=== PATIENT | male | born 1935 | race Caucasian/White ===

== ENCOUNTER 2016-12-24 12:03 | Inpatient (IN) | payer OTHER, MEDICARE ==
[~2016-12-24] VITALS: Ht 162.6 cm; Wt 75.8 kg
[~2016-12-24 12:03] MED LIST: ASPIRIN EC81 M1 PO; AUGMENTIN 500-1 EACH PO; BACTRIM DS TAB1 EACH PO; CARTIA XT120 M1 PO; COUMADIN2 M1 PO; COUMADIN3 M1 PO; COUMADIN5 M2 PO; DAILY MULTIPLE1 EACH PO; FINASTERIDE5 M1 PO; HALOPERIDOL0.5 M1 PO; ISOSORBIDE MONO60 M1 PO; LASIX40 M1 PO; LIPITOR80 M1 PO; LOPRESSOR100 M1 PO; MELATONIN3 M4 PO; METOPROLOL TART25 M1 PO; PRESERVISION A1 EACH PO; RISPERDAL0.25 M1 PO; RISPERDAL1 M1 PO; RISPERIDONE0.5 M1 PO; ROCALTROL0.25 MC1 PO; SENNA PLUS TAB1 EACH PO; SEROQUEL25 M1 PO; TRAZODONE HCL50 M1 PO; WARFARIN SODIUM3 M1 PO; ZOLOFT50 M1 PO
--- NOTE | 2016-12-24 12:17 | NUR ---
81 Y/O MALE BIBA FROM HOME FOR INCREASE AMS AND LETHARGY SINCE TODAY. PER ENS PT HAD A FAL 2 DAYS AGO AND IS ON ABT FOR UTI. PT ALSO HAS A HX OF DEMENTIA. PT ARRIVES AND IS A/O X1 TO SELF. PT HAS INDWELLING WALKER AND DENIES ANY COMPLAINTS AT PRESENT
--- NOTE | 2016-12-24 12:40 | NUR ---
PT EVALUATED BY BRIGITTE HERRING
--- NOTE | 2016-12-24 12:44 | ED GENERAL ADULT ---
History of Present Illness General Chief Complaint: Altered Mental Status Stated Complaint: BIBA AMS Source: patient, family, old records, EMS Exam Limitations: no limitations Vital Signs & Intake/Output Vital Signs & Intake/Output Vital Signs Date Time Temp Pulse Resp B/P Pulse O2 O2 Flow FiO2 Ox Delivery Rate 12/24 1654 96.7 90 18 149/76 98 Room Air 12/24 1348 98.0 124 22 120/71 96 Room Air 12/24 1222 99 Room Air 12/24 1219 96.9 94 18 135/72 99 Room Air Allergies Coded Allergies: ciprofloxacin (From CIPRO) (Mild, ITCHING 10/04/16) Triage Note: 81 Y/O MALE BIBA FROM HOME FOR INCREASE AMS AND LETHARGY SINCE TODAY. PER ENS PT HAD A FAL 2 DAYS AGO AND IS ON ABT FOR UTI. PT ALSO HAS A HX OF DEMENTIA. PT ARRIVES AND IS A/O X1 TO SELF. PT HAS INDWELLING WALKER AND DENIES ANY COMPLAINTS AT PRESENT Triage Nurses Notes Reviewed? yes Onset: Gradual Duration: week(s): (2) Timing: recent history Injury Environment: home Severity: moderate No Modifying Factors: none HPI: Patient is a 81-year-old male with history of dementia, chronically no failure presenting to the emergency department with chief complaint of malaise, feeling dehydrated, weakness Going on for the past one week. Per patient has had difficulty ambulating at home as well. There is a fall 3 days ago where patient was put into bed and fell off the bed. ON SURE OF HEAD injury. Unsure of LOC. Per they have visiting nursing, physical therapy to come to the house. Physical therapy came to us yesterday but one was unable to do any tasks as patient was extremely drowsy and lethargic. Patient is currently on Macrobid for urinary tract infection and has been on the Macrobid for the past 2 weeks. Is unsure about any fevers. Patient denying any pain at reports malaise. Denies abdominal pain. No diarrhea. No travel. No sick contacts. (NEVAEH BRIGGS,GLEN) Reconcile Medications Aspirin (Ecotrin*) 81 MG TABLET.DR 2 TAB PO DAILY HEART/BLOOD (Reported) Atorvastatin Calcium (Lipitor) 80 MG TABLET 1 TAB PO DAILY CHOLESTEROL ( Reported) Calcitriol (Rocaltrol) 0.25 MCG CAPSULE 1 CAP PO DAILY RENAL (Reported) Diltiazem HCl (Cartia Xt) 120 MG CAP.ER.24H 1 CAP PO DAILY HEART/BP (Reported ) Isosorbide Mononitrate (Isosorbide Mononitrate ER) 30 MG TAB.ER.24H 1 TAB PO DAILY HEART HEALTH (Reported) Multivitamin (Daily Multiple Vitamin) 1 EACH TABLET 1 TAB PO DAILY SUPPLEMENT (Reported) Nitrofurantoin Macrocrystal (Nitrofurantoin) 50 MG CAPSULE 1 CAP PO DAILY UTI (Reported) Polyethylene Glycol 3350 17 GRAM/DOSE POWDER 17 GM PO DAILY BOWEL REGIMEN ( Reported) Risperidone (Risperdal) 1 MG TABLET 1 TAB PO QPM AGITATION (Reported) Risperidone 0.5 MG TABLET 1 TAB PO QPM AGITATION (Reported) Sennosides/Docusate Sodium (Senna Plus Tablet) 1 EACH TABLET 2 TAB PO DAILY PRN CONSTIPATION Trazodone HCl 50 MG TABLET 1 TAB PO QPM SLEEP/AGITATION (Reported) Vit A/Vit C/Vit E/Zinc/Copper (Preservision Areds Tablet) 1 EACH TABLET 1 TAB PO BID SUPPLEMENT (Reported) Reason to Stop at ADM: NOT NEEDED Warfarin Sodium 3 MG TABLET 1 TAB PO AD BLOOD THINNER (Reported) Reason to Stop at ADM: PER DAILY INR Warfarin Sodium (Coumadin) 3 MG TABLET 1 TAB PO EOD BLD THINNER (Reported) (JONO WISE DO) Past History Travel History Traveled to [place] past 21 day No Medical History Any Pertinent Medical History? see below for history Neurological: dementia EENT: cataracts, macular degeneration, IN L EYE DETACHED RETINA Cardiovascular: AFIB, CAD, hypertension, hyperlipidemia, CARDIAC STENTS Respiratory: NONE Gastrointestinal: NONE Hepatic: NONE Renal: chronic kidney disease, PROSTATE PROBLEMS Musculoskeletal: disk herniation, osteoarthritis Psychiatric: NONE Endocrine: NONE Blood Disorders: NONE Cancer(s): prostate cancer POOL LIFEGUARD/Reproductive: NONE History of MRSA: No History of VRE: No History of CDIFF: No Surgical History Surgical History: non-contributory Psychosocial History Who do you live with Spouse What is your primary language Yi Tobacco Use: Quit >30 days ago ETOH Use: denies use Illicit Drug Use: denies illicit drug use Family History Hx Contributory? No (GLEN BANDA) Review of Systems Review of Systems Constitutional: Reports: malaise, weakness. Comments Review of systems: See HPI, All other systems negative. Constitutional, no chills fever or weight loss HEENT: No visual changes no sore throat no congestion Cardiovascular: No chest pain ,palpitation , orthopnea or ankle swelling Skin, no jaundice no rashes Respiratory: No dyspnea cough sputum or hemoptysis GI: No nausea no vomiting : No dysuria No hematuria Muscle skeletal: no back pain, no neck pain, Neurologic: No numbness Psych: No INCREASED stress anxiety or depression,. Heme/endocrine: No bruising no bleeding no polyuria or polydipsia Immunology: No splenectomy or history of AIDS (GLEN BANDA) Physical Exam Physical Exam General Appearance: no apparent distress, comfortable, lethargic, thin Comments: Well-developed well-nourished person in no acute distress HEENT: Pupils equally round and reactive to light and accommodation. Nose is atraumatic. Pharynx normal. No swelling or edema. Slightly dry oral mucosa. Neck: Supple, no lymphadenopathy Back: Nontender, no CVA tenderness. Cardiovascular: Regular rate and rhythms no murmurs rubs or gallops, normal JVP Respiratory: Chest nontender. No respiratory distress.breath sounds clear to auscultation bilaterally Abdomen: Soft, nontender nondistended, no appreciable organomegaly. Normal bowel sounds. No ascites, no rebound or guarding. : Concentrated yellow urine in the Walker catheter. Extremity: No edema, muscular strength is 3/5 in all extremities. Max assist of one to sit up in bed. Neuro: Alert oriented to self only. Cranial nerves II through XII grossly intact. Skin: No appreciable rash on exposed skin, skin is warm and dry. Psych: Mood and affect is normal, memory and judgment is normal. Core Measures ACS in differential dx? Yes CVA/TIA Diagnosis: No Severe Sepsis Present: No Septic Shock Present: No (GLEN BANDA) Progress Differential Diagnoses I considered the following diagnoses in my evaluation of the patient: Urinary tract infection, dehydration, electrolyte abnormality, intracranial hemorrhage, minor head injury, concussion, progression of dementia Plan of Care: Orders Procedure Date/time Status Heart Healthy Diet 12/25 B Active Heart Healthy Diet 12/24 D Complete Code Status 12/24 1802 Active Pathway - chart 12/24 162 Active House Staff 12/24 1626 Active Patient Data 12/24 1626 Active Code Status 12/24 1626 Complete Admit to inpatient 12/24 1621 Active Vital Signs 12/24 1621 Active Code Status 12/24 1621 Complete Patient Data 12/24 1528 Active BLOOD CULTURE 12/24 1316 Active Telemetry/[employer] Systems Engineer 12/24 1248 Active CULTURE,URINE 12/24 1248 Active URINALYSIS 12/24 1248 Complete TROPONIN LEVEL 12/24 1248 Complete PARTIAL THROMBOPLASTIN TIME 12/24 1248 Complete PROTHROMBIN TIME 12/24 1248 Complete LACTIC ACID 12/24 1248 Complete COMPREHENSIVE METABOLIC PANEL 12/24 1248 Complete CBC WITHOUT DIFFERENTIAL 12/24 1248 Complete EKG 12/24 1248 Active Intake & Output 12/24 1218 Active VTE Mechanical Prophylaxis 12/24 UNK Active PSYCHIATRIC CONSULT 12/24 UNK Active Current Medications Sig/Yanira Start time Last Medication Dose Stop Time Status Admin Atorvastatin Calcium 80 MG DAILY@1700 12/25 1700 AC (Lipitor) Aspirin Buffered 162 MG DAILY 12/25 1000 AC (Ecotrin) Calcitriol 0.25 MCG DAILY 12/25 1000 AC (Rocaltrol 0.25 Mcg Cap) Diltiazem HCl 120 MG DAILY 12/25 1000 AC (Cardizem CD) Isosorbide 30 MG DAILY 12/25 1000 AC Mononitrate (Imdur) Ceftazidime 1,000 MG Q24H 12/24 2200 AC (Fortaz) Heparin Sodium 5,000 UNIT Q8 12/24 2200 AC (Porcine) Risperidone 1 MG QPM 12/24 2200 AC (Risperidone) Risperidone 0.5 MG QPM 12/24 2200 AC (Risperidone) Trazodone HCl 50 MG QPM 12/24 2200 AC (Desyrel) Senna/Docusate Sodium 2 TAB DAILY PRN 12/24 1745 AC (Senokot S) Polyethylene Glycol 17 GM DAILY 12/24 1735 AC (Miralax) Acetaminophen 650 MG Q6P PRN 12/24 1630 AC (Tylenol) Ceftriaxone Sodium 1,000 MG ONCE ONE 12/24 1515 CAN (Rocephin) 12/24 1516 Laboratory Tests 12/24/16 1548: Lactic Acid Cancelled 12/24/16 1330: Anion Gap 11, Estimated GFR 8 L, BUN/Creatinine Ratio 8.4, Glucose 89, Lactic Acid 1.6, Calcium 10.4 H, Total Bilirubin 0.8, AST 18, ALT 32, Alkaline Phosphatase 101, Troponin I 0.02, Total Protein 6.3, Albumin 3.6, Globulin 2.7, Albumin/Globulin Ratio 1.3, PT 16.3 H, INR 1.56 H, APTT 32, CBC w Diff NO MAN DIFF REQ, RBC 4.14 L, MCV 89.8, MCH 30.0, RDW 14.9 H, MPV 7.7, Gran % 81.3 H, Lymphocytes % 9.8 L, Monocytes % 7.0, Eosinophils % 1.4, Basophils % 0.5, Absolute Granulocytes 6.1, Absolute Lymphocytes 0.7 L, Absolute Monocytes 0.5, Absolute Eosinophils 0.1, Absolute Basophils 0, PUBS MCHC 33.4 12/24/16 1307: Urinalysis LIGHT H, Urine Color YEL, Urine Clarity HAZY H, Urine pH 6.0, Ur Specific [place] >= 1.030, Urine Protein 100 H, Urine Ketones TRACE H, Urine Nitrite NEG, Urine Bilirubin NEG, Urine Urobilinogen 0.2, Ur Leukocyte Esterase LARGE H, Ur Microscopic SEDIMENT EXAMINED, Urine RBC 5-10 H, Urine WBC > 75 H , Ur Epithelial Cells RARE, Urine Crystals 1+ CA OX H, Urine Hemoglobin MOD H, Urine Glucose NEG Microbiology 12/24 1350 BLOOD: Blood Culture - RECD 12/24 1330 BLOOD: Blood Culture - RECD 12/24 1307 URINE ROUT: Urine Culture - RECD Diagnostic Imaging: Viewed by Me: CT Scan. Discussed w/RAD: CT Scan. Radiology Impression: PATIENT: TRINA VILLALOBOS PRESENT AGE: 81 PATIENT ACCOUNT NO: [id number] : 37 LOCATION: [facility] ORDERING PHYSICIAN: GLEN BRIGGS SERVICE DATE: 12/24/16-1256 EXAM TYPE: CAT - CT CERV SPINE WO IV CONTRAST; CT HEAD WO IV CONTRAST EXAMINATION: CT OF THE HEAD WITHOUT CONTRAST CT OF CERVICAL SPINE WITHOUT CONTRAST CLINICAL INFORMATION: Fall on Thursday. Question head strike. Rule out intracranial process. Poor historian. Evaluate for cervical spine fracture. COMPARISON: CT scan of the head and cervical spine dated 07/23/2016. CT scan of the head dated 07/14/2016. TECHNIQUE: Contiguous axial imaging was performed from the skull base to vertex without intravenous administration of contrast. Coronal reformations were obtained. Contiguous axial imaging was performed from the skull base to the thoracic inlet without intravenous administration of contrast. Sagittal and coronal reformations were obtained. DLP: 921.31 mGy-cm. FINDINGS: CT SCAN OF THE HEAD: There is no evidence of acute intracranial hemorrhage or territorial infarction. No abnormal mass-effect or midline shift is seen. Cornell to white matter differentiation is well preserved. No extra-axial fluid collections are identified. The ventricles and sulci are mildly enlarged, consistent with mild involutional changes, unchanged from prior studies. Diffuse periventricular deep white matter low-attenuation and low attenuation in the basal ganglia bilaterally is seen, also unchanged from prior exams, consistent with moderate ischemic small vessel disease. Calcification of the vertebral artery and the carotid siphons is seen. The patient is status post bilateral ocular lens extractions and replacements and right scleral banding. The osseous structures and soft tissues are normal. The mastoid air cells and visualized portions of the paranasal sinuses are well-aerated. CT SCAN OF THE CERVICAL SPINE: There is no evidence of acute fracture or dislocation. The craniocervical junction and atlantoaxial articulations are intact. Prevertebral soft tissues are normal in thickness. There is severe degenerative change at the atlantoaxial articulation with irregularity, erosion and sclerosis seen. There is also significant ligamentous calcification seen at the posterior aspect of the odontoid process. There is severe degenerative disc disease at C5-C6 with marked disc space narrowing, vertebral endplate sclerosis, spurring and cystic changes seen. Posterior disc osteophyte complex at this level causes mild spinal stenosis. There is mild degenerative disc disease seen at C3-C4, C4-C5, C6-C7, and C7-T1 with disc space narrowing and mild spurring seen. 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 There is advanced facet arthropathy seen in the right C4-C5 and C5-C6 facet joints and moderate facet arthropathy at the remaining right cervical facet joints. Mild facet arthropathy is seen throughout the mid and lower cervical spine on the left side. There is subcentimeter nodularity seen in the left lobe of the thyroid gland, unchanged, of doubtful clinical significance. IMPRESSION: 1. Unchanged appearance of the head with no acute intracranial pathology. 2. Findings consistent with ischemic small vessel disease. 3. Unchanged appearance of the cervical spine with no evidence of acute fracture or subluxation/dislocation. 4. Moderate to severe degenerative disc disease and facet arthropathy throughout the cervical spine as discussed above. 5. Advanced degenerative changes at the atlantoaxial articulation. CXR Impression: RESENT AGE: 81 PATIENT ACCOUNT NO: [id number] : 37 LOCATION: [facility] ORDERING PHYSICIAN: GLEN BRIGGS SERVICE DATE: 12/24/16 -7864 EXAM TYPE: RAD - XRY-PORTABLE CHEST XRAY EXAMINATION: XR PORTABLE CHEST CLINICAL INFORMATION: Acute mental status change. COMPARISON: Portable chest x- ray done 07/17/2016. TECHNIQUE: Portable AP semierect view of the chest was obtained. FINDINGS: The heart remains enlarged. The lungs are clear showing no evidence of acute pulmonary parenchymal or pleural disease. Interposition of an air-filled hepatic flexure of the colon beneath the right hemidiaphragm results in slight elevation of the diaphragm. The bony thorax is intact. IMPRESSION: Heart enlarged. No acute disease. DICTATED BY: RADHA LARIOS MD DATE/TIME DICTATED:12/24/161411 GENERAL ACCOUNTING CLERK:DEWAYNE DATE/TIME TRANSCRIBED:1411 CONFIDENTIAL, DO NOT COPY WITHOUT APPROPRIATE AUTHORIZATION. < Electronically signed in Other Vendor System> SIGNED BY: RADHA LARIOS MD 12/24/161417 Initial ED EKG: AFIB Prior EKG: unchanged Comments: On arrival patient is alert to self, reports intermittent confusion and delusions. She was also reporting increased weakness as he's had extremely hard time ambulating throughout the house safely with his walker. She reports there is a few episodes where he was felt. Patient is Max assist to sit up in bed, unable to even transfer him to vaginal bed when felt more help. We will assess CBC, CMP, urinalysis. Patient currently on Macrobid for UTI. Recent urine culture shows that its resistant to Macrobid. Family hours informed of all lab results and imaging study results. Patient does have acute on chronic renal failure. Elevated BUN suggesting dehydration. Urine shows UTI. Patient given Fortaz as he recently had Pseudomonas growing in his urine culture. Patient will be admit for IV antibiotics for UTI, altered mental status and multifactorial gait disorder. Patient will likely need rehabilitation as he is weaker compared to baseline. Patient receiving IV fluids for dehydration. does not feel safe with patient home as he almost fell several times. He was requiring more help over the past week than baseline. (GLEN BANDA) Departure Departure Time of Disposition: 1517 Disposition: STILL A PATIENT Condition: Stable Clinical Impression Primary Impression: Urinary tract infection Qualifiers: Urinary tract infection type: site unspecified Hematuria presence: without hematuria Qualified Code: N39.0 - Urinary tract infection, site not specified Secondary Impressions: Altered mental status Qualifiers: Altered mental status type: unspecified Qualified Code: R41.82 - Altered mental status, unspecified Multifactorial gait disorder Referrals: FABIÁN CASTRO,DANIELA Peacock (PCP/Family) Departure Forms: Customer Survey General Discharge Information Admission Note Spoke With: BRENDEN COLLINS MD Documentation of Exam: Documentation of any treatments & extenuating circumstances including Concerns Regarding Discharge (functional status, medication knowledge or non-compliance, living conditions, etc.) that warrant an admission rather than observation: Patient requiring IV antibiotics for urinary tract infection, urology consultation, repeat BUN and creatinine, discharge at this time would be medically harmful. Patient will also need physical therapy consultation, may need to SANKET psych consultation as well. (GLEN BANDA) PA/SUPERVISOR OF GUIDANCE AND TESTING Co-Sign Statement Statement: ED Attending supervision documentation- [X] I saw and evaluated the patient. I have also reviewed all the pertinent lab results and diagnostic results. I agree with the findings and the plan of care as documented in the PA's/SUPERVISOR OF GUIDANCE AND TESTING's documentation. [] I have reviewed the ED Record and agree with the PA's/SUPERVISOR OF GUIDANCE AND TESTING's documentation. [] Additions or exceptions (if any) to the PAs/SUPERVISOR OF GUIDANCE AND TESTING's note and plan are summarized below: [] (JONO WISE DO) Procedures Additional Procedures Additional Procedures: SWALLOW EVAL Progress: Patient able to sit clear thin liquids without choking or coughing. Patient was then given a cup of water to drink without difficulties, no coughing or choking. (GLEN BANDA) Critical Care Note Critical Care Note Critical Care Time: 30-74 min (GLEN BANDA)
--- NOTE | 2016-12-24 12:59 | NUR ---
PT LEFT FOR CAT SCAN
--- NOTE | 2016-12-24 13:10 | NUR ---
URINE SENT AND PT LEFT FOR CAT SCAN
[2016-12-24 13:52] LABS: ABSOLUTE BASOPHIL COUNT 0 /CUMM (0.0-0.2); ABSOLUTE EOSINOPHIL COUNT 0.1 /CUMM (0.0-0.7); ABSOLUTE GRANULOCYTE CT 6.1 /CUMM (1.4-6.5); ABSOLUTE LYMPH COUNT 0.7 /CUMM (1.2-3.4); ABSOLUTE MONOCYTE COUNT 0.5 /CUMM (0.10-0.60); BASOPHIL % 0.5 % (0.0-2.0); EOSINOPHIL % 1.4 % (0-5); GRANULOCYTE % 81.3 % (42.2-75.2); HEMATOCRIT 37.2 % (42-52); MEAN CORPUSCULAR HGB CONC 33.4 G/DL (33.0-37.0); MEAN CORPUSCULAR VOLUME 89.8 FL (80.0-94.0); MEAN PLATELET VOLUME 7.7 FL (7.4-10.4); PLATELET COUNT 189 /CUMM (130-400); RBC DISTRIBUTION WIDTH 14.9 % (11.5-14.5); RED BLOOD CELL CT 4.14 /CUMM (4.70-6.10); WHITE BLOOD CELL COUNT 7.5 /CUMM (4.8-10.8)
--- NOTE | 2016-12-24 13:55 | CT SCAN REPORT ---
EXAMINATION: CT OF THE HEAD WITHOUT CONTRAST CT OF CERVICAL SPINE WITHOUT CONTRAST CLINICAL INFORMATION: Fall on Thursday. Question head strike. Rule out intracranial process. Poor historian. Evaluate for cervical spine fracture. COMPARISON: CT scan of the head and cervical spine dated 07/23/2016. CT scan of the head dated 07/14/2016. TECHNIQUE: Contiguous axial imaging was performed from the skull base to vertex without intravenous administration of contrast. Coronal reformations were obtained. Contiguous axial imaging was performed from the skull base to the thoracic inlet without intravenous administration of contrast. Sagittal and coronal reformations were obtained. DLP: 921.31 mGy-cm. FINDINGS: CT SCAN OF THE HEAD: There is no evidence of acute intracranial hemorrhage or territorial infarction. No abnormal mass-effect or midline shift is seen. Cornell to white matter differentiation is well preserved. No extra-axial fluid collections are identified. The ventricles and sulci are mildly enlarged, consistent with mild involutional changes, unchanged from prior studies. Diffuse periventricular deep white matter low-attenuation and low attenuation in the basal ganglia bilaterally is seen, also unchanged from prior exams, consistent with moderate ischemic small vessel disease. Calcification of the vertebral artery and the carotid siphons is seen. The patient is status post bilateral ocular lens extractions and replacements and right scleral banding. The osseous structures and soft tissues are normal. The mastoid air cells and visualized portions of the paranasal sinuses are well-aerated. CT SCAN OF THE CERVICAL SPINE: There is no evidence of acute fracture or dislocation. The craniocervical junction and atlantoaxial articulations are intact. Prevertebral soft tissues are normal in thickness. There is severe degenerative change at the atlantoaxial articulation with irregularity, erosion and sclerosis seen. There is also significant ligamentous calcification seen at the posterior aspect of the odontoid process. There is severe degenerative disc disease at C5-C6 with marked disc space narrowing, vertebral endplate sclerosis, spurring and cystic changes seen. Posterior disc osteophyte complex at this level causes mild spinal stenosis. There is mild degenerative disc disease seen at C3-C4, C4-C5, C6-C7, and C7-T1 with disc space narrowing and mild spurring seen. 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 There is advanced facet arthropathy seen in the right C4-C5 and C5-C6 facet joints and moderate facet arthropathy at the remaining right cervical facet joints. Mild facet arthropathy is seen throughout the mid and lower cervical spine on the left side. There is subcentimeter nodularity seen in the left lobe of the thyroid gland, unchanged, of doubtful clinical significance. IMPRESSION: 1. Unchanged appearance of the head with no acute intracranial pathology. 2. Findings consistent with ischemic small vessel disease. 3. Unchanged appearance of the cervical spine with no evidence of acute fracture or subluxation/dislocation. 4. Moderate to severe degenerative disc disease and facet arthropathy throughout the cervical spine as discussed above. 5. Advanced degenerative changes at the atlantoaxial articulation.
[2016-12-24] MEDS ORDERED: ISOSORBIDE MONO30 M1 PO (14:06)
[2016-12-24] MEDS ORDERED: POLYETHYLENE G255 GM PO (14:06)
[2016-12-24] MEDS ORDERED: NITROFURANTOIN50 M1 PO (14:06)
[2016-12-24 14:09] LABS: PT 16.3 SEC (9.4-12.5); PTT 32 SEC (25-37)
--- NOTE | 2016-12-24 14:13 | NUR ---
CRITICAL TEST RESULTS [id number] TRINA VILLALOBOS 81 M TESTS AND RESULTS: CRENOA 6.7 Results received and read back by: RAMÍREZ RILEY Results received date and time: 12/24/16 1413 The following provider was notified of the results, and read the results back: BRIGITTE HERRING Notified date and time: 12/24/16 at 1413
--- NOTE | 2016-12-24 14:18 | RADIOLOGY REPORT ---
EXAMINATION: XR PORTABLE CHEST CLINICAL INFORMATION: Acute mental status change. COMPARISON: Portable chest x-ray done 07/17/2016. TECHNIQUE: Portable AP semierect view of the chest was obtained. FINDINGS: The heart remains enlarged. The lungs are clear showing no evidence of acute pulmonary parenchymal or pleural disease. Interposition of an air-filled hepatic flexure of the colon beneath the right hemidiaphragm results in slight elevation of the diaphragm. The bony thorax is intact. IMPRESSION: Heart enlarged. No acute disease.
--- NOTE | 2016-12-24 14:20 | RADIOLOGY REPORT ---
EXAMINATION: XR KNEE, LEFT CLINICAL INFORMATION: Pain after fall COMPARISON: None. TECHNIQUE: 4 views of the left knee. FINDINGS: Femoral and tibial arthroplasty components are present in the medial compartment. Articular alignment is anatomic. No acute fracture is seen. There is mild osteophytosis of the lateral and patellofemoral compartments. No significant effusion. Extensive vascular calcification is noted. IMPRESSION: No acute findings.
--- NOTE | 2016-12-24 14:49 | NUR ---
PA AT BEDSIDE TO DISCUSS POC
--- NOTE | 2016-12-24 15:25 | NUR ---
PT COMPLETED IV NS AND IV FORTAZ INFUSING
--- NOTE | 2016-12-24 15:45 | NUR ---
PT COMPLETED FORTAZ AND IV NS INFUSING ORDERED
--- NOTE | 2016-12-24 16:00 | NUR ---
PATIENT GIVEN FOOD TRAY HE STATES HE DOES NOT WANT TO EAT RIGHT NOW
--- NOTE | 2016-12-24 16:00 | NUR ---
PT NOTED SLEEPING SOUNDLY WITH NO COMPLAINTS REFUSING TO EAT AT PRESENT WILL RE EVAL AGAIN
--- NOTE | 2016-12-24 16:57 | History & Physical ---
TIAN WESTBROOK 12/24/16 6506: General Information and HPI MD Statement: I have seen and personally examined TRINA KELLY and documented this H&P. The patient is a 81 year old M who presented with a patient stated chief complaint of AMS. Source of Information: family, old records Exam Limitations: unable to give history, not alert/orientated, dementia History of Present Illness: Mr Kelly is a 81 yr old man who was known to be in his usual state of health until 4 days ago. He has a history of Dementia, Afib(on coumadin), Prostate ca, CKD stage 3, macular degeneration. He was brought to the ED w/ a chief concern of altered mental status x 3-4 days. As per the pts , who spoke to Dr. Beverly, Mr Kelly fell from his bed 2 days ago, without any injuries. He was confused at that time. Was reported to be drowsy and lethargic x 2 days, w/ decreased po intake. Has an indwelling polanco for flacid bladder(&prostate pathology), which was placed by Dr. Mansfield after a cystoscopy was performed 2 wks ago. No report of fever, or chills, no back pain, pedal edema. No chest pain, palpitations. Limited ROS history. Allergies/Medications Allergies: Coded Allergies: ciprofloxacin (From CIPRO) (Mild, ITCHING 10/04/16) Home Med list Aspirin (Ecotrin*) 81 MG TABLET.DR 2 TAB PO DAILY HEART/BLOOD (Reported) Atorvastatin Calcium (Lipitor) 80 MG TABLET 1 TAB PO DAILY CHOLESTEROL ( Reported) Calcitriol (Rocaltrol) 0.25 MCG CAPSULE 1 CAP PO DAILY RENAL (Reported) Diltiazem HCl (Cartia Xt) 120 MG CAP.ER.24H 1 CAP PO DAILY HEART/BP (Reported ) Isosorbide Mononitrate (Isosorbide Mononitrate ER) 30 MG TAB.ER.24H 1 TAB PO DAILY HEART HEALTH (Reported) Multivitamin (Daily Multiple Vitamin) 1 EACH TABLET 1 TAB PO DAILY SUPPLEMENT (Reported) Nitrofurantoin Macrocrystal (Nitrofurantoin) 50 MG CAPSULE 1 CAP PO DAILY UTI (Reported) Polyethylene Glycol 3350 17 GRAM/DOSE POWDER 17 GM PO DAILY BOWEL REGIMEN ( Reported) Risperidone (Risperdal) 1 MG TABLET 1 TAB PO QPM AGITATION (Reported) Risperidone 0.5 MG TABLET 1 TAB PO QPM AGITATION (Reported) Sennosides/Docusate Sodium (Senna Plus Tablet) 1 EACH TABLET 2 TAB PO DAILY PRN CONSTIPATION Trazodone HCl 50 MG TABLET 1 TAB PO QPM SLEEP/AGITATION (Reported) Vit A/Vit C/Vit E/Zinc/Copper (Preservision Areds Tablet) 1 EACH TABLET 1 TAB PO BID SUPPLEMENT (Reported) Reason to Stop at ADM: NOT NEEDED Warfarin Sodium 3 MG TABLET 1 TAB PO AD BLOOD THINNER (Reported) Reason to Stop at ADM: PER DAILY INR Warfarin Sodium (Coumadin) 3 MG TABLET 1 TAB PO EOD BLD THINNER (Reported) Compliance With Home Meds: GOOD Past History Travel History Traveled to [place] past 21 day No Medical History Neurological: dementia EENT: cataracts, macular degeneration, IN L EYE DETACHED RETINA Cardiovascular: AFIB, CAD, hypertension, hyperlipidemia, CARDIAC STENTS Respiratory: NONE Gastrointestinal: NONE Hepatic: NONE Renal: chronic kidney disease, PROSTATE PROBLEMS Musculoskeletal: disk herniation, osteoarthritis Psychiatric: NONE Endocrine: NONE Blood Disorders: NONE Cancer(s): prostate cancer CLARIFIER/Reproductive: NONE History of MRSA: No History of VRE: No History of CDIFF: No Surgical History Surgical History: non-contributory Past Family/Social History Family History Relations & Conditions if any Relation not specified for: *No pertinent family history Psychosocial History ETOH Use: denies use Illicit Drug Use: denies illicit drug use Review of Systems Review of Systems Constitutional: Reports: see HPI. Cardiovascular: Denies: chest pain, peripheral edema. Respiratory: Denies: cough, short of breath. GI: Denies: diarrhea, melena, vomiting. Skin: Denies: change in skin color. Exam & Diagnostic Data Last 24 Hrs of Vital Signs/I&O Vital Signs Date Time Temp Pulse Resp B/P Pulse O2 O2 Flow FiO2 Ox Delivery Rate 12/24 2045 98.3 108 18 168/98 96 Room Air 12/24 2000 97.0 114 20 167/86 98 Room Air 12/24 1654 96.7 90 18 149/76 98 Room Air 12/24 1348 98.0 124 22 120/71 96 Room Air 12/24 1222 99 Room Air 12/24 1219 96.9 94 18 135/72 99 Room Air Intake & Output 12/24 1600 12/24 0800 12/24 0000 Intake Total Output Total 60 Balance -60 Output, Urine 60 Patient 164 lb Weight Physical Exam General Appearance No Acute Distress, AAOx0 Skin No Breakdown HEENT Atraumatic, PERRLA, dry mucus membranes Neck No JVD, No thryomegaly, +2 Carotid Pulse wo Bruit Lymphatic Cervical nl Cardiovascular Normal S1, Normal S2, irregular Lungs Normal Air Movement Abdomen Normal Bowel Sounds, Soft, No Tenderness, polanco catheter in place. Neurological limited examination Extremities No Cyanosis, No Edema Assessment/Plan Assessment: He is an older man w/ a history of dementia, UTI w/ indwelling polanco catheter is being evaluated for altered mental status likely from UTI. At the time of admission, although the pt was comfortable, he was still altered w/ dry mucous membranes. Vitals indicated- T 98, HR 94, RR 18, BP 135/72, 99 RA. UA revealed ULE+, pyuria, w/ positive nitrites s/o UTI or colonization. No leucocytosis ( WBC 7.5 ), Hb 12.4, platelets 189, Normal potassium-4.2, Na 142, Bicarbonate 24, BUN 56, Sr. Cr 6.7 ( baseline 6.0), INR 1.56. Radiological findings- x ray knee revealed no fractures, CT head did not show any acute abnormalities. EKG revealed Afib HR 109. Last echo 07/07/16- LVEF 60-65%. Admission diagnosis: 1. UTI 2. Worsening dementia Below is the problem list and plan: 1. AMS- likely due to UTI w/ abnormal UA. Follow up Urine culture. Pt has been started on Ceftazidime, which is to be continued at this time. Last knowledge of sensities of microbes-pseudomonas, providentia in urine culture warrants some abx coverage at this time. UTI until proven otherwise. May have to continue to abx based upon the UC results. Can switch to PO abx, if needed. Consult ID for advice, if abx could be discontinued. Polanco catheter to be changed in the hospital. 2. Dementia- likely contributing to AMS. Avoid delirium triggers. Avoid opiates. Reorientation. Continue respirodone. Consider zyprexa if needed. Rozeram at bedtime. sitter if needed. Check TSh, free T4, vitamin B12, and RPR. 3. Afibn- continue home medications. INR is subtherapeutic, consider dosing higher dose in the am. 4. BRITTANY on CKD stage4- likely from dehydration or infection. Fluids at this time. Sr. Cr 6.7. Nephrology for advice. 4. DVT prophylaxis- coumadin. As Ranked By This Provider Problem List: 1. Altered mental status Qualifiers Altered mental status type: unspecified Qualified Code: R41.82 - Altered mental status, unspecified 2. UTI (urinary tract infection) Qualifiers Urinary tract infection type: site unspecified Hematuria presence: without hematuria Qualified Code: N39.0 - Urinary tract infection, site not specified 3. Polanco catheter problem Core Measures/Miscellaneous Acute Coronary Syndrome ACS Diagnosis: No Cerebrovascular Accident CVA/TIA Diagnosis: No Congestive Heart Failure CHF Diagnosis: No Venous Thromboembolism VTE Risk Factors: Acute medical illness, Age > 40 VTE Prophylaxis Ordered Inpt: Pharm- Warfarin No Mech VTE prophylaxis d/t: No contraindications No VTE Pharm Prophylaxis d/t: No contraindications VTE Diagnosis: No VTE Type: NONE VTE Confirmed by (Test): NONE Severe Sepsis Severe Sepsis Present: No Septic Shock Septic Shock Present: No Miscellaneous Documentation Attending Case Discussed With: BRENDEN COLLINS MD Primary Care Physician: DANIELA LOCKWOOD MD Patient sees these Specialists dr. albertina chowdhury Level of Patient Care: General Medicine JOAN BEVERLY 12/24/16 1740: General Information and HPI MD Statement: I have seen and personally examined TRINA KELLY and documented this H&P. The patient is a 81 year old M who presented with a patient stated chief complaint of []. Resident Review Statement Resident Statement: examined this patient, discussed with internet security specialist, agreed with internet security specialist Other Findings: Patient is a 81-year-old male with past medical history significant for a Shelton dementia, CKD probably between stage III and 4, retinal attachment, macular degeneration, atrial fibrillation on Cardizem and Coumadin, hypertension , hyperlipidemia, CAD status post stents, history of prostate cancer, urinary retention on indwelling Polanco's catheter and recent UTI on nitrofurantoin time he came to the emergency room with chief complaint of worsening dementia, altered mental status, drowsiness and fatigue with poor appetite for last 3-4 days. Patient was very confused and reluctant to answer most of her questions and history is taken from his on phone. According to her patient was not eating and drinking enough lately and becoming more and more lethargic. Since discharge patient was seen by Dr. Tucker and his PCP. Dr. Chowdhury saw patient almost 1/2 weeks ago and had cystoscopy done where he was found to have cystitis and was advised to start on nitrofurantoin for total of 4 weeks. Patient fell 2 days ago which was on liquids for from bed without any evidence of loss of consciousness or bleed. She denied that patient had any fever, chills, cough, palpitations, chest pain, any abdominal pain, nausea, vomiting or diarrhea. He has underlying chronic constipation. Vital signs on admission were temperature 96.9, pulse 94, respiratory rate 18, blood pressure 135/72 mmHg he saturating 99% on room air Labs on admission were to proceed count 7.5, hemoglobin 12.4, hematocrit 37.2, platelet count 189, sodium 142, potassium 4.2, P UN 56 and creatinine 6.7, calcium 10.4 and negative troponins, normal liver enzymes, urine analysis showed large leukocyte esterase, WBC count more than 75 Chest x-ray negative for any acute pathology, had CT, x-ray knee and cervical spine CT were also negative for any acute pathology EKG showed atrial fibrillation with no acute ST-T wave changes Physical examination Drowsy in not oriented to time and place Neck supple Head atraumatic Chest clear to auscultate Heart tachycardia, irregularly irregular heart rate Abdomen soft, nontender, Foleys in place with clear looking urine Lower extremity mild to moderate bilateral edema Assessment and plan 81-year-old gentleman with multiple comorbidities and chronic kidney disease apparently refusing dialysis in the past and not well up as outpatient with nephrology services came with worsening dementia, lethargy and drowsiness and found to have increased creatinine to 6.7 most likely due to uremia. We will admit patient to general medical floor and will take care for the following problems Problem 1 elevated creatinine most likely leading to altered mental status/ worsening dementia, recent history of UTI was on nitrofurantoin . -Vital signs every shift -Avoid delirium triggers and adequate bowel regimen -Nephrology consultation -IV hydration with a 5 normal saline at rate 150 mils per hour -We'll encourage oral intake -Currently patient is calm but in case of agitation we will order sitter for monitoring -Keep his oxygen saturation more than 90% -We'll continue his home medications -Blood and urine cultures were sent -Urology consultation in a.m. -Urine culture from December 03 grew Pseudomonas and Providentia sensitive to Ceftazedem, we will start him on Ceftin as for now and will request ID consultation in a.m. Problem #2 history of atrial fibrillation and warfarin was recently stopped because of elevated INR but currently his INR is subtherapeutic but as he is increased fall risk we will not dose his Coumadin today and will request cardiology evaluation in a.m. for restarting Coumadin but feel restart his aspirin. Subcutaneous heparin for DVT prophylaxis Problem #3 altered mental status with underlying dementia could be due to uremia versus UTI -Continue his home medications -aVoid delirium triggers\ -Psychiatry evaluation in a.m. Heart healthy diet patient is DNI DNR BRENDEN COLLINS MD 12/24/16 9993: Attending MD Review Statement Attending Statement Attending MD Statement: examined this patient, discuss w/resident/PA/SALES RECRUITER, agreed w/resident/PA/SALES RECRUITER, reviewed EMR data (avail), reviewed images, amended to note Attending Assessment/Plan: The patient is a 81 yo male with h/o dementia, chronic renal failure (CKD 3), atrial fibrillation (Coumadin recently stopped by PCP), and neurogenic bladder ( has chronic polanco catheter) who presented on the day of admission in the [facility] with noted change in mental status. He had a mechanical fall from bed 2 days prior with no obvious injury/head trauma. Was noted to be drowsy and with diminished po intake as per . He had undergone a cystoscopy 2 weeks prior ( Dr. Chowdhury) and had an abnormal urine. He had been started on Macrodantin therapy. Subsequent culture grew Pseudomonas & Providencia. He had no fever/ chills, abdominal pain, or nausea. Had been on Resperidone/Trazodone and it is unclear if these had been stopped. He has been swallowing without difficulty, not eating much last 2 days. Physical Exam: VS: T 96.9, P 94, R 18, BP 135/72, PO 99% HEENT: eyes- PERRLA, EOMI phuc- dry mucosa Neck: no JVD, no bruits or adenopathy Chest: clear with mild diminished breath sounds Cor: sl irreg (afib on EKG), nl rate, nl S1, S2 w/o murm Abd: BS+, soft, NT, Polanco in place Ext: no sig edema Neuro: alert, some minimal verbal responses, non-focal neuro exam (GARG, sensory intact) Labs/Tests: as above Impression/Plan: #Altered Mental Status- in patient with baseline dementia and acute changes x 2 days. This is similar to his prior admission presentation. May be multifactorial - ? progression of dementia, s/p trauma/fall (neg T head/X-rays), recent cystoscopy (?anesthesia), or possible infection (?UTI). Not clear if his psych meds had been stopped. May also be related to azotemia/uremia. Plan: Admit to medial floor. Follow mental status- may need sitter if considered fall risk. Will treat for possible UTI at present (pending Urology/ID input) As has h/o prolonged delirium will obtain psych consult in morning. #Bacteruria- patient growing Pseudomonas/Providencia. May represent colonization. Plan: Empiric Ceftaz tonight. ID evaluation in morning to determine if true UTI. #Atrial Fibrillation- HR in normal range. Concern regarding Coumadin and fall risk in this patient. Plan: Continue Metoprolol and hold Coumadin. Cardiology consult Dr. Shaikh regarding anticoagulation. #S/P Fall- CT/radiographs negative for significant injury. The patient fell out of bed. Appears relaxed at present. Plan: Nursing assessment regarding need for sitter vs bed alarm. #BRITTANY/CKD 3- patient presents with BUN/Cr increase from 50/6.2 on 11/10/16 to 56/ 6.7 today. Most likely partially due to some volume depletion with diminished po intake. The patient has previously declined [facility] ([facility] Plan: Gentle IV hydration. Follow lytes/BUN/Cr closely. Nephrology follow-up (no dialysis) #Urinary Retention- chronic indwelling polanco. Plan: Urology consult- Dr. Chowdhury. Change Polanco as per Urology recommendation. DNR/DNI per .
--- NOTE | 2016-12-24 17:10 | NUR ---
PT CONTINUES TO REST AND HOUSE STAFF EVALUATED
--- NOTE | 2016-12-24 17:46 | Admission Certification ---
Admission Certification Certification Statement - As attending physician, I certify that at the time of - admission, based on clinical presentation, severity of - symptoms, need for further diagnostic testing and - therapeutic interventions, and risk of adverse outcomes - without in-hospital treatment, in my clinical assessment, - this patient requires an acute hospital stay for a minimum - of two nights or longer. I have also considered psychsocial - factors such as support system, advanced age, financial - issues, cognitive issues, and failed out-patient treatments, - past re-admission history, safety of patient, and lack of - compliance as applicable. Specific rationale supporting this admission is: The patient presents after mechanical fall and altered mental status, BRITTANY/CKD with worsening renal failure and lethargy. Needs admission for IV hydration/ fluids, close monitoring of renal function, I/O's. Also with possible UTI with pseudomonas/providencia- needs IV antibiotics (Ceftaz). Urology, cardiology, and psych evaluations. Will hold coumadin as patient is high fall risk (was held by PCP prior to admission).
--- NOTE | 2016-12-24 18:04 | NUR ---
NS DISCONTINUED AND IV D5 NS INFUSING AND PT STILL INSISTING ON NOT EAING AND VERY AGITATED THAT WE ATTEMPTED TO ENCOURAGE HIM TO EAT AND WILL LIKE TO BE LEFT ALONE
--- NOTE | 2016-12-24 18:31 | Cons- Urology ---
General Information and HPI Consulting Request Date of Consult: 12/24/16 Requested By: BRENDEN COLLINS MD Reason for Consult: URINARY RETENTION. Source of Information: patient, old records Exam Limitations: dementia, poor historian History of Present Illness: 81 YEAR OLD WITH DEMENTIA THAT HAS BEEN PROGRESSIVELY WORSENING OVER PAST SEVERAL MONTHS. PT APPARENTLY WORSENING MENTAL STATUS AND PRESENTED TO ED. CURRENTLY PT COMFORTABLE AND COOPERATIVE, AWARE HE HAS CATHETER THAT IS NOT UNCOMFORTABLE FOR PT. Allergies/Medications Allergies: Coded Allergies: ciprofloxacin (From CIPRO) (Mild, ITCHING 10/04/16) Home Med List: Aspirin (Ecotrin*) 81 MG TABLET.DR 2 TAB PO DAILY HEART/BLOOD (Reported) Atorvastatin Calcium (Lipitor) 80 MG TABLET 1 TAB PO DAILY CHOLESTEROL ( Reported) Calcitriol (Rocaltrol) 0.25 MCG CAPSULE 1 CAP PO DAILY RENAL (Reported) Diltiazem HCl (Cartia Xt) 120 MG CAP.ER.24H 1 CAP PO DAILY HEART/BP (Reported ) Isosorbide Mononitrate (Isosorbide Mononitrate ER) 30 MG TAB.ER.24H 1 TAB PO DAILY HEART HEALTH (Reported) Multivitamin (Daily Multiple Vitamin) 1 EACH TABLET 1 TAB PO DAILY SUPPLEMENT (Reported) Nitrofurantoin Macrocrystal (Nitrofurantoin) 50 MG CAPSULE 1 CAP PO DAILY UTI (Reported) Polyethylene Glycol 3350 17 GRAM/DOSE POWDER 17 GM PO DAILY BOWEL REGIMEN ( Reported) Risperidone (Risperdal) 1 MG TABLET 1 TAB PO QPM AGITATION (Reported) Risperidone 0.5 MG TABLET 1 TAB PO QPM AGITATION (Reported) Sennosides/Docusate Sodium (Senna Plus Tablet) 1 EACH TABLET 2 TAB PO DAILY PRN CONSTIPATION Trazodone HCl 50 MG TABLET 1 TAB PO QPM SLEEP/AGITATION (Reported) Vit A/Vit C/Vit E/Zinc/Copper (Preservision Areds Tablet) 1 EACH TABLET 1 TAB PO BID SUPPLEMENT (Reported) Reason to Stop at ADM: NOT NEEDED Warfarin Sodium 3 MG TABLET 1 TAB PO AD BLOOD THINNER (Reported) Reason to Stop at ADM: PER DAILY INR Warfarin Sodium (Coumadin) 3 MG TABLET 1 TAB PO EOD BLD THINNER (Reported) Current Medications: Current Medications Sig/Yanira Start time Last Medication Dose Route Stop Time Status Admin Acetaminophen 650 MG Q6P PRN 12/24 1630 AC PO Aspirin Buffered 162 MG DAILY 12/25 1000 UNVr PO Atorvastatin Calcium 80 MG DAILY 12/25 1000 UNVr PO Calcitriol 0.25 MCG DAILY 12/25 1000 UNVr PO Ceftazidime 0 .STK-MED ONE 12/25 1524 DC .ROUTE Ceftazidime 1,000 MG Q12 12/24 2200 UNVr IV Ceftazidime 1,000 MG ONCE ONE 12/24 1530 DC 12/24 IV 12/24 1531 1528 Ceftriaxone Sodium 1,000 MG ONCE ONE 12/24 1515 CAN IV 12/24 1516 Dextrose/Sodium 1,000 ML Q6H 12/24 1745 UNVr 12/24 Chloride IV 1807 Diltiazem HCl 120 MG DAILY 12/25 1000 AC PO Heparin Sodium 5,000 UNIT Q8 12/24 2200 AC (Porcine) SC Hydromorphone HCl 1 MG Q6P PRN 12/24 1630 DC IV Isosorbide 30 MG DAILY 12/25 1000 AC Mononitrate PO Oxycodone HCl 10 MG Q6P PRN 12/24 1630 DC PO Polyethylene Glycol 17 GM DAILY 12/24 1735 AC PO Risperidone 1 MG QPM 12/24 2200 AC PO Risperidone 0.5 MG QPM 12/24 2200 AC PO Senna/Docusate Sodium 2 TAB DAILY PRN 12/24 1745 AC PO Sodium Chloride 1,000 ML ONCE ONE 12/24 1415 AC 12/24 IV 12/24 205 1416 Trazodone HCl 50 MG QPM 12/24 2200 AC PO Past History Medical History Neurological: dementia EENT: cataracts, macular degeneration, IN L EYE DETACHED RETINA Cardiovascular: AFIB, CAD, hypertension, hyperlipidemia, CARDIAC STENTS Respiratory: NONE Gastrointestinal: NONE Hepatic: NONE Renal: chronic kidney disease, PROSTATE PROBLEMS Musculoskeletal: disk herniation, osteoarthritis Psychiatric: NONE Endocrine: NONE Blood Disorders: NONE Cancer(s): prostate cancer QUALITY REVIEW TRAINER/Reproductive: NONE Surgical History Pertinent Surgical History: non-contributory Psychosocial History ETOH Use: denies use Illicit Drug Use: denies illicit drug use Employment History Retired? yes Review of Systems Review of Systems Constitutional: Reports: weakness. Denies: no symptoms. EENTM: Denies: no symptoms. Cardiovascular: Denies: no symptoms. Respiratory: Denies: no symptoms. GI: Denies: no symptoms. Genitourinary: Reports: see HPI. Musculoskeletal: Reports: muscle stiffness. Skin: Denies: no symptoms. Exam & Diagnostic Data Vital Signs and I&O Vital Signs Date Time Temp Pulse Resp B/P Pulse O2 O2 Flow FiO2 Ox Delivery Rate 12/24 1654 96.7 90 18 149/76 98 Room Air 12/24 1348 98.0 124 22 120/71 96 Room Air 12/24 1222 99 Room Air 12/24 1219 96.9 94 18 135/72 99 Room Air Intake & Output 12/24 1600 12/24 0812/24 0000 12/23 1600 12/23 0812/23 0000 Intake Total Output Total 60 Balance -60 Output, Urine 60 Patient 164 lb Weight Physical Exam General Appearance: well developed/nourished, no apparent distress Head: atraumatic Eyes: Bilateral: normal appearance. Respiratory: normal breath sounds Cardiovascular: regular rate/rhythm Gastrointestinal: normal bowel sounds, soft Rectal: VERY LARGE PROSTATE Back: no vertebral tenderness Extremities: normal inspection Reproductive: Normal male genitalia Last 24 Hours of Labs: Laboratory Tests 12/24 12/24 1548 1330 Chemistry Sodium (137 - 145 mmol/L) 142 Potassium (3.5 - 5.1 mmol/L) 4.2 Chloride (98 - 107 mmol/L) 106 Carbon Dioxide (22 - 30 mmol/L) 24 Anion Gap (5 - 16) 11 BUN (9 - 20 mg/dL) 56 H Creatinine (0.7 - 1.2 mg/dL) 6.7 *H Estimated GFR (>60 ml/min) 8 L BUN/Creatinine Ratio (7 - 25 %) 8.4 Glucose (65 - 99 mg/dL) 89 Lactic Acid (0.7 - 2.1 mmol/L) Cancelled 1.6 Calcium (8.4 - 10.2 mg/dL) 10.4 H Total Bilirubin (0.2 - 1.3 mg/dL) 0.8 AST (17 - 59 U/L) 18 ALT (21 - 72 U/L) 32 Alkaline Phosphatase (< 127 U/L) 101 Troponin I (<0.11 ng/ml) 0.02 Total Protein (6.3 - 8.2 g/dL) 6.3 Albumin (3.5 - 5.0 g/dL) 3.6 Globulin (1.9 - 4.2 gm/dL) 2.7 Albumin/Globulin Ratio (1.1 - 2.2 %) 1.3 Coagulation PT (9.4 - 12.5 SEC) 16.3 H INR (0.90 - 1.17) 1.56 H APTT (25 - 37 SEC) 32 Hematology CBC w Diff NO MAN DIFF REQ WBC (4.8 - 10.8 /CUMM) 7.5 RBC (4.70 - 6.10 /CUMM) 4.14 L Hgb (14.0 - 18.0 G/DL) 12.4 L Hct (42 - 52 %) 37.2 L MCV (80.0 - 94.0 FL) 89.8 MCH (27.0 - 31.0 PG) 30.0 RDW (11.5 - 14.5 %) 14.9 H Plt Count (130 - 400 /CUMM) 189 MPV (7.4 - 10.4 FL) 7.7 Gran % (42.2 - 75.2 %) 81.3 H Lymphocytes % (20.5 - 51.1 %) 9.8 L Monocytes % (1.7 - 9.3 %) 7.0 Eosinophils % (0 - 5 %) 1.4 Basophils % (0.0 - 2.0 %) 0.5 Absolute Granulocytes (1.4 - 6.5 /CUMM) 6.1 Absolute Lymphocytes (1.2 - 3.4 /CUMM) 0.7 L Absolute Monocytes (0.10 - 0.60 /CUMM) 0.5 Absolute Eosinophils (0.0 - 0.7 /CUMM) 0.1 Absolute Basophils (0.0 - 0.2 /CUMM) 0 PUBS MCHC (33.0 - 37.0 G/DL) 33.4 12/24 1307 Urines Urinalysis LIGHT H Urine Color (YEL,AMB,STR) YEL Urine Clarity (CLEAR) HAZY H Urine pH (5.0 - 8.0) 6.0 Ur Specific [place] (1.001 - 1.035) >= 1.030 Urine Protein (NEG,<30 MG/DL) 100 H Urine Ketones (NEG) TRACE H Urine Nitrite (NEG) NEG Urine Bilirubin (NEG) NEG Urine Urobilinogen (0.1 - 1.0 EU/dl) 0.2 Ur Leukocyte Esterase (NEG) LARGE H Ur Microscopic SEDIMENT EXAMINED Urine RBC (0 - 5 /HPF) 5-10 H Urine WBC (0 - 2 /HPF) > 75 H Ur Epithelial Cells (NONE,FEW) RARE Urine Crystals 1+ CA OX H Urine Hemoglobin (NEG) MOD H Urine Glucose (N MG/DL) NEG Assessment/Plan Assessment/Plan 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 PT WITH RETENTION DESPITE WIDE-OPEN TURP. DUE FOR CHANGE OF WALKER IN 2 WEEKS. U/O CLEAR YELLOW AND ADEQUATE CURRENTLY. Copies To: MERLENE CASTRO,ROHIT Consult Acknowledgment - Thank you for your consult request. Attending MD Review Statement Attending Statement Attending MD Statement: examined this patient Attending Assessment/Plan: PT WITH URINARY RETENTION DESPITE OPEN PROSTATE DUE TO NEUROGENIC FLACCID BLADDER. WALKER CHANGED 2 WEEKS AGO. PRESENTS WITH ALTERED MS-HOWEVER, APPEARS TO BE BASELINE FOR ME. PT WITHOUT COMPLAINT. WOULD RECOMMEND RENAL US THIS VISIT, AND CHANGE WALKER THIS VISIT.
--- NOTE | 2016-12-24 18:34 | NUR ---
BED ASSIGNMENT 215-02
--- NOTE | 2016-12-24 18:42 | NUR ---
MD BLUNT REPLACED PT'S WALKER AND NOTED STILL DRAINING
--- NOTE | 2016-12-24 19:18 | NUR ---
PT LEFT AND BACK FROM [facility]
--- NOTE | 2016-12-24 19:46 | NUR ---
CALLED AND SPOKE TO NURSE AND SHE IS IN THE MIDDLE OF GETTING REPORT AND WILL CALL ME BACK
--- NOTE | 2016-12-24 20:06 | NUR ---
NURSE ALINE CALLED AND REPORT GIVEN AND TRANSPORT CALLED TOO
[2016-12-24 20:46] VITALS: BP 168/98
--- NOTE | 2016-12-24 21:00 | NUR ---
PT ELEVATED B/P AND H/R. CONFUSED, ORIENTED TO SELF ONLY. WALKER REPLACED IN ED, HEMATURIA, FLUSHED. WILL CONTINUE TO MONITOR THIS SHIFT
--- NOTE | 2016-12-24 22:00 | ULTRASOUND REPORT ---
EXAMINATION: US RETROPERITONEAL COMPLETE (RENAL) CLINICAL INFORMATION: Urinary retention secondary to prostatic enlargement.. COMPARISON: Ultrasound 09/16/2016. TECHNIQUE: Real-time imaging of the kidneys and bladder. FINDINGS: RIGHT KIDNEY: 7.1 x 3.8 x 3.9 cm (SAG x AP x TRV). The kidney is small and atrophic, with thinned renal cortices. There is no hydronephrosis. There is a 1.0 x 0.8 x 0.8 cm renal cyst. No echogenic calculi are demonstrated. LEFT KIDNEY: 8.0 x 4.7 x 3.7 cm (SAG x AP x TRV). The kidney is small and atrophic with thinned renal cortices. There are no echogenic calculi or focal parenchymal lesions. There is no hydronephrosis. BLADDER: The bladder is empty (Castillo catheter in place). The ureteral jets were not demonstrated on either side. IMPRESSION: 1. Both kidneys are relatively atrophic, consistent with chronic medical renal disease. 2. There is no hydronephrosis and there are no echogenic renal calculi. 3. A Castillo catheter is in position in the bladder, which is completely decompressed.
--- NOTE | 2016-12-24 22:30 | NUR ---
PT ACCEPTED PO MEDICATION WITH SIPS OF H2O. FEW MINUTES LATER, HANDED ME TWO OF THE THREE PILLS. UNABLE TO IDENTIFY AT THAT POINT. THEN ACCUSED HIS OF "LYING ALOT" CONCERNIG HIS MEDICATIONS. NOTIFIED .
[2016-12-25 00:34] VITALS: BP 140/82
--- NOTE | 2016-12-25 00:50 | NUR ---
PT ATTEMPTED TO GET OOB x 2. DID NOT KNOW WHERE HE WAS, ASKING FOR HIS . PT AGITATED AND BEING AGGRESSIVE. THEN CALMED DOWN. NOTIFIED AND SITTER ORDERED.
--- NOTE | 2016-12-25 03:46 | NUR ---
PT HAS BEEN SLEEPING SINCE SITTER ORDERED, HAVE NOT PLACED IN BILATERAL SOFT WRIST RESTRAINTS OF NOW.
--- NOTE | 2016-12-25 06:00 | PN- Housestaff ---
TIAN WESTBROOK 12/25/16 0600: Subjective Follow-up For: 1. altered mental status Subjective: The patient was comfortable this morning. Alert, but not oriented to time place or person. Vitals were stable overnight. Sitter in place for delirium more night. Review of Systems Constitutional: Reports: see HPI. Objective Last 24 Hrs of Vital Signs/I&O Vital Signs Date Time Temp Pulse Resp B/P Pulse O2 O2 Flow FiO2 Ox Delivery Rate 12/25 0034 98.1 110 20 140/82 93 12/24 2046 98.3 108 18 168/98 96 Room Air 12/24 2001 97.0 114 20 167/86 98 Room Air 12/24 1654 96.7 90 18 149/76 98 Room Air 12/24 1348 98.0 124 22 120/71 96 Room Air 12/24 1222 99 Room Air 12/24 1219 96.9 94 18 135/72 99 Room Air Intake & Output 12/25 0800 12/25 0000 12/24 1600 Intake Total Output Total 100 60 Balance -100 -60 Output, Urine 100 60 Patient 167 lb 164 lb Weight Physical Exam General Appearance: No Acute Distress Other Physical Findings: General Exam: AAOx0, No acute distress, Skin: No rashes, no breakdown HEENT: PERRLA, EOMI Neck: Supple, No JVD No cervical lymphadenopathy CVS: Reg Rate, Normal S1,S2, No MGR Resp: Normal air entry, no ronchi/rales Abdomen: Soft, No tenderness, Normal Bowel Sounds, folic catheter in place, no hematuria. Neuro: Normal Speech, Strength 5/5 b/l x 4 extremities, Sensation intact, CN III -XII NL, Reflexes 2+ Extremities: No cyanosis, pedal edema Current Medications: Current Medications Sig/Yanira Start time Last Medication Dose Route Stop Time Status Admin Acetaminophen 650 MG Q6P PRN 12/24 1630 AC PO Amlodipine Besylate 5 MG ONCE ONE 12/24 2315 CAN PO 12/24 2316 Aspirin Buffered 162 MG DAILY 12/25 1000 AC PO Atorvastatin Calcium 80 MG DAILY@1700 12/25 1700 AC PO Calcitriol 0.25 MCG DAILY 12/25 1000 AC PO Ceftazidime 0 .STK-MED ONE 12/25 1524 DC .ROUTE Ceftazidime 1,000 MG Q24H 12/24 2200 AC 12/24 IV 2138 Ceftazidime 1,000 MG ONCE ONE 12/24 1530 DC 12/24 IV 12/24 1531 1528 Ceftriaxone Sodium 1,000 MG ONCE ONE 12/24 1515 CAN IV 12/24 1516 Dextrose/Sodium 1,000 ML Q6H 12/24 1745 AC 12/25 Chloride IV 0259 Diltiazem HCl 120 MG DAILY 12/25 1000 AC PO Heparin Sodium 5,000 UNIT Q8 12/24 2200 AC 12/25 (Porcine) SC 0536 Hydromorphone HCl 1 MG Q6P PRN 12/24 1630 DC IV Isosorbide 30 MG DAILY 12/25 1000 AC Mononitrate PO Oxycodone HCl 10 MG Q6P PRN 12/24 1630 DC PO Polyethylene Glycol 17 GM DAILY 12/24 1735 AC PO Risperidone 1 MG QPM 12/24 2200 AC 12/24 PO 2139 Risperidone 0.5 MG QPM 12/24 2200 AC 12/24 PO 2139 Senna/Docusate Sodium 2 TAB DAILY PRN 12/24 1745 AC PO Sodium Chloride 1,000 ML ONCE ONE 12/24 1415 DC 12/24 IV 12/24 2053 1416 Trazodone HCl 50 MG QPM 12/24 220 AC 12/24 PO 2139 Last 24 Hrs of Lab/Sammy Results Last 24 Hrs of Labs/Mics: Laboratory Tests 12/24/16 2323: Lactic Acid Cancelled 12/24/16 1548: Lactic Acid Cancelled 12/24/16 1330: Anion Gap 11, Estimated GFR 8 L, BUN/Creatinine Ratio 8.4, Glucose 89, Lactic Acid 1.6, Calcium 10.4 H, Total Bilirubin 0.8, AST 18, ALT 32, Alkaline Phosphatase 101, Troponin I 0.02, Total Protein 6.3, Albumin 3.6, Globulin 2.7, Albumin/Globulin Ratio 1.3, PT 16.3 H, INR 1.56 H, APTT 32, CBC w Diff NO MAN DIFF REQ, RBC 4.14 L, MCV 89.8, MCH 30.0, RDW 14.9 H, MPV 7.7, Gran % 81.3 H, Lymphocytes % 9.8 L, Monocytes % 7.0, Eosinophils % 1.4, Basophils % 0.5, Absolute Granulocytes 6.1, Absolute Lymphocytes 0.7 L, Absolute Monocytes 0.5, Absolute Eosinophils 0.1, Absolute Basophils 0, PUBS MCHC 33.4 12/24/16 1307: Urinalysis LIGHT H, Urine Color YEL, Urine Clarity HAZY H, Urine pH 6.0, Ur Specific [place] >= 1.030, Urine Protein 100 H, Urine Ketones TRACE H, Urine Nitrite NEG, Urine Bilirubin NEG, Urine Urobilinogen 0.2, Ur Leukocyte Esterase LARGE H, Ur Microscopic SEDIMENT EXAMINED, Urine RBC 5-10 H, Urine WBC > 75 H , Ur Epithelial Cells RARE, Urine Crystals 1+ CA OX H, Urine Hemoglobin MOD H, Urine Glucose NEG Microbiology 12/24 1350 BLOOD: Blood Culture - RECD 12/24 1330 BLOOD: Blood Culture - RECD 12/24 1307 URINE ROUT: Urine Culture - RECD Assessment/Plan Assessment: He is an older man w/ a history of dementia, UTI w/ indwelling polanco catheter is being evaluated for altered mental status likely from UTI. At the time of admission, although the pt was comfortable, he was still altered w/ dry mucous membranes. Vitals indicated- T 98, HR 94, RR 18, BP 135/72, 99 RA. UA revealed ULE+, pyuria, w/ positive nitrites s/o UTI or colonization. No leucocytosis ( WBC 7.5 ), Hb 12.4, platelets 189, Normal potassium-4.2, Na 142, Bicarbonate 24, BUN 56, Sr. Cr 6.7 ( baseline 6.0), INR 1.56. Radiological findings- x ray knee revealed no fractures, CT head did not show any acute abnormalities. EKG revealed Afib HR 109. Last echo 07/07/16- LVEF 60-65%. Admission diagnosis: 1. UTI 2. Worsening dementia Below is the problem list and plan: 1. AMS- likely due to ? UTI w/ abnormal UA. Urinalysis revealed growth of gram -negative rods. Patient was started on Ceptaz again, with prior knowledge of microbiological growth of Pseudomonas and probably dementia. At this time, discontinue antibiotics. Wilfredo Astudillo MD advising. Currently on Polanco catheter, could be changed to a suprapubic catheter or straight cath protocol if needed. Defer the decision to urologist at this time. No leukocytosis. 2. Dementia- likely contributing to AMS. Avoid delirium triggers. Avoid opiates. Reorientation. Continue respirodone. Consider zyprexa if needed. Rozeram at bedtime. sitter if needed. Reversible dementia workup to be done. 3. Afibn- continue home medications, except anticoagulation. #4 acute on chronic CK D-patient has a history of CK D; serum creatinine 6.7--> 6.2. Continue D5 normal saline at 100. Dr. Cleveland advising. Reevaluate in the a.m. As per Dr. Arron Cleveland, the patient could not be a good dialysis candidate at this time. 4. DVT prophylaxis-heparin subcutaneous Problem List: 1. Altered mental status 2. UTI (urinary tract infection) Pain Ratin Pain Location: None Pain Goal: Pain 4 or less Pain Plan: Tylenol when necessary Tomorrow's Labs & Rationales: BEP-to monitor first serum creatinine. DVT/Prophylaxis: pharmacological Consulting Request: Consulting Specialty: Urology CHADWICK SILVESTRE MD 12/25/16 1549: Attending MD Review Statement Attending Statement Attending MD Statement: examined this patient, discuss w/resident/PA/CHARTER COORDINATOR, agreed w/resident/PA/CHARTER COORDINATOR, reviewed EMR data (avail) Attending Assessment/Plan: Likely progressively worsening dementia, no indication of infection or UTI at this time. Will follow urology, ID, nephrology, and psychiatry recommendations. Pending further evaluation may be discharged tomorrow or Thursday.
--- NOTE | 2016-12-25 06:47 | NUR ---
PT BILATERAL SOFT WRIST RESTRAINTS ARE STILL IN PLACE. POSITIVE PULSES, SITTER AT THE BEDSIDE.
[2016-12-25 07:55] VITALS: BP 144/84
[2016-12-25 09:07] LABS: PT 17.6 SEC (9.4-12.5)
[2016-12-25 09:27] LABS: ABSOLUTE BASOPHIL COUNT 0 /CUMM (0.0-0.2); ABSOLUTE LYMPH COUNT 0.7 /CUMM (1.2-3.4); ABSOLUTE MONOCYTE COUNT 0.5 /CUMM (0.10-0.60); RBC DISTRIBUTION WIDTH 14.3 % (11.5-14.5)
[2016-12-25 09:32] LABS: ABSOLUTE EOSINOPHIL COUNT 0.2 /CUMM (0.0-0.7); BASOPHIL % 0.7 % (0.0-2.0); MEAN CORPUSCULAR HGB 29.8 PG (27.0-31.0); MEAN CORPUSCULAR HGB CONC 33.6 G/DL (33.0-37.0); MEAN CORPUSCULAR VOLUME 88.8 FL (80.0-94.0); MEAN PLATELET VOLUME 7.8 FL (7.4-10.4); PLATELET COUNT 161 /CUMM (130-400); RED BLOOD CELL CT 3.55 /CUMM (4.70-6.10); WHITE BLOOD CELL COUNT 5.4 /CUMM (4.8-10.8)
[2016-12-25 09:35] LABS: HEMATOCRIT 31.5 % (42-52)
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
--- NOTE | 2016-12-25 12:00 | PN- Urology ---
Surgical Brief Attending Note Brief Attending Note: No change in MS. VSS afeb. U/o adequate: creatinine improving with hydration. PATIENT: TRINA VILLALOBOS PRESENT AGE: 81 PATIENT ACCOUNT NO: [id number] : 37 LOCATION: 2NB ORDERING PHYSICIAN: TIAN WESTBROOK MD SERVICE DATE: 12/24/16- EXAM TYPE: US - US-RENAL/KIDNEY EXAMINATION: US RETROPERITONEAL COMPLETE (RENAL) CLINICAL INFORMATION: Urinary retention secondary to prostatic enlargement.. COMPARISON: Ultrasound 09/16/2016. TECHNIQUE: Real-time imaging of the kidneys and bladder. FINDINGS: RIGHT KIDNEY: 7.1 x 3.8 x 3.9 cm (SAG x AP x TRV). The kidney is small and atrophic, with thinned renal cortices. There is no hydronephrosis. There is a 1.0 x 0.8 x 0.8 cm renal cyst. No echogenic calculi are demonstrated. LEFT KIDNEY: 8.0 x 4.7 x 3.7 cm (SAG x AP x TRV). The kidney is small and atrophic with thinned renal cortices. There are no echogenic calculi or focal parenchymal lesions. There is no hydronephrosis. BLADDER: The bladder is empty (Castillo catheter in place). The ureteral jets were not demonstrated on either side. IMPRESSION: 1. Both kidneys are relatively atrophic, consistent with chronic medical renal disease. 2. There is no hydronephrosis and there are no echogenic renal calculi. 3. A Castillo catheter is in position in the bladder, which is completely decompressed. Continue current medical plan.
--- NOTE | 2016-12-25 12:57 | Cons- Cardiology ---
General Information and HPI Consulting Request Date of Consult: 12/25/16 Requested By: EDGARDO SILVESTRE MD Reason for Consult: Atrial fibrillation; mental status changes Source of Information: old records Exam Limitations: confusion History of Present Illness: The patient is a 81-year-old male who is well-known to me. He has a history of prior dementia, worsening, atrial fibrillation on anticoagulant therapy, prostate cancer and stage III chronic renal insufficiency. The patient was admitted to the hospital via the emergency room with altered mental status over the last 3-4 days. I was asked see the patient with for assistance with management of his underlying cardiac issues. The patient is awake but confused. He offers no significant history. Allergies/Medications Allergies: Coded Allergies: ciprofloxacin (From CIPRO) (Mild, ITCHING 10/04/16) Home Med List: Aspirin (Ecotrin*) 81 MG TABLET.DR 2 TAB PO DAILY HEART/BLOOD (Reported) Atorvastatin Calcium (Lipitor) 80 MG TABLET 1 TAB PO DAILY CHOLESTEROL ( Reported) Calcitriol (Rocaltrol) 0.25 MCG CAPSULE 1 CAP PO DAILY RENAL (Reported) Diltiazem HCl (Cartia Xt) 120 MG CAP.ER.24H 1 CAP PO DAILY HEART/BP (Reported ) Isosorbide Mononitrate (Isosorbide Mononitrate ER) 30 MG TAB.ER.24H 1 TAB PO DAILY HEART HEALTH (Reported) Multivitamin (Daily Multiple Vitamin) 1 EACH TABLET 1 TAB PO DAILY SUPPLEMENT (Reported) Nitrofurantoin Macrocrystal (Nitrofurantoin) 50 MG CAPSULE 1 CAP PO DAILY UTI (Reported) Polyethylene Glycol 3350 17 GRAM/DOSE POWDER 17 GM PO DAILY BOWEL REGIMEN ( Reported) Risperidone (Risperdal) 1 MG TABLET 1 TAB PO QPM AGITATION (Reported) Risperidone 0.5 MG TABLET 1 TAB PO QPM AGITATION (Reported) Sennosides/Docusate Sodium (Senna Plus Tablet) 1 EACH TABLET 2 TAB PO DAILY PRN CONSTIPATION Trazodone HCl 50 MG TABLET 1 TAB PO QPM SLEEP/AGITATION (Reported) Vit A/Vit C/Vit E/Zinc/Copper (Preservision Areds Tablet) 1 EACH TABLET 1 TAB PO BID SUPPLEMENT (Reported) Reason to Stop at ADM: NOT NEEDED Warfarin Sodium 3 MG TABLET 1 TAB PO AD BLOOD THINNER (Reported) Reason to Stop at ADM: PER DAILY INR Warfarin Sodium (Coumadin) 3 MG TABLET 1 TAB PO EOD BLD THINNER (Reported) Current Medications: Current Medications Sig/Yanira Start time Last Medication Dose Route Stop Time Status Admin Acetaminophen 650 MG Q6P PRN 12/24 1630 AC PO Amlodipine Besylate 5 MG ONCE ONE 12/24 2315 CAN PO 12/24 2316 Aspirin Buffered 162 MG DAILY 12/25 1000 AC 12/25 PO 1009 Atorvastatin Calcium 80 MG DAILY@1700 12/25 1700 AC PO Calcitriol 0.25 MCG DAILY 12/25 1000 AC 12/25 PO 1009 Ceftazidime 0 .STK-MED ONE 12/25 1524 DC .ROUTE Ceftazidime 1,000 MG Q24H 12/24 2200 AC 12/24 IV 2138 Ceftazidime 1,000 MG ONCE ONE 12/24 1530 DC 12/24 IV 12/24 1531 1528 Ceftriaxone Sodium 1,000 MG ONCE ONE 12/24 1515 CAN IV 12/24 1516 Dextrose/Sodium 1,000 ML Q6H 12/24 1745 AC 12/25 Chloride IV 1009 Diltiazem HCl 120 MG DAILY 12/25 1000 AC 12/25 PO 1009 Heparin Sodium 5,000 UNIT Q8 12/24 2200 AC 12/25 (Porcine) SC 0536 Hydromorphone HCl 1 MG Q6P PRN 12/24 1630 DC IV Isosorbide 30 MG DAILY 12/25 1000 AC 12/25 Mononitrate PO 1009 Oxycodone HCl 10 MG Q6P PRN 12/24 1630 DC PO Polyethylene Glycol 17 GM DAILY 12/24 1735 AC 12/25 PO 1009 Risperidone 1 MG QPM 12/24 2200 AC 12/24 PO 2139 Risperidone 0.5 MG QPM 12/24 2200 AC 12/24 PO 2139 Senna/Docusate Sodium 2 TAB DAILY PRN 12/24 1745 AC PO Sodium Chloride 1,000 ML ONCE ONE 12/24 1415 DC 12/24 IV 12/24 205 1416 Trazodone HCl 50 MG QPM 12/24 2200 AC 12/24 PO 2139 Past History Travel History Traveled to [place] past 21 day No Medical History Neurological: dementia EENT: cataracts, macular degeneration, IN L EYE DETACHED RETINA Cardiovascular: AFIB, CAD, hypertension, hyperlipidemia, CARDIAC STENTS Respiratory: NONE Gastrointestinal: NONE Hepatic: NONE Renal: chronic kidney disease, PROSTATE PROBLEMS Musculoskeletal: disk herniation, osteoarthritis Psychiatric: NONE Endocrine: NONE Blood Disorders: NONE 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 Surgical History Surgical History: non-contributory Family History Relations & Conditions If Any: Relation not specified for: *No pertinent family history Psychosocial History Smoking Status: Unknown If Ever Smoked ETOH Use: denies use Illicit Drug Use: denies illicit drug use Exam & Diagnostic Data Vital Signs and I&O Vital Signs Date Time Temp Pulse Resp B/P Pulse O2 O2 Flow FiO2 Ox Delivery Rate 12/25 1009 144/84 12/25 0755 97.5 68 20 144/84 98 Room Air 12/25 0034 98.1 110 20 140/82 93 12/24 2046 98.3 108 18 168/98 96 Room Air 12/24 2001 97.0 114 20 167/86 98 Room Air 12/24 1654 96.7 90 18 149/76 98 Room Air 12/24 1348 98.0 124 22 120/71 96 Room Air Intake & Output 12/25 1600 12/25 0800 12/25 0000 12/24 1600 12/24 0800 12/24 0000 Intake Total 1320 Output Total 475 100 60 Balance 845 -100 -60 Intake, IV 1200 Intake, Oral 120 Output, Urine 475 100 60 Patient 167 lb 164 lb Weight Physical Exam: General Appearance No Acute Distress, AAOx0 Skin No Breakdown HEENT Atraumatic, PERRLA, dry mucus membranes Neck No JVD, No thryomegaly, +2 Carotid Pulse wo Bruit Lymphatic Cervical nl Cardiovascular irregular S1, S2; 1 to 2/6 systolic murmur left sternal border Lungs Normal Air Movement Abdomen Normal Bowel Sounds, Soft, No Tenderness, polanco catheter in place. Neurological limited examination Extremities No Cyanosis, No Edema Labs/Sammy Results: Laboratory Tests 12/25 12/24 12/24 0730 2323 1548 Chemistry Sodium (137 - 145 mmol/L) 143 Potassium (3.5 - 5.1 mmol/L) 3.5 Chloride (98 - 107 mmol/L) 114 H Carbon Dioxide (22 - 30 mmol/L) 22 Anion Gap (5 - 16) 7 BUN (9 - 20 mg/dL) 48 H Creatinine (0.7 - 1.2 mg/dL) 6.0 *H Estimated GFR (>60 ml/min) 9 L BUN/Creatinine Ratio (7 - 25 %) 8.0 Lactic Acid Cancelled Cancelled Vitamin B12 (239 - 931 pg/mL) 919 TSH (0.270 - 4.200 uIU/mL) 1.580 Free T4 (0.78 - 2.44 ng/dL) 1.33 Coagulation PT (9.4 - 12.5 SEC) 17.6 H INR (0.90 - 1.17) 1.68 H Hematology CBC w Diff NO MAN DIFF REQ WBC (4.8 - 10.8 /CUMM) 5.4 RBC (4.70 - 6.10 /CUMM) 3.55 L Hgb (14.0 - 18.0 G/DL) 10.6 L Hct (42 - 52 %) 31.5 L MCV (80.0 - 94.0 FL) 88.8 MCH (27.0 - 31.0 PG) 29.8 RDW (11.5 - 14.5 %) 14.3 Plt Count (130 - 400 /CUMM) 161 MPV (7.4 - 10.4 FL) 7.8 Gran % (42.2 - 75.2 %) 75.0 Lymphocytes % (20.5 - 51.1 %) 12.9 L Monocytes % (1.7 - 9.3 %) 8.4 Eosinophils % (0 - 5 %) 3.0 Basophils % (0.0 - 2.0 %) 0.7 Absolute Granulocytes (1.4 - 6.5 /CUMM) 4.0 Absolute Lymphocytes (1.2 - 3.4 /CUMM) 0.7 L Absolute Monocytes (0.10 - 0.60 /CUMM) 0.5 Absolute Eosinophils (0.0 - 0.7 /CUMM) 0.2 Absolute Basophils (0.0 - 0.2 /CUMM) 0 PUBS MCHC (33.0 - 37.0 G/DL) 33.6 12/24 12/24 1330 1307 Chemistry Sodium (137 - 145 mmol/L) 142 Potassium (3.5 - 5.1 mmol/L) 4.2 Chloride (98 - 107 mmol/L) 106 Carbon Dioxide (22 - 30 mmol/L) 24 Anion Gap (5 - 16) 11 BUN (9 - 20 mg/dL) 56 H Creatinine (0.7 - 1.2 mg/dL) 6.7 *H Estimated GFR (>60 ml/min) 8 L BUN/Creatinine Ratio (7 - 25 %) 8.4 Glucose (65 - 99 mg/dL) 89 Lactic Acid (0.7 - 2.1 mmol/L) 1.6 Calcium (8.4 - 10.2 mg/dL) 10.4 H Total Bilirubin (0.2 - 1.3 mg/dL) 0.8 AST (17 - 59 U/L) 18 ALT (21 - 72 U/L) 32 Alkaline Phosphatase (< 127 U/L) 101 Troponin I (<0.11 ng/ml) 0.02 Total Protein (6.3 - 8.2 g/dL) 6.3 Albumin (3.5 - 5.0 g/dL) 3.6 Globulin (1.9 - 4.2 gm/dL) 2.7 Albumin/Globulin Ratio (1.1 - 2.2 %) 1.3 Coagulation PT (9.4 - 12.5 SEC) 16.3 H INR (0.90 - 1.17) 1.56 H APTT (25 - 37 SEC) 32 Hematology CBC w Diff NO MAN DIFF REQ WBC (4.8 - 10.8 /CUMM) 7.5 RBC (4.70 - 6.10 /CUMM) 4.14 L Hgb (14.0 - 18.0 G/DL) 12.4 L Hct (42 - 52 %) 37.2 L MCV (80.0 - 94.0 FL) 89.8 MCH (27.0 - 31.0 PG) 30.0 RDW (11.5 - 14.5 %) 14.9 H Plt Count (130 - 400 /CUMM) 189 MPV (7.4 - 10.4 FL) 7.7 Gran % (42.2 - 75.2 %) 81.3 H Lymphocytes % (20.5 - 51.1 %) 9.8 L Monocytes % (1.7 - 9.3 %) 7.0 Eosinophils % (0 - 5 %) 1.4 Basophils % (0.0 - 2.0 %) 0.5 Absolute Granulocytes (1.4 - 6.5 /CUMM) 6.1 Absolute Lymphocytes (1.2 - 3.4 /CUMM) 0.7 L Absolute Monocytes (0.10 - 0.60 /CUMM) 0.5 Absolute Eosinophils (0.0 - 0.7 /CUMM) 0.1 Absolute Basophils (0.0 - 0.2 /CUMM) 0 PUBS MCHC (33.0 - 37.0 G/DL) 33.4 Urines Urinalysis LIGHT H Urine Color (YEL,AMB,STR) YEL Urine Clarity (CLEAR) HAZY H Urine pH (5.0 - 8.0) 6.0 Ur Specific [place] (1.001 - 1.035) >= 1.030 Urine Protein (NEG,<30 MG/DL) 100 H Urine Ketones (NEG) TRACE H Urine Nitrite (NEG) NEG Urine Bilirubin (NEG) NEG Urine Urobilinogen (0.1 - 1.0 EU/dl) 0.2 Ur Leukocyte Esterase (NEG) LARGE H Ur Microscopic SEDIMENT EXAMINED Urine RBC (0 - 5 /HPF) 5-10 H Urine WBC (0 - 2 /HPF) > 75 H Ur Epithelial Cells (NONE,FEW) RARE Urine Crystals 1+ CA OX H Urine Hemoglobin (NEG) MOD H Urine Glucose (N MG/DL) NEG Diagnostic Data CXR Results FINDINGS: The heart remains enlarged. The lungs are clear showing no evidence of acute pulmonary parenchymal or pleural disease. Interposition of an air-filled hepatic flexure of the colon beneath the right hemidiaphragm results in slight elevation of the diaphragm. The bony thorax is intact. IMPRESSION: Heart enlarged. No acute disease. Other Results Head CT: IMPRESSION: 1. Unchanged appearance of the head with no acute intracranial pathology. 2. Findings consistent with ischemic small vessel disease. 3. Unchanged appearance of the cervical spine with no evidence of acute fracture or subluxation/dislocation. 4. Moderate to severe degenerative disc disease and facet arthropathy throughout the cervical spine as discussed above. 5. Advanced degenerative changes at the atlantoaxial articulation. Assessment/Plan Assessment/Plan assessment: 1. Atrial fibrillation-chronic 2. Status post fall 3. Mental status changes 4. Chronic renal insufficiency 5. History of prostate cancer 6. Aggressive dementia Recommendations: -For now I would continue current medications pending further discussion about the risk / benefit of intermediate card tender anticoagulation. -It is well documented that falls, in excess of 200 per year, would be necessary to outweigh the benefit of AC in AF patients. -Further discussions about the patient's penitentiary prognosis from a dementia standpoint might alter this decision Consult Acknowledgment - Thank you for your consult request.
--- NOTE | 2016-12-25 14:20 | Cons- Infect Disease ---
General Information and HPI Consulting Request Date of Consult: 12/25/16 Requested By: EDGARDO SILVESTRE MD Reason for Consult: Positive urine culture Source of Information: patient, old records Exam Limitations: dementia History of Present Illness: This is a 81-year-old man with dementia, atrial fibrillation, maintained on Coumadin, prostate cancer, status post TURP nearly 20 years prior to admission, last hospitalized 5 months prior to admission with worsening dementia, found at that time to have urinary retention and discharged with a Castillo catheter, with several voiding trials since then which have failed, seen in the emergency room 6 weeks prior to admission with weakness, at which time a Castillo was reinserted and he was treated with Bactrim for 1 week, with the urine culture positive for Providencia and Morganella and with a repeat urine culture sent 3 weeks prior to admission positive for Pseudomonas and Providencia, apparently status post recent cystoscopy and treatment with Nitrofurantoin, admitted on December 24 after he was brought to the emergency room 2 days after a fall with decreased appetite, increased lethargy and worsening mental status for 3-4 days. On admission he was afebrile. Laboratory data revealed a white blood cell count of 7.5, BUN/creatinine 56 and 6.7, calcium 10.4, normal liver enzymes, INR 1.56. Urinalysis 5-10 RBC/greater than 75 WBCs. Chest x-ray was negative. Renal ultrasound was negative for hydronephrosis. CT of the head and cervical spine were negative for any acute process. X-ray of the left knee was negative. He was begun on Ceftazidime. He was evaluated by Urology with replacement of his Castillo catheter. He has remained afebrile overnight. Presently he is unable to provide any history secondary to his underlying dementia but he denies any discomfort. Allergies/Medications Allergies: Coded Allergies: ciprofloxacin (From CIPRO) (Mild, ITCHING 10/04/16) Home Med List: Aspirin (Ecotrin*) 81 MG TABLET.DR 2 TAB PO DAILY HEART/BLOOD (Reported) Atorvastatin Calcium (Lipitor) 80 MG TABLET 1 TAB PO DAILY CHOLESTEROL ( Reported) Calcitriol (Rocaltrol) 0.25 MCG CAPSULE 1 CAP PO DAILY RENAL (Reported) Diltiazem HCl (Cartia Xt) 120 MG CAP.ER.24H 1 CAP PO DAILY HEART/BP (Reported ) Isosorbide Mononitrate (Isosorbide Mononitrate ER) 30 MG TAB.ER.24H 1 TAB PO DAILY HEART HEALTH (Reported) Multivitamin (Daily Multiple Vitamin) 1 EACH TABLET 1 TAB PO DAILY SUPPLEMENT (Reported) Nitrofurantoin Macrocrystal (Nitrofurantoin) 50 MG CAPSULE 1 CAP PO DAILY UTI (Reported) Polyethylene Glycol 3350 17 GRAM/DOSE POWDER 17 GM PO DAILY BOWEL REGIMEN ( Reported) Risperidone (Risperdal) 1 MG TABLET 1 TAB PO QPM AGITATION (Reported) Risperidone 0.5 MG TABLET 1 TAB PO QPM AGITATION (Reported) Sennosides/Docusate Sodium (Senna Plus Tablet) 1 EACH TABLET 2 TAB PO DAILY PRN CONSTIPATION Trazodone HCl 50 MG TABLET 1 TAB PO QPM SLEEP/AGITATION (Reported) Vit A/Vit C/Vit E/Zinc/Copper (Preservision Areds Tablet) 1 EACH TABLET 1 TAB PO BID SUPPLEMENT (Reported) Reason to Stop at ADM: NOT NEEDED Warfarin Sodium 3 MG TABLET 1 TAB PO AD BLOOD THINNER (Reported) Reason to Stop at ADM: PER DAILY INR Warfarin Sodium (Coumadin) 3 MG TABLET 1 TAB PO EOD BLD THINNER (Reported) Past History Travel History Traveled to [place] past 21 day No Medical History Neurological: dementia EENT: cataracts, macular degeneration, IN L EYE DETACHED RETINA Cardiovascular: AFIB, CAD (status post stents), hypertension, hyperlipidemia, CARDIAC STENTS Respiratory: NONE Gastrointestinal: NONE Hepatic: NONE Renal: chronic kidney disease, PROSTATE PROBLEMS Musculoskeletal: disk herniation, osteoarthritis Psychiatric: NONE Endocrine: NONE Blood Disorders: NONE Cancer(s): prostate cancer 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 History of MRSA: No History of VRE: No History of CDIFF: No Isolation History: Standard Surgical History Surgical History: appendectomy, laminectomy (hemilaminectomy L4-L5), prostatectomy (1997) Family History Relations & Conditions If Any: Relation not specified for: *No pertinent family history Psychosocial History Smoking Status: Unknown If Ever Smoked ETOH Use: denies use Illicit Drug Use: denies illicit drug use Review of Systems Comments Unobtainable Exam & Diagnostic Data Last 24 Hrs of Vital Signs/I&O Vital Signs Date Time Temp Pulse Resp B/P Pulse O2 O2 Flow FiO2 Ox Delivery Rate 12/25 1009 144/84 12/25 0755 97.5 68 20 144/84 98 Room Air 12/25 0034 98.1 110 20 140/82 93 12/24 2046 98.3 108 18 168/98 96 Room Air 12/24 2000 97.0 114 20 167/86 98 Room Air 12/24 1654 96.7 90 18 149/76 98 Room Air Intake & Output 12/25 1600 12/25 0800 12/25 0000 Intake Total 1320 Output Total 601 475 100 Balance -601 845 -100 Intake, IV 1200 Intake, Oral 120 Output, Stool 1 Output, Urine 600 475 100 Patient 167 lb Weight Physical Exam Other Physical Findings: He is awake and alert, disoriented to place and time, but in no acute distress. He is afebrile. Skin reveals no rash. HEENT exam is negative. Neck is supple with no adenopathy. Lungs are clear. Heart regular rhythm with no murmur. Abdomen is soft, nontender with positive bowel sounds. Back no CVA tenderness. Extremities no cyanosis, clubbing or edema. Neuro is without focality. Castillo catheter is in place, with clear urine. Last 24 Hours of Lab Results: Laboratory Tests 12/25 12/24 12/24 0730 2323 1548 Chemistry Sodium (137 - 145 mmol/L) 143 Potassium (3.5 - 5.1 mmol/L) 3.5 Chloride (98 - 107 mmol/L) 114 H Carbon Dioxide (22 - 30 mmol/L) 22 Anion Gap (5 - 16) 7 BUN (9 - 20 mg/dL) 48 H Creatinine (0.7 - 1.2 mg/dL) 6.0 *H Estimated GFR (>60 ml/min) 9 L BUN/Creatinine Ratio (7 - 25 %) 8.0 Lactic Acid Cancelled Cancelled Vitamin B12 (239 - 931 pg/mL) 919 TSH (0.270 - 4.200 uIU/mL) 1.580 Free T4 (0.78 - 2.44 ng/dL) 1.33 Coagulation PT (9.4 - 12.5 SEC) 17.6 H INR (0.90 - 1.17) 1.68 H Hematology CBC w Diff NO MAN DIFF REQ WBC (4.8 - 10.8 /CUMM) 5.4 RBC (4.70 - 6.10 /CUMM) 3.55 L Hgb (14.0 - 18.0 G/DL) 10.6 L Hct (42 - 52 %) 31.5 L MCV (80.0 - 94.0 FL) 88.8 MCH (27.0 - 31.0 PG) 29.8 RDW (11.5 - 14.5 %) 14.3 Plt Count (130 - 400 /CUMM) 161 MPV (7.4 - 10.4 FL) 7.8 Gran % (42.2 - 75.2 %) 75.0 Lymphocytes % (20.5 - 51.1 %) 12.9 L Monocytes % (1.7 - 9.3 %) 8.4 Eosinophils % (0 - 5 %) 3.0 Basophils % (0.0 - 2.0 %) 0.7 Absolute Granulocytes (1.4 - 6.5 /CUMM) 4.0 Absolute Lymphocytes (1.2 - 3.4 /CUMM) 0.7 L Absolute Monocytes (0.10 - 0.60 /CUMM) 0.5 Absolute Eosinophils (0.0 - 0.7 /CUMM) 0.2 Absolute Basophils (0.0 - 0.2 /CUMM) 0 PUBS MCHC (33.0 - 37.0 G/DL) 33.6 Last 24 Hours of Sammy Results: Blood cultures 2 December 24 negative Urine culture December 24 greater than 100,000 colonies of gram-negative rods Diagnostic Data Recent Imaging Findings: Chest x-ray negative. Renal ultrasound negative for hydronephrosis. CT of the head and cervical spine negative for any acute process. X-ray of the left knee negative. Assessment/Plan Assessment/Plan Impression: This is a 81-year-old man with dementia, prostate cancer status post TURP nearly 20 years prior to admission, and atrial fibrillation, maintained on Coumadin, found to have urinary retention on his last hospitalization 5 months prior to admission, discharged with a Castillo catheter, with several failed voiding trials since then, and with replacement of the Castillo catheter 6 weeks prior to admission, at which time he was treated for a gram-negative urinary tract infection, apparently status post recent cystoscopy and treatment with Nitrofurantoin, admitted on December 24 with decreased appetite, increased lethargy and worsening of his mental status over several days, found to be afebrile with a normal white blood cell count but with the urine culture again growing gram-negative rods. The significance of this culture is unclear as it likely represent colonization secondary to his chronic Castillo catheter. Though it is difficult to elicit urinary tract symptoms in this demented patient, given the absence of fever or leukocytosis do not feel that this culture should be treated as repeat courses of antibiotics will only lead to the emergence of more resistant organisms, making it more difficult to treat him when he does has a clearly symptomatic infection. The etiology of his worsening mental status and lethargy is unclear and may be multifactorial, including dehydration and possibly medications (for example to Nitrofurantoin). Suggestion: 1. Further management of his Castillo catheter, with consideration of other options, including straight catheterization or a suprapubic cystostomy if he is felt to require a long-term catheter, per Urology 2. Discontinue Ceftazidime and follow off antibiotics Consult Acknowledgment - Thank you for your consult request.
[2016-12-25 16:20] VITALS: BP 150/80
--- NOTE | 2016-12-25 16:33 | Cons- Nephrology ---
General Information and HPI Consulting Request Date of Consult: 12/25/16 Requested By: EDGARDO SILVESTRE MD Reason for Consult: Renal failure History of Present Illness: 81-year-old man with a history of hypertension, chronic kidney disease stage V with a recent baseline creatinine of about 5 mg% and a history of acute kidney injury with creatinines as high as 9, at least in part due to obstructive disease. He has a chronic Castillo catheter in place. He now comes in with altered mental status superimposed on a background of significant dementia. His been no fever or other localizing symptoms. His Castillo catheter has been changed. Imaging studies show small atrophic kidneys without hydronephrosis. Serum creatinine on admission noted to be 6.7 and is now down to 6.0 Castillo drainage and with initiation of IV fluid therapy. The patient's CODE STATUS is DNR/DNI. Past medical history as noted below Medications and allergies as noted below Family history, social history: As noted below Review of systems: As noted Allergies/Medications Allergies: Coded Allergies: ciprofloxacin (From CIPRO) (Mild, ITCHING 10/04/16) Home Med List: Aspirin (Ecotrin*) 81 MG TABLET.DR 2 TAB PO DAILY HEART/BLOOD (Reported) Atorvastatin Calcium (Lipitor) 80 MG TABLET 1 TAB PO DAILY CHOLESTEROL ( Reported) Calcitriol (Rocaltrol) 0.25 MCG CAPSULE 1 CAP PO DAILY RENAL (Reported) Diltiazem HCl (Cartia Xt) 120 MG CAP.ER.24H 1 CAP PO DAILY HEART/BP (Reported ) Isosorbide Mononitrate (Isosorbide Mononitrate ER) 30 MG TAB.ER.24H 1 TAB PO DAILY HEART HEALTH (Reported) Multivitamin (Daily Multiple Vitamin) 1 EACH TABLET 1 TAB PO DAILY SUPPLEMENT (Reported) Nitrofurantoin Macrocrystal (Nitrofurantoin) 50 MG CAPSULE 1 CAP PO DAILY UTI (Reported) Polyethylene Glycol 3350 17 GRAM/DOSE POWDER 17 GM PO DAILY BOWEL REGIMEN ( Reported) Risperidone (Risperdal) 1 MG TABLET 1 TAB PO QPM AGITATION (Reported) Risperidone 0.5 MG TABLET 1 TAB PO QPM AGITATION (Reported) Sennosides/Docusate Sodium (Senna Plus Tablet) 1 EACH TABLET 2 TAB PO DAILY PRN CONSTIPATION Trazodone HCl 50 MG TABLET 1 TAB PO QPM SLEEP/AGITATION (Reported) Vit A/Vit C/Vit E/Zinc/Copper (Preservision Areds Tablet) 1 EACH TABLET 1 TAB PO BID SUPPLEMENT (Reported) Reason to Stop at ADM: NOT NEEDED Warfarin Sodium 3 MG TABLET 1 TAB PO AD BLOOD THINNER (Reported) Reason to Stop at ADM: PER DAILY INR Warfarin Sodium (Coumadin) 3 MG TABLET 1 TAB PO EOD BLD THINNER (Reported) Review of Systems Review of Systems: Review of Systems Constitutional: Reports: see HPI. Cardiovascular: Denies: chest pain, peripheral edema. Respiratory: Denies: cough, short of breath. GI: Denies: diarrhea, melena, vomiting. Skin: Denies: change in skin color. 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 Surgical History Surgical History: appendectomy, laminectomy (hemilaminectomy L4-L5), prostatectomy (1997) Family History Relations & Conditions If Any: Relation not specified for: *No pertinent family history Psychosocial History Smoking Status: Unknown If Ever Smoked ETOH Use: denies use Illicit Drug Use: denies illicit drug use Exam & Diagnostic Data Vital Signs and I&O Vital Signs Date Time Temp Pulse Resp B/P Pulse O2 O2 Flow FiO2 Ox Delivery Rate 12/25 1620 97.7 98 20 150/80 98 12/25 1009 144/84 12/25 0755 97.5 68 20 144/84 98 Room Air 12/25 0034 98.1 110 20 140/82 93 12/24 2046 98.3 108 18 168/98 96 Room Air 12/24 2001 97.0 114 20 167/86 98 Room Air 12/24 1654 96.7 90 18 149/76 98 Room Air Intake & Output 12/25 1600 12/25 0400 12/24 1600 12/24 0400 12/23 1600 12/23 0400 Intake Total 2700 Output Total 1076 100 60 Balance 1624 -100 -60 Intake, IV 2100 Intake, Oral 600 Output, Stool 1 Output, Urine 1075 100 60 Patient 167 lb 164 lb Weight Physical Exam: General: Well-developed elderly white male in NAD Skin: No rash or jaundice, skin turgor poor HEENT: Conjunctivae pink, sclerae anicteric, mucous membranes moist Neck: Without masses or thyromegaly, no supraclavicular or cervical adenopathy Chest: Clear to P&A Heart: Irregular rhythm without S3 or rub Abdomen: Soft and nontender without palpable masses or organomegaly Extremities: Without cyanosis or edema Neuro: Patient is confused but not agitated at this time, no focal findings, no asterixis or myoclonus Results Pertinent Lab Results: Laboratory Tests 12/25 12/24 12/24 0730 2323 1548 Chemistry Sodium (137 - 145 mmol/L) 143 Potassium (3.5 - 5.1 mmol/L) 3.5 Chloride (98 - 107 mmol/L) 114 H Carbon Dioxide (22 - 30 mmol/L) 22 Anion Gap (5 - 16) 7 BUN (9 - 20 mg/dL) 48 H Creatinine (0.7 - 1.2 mg/dL) 6.0 *H Estimated GFR (>60 ml/min) 9 L BUN/Creatinine Ratio (7 - 25 %) 8.0 Lactic Acid Cancelled Cancelled Vitamin B12 (239 - 931 pg/mL) 919 TSH (0.270 - 4.200 uIU/mL) 1.580 Free T4 (0.78 - 2.44 ng/dL) 1.33 Coagulation PT (9.4 - 12.5 SEC) 17.6 H INR (0.90 - 1.17) 1.68 H Hematology CBC w Diff NO MAN DIFF REQ WBC (4.8 - 10.8 /CUMM) 5.4 RBC (4.70 - 6.10 /CUMM) 3.55 L Hgb (14.0 - 18.0 G/DL) 10.6 L Hct (42 - 52 %) 31.5 L MCV (80.0 - 94.0 FL) 88.8 MCH (27.0 - 31.0 PG) 29.8 RDW (11.5 - 14.5 %) 14.3 Plt Count (130 - 400 /CUMM) 161 MPV (7.4 - 10.4 FL) 7.8 Gran % (42.2 - 75.2 %) 75.0 Lymphocytes % (20.5 - 51.1 %) 12.9 L Monocytes % (1.7 - 9.3 %) 8.4 Eosinophils % (0 - 5 %) 3.0 Basophils % (0.0 - 2.0 %) 0.7 Absolute Granulocytes (1.4 - 6.5 /CUMM) 4.0 Absolute Lymphocytes (1.2 - 3.4 /CUMM) 0.7 L Absolute Monocytes (0.10 - 0.60 /CUMM) 0.5 Absolute Eosinophils (0.0 - 0.7 /CUMM) 0.2 Absolute Basophils (0.0 - 0.2 /CUMM) 0 PUBS MCHC (33.0 - 37.0 G/DL) 33.6 12/24 12/24 1330 1307 Chemistry Sodium (137 - 145 mmol/L) 142 Potassium (3.5 - 5.1 mmol/L) 4.2 Chloride (98 - 107 mmol/L) 106 Carbon Dioxide (22 - 30 mmol/L) 24 Anion Gap (5 - 16) 11 BUN (9 - 20 mg/dL) 56 H Creatinine (0.7 - 1.2 mg/dL) 6.7 *H Estimated GFR (>60 ml/min) 8 L BUN/Creatinine Ratio (7 - 25 %) 8.4 Glucose (65 - 99 mg/dL) 89 Lactic Acid (0.7 - 2.1 mmol/L) 1.6 Calcium (8.4 - 10.2 mg/dL) 10.4 H Total Bilirubin (0.2 - 1.3 mg/dL) 0.8 AST (17 - 59 U/L) 18 ALT (21 - 72 U/L) 32 Alkaline Phosphatase (< 127 U/L) 101 Troponin I (<0.11 ng/ml) 0.02 Total Protein (6.3 - 8.2 g/dL) 6.3 Albumin (3.5 - 5.0 g/dL) 3.6 Globulin (1.9 - 4.2 gm/dL) 2.7 Albumin/Globulin Ratio (1.1 - 2.2 %) 1.3 Coagulation PT (9.4 - 12.5 SEC) 16.3 H INR (0.90 - 1.17) 1.56 H APTT (25 - 37 SEC) 32 Hematology CBC w Diff NO MAN DIFF REQ WBC (4.8 - 10.8 /CUMM) 7.5 RBC (4.70 - 6.10 /CUMM) 4.14 L Hgb (14.0 - 18.0 G/DL) 12.4 L Hct (42 - 52 %) 37.2 L MCV (80.0 - 94.0 FL) 89.8 MCH (27.0 - 31.0 PG) 30.0 RDW (11.5 - 14.5 %) 14.9 H Plt Count (130 - 400 /CUMM) 189 MPV (7.4 - 10.4 FL) 7.7 Gran % (42.2 - 75.2 %) 81.3 H Lymphocytes % (20.5 - 51.1 %) 9.8 L Monocytes % (1.7 - 9.3 %) 7.0 Eosinophils % (0 - 5 %) 1.4 Basophils % (0.0 - 2.0 %) 0.5 Absolute Granulocytes (1.4 - 6.5 /CUMM) 6.1 Absolute Lymphocytes (1.2 - 3.4 /CUMM) 0.7 L Absolute Monocytes (0.10 - 0.60 /CUMM) 0.5 Absolute Eosinophils (0.0 - 0.7 /CUMM) 0.1 Absolute Basophils (0.0 - 0.2 /CUMM) 0 PUBS MCHC (33.0 - 37.0 G/DL) 33.4 Urines Urinalysis LIGHT H Urine Color (YEL,AMB,STR) YEL Urine Clarity (CLEAR) HAZY H Urine pH (5.0 - 8.0) 6.0 Ur Specific [place] (1.001 - 1.035) >= 1.030 Urine Protein (NEG,<30 MG/DL) 100 H Urine Ketones (NEG) TRACE H Urine Nitrite (NEG) NEG Urine Bilirubin (NEG) NEG Urine Urobilinogen (0.1 - 1.0 EU/dl) 0.2 Ur Leukocyte Esterase (NEG) LARGE H Ur Microscopic SEDIMENT EXAMINED Urine RBC (0 - 5 /HPF) 5-10 H Urine WBC (0 - 2 /HPF) > 75 H Ur Epithelial Cells (NONE,FEW) RARE Urine Crystals 1+ CA OX H Urine Hemoglobin (NEG) MOD H Urine Glucose (N MG/DL) NEG Assessment/Plan Assessment/Recommendations Assessment: 81-year-old man with chronic kidney disease stage V in setting of multiple comorbidities including significant dementia, now comes in with altered mental status which I suspect is on the basis of a combination of volume depletion, uremia and possibly infection (UTI). Given his comorbidities I do not believe that dialysis support is a consideration. Rehydration, looking for and treating any infection, and general conservative interventions are the appropriate measures. Recommendations: 1. Agree with gentle hydration with isotonic fluids 2. Monitor chemistries, intake and output 3. Evaluation and management of infection (if found) per ID Thank you. Will follow up.
[2016-12-26 00:26] VITALS: BP 130/80
--- NOTE | 2016-12-26 00:43 | NUR ---
PT OFF FLOOR TO CAT SCAN
--- NOTE | 2016-12-26 00:55 | NUR ---
INFORMED MD OF HR 124
[2016-12-26 07:17] VITALS: BP 118/62
--- NOTE | 2016-12-26 07:31 | PN- Housestaff ---
TIAN WESTBROOK 12/26/16 0731: Subjective Follow-up For: 1. altered mental status Subjective: Pt was comfortable, alert but not oriented to time,place or person. Remained afebrile overnight. When the pt was admitted, it was informed that the pt was not receiving coumadin as he had repeated falls, as recommeded by his PCP. Discussed with his PCP, who informed me that he held the coumadin for a few days, as he had supratherapeutic INR, and not for that particular reason. Review of Systems Constitutional: Reports: see HPI. Objective Last 24 Hrs of Vital Signs/I&O Vital Signs Date Time Temp Pulse Resp B/P Pulse O2 O2 Flow FiO2 Ox Delivery Rate 12/26 0717 97.6 80 18 118/62 99 Room Air 12/26 0026 98.4 124 20 130/80 98 Room Air 12/25 1620 97.7 98 20 150/80 98 12/25 1009 144/84 12/25 0755 97.5 68 20 144/84 98 Room Air Intake & Output 12/26 0800 12/26 0000 12/25 1600 Intake Total 692 068 1316 Output Total 600 450 601 Balance 200 0 779 Intake, IV 800 300 900 Intake, Oral 150 480 Output, Stool 1 Output, Urine 600 450 600 Physical Exam General Appearance: No Acute Distress Other Physical Findings: General Exam: AAOx0, No acute distress, Skin: No rashes, no breakdown HEENT: PERRLA, EOMI Neck: Supple, No JVD No cervical lymphadenopathy CVS: Reg Rate, Normal S1,S2, No MGR Resp: Normal air entry, no ronchi/rales Abdomen: Soft, No tenderness, Normal Bowel Sounds Neuro: Normal Speech, Strength 5/5 b/l x 4 extremities, Sensation intact, CN III -XII NL, Reflexes 2+ Extremities: No cyanosis, No pedal edema Current Medications: Current Medications Sig/Yanira Start time Last Medication Dose Route Stop Time Status Admin Acetaminophen 650 MG Q6P PRN 12/24 1630 AC PO Aspirin Buffered 162 MG DAILY 12/25 1000 AC 12/25 PO 1009 Atorvastatin Calcium 80 MG DAILY@1700 12/25 1700 AC 12/25 PO 1724 Calcitriol 0.25 MCG DAILY 12/25 1000 AC 12/25 PO 1009 Ceftazidime 0 .STK-MED ONE 12/25 1524 DC .ROUTE Ceftazidime 1,000 MG Q24H 12/24 2200 DC 12/24 IV 2138 Dextrose/Sodium 1,000 ML Q6H 12/24 1745 AC 12/26 Chloride IV 0529 Diltiazem HCl 120 MG DAILY 12/25 1000 AC 12/25 PO 1009 Heparin Sodium 5,000 UNIT Q8 12/24 2200 AC 12/26 (Porcine) SC 0533 Isosorbide 30 MG DAILY 12/25 1000 AC 12/25 Mononitrate PO 1009 Polyethylene Glycol 17 GM DAILY 12/24 1735 AC 12/25 PO 1009 Risperidone 1 MG QPM 12/24 2200 AC 12/24 PO 213 Risperidone 0.5 MG QPM 12/24 2200 AC 12/24 PO 213 Senna/Docusate Sodium 2 TAB DAILY PRN 12/24 1745 AC PO Trazodone HCl 50 MG QPM 12/24 2200 AC 12/24 PO 2138 Assessment/Plan Assessment: He is an older man w/ a history of dementia, UTI w/ indwelling polanco catheter is being evaluated for altered mental status likely from UTI. Admission diagnosis: 1. UTI 2. Worsening dementia Below is the problem list and plan: 1. Abnormal UA and UC: Urinalysis revealed growth of gram-negative rods and gram-positive cocci. Patient was initially started on Ceptaz again, with prior knowledge of microbiological growth of Pseudomonas and probably dementia. No antibiotics are warranted at this time. Wilfredo Astudillo MD advising. Currently on Polanco catheter, could be changed to a suprapubic catheter or straight cath protocol if needed. Defer the decision to urologist at this time. No leukocytosis. 2. Dementia- likely contributing to AMS. Avoid delirium triggers. Avoid opiates. Reorientation. Continue respirodone. Consider zyprexa if needed. Rozeram at bedtime. sitter if needed. Reversible dementia workup-TSH, free T4, vitamin D 12 within normal limits. 3. Afibn- continue home medications, except anticoagulation for risk of falls. Since, the pt was not being treated for Afib, INR was not checked this am. To check INR in the pm, and dose coumadin to keep the INR between 2-3. No bridging is required. #4 acute on chronic CKD-patient has a history of CKD; serum creatinine 6.7--> 6.2---> 5.6. Sodium was slightly elevated to 147. Change fluids to D5 water at [address] Cleveland advising. As per Dr. Arron Cleveland, the patient could not be a good dialysis candidate at this time. 4. DVT prophylaxis-heparin subcutaneous. Problem List: 1. Atrial fibrillation 2. Altered mental status 3. UTI (urinary tract infection) Pain Ratin Pain Location: None Pain Goal: Pain 4 or less Pain Plan: Tylenol when necessary Tomorrow's Labs & Rationales: Basic electrolyte panel-to monitor serum creatinine 5.6 Consulting Request: Consulting Specialty: Urology EDGARDO SILVESTRE MD 12/26/16 2379: Attending MD Review Statement Attending Statement Attending MD Statement: examined this patient, discuss w/resident/PA/ROOM CLEANER, agreed w/resident/PA/ROOM CLEANER, reviewed EMR data (avail) Attending Assessment/Plan: 81M PMH dementia, paroxysmal atrial fibrillation on Coumadin, BPH s/p TURP with neurogenic bladder and chronic indwelling Polanco catheter, CKD stage 3 admitted for agitation and worsening mental status. Recent cystoscopy 2 weeks ago with cultures growing Providencia and Pseudomonas. Patient has been afebrile here but agitated and not able to provide an adequate history. Urine culture during this admission growing toure-sensitive E.coli and gram positive cocci. Initially with acute on chronic kidney injury and azotemia, but improved after IV fluids. Plan - Continue on general medicine - Will not treat UTI per ID, will follow up cultures - Follow urology and nephrology recommendations - Follow psychiatry recommendations - Continue current management - Will require outpatient placement - DVT PPx
--- NOTE | 2016-12-26 08:53 | Patient Discharge Instructions ---
Discharge Instructions General Discharge Information You were seen/treated for: Altered mental status, multifactorial Advanced dementia with behavioral issues S/P mechanical fall BRITTANY on CKD stage V BPH/urinary retention with chronic indwelling polanco A.fib on coumadin HLD Special Instructions: Please follow up with a primary doctor after discharge within 1-2 weeks Please follow up with Dr. Chowdhury for chronic indwelling polanco Please follow up with Dr. Shaikh for a.fib management. Please dont dose coumadin on 12/31, and 01/01. Please check INR and dose accordigly on 01/02. Diet Continue normal diet: Yes Recommended Diet: Heart Healthy, Regular Activity Full Activity/No Limits: Yes Activity Self Limited: No Other activity limits: Avoid fall risk Additional ACTIVITY Info: Increase activity as tolerated Acute Coronary Syndrome Inclusion Criteria At DC or during hospital stay patient has or had the following: ACS DIAGNOSIS No Discharge Core Measures Meds if any: Prescribed or Continued at Discharge Meds if any: NOT Prescribed or Continued at Discharge Congestive Heart Failure Inclusion Criteria At DC or during hospital stay patient has or had the following: CHF DIAGNOSIS No Discharge Core Measures Meds if any: Prescribed or Continued at Discharge Meds if any: NOT Prescribed or Continued at Discharge Cerebrovascular accident Inclusion Criteria At DC or during hospital stay patient has or had the following: CVA/TIA Diagnosis No Discharge Core Measures Meds if any: Prescribed or Continued at Discharge Meds if any: NOT Prescribed or Continued at Discharge Venous thromboembolism Inclusion Criteria VTE Diagnosis No VTE Type NONE VTE Confirmed by (Test) NONE Discharge Core Measures - Per Current guidelines, there needs to be overlap - treatment for the first 5 days of Warfarin therapy. - If discharged on Warfarin prior to 5 days of - overlap therapy, the patient will need to be - assessed for post discharge needs including - *Post discharge parental anticoagulation - *Warfarin and/or parental anticoagulation education - *Follow up date to check INR post discharge At least 5 days overlap therapy as Inpatient No Meds if any: Prescribed or Continued at Discharge Note: Overlap Therapy is Warfarin and Anticoagulant Meds if any: NOT Prescribed or Continued at Discharge
--- NOTE | 2016-12-26 08:57 | Discharge Summary ---
See Addendum Visit Information Visit Dates Admission Date: 12/24/16 Discharge Date: 12/30/16 Hospital Course Course Attending Physician: EDGARDO SILVESTRE MD Primary Care Physician: FABIÁN CASTRO,DANIELA Peacock Consulting Request: 1 Consulting Specialty: Urology Consulting Physician: Dr. Chowdhury Reason for Consult: Chronic indwelling polanco Consulting Request: 2 Consulting Specialty: Infectious Disease Consulting Physician: Dr. Astudillo Reason for Consult: Evaluation for UTI with chronic indwelling polanco Consulting Request: 3 Consulting Specialty: Cardiology Consulting Physician: Dr. Dowell Reason for Consult: Atrial fibrillation with question of anticoagulation Consulting Request: 4 Consulting Specialty: Nephrology Consulting Physician: Dr. Cleveland Reason for Consult: Chronic kidney disease Consulting Request: 5 Consulting Specialty: Psychiatry Consulting Physician: Ghulam Salazar APRN Reason for Consult: Evaluation of acute delirium/worsening dementia Hospital Course: 81 yo male with pmh of dementia, a.fib (coumadin recently stopped by PCP), HTN, HLD, CAD s/p stent, CKD stage V, prostate cancer s/p TURP (20YA), BPH/neurogenic bladder with indwelling polanco presented from home due to altered mental status for 3-4 days. He was admitted to [facility] about 5 months ago () due to worsening dementia with urinary retention, and he was discharged with chronic polanco placement. His polanco catheter was recently changed with cystoscopy by Dr. Chowdhury 2 weeks ago. He was found to have cystitis and was advised to start on nitrofurantoin for total of 4 weeks. According to his , he fell from his bed 2 days ago without any injuries. He was more drowsy and lethargic than baseline with decreased oral intake. She denied that patient had any fever, chills, cough, palpitations, chest pain, any abdominal pain, nausea, vomiting or diarrhea. He has underlying chronic constipation. Subsequent urine culture prior to admission was positive for Pseudomonas and Providencia. VS: T 96.9, P 94, R 18, BP 135/72, PO 99% HEENT: eyes- PERRLA, EOMI, phuc- dry mucosa Neck: no JVD, no bruits or adenopathy Chest: clear with mild diminished breath sounds Cor: irreg (afib on EKG), nl rate, nl S1, S2 w/o murmurs Abd: BS+, soft, NT, Polanco in place Ext: no sig edema Neuro: alert, some minimal verbal responses, non-focal neuro exam (GARG, sensory intact) Lab: WBC 7.5, BUN/creatinine 56/6.7, calcium 10.4, normal liver enzymes, INR 1.56. Urinalysis 5-10 RBC, WBC > 75, large leukocyte esterase Imaging: Chest x-ray was unremarkable. Renal ultrasound was negative for hydronephrosis. CT of the head / cervical spine showed no acute fracture or intracranial pathology, consistent with ischemic small vessel disease. X-ray of the left knee was negative for fractures. 1. Altered Mental Status: multifactorial etiologies were considered as progression of dementia vs. dehydration vs. possible UTI with chronic indwelling polanco vs. medication-induced. Infectious disease consult was obtained regarding bacteriuria with positive cultures. He was empirically treated with IV ceftazidime, but it was recommended to monitor without antibiotics given the absence of fever or leukocytosis. Psychiatry consult was obtained regarding worsening dementia with behavioral issures. Patient was given po trazodone 25mg at bedtime for insomnia and daily for anxeity/agitation. He continued risperidone 1.5mg at bed time. Delirium triggers were avoided such as contipation, insomnia or anticholinergic medications. He was monitored for fall risk and agitation, and patient became less agitated after changing polanco catheter. 2. Atrial Fibrillation: Heart rate was in normal range with cardizem. Regarding Coumadin and fall risk, cardiology consult was obtained. It was recommended to continue anticoagulation with coumadin. in this patient. Coumadin 5mg was initiated on 12/27 and INR was 1.83 on 12/29. Please continue coumadin according to INR (goal 2-3) and follow up a network strategist. 3. S/P mechanical fall: Most recent echo 07/15 showed normal EF 60-65% with RVSP [address]/radiographs were negative for significant injury. Patient needs precaution for fall risk. 4. BRITTANY on CKD V: Most likely due to some volume depletion with diminished po intake. The patient has previously declined dialysis. Nephrology consult was obtained recommending IV fluid and encouragement with po fluid. Cr was improved from 6.7 to 5.2. 5. BPH/Urinary Retention: Patient was seen by Dr. Chowdhury. His polanco was changed in this admission. Please continue follow up with Dr. Morin for management of chronic Polanco placement. 6. HLD: We continued lipitor 80mg daily. Diet: Regular diet DVT ppx: PO coumadin Code: DNR/DNI. Allergies: Coded Allergies: ciprofloxacin (From CIPRO) (Mild, ITCHING 10/04/16) Significant Procedures: Polanco change by Dr. Chowdhury Disposition Summary Disposition Principal Diagnosis: Altered mental status, multifactorial Advanced dementia with behavioral issues S/P mechanical fall BRITTANY on CKD stage V BPH/urinary retention with chronic indwelling polanco Additional Diagnosis: A.fib on coumadin HLD Discharge Disposition: SNF Discharge Instructions General Discharge Information Code Status: Do Not Resucitate/Intubat Patient's Diet: Heart healthy diet Patient's Activity: Increase as tolerated Patient has high risk of fall Follow-Up Instructions/Appts: Please follow up with a primary doctor after discharge within 1-2 weeks Please follow up with Dr. Chowdhury for chronic indwelling polanco Please follow up with Dr. Dowell for a.fib management Medications at Discharge Discharge Medications: Stop taking the following medications: Warfarin Sodium (Coumadin) 3 MG TABLET ORAL Every other day Nitrofurantoin Macrocrystal (Nitrofurantoin) 50 MG CAPSULE ORAL DAILY Qty = 30 Continue taking these medications: Diltiazem HCl (Cartia Xt) 120 MG CAP.ER.24H 1 Capsule ORAL DAILY Comments: Last Taken: 07/31/16 Time: 1040am Atorvastatin Calcium (Lipitor) 80 MG TABLET 1 Tablet ORAL DAILY Comments: Last Taken: 07/31/16 Time: 1040am Calcitriol (Rocaltrol) 0.25 MCG CAPSULE 1 Capsule ORAL DAILY Comments: Last Taken: 07/31/16 Time: 1040am Warfarin Sodium (Warfarin Sodium) 3 MG TABLET 1 Tablet ORAL As Directed Vit A/Vit C/Vit E/Zinc/Copper (Preservision Areds Tablet) 1 EACH TABLET 1 Tablet ORAL TWICE DAILY Instructions: Reason to Stop at ADM: NOT NEEDED Comments: Not Given in Hospital Multivitamin (Daily Multiple Vitamin) 1 EACH TABLET 1 Tablet ORAL DAILY Comments: Last Taken: 07/31/16 Time: 1040am Aspirin (Ecotrin*) 81 MG TABLET. 2 Tablet ORAL DAILY Comments: Last Taken: 07/31/16 Time: 1040am Sennosides/Docusate Sodium (Senna Plus Tablet) 1 EACH TABLET 2 Tablet ORAL DAILY as needed for CONSTIPATION Days = 30 Trazodone HCl (Trazodone HCl) 50 MG TABLET 1 Tablet ORAL Every night Risperidone (Risperdal) 1 MG TABLET 1 Tablet ORAL Every night Risperidone (Risperidone) 0.5 MG TABLET 1 Tablet ORAL Every night Isosorbide Mononitrate (Isosorbide Mononitrate ER) 30 MG TAB.ER.24H 1 Tablet ORAL DAILY Qty = 30 Polyethylene Glycol 3350 (Polyethylene Glycol 3350) 17 GRAM/DOSE POWDER 17 Gram ORAL DAILY Qty = 255 Start taking the following new medications: Acetaminophen (Tylenol) 325 MG TABLET 650 Milligram ORAL EVERY SIX HOURS NEEDED as needed for PAIN SCALE 1-3 ( MILD) Days = 14 No Refills Copies To: FABIÁN CASTRO,DANIELA Peacock; Nisreen DOWELL MD; ROHIT CHOWDHURY MD
--- NOTE | 2016-12-26 12:47 | PN- Infect Dx ---
Subjective Subjective: Afebrile without complaints Objective Last 24 Hrs of Vital Signs/I&O Vital Signs Date Time Temp Pulse Resp B/P Pulse O2 O2 Flow FiO2 Ox Delivery Rate 12/26 0825 80 118/62 12/26 0717 97.6 80 18 118/62 99 Room Air 12/26 0026 98.4 124 20 130/80 98 Room Air 12/25 1620 97.7 98 20 150/80 98 Intake & Output 12/26 1600 12/26 0800 12/26 0000 Intake Total 800 450 Output Total 600 450 Balance 200 0 Intake, IV 800 300 Intake, Oral 150 Number 1 Bowel Movements Output, Urine 600 450 Physical Exam Other Physical Findings: He is awake and alert, though remains confused, in no acute distress Lungs are clear Back no CVA tenderness Castillo catheter remains in place Results Last 24 Hours of Lab Results: Laboratory Tests 12/26 0740 Chemistry Sodium (137 - 145 mmol/L) 147 H Potassium (3.5 - 5.1 mmol/L) 3.5 Chloride (98 - 107 mmol/L) 117 H Carbon Dioxide (22 - 30 mmol/L) 22 Anion Gap (5 - 16) 7 BUN (9 - 20 mg/dL) 42 H Creatinine (0.7 - 1.2 mg/dL) 5.6 *H Estimated GFR (>60 ml/min) 10 L BUN/Creatinine Ratio (7 - 25 %) 7.5 Last 24 Hours of Sammy Results: Blood cultures December 24 negative Urine culture December 24 greater than 100,000 colonies of Escherichia coli sensitive to all antibiotics tested and gram-positive cocci Assessment/Plan Impression: Stable off antibiotics with temperatures and white blood cell count remaining normal. The positive urine culture likely reflects colonization from the Castillo catheter and should not require treatment. If he is not felt to be a candidate for a repeat TURP and urinary retention persists then alternatives to a Castillo catheter, such as straight catheterization or a suprapubic cystostomy, would be preferable and, as discussed, should be pursued. Suggestion: 1. Urology follow-up regarding TURP versus straight catheterization versus suprapubic cystostomy 2. Continue to follow off antibiotics
--- NOTE | 2016-12-26 16:00 | NUR ---
LATE ENTRY: PT NOTED TO GET MORE AGITATED. ATTEMPTING TO HIT AUTOPSY PATHOLOGIST AT BEDSIDE. PT REDIRECTED AND REOIRENTED WITH LITTLE EFFECT. PT ATTMEPTING TO GET OOB. UNSAFE BEHAVIOR NOTED. DR. WESTBROOK CONTACTED. PER MD, TO MEDICATE PT WITH HS RISPERIDONE DOSE. MED ADMINISTERED WITH + EFFECT OF YET. SAFETY MAINTAINED. WILL CONT TO MONITOR.
--- NOTE | 2016-12-26 16:20 | PN- Nephrology ---
Assessment/Plan Assessment: 1. CKD stage V of multifactorial etiologies including hypertension and obstructive disease 2. BRITTANY improved with hydration but now with mild hypernatremia 3. Altered mental status - apparently improved - superimposed on chronic dementia 4. Multiple comorbidities as noted Suggestion: 1. Agree with change IV to D5W 2. Encourage po fluids Thank you. Will see again as needed. Subjective Subjective: Patient is awake and answers simple questions appropriately. He denies any pain or shortness of breath. Renal function is improving toward his baseline levels although serum sodium has risen to 147. Objective Vital Signs and I&Os Vital Signs Date Time Temp Pulse Resp B/P Pulse O2 O2 Flow FiO2 Ox Delivery Rate 12/26 1525 Room Air 12/26 0825 80 118/62 12/26 0717 97.6 80 18 118/62 99 Room Air 12/26 0026 98.4 124 20 130/80 98 Room Air 12/25 1620 97.7 98 20 150/80 98 Intake & Output 12/26 1600 12/26 0400 12/25 1600 12/25 0400 12/24 1600 12/24 0400 Intake Total 199 218 5883 Output Total 6247 384 7402 100 60 Balance -350 0 1624 -100 -60 Intake, IV 704 726 0768 Intake, Oral 150 600 Number 1 Bowel Movements Output, Stool 1 Output, Urine 3149 078 1318 100 60 Patient 167 lb 167 lb 164 lb Weight Physical Exam: General: Well-developed elderly white male in NAD Skin: No rash or jaundice, skin turgor poor HEENT: Conjunctivae pink, sclerae anicteric, mucous membranes moist Neck: Without masses or thyromegaly, no supraclavicular or cervical adenopathy Chest: Clear to P&A Heart: Irregular rhythm without S3 or rub Abdomen: Soft and nontender without palpable masses or organomegaly Extremities: Without cyanosis or edema Neuro: Answers questions appropriately, no focal findings, no asterixis or myoclonus Current Medications: Current Medications Sig/Yanira Start time Last Medication Dose Route Stop Time Status Admin Acetaminophen 650 MG Q6P PRN 12/24 1630 AC PO Aspirin Buffered 162 MG DAILY 12/25 1000 AC 12/26 PO 0825 Atorvastatin Calcium 80 MG DAILY@1700 12/25 1700 AC 12/25 PO 1724 Calcitriol 0.25 MCG DAILY 12/25 1000 AC 12/26 PO 0824 Dextrose/Sodium 1,000 ML Q6H 12/24 1745 DC 12/26 Chloride IV 0529 Dextrose/Water 1,000 ML Q13H 12/26 0930 AC 12/26 IV 12/27 1128 0942 Diltiazem HCl 120 MG DAILY 12/25 1000 AC 12/26 PO 0825 Heparin Sodium 5,000 UNIT Q8 12/24 2200 AC 12/26 (Porcine) SC 1409 Isosorbide 30 MG DAILY 12/25 1000 AC 12/26 Mononitrate PO 0825 Patient Medication 1 ED ONE ONE 12/26 1345 DC 12/26 Teaching ED 12/26 1346 1410 Polyethylene Glycol 17 GM DAILY 12/24 1735 AC 12/26 PO 0826 Risperidone 1 MG QPM 12/24 2200 AC 12/26 PO 1605 Risperidone 0.5 MG QPM 12/24 2200 AC 12/26 PO 1605 Senna/Docusate Sodium 2 TAB DAILY PRN 12/24 1745 AC PO Trazodone HCl 50 MG QPM 12/24 2200 AC 12/24 PO 2139 Results Pertinent Lab Results: Laboratory Tests 12/26 12/26 12/25 1530 0740 0730 Chemistry Sodium (137 - 145 mmol/L) 147 H 143 Potassium (3.5 - 5.1 mmol/L) 3.5 3.5 Chloride (98 - 107 mmol/L) 117 H 114 H Carbon Dioxide (22 - 30 mmol/L) 22 22 Anion Gap (5 - 16) 7 7 BUN (9 - 20 mg/dL) 42 H 48 H Creatinine (0.7 - 1.2 mg/dL) 5.6 *H 6.0 *H Estimated GFR (>60 ml/min) 10 L 9 L BUN/Creatinine Ratio (7 - 25 %) 7.5 8.0 Vitamin B12 (239 - 931 pg/mL) 919 TSH (0.270 - 4.200 uIU/mL) 1.580 Free T4 (0.78 - 2.44 ng/dL) 1.33 Coagulation PT (9.4 - 12.5 SEC) Pending 17.6 H INR (0.90 - 1.17) Pending 1.68 H Hematology CBC w Diff NO MAN DIFF REQ WBC (4.8 - 10.8 /CUMM) 5.4 RBC (4.70 - 6.10 /CUMM) 3.55 L Hgb (14.0 - 18.0 G/DL) 10.6 L Hct (42 - 52 %) 31.5 L MCV (80.0 - 94.0 FL) 88.8 MCH (27.0 - 31.0 PG) 29.8 RDW (11.5 - 14.5 %) 14.3 Plt Count (130 - 400 /CUMM) 161 MPV (7.4 - 10.4 FL) 7.8 Gran % (42.2 - 75.2 %) 75.0 Lymphocytes % (20.5 - 51.1 %) 12.9 L Monocytes % (1.7 - 9.3 %) 8.4 Eosinophils % (0 - 5 %) 3.0 Basophils % (0.0 - 2.0 %) 0.7 Absolute Granulocytes (1.4 - 6.5 /CUMM) 4.0 Absolute Lymphocytes (1.2 - 3.4 /CUMM) 0.7 L Absolute Monocytes (0.10 - 0.60 /CUMM) 0.5 Absolute Eosinophils (0.0 - 0.7 /CUMM) 0.2 Absolute Basophils (0.0 - 0.2 /CUMM) 0 PUBS MCHC (33.0 - 37.0 G/DL) 33.6 12/24 12/24 12/24 2323 1548 1330 Chemistry Sodium (137 - 145 mmol/L) 142 Potassium (3.5 - 5.1 mmol/L) 4.2 Chloride (98 - 107 mmol/L) 106 Carbon Dioxide (22 - 30 mmol/L) 24 Anion Gap (5 - 16) 11 BUN (9 - 20 mg/dL) 56 H Creatinine (0.7 - 1.2 mg/dL) 6.7 *H Estimated GFR (>60 ml/min) 8 L BUN/Creatinine Ratio (7 - 25 %) 8.4 Glucose (65 - 99 mg/dL) 89 Lactic Acid (0.7 - 2.1 mmol/L) Cancelled Cancelled 1.6 Calcium (8.4 - 10.2 mg/dL) 10.4 H Total Bilirubin (0.2 - 1.3 mg/dL) 0.8 AST (17 - 59 U/L) 18 ALT (21 - 72 U/L) 32 Alkaline Phosphatase (< 127 U/L) 101 Troponin I (<0.11 ng/ml) 0.02 Total Protein (6.3 - 8.2 g/dL) 6.3 Albumin (3.5 - 5.0 g/dL) 3.6 Globulin (1.9 - 4.2 gm/dL) 2.7 Albumin/Globulin Ratio (1.1 - 2.2 %) 1.3 Coagulation PT (9.4 - 12.5 SEC) 16.3 H INR (0.90 - 1.17) 1.56 H APTT (25 - 37 SEC) 32 Hematology CBC w Diff NO MAN DIFF REQ WBC (4.8 - 10.8 /CUMM) 7.5 RBC (4.70 - 6.10 /CUMM) 4.14 L Hgb (14.0 - 18.0 G/DL) 12.4 L Hct (42 - 52 %) 37.2 L MCV (80.0 - 94.0 FL) 89.8 MCH (27.0 - 31.0 PG) 30.0 RDW (11.5 - 14.5 %) 14.9 H Plt Count (130 - 400 /CUMM) 189 MPV (7.4 - 10.4 FL) 7.7 Gran % (42.2 - 75.2 %) 81.3 H Lymphocytes % (20.5 - 51.1 %) 9.8 L Monocytes % (1.7 - 9.3 %) 7.0 Eosinophils % (0 - 5 %) 1.4 Basophils % (0.0 - 2.0 %) 0.5 Absolute Granulocytes (1.4 - 6.5 /CUMM) 6.1 Absolute Lymphocytes (1.2 - 3.4 /CUMM) 0.7 L Absolute Monocytes (0.10 - 0.60 /CUMM) 0.5 Absolute Eosinophils (0.0 - 0.7 /CUMM) 0.1 Absolute Basophils (0.0 - 0.2 /CUMM) 0 PUBS MCHC (33.0 - 37.0 G/DL) 33.4 12/24 1307 Urines Urinalysis LIGHT H Urine Color (YEL,AMB,STR) YEL Urine Clarity (CLEAR) HAZY H Urine pH (5.0 - 8.0) 6.0 Ur Specific [place] (1.001 - 1.035) >= 1.030 Urine Protein (NEG,<30 MG/DL) 100 H Urine Ketones (NEG) TRACE H Urine Nitrite (NEG) NEG Urine Bilirubin (NEG) NEG Urine Urobilinogen (0.1 - 1.0 EU/dl) 0.2 Ur Leukocyte Esterase (NEG) LARGE H Ur Microscopic SEDIMENT EXAMINED Urine RBC (0 - 5 /HPF) 5-10 H Urine WBC (0 - 2 /HPF) > 75 H Ur Epithelial Cells (NONE,FEW) RARE Urine Crystals 1+ CA OX H Urine Hemoglobin (NEG) MOD H Urine Glucose (N MG/DL) NEG
[2016-12-26 16:38] VITALS: BP 152/101
[2016-12-26 17:19] LABS: PT 20.4 SEC (9.4-12.5)
[2016-12-26 17:30] VITALS: BP 150/80
--- NOTE | 2016-12-26 20:02 | PN- Cardiology ---
Subjective Subjective: No major clinical change. No new cardiac issues. Objective Vital Signs and I&Os Vital Signs Date Time Temp Pulse Resp B/P Pulse O2 O2 Flow FiO2 Ox Delivery Rate 12/26 1730 68 150/80 12/26 1638 99.1 114 20 152/101 97 Room Air 12/26 1525 Room Air 12/26 0825 80 118/62 12/26 0717 97.6 80 18 118/62 99 Room Air 12/26 0026 98.4 124 20 130/80 98 Room Air Intake & Output 12/26 1600 12/26 0800 12/26 0000 12/25 1600 12/25 0800 12/25 0000 Intake Total 1000 294 744 9085 1320 Output Total 550 600 450 601 475 100 Balance 450 200 0 779 845 -100 Intake, IV 600 800 630 204 3559 Intake, Oral 400 150 480 120 Number 2 Bowel Movements Output, Stool 1 Output, Urine 550 600 450 600 475 100 Patient 167 lb 167 lb Weight Physical Exam: General Appearance No Acute Distress, AAOx0 Skin No Breakdown HEENT Atraumatic, PERRLA, dry mucus membranes Neck No JVD, No thryomegaly, +2 Carotid Pulse wo Bruit Lymphatic Cervical nl Cardiovascular irregular S1, S2; 1 to 2/6 systolic murmur left sternal border Lungs Normal Air Movement Abdomen Normal Bowel Sounds, Soft, No Tenderness, polanco catheter in place. Neurological limited examination Extremities No Cyanosis, No Edema Current Medications: Current Medications Sig/Yanira Start time Last Medication Dose Route Stop Time Status Admin Acetaminophen 650 MG Q6P PRN 12/24 1630 AC PO Aspirin Buffered 162 MG DAILY 12/25 1000 AC 12/26 PO 0825 Atorvastatin Calcium 80 MG DAILY@1700 12/25 1700 AC 12/26 PO 1709 Calcitriol 0.25 MCG DAILY 12/25 1000 AC 12/26 PO 0824 Ceftriaxone Sodium 1,000 MG DAILY@1800 12/26 1800 CAN IV Dextrose/Sodium 1,000 ML Q6H 12/24 1745 DC 12/26 Chloride IV 0529 Dextrose/Water 1,000 ML Q13H 12/26 0930 AC 12/26 IV 12/27 1128 0942 Diltiazem HCl 120 MG DAILY 12/25 1000 AC 12/26 PO 0825 Heparin Sodium 5,000 UNIT Q8 12/24 2200 AC 12/26 (Porcine) SC 1409 Isosorbide 30 MG DAILY 12/25 1000 AC 12/26 Mononitrate PO 0825 Patient Medication 1 ED ONE ONE 12/26 1345 DC 12/26 Teaching ED 12/26 1346 1410 Polyethylene Glycol 17 GM DAILY 12/24 1735 AC 12/26 PO 0826 Risperidone 1 MG QPM 12/24 2200 AC 12/26 PO 1605 Risperidone 0.5 MG QPM 12/24 2200 AC 12/26 PO 1605 Senna/Docusate Sodium 2 TAB DAILY PRN 12/24 1745 AC PO Trazodone HCl 50 MG QPM 12/24 220 AC 12/24 PO 2139 Warfarin Sodium 5 MG ONCE ONE 12/26 1999 DC PO 12/26 2000 Results Last 48 Hrs of Labs/Mics: Laboratory Tests 12/26/16 1530: PT 20.4 H, INR 1.96 H 12/26/16 0740: Anion Gap 7, Estimated GFR 10 L, BUN/Creatinine Ratio 7.5 12/25/16 0730: Anion Gap 7, Estimated GFR 9 L, BUN/Creatinine Ratio 8.0, Vitamin B12 919, TSH 1.580, Free T4 1.33, PT 17.6 H, INR 1.68 H, CBC w Diff NO MAN DIFF REQ, RBC 3.55 L, MCV 88.8, MCH 29.8, RDW 14.3, MPV 7.8, Gran % 75.0, Lymphocytes % 12.9 L, Monocytes % 8.4, Eosinophils % 3.0, Basophils % 0.7, Absolute Granulocytes 4.0, Absolute Lymphocytes 0.7 L, Absolute Monocytes 0.5, Absolute Eosinophils 0.2, Absolute Basophils 0, PUBS MCHC 33.6 12/24/16 2323: Lactic Acid Cancelled Assessment/Plan Assessment/Plan Assessment: 1. Atrial fibrillation-chronic 2. Status post fall 3. Mental status changes 4. Chronic renal insufficiency 5. History of prostate cancer 6. Aggressive dementia Recommendations: -For now I would continue current medications pending further discussion about the risk / benefit of long term care administrator anticoagulation. -It is well documented that falls, in excess of 200 per year, would be necessary to outweigh the benefit of AC in AF patients. -Further discussions about the patient's usp prognosis from a dementia standpoint might alter this decision Continue telemetry? No
[2016-12-26 23:20] VITALS: BP 152/93
[2016-12-27 07:49] VITALS: BP 148/86
[2016-12-27 08:22] LABS: PT 18.6 SEC (9.4-12.5)
--- NOTE | 2016-12-27 08:42 | PN- Housestaff ---
DAIANA CASTRO,RAGHAVENDRA 12/27/16 0841: Subjective Follow-up For: Altered mental status Urinary tract infection Subjective: Patient seen and examined. He is seen lying upright in bed resting comfortably. He appears to be in no acute distress. When asked if he has any pain or complaints he seems confused at the question but ultimately shakes his head indicating no. He is not answering questions at this time but is participating in examination. Review of systems is unobtainable. No overnight events reported. Review of Systems Constitutional: Reports: see HPI. Objective Last 24 Hrs of Vital Signs/I&O Vital Signs Date Time Temp Pulse Resp B/P Pulse O2 O2 Flow FiO2 Ox Delivery Rate 12/27 0757 88 148/82 12/27 0749 98.4 88 18 148/86 98 Room Air 12/26 2320 98.9 105 18 152/93 94 Room Air 12/26 1730 68 150/80 12/26 1638 99.1 114 20 152/101 97 Room Air 12/26 1525 Room Air Intake & Output 12/27 1600 12/27 0800 12/27 0000 Intake Total 465 Output Total 400 350 Balance -400 115 Intake, IV 225 Intake, Oral 240 Output, Urine 400 350 Physical Exam General Appearance: Alert, No Acute Distress Other Physical Findings: General -well-developed, elderly male appearing mildly confused, but in no acute distress HEENT - NCAT, PERRL, EOMI, anicteric sclera Cardio - S1, S2 w/o murmurs/gallops/rubs Resp - CTA bilaterally w/o wheezing/rhochi/crackles GI - soft, nontender, nondistended, bowel sounds present -Castillo catheter in place Neuro - Awake and alert, CN II - XII grossly intact Extremities - no edema, pulses intact Current Medications: Current Medications Sig/Yanira Start time Last Medication Dose Route Stop Time Status Admin Acetaminophen 650 MG Q6P PRN 12/24 1630 AC PO Aspirin Buffered 162 MG DAILY 12/25 1000 AC 12/27 PO 0757 Atorvastatin Calcium 80 MG DAILY@1700 12/25 1700 AC 12/26 PO 1709 Calcitriol 0.25 MCG DAILY 12/25 1000 AC 12/27 PO 0757 Ceftriaxone Sodium 1,000 MG DAILY@1800 12/26 1800 CAN IV Dextrose/Water 1,000 ML Q13H 12/27 1145 AC 12/27 IV 1144 Dextrose/Water 1,000 ML Q13H 12/26 0930 DC 12/26 IV 12/27 1128 2150 Diltiazem HCl 120 MG DAILY 12/25 1000 AC 12/27 PO 0757 Heparin Sodium 5,000 UNIT Q8 12/24 2200 AC 12/27 (Porcine) SC 0552 Isosorbide 30 MG DAILY 12/25 1000 AC 12/27 Mononitrate PO 0757 Patient Medication 1 ED ONE ONE 12/26 1345 DC 12/26 Teaching ED 12/26 1346 1410 Polyethylene Glycol 17 GM DAILY 12/24 1735 AC 12/26 PO 0826 Potassium Chloride 40 MEQ Q1 12/27 1300 AC PO 12/27 1401 Risperidone 1 MG QPM 12/24 2200 AC 12/26 PO 1605 Risperidone 0.5 MG QPM 12/24 2200 AC 12/26 PO 1605 Senna/Docusate Sodium 2 TAB DAILY PRN 12/24 1745 AC PO Trazodone HCl 50 MG QPM 12/24 2200 AC 12/26 PO 2149 Warfarin Sodium 5 MG COUMADIN 1700 ONE 12/27 1700 DC PO 12/27 1701 Warfarin Sodium 6 MG COUMADIN 1700 ONE 12/27 1700 AC PO 12/27 1701 Warfarin Sodium 5 MG ONCE ONE 12/26 1999 DC 12/26 PO 12/26 Last 24 Hrs of Lab/Sammy Results Last 24 Hrs of Labs/Mics: Laboratory Tests 12/27/16 0621: Anion Gap 9, Estimated GFR 10 L, BUN/Creatinine Ratio 6.5 L, PT 18.6 H, INR 1.78 H 12/26/16 1530: PT 20.4 H, INR 1.96 H Assessment/Plan Assessment: Patient continues to remain confused today and is continued on D5W for fluid hydration and elevated serum sodium. Castillo catheter continued. Patient safety monitor continued. Patient is followed off antibiotics. INR was subtherapeutic today for which 6 mg of Coumadin was given. Serum creatinine improved today, intravenous fluids are continued as above. Problem list: -Altered mental status -Possible urinary tract infection, off antibiotics -History of atrial fibrillation, on Coumadin -Acute kidney injury on chronic kidney disease Plan: -Continue patient safety monitor, monitor for worsening mental status -Coumadin 6 mg given, follow-up INR tomorrow and dose accordingly -Continue Castillo catheter -Monitor for fever and leukocytosis -Follow off antibiotics -Continue D5 water Problem List: 1. UTI (urinary tract infection) 2. Altered mental status Pain Ratin Pain Location: None Pain Goal: Remain pain free Pain Plan: As noted in plan Tomorrow's Labs & Rationales: Complete blood count Basic metabolic panel Consulting Request: Consulting Specialty: Nephrology Consulting Physician: Dr. Cleveland Reason for Consult: Chronic kidney disease THALIA CASTRO,[facility] 12/27/16 1254: Attending MD Review Statement Attending Statement Attending MD Statement: examined this patient, discuss w/resident/PA/HOT DIE PICKER, agreed w/resident/PA/HOT DIE PICKER, reviewed EMR data (avail), discussed with nursing, reviewed images Attending Assessment/Plan: 81-year-old elderly male with past medical history significant for dementia, paroxysmal A. fib on Coumadin, BPH status post TURP with neurogenic bladder and chronic indwelling Castillo's catheter, stage III CK D is being admitted on the floor for progression of his dementia. Patient was seen and examined on the bedside and since he is a risk to fall, one -to-one sitter as there setting by close to him. Currently no active issues, his BRITTANY is gradually improving. ID does not recommend any treatment for his UTI given he is asymptomatic though he is growing Escherichia coli and GPC in the urine. Patient is currently waiting for long-term facility placement. We will continue to monitor and continue the rest of his home medications for now. Please dose and 6 mg of Coumadin tonight as he still subtherapeutic.
[2016-12-27 15:52] VITALS: BP 138/72
[2016-12-27 23:40] VITALS: BP 149/85
[2016-12-28 08:00] VITALS: BP 118/72
--- NOTE | 2016-12-28 08:09 | PN- Housestaff ---
TIAN WESTBROOK 12/28/16 0809: Subjective Follow-up For: 1. altered mental status Subjective: The patient was stable overnight. He was afebrile. Blood pressure was stable overnight. Still has monitor tech. Slept well overnight. Reported to have not been delirious or agitated overnight. Review of Systems Constitutional: Reports: see HPI. Objective Last 24 Hrs of Vital Signs/I&O Vital Signs Date Time Temp Pulse Resp B/P Pulse O2 O2 Flow FiO2 Ox Delivery Rate 12/27 2340 98.6 96 18 149/85 92 Room Air 12/27 1552 97.7 100 20 138/72 96 Intake & Output 12/28 1600 12/28 0800 12/28 0000 Intake Total 840 465 Output Total 800 1000 Balance 40 -535 Intake, IV 600 225 Intake, Oral 240 240 Output, Urine 800 1000 Physical Exam General Appearance: No Acute Distress Other Physical Findings: General Exam: AAOx0, No acute distress, Skin: No rashes, no breakdown HEENT: PERRLA, EOMI Neck: Supple, No JVD No cervical lymphadenopathy CVS: Reg Rate, Normal S1,S2, No MGR Resp: Normal air entry, no ronchi/rales Abdomen: Soft, No tenderness, Normal Bowel Sounds, Polanco catheter-in place Neuro: Normal Speech, Strength 5/5 b/l x 4 extremities, Sensation intact, CN III -XII NL, Reflexes 2+ Extremities: No cyanosis, no pedal edema, Current Medications: Current Medications Sig/Yanira Start time Last Medication Dose Route Stop Time Status Admin Acetaminophen 650 MG Q6P PRN 12/24 1630 AC PO Aspirin Buffered 162 MG DAILY 12/25 1000 AC 12/27 PO 0757 Atorvastatin Calcium 80 MG DAILY@1700 12/25 1700 AC 12/27 PO 1558 Calcitriol 0.25 MCG DAILY 12/25 1000 AC 12/27 PO 0757 Dextrose/Water 1,000 ML Q13H 12/27 1145 AC 12/28 IV 0015 Dextrose/Water 1,000 ML Q13H 12/26 0930 DC 12/26 IV 12/27 1128 2150 Diltiazem HCl 120 MG DAILY 12/25 1000 AC 12/27 PO 0757 Heparin Sodium 5,000 UNIT Q8 12/24 2200 AC 12/28 (Porcine) SC 0519 Isosorbide 30 MG DAILY 12/25 1000 AC 12/27 Mononitrate PO 0757 Polyethylene Glycol 17 GM DAILY 12/24 1735 AC 12/26 PO 0826 Potassium Chloride 40 MEQ Q1 12/27 1300 DC 12/27 PO 12/27 1401 1600 Risperidone 1 MG QPM 12/24 2200 AC 12/27 PO 1912 Risperidone 0.5 MG QPM 12/24 2200 AC 12/27 PO 1912 Senna/Docusate Sodium 2 TAB DAILY PRN 12/24 1745 AC PO Trazodone HCl 50 MG QPM 12/24 2200 AC 12/27 PO 2143 Warfarin Sodium 5 MG COUMADIN 1700 ONE 12/27 1700 DC PO 12/27 1701 Warfarin Sodium 6 MG COUMADIN 1700 ONE 12/27 1700 DC 12/27 PO 12/27 1701 1754 Assessment/Plan Assessment: He is an older man w/ a history of dementia, UTI w/ indwelling polanco catheter is being evaluated for altered mental status likely from UTI. Admission diagnosis: 1. UTI 2. Worsening dementia Below is the problem list and plan: 1. Abnormal UA and UC: Abnormal urinalysis and growth of Escherichia coli. Currently being watched off antibiotics. Currently on Polanco catheter, could be changed to a suprapubic catheter or straight cath protocol if needed. Defer the decision to urologist at this time. No leukocytosis. 2. Dementia- likely contributing to AMS. Avoid delirium triggers. Avoid opiates. Reorientation. Continue respirodone. Consider zyprexa if needed. Rozeram at bedtime. sitter if needed. 3. Afibn- patient has been started on warfarin. INR 1.40-subtherapeutic. Has been dosed 5 mg. Plan to recheck INR in the a.m. #4 acute on chronic CKD-patient has a history of CKD; at the time of admission, the patient had elevated serum creatinine. Currently on D5 water, as the patient was found to be mildly hyponatremic. Continue D5 water, as last sodium was 139. Serum creatinine improving to 5.3 4. DVT prophylaxis-Coumadin. Problem List: 1. Atrial fibrillation 2. Altered mental status Pain Ratin Pain Location: none Pain Goal: Pain 4 or less Pain Plan: Tylenol when necessary Tomorrow's Labs & Rationales: Basic electrolyte panel-to monitor for serum creatinine. Consulting Request: Consulting Specialty: Nephrology Consulting Physician: Dr. Cleveland Reason for Consult: Chronic kidney disease THALIA CASTRO,[facility] 12/28/16 1213: Attending MD Review Statement Attending Statement Attending MD Statement: examined this patient, discuss w/resident/PA/AIRPLANE DISPATCHER, agreed w/resident/PA/AIRPLANE DISPATCHER, reviewed EMR data (avail), discussed with nursing, reviewed images Attending Assessment/Plan: 81-year-old elderly M with past medical history significant for dementia, paroxysmal A. fib on Coumadin, BPH status post TURP with neurogenic bladder and chronic indwelling Polanco's catheter, stage III CKD is being admitted on the floor for progression of his dementia. Patient was seen and examined on the bedside and since he is a risk to fall, one -to-one sitter as there sitting close to him. Currently no active issues, his BRITTANY is gradually improving. ID does not recommend any treatment for his UTI given he is asymptomatic though he is growing Escherichia coli and GPC in the urine. Patient is currently waiting for long-term facility placement. We will continue to monitor and continue the rest of his home medications for now. Please dose and 7.5 Mg of Coumadin tonight as he still subtherapeutic.
[2016-12-28 08:56] LABS: ABSOLUTE BASOPHIL COUNT 0 /CUMM (0.0-0.2); ABSOLUTE EOSINOPHIL COUNT 0.2 /CUMM (0.0-0.7); ABSOLUTE GRANULOCYTE CT 4.4 /CUMM (1.4-6.5); ABSOLUTE MONOCYTE COUNT 0.6 /CUMM (0.10-0.60); BASOPHIL % 0.6 % (0.0-2.0); EOSINOPHIL % 3.3 % (0-5); GRANULOCYTE % 70.9 % (42.2-75.2); HEMATOCRIT 33.5 % (42-52); MEAN CORPUSCULAR HGB CONC 33.6 G/DL (33.0-37.0); MEAN CORPUSCULAR VOLUME 89.1 FL (80.0-94.0); MEAN PLATELET VOLUME 7.1 FL (7.4-10.4); PLATELET COUNT 168 /CUMM (130-400); RBC DISTRIBUTION WIDTH 14.9 % (11.5-14.5); RED BLOOD CELL CT 3.76 /CUMM (4.70-6.10); WHITE BLOOD CELL COUNT 6.2 /CUMM (4.8-10.8)
[2016-12-28 09:01] LABS: PT 14.7 SEC (9.4-12.5)
[2016-12-28 16:00] VITALS: BP 138/69
[2016-12-28 23:35] VITALS: BP 141/74
--- NOTE | 2016-12-29 04:55 | NUR ---
PT BECAME EXTREMLY AGITATED AND PULLED HIS WALKER OUT. PT TRING TO GET OUT OF BED. TRYING TO HIT AND PUNCH STAFF. # [phone] NOTIFIED. VEST RESTREAINT ORDERED. NEW WALKER ORDER IN PLACE.
--- NOTE | 2016-12-29 05:35 | NUR ---
NEW WALKER WAS PLACED. PT APPEARS MORE RELAX. RESTRAINTS D/C'D
--- NOTE | 2016-12-29 07:23 | PN- Housestaff ---
TIAN WESTBROOK 12/29/16 0722: Subjective Follow-up For: 1. AMS Subjective: Mr Kelly was comfortable this am. No complaints. He was requiring a 1:1 home economist, and also required restraints. Vitals were stable overngiht. BP was stable. Review of Systems Constitutional: Reports: see HPI. Objective Last 24 Hrs of Vital Signs/I&O Vital Signs Date Time Temp Pulse Resp B/P Pulse O2 O2 Flow FiO2 Ox Delivery Rate 12/28 2335 97.7 84 18 141/74 92 Room Air 12/28 1600 98.0 88 20 138/69 97 12/28 1054 103 118/72 12/28 0800 98.2 103 18 118/72 97 Room Air Intake & Output 12/29 0800 12/29 0000 12/28 1600 Intake Total 720 540 300 Output Total 800 450 975 Balance -80 90 -675 Intake, IV 600 300 Intake, Oral 120 240 300 Number 1 Bowel Movements Output, Urine 800 450 975 Physical Exam General Appearance: No Acute Distress Other Physical Findings: General Exam: AAOx0, No acute distress, Skin: No rashes, no breakdown HEENT: PERRLA, EOMI Neck: Supple, No JVD No cervical lymphadenopathy CVS: Reg Rate, Normal S1,S2, No MGR Resp: Normal air entry, no ronchi/rales Abdomen: Soft, No tenderness, Normal Bowel Sounds, Polanco catheter-in place Neuro: Normal Speech, Strength 5/5 b/l x 4 extremities, Sensation intact, CN III -XII NL, Reflexes 2+ Extremities: No cyanosis, no pedal edema, Current Medications: Current Medications Sig/Yanira Start time Last Medication Dose Route Stop Time Status Admin Acetaminophen 650 MG .STK-MED ONE 12/28 1731 DC PO 12/28 1732 Acetaminophen 650 MG Q6P PRN 12/24 1630 AC 12/28 PO 1737 Aspirin Buffered 162 MG DAILY 12/25 1000 AC 12/28 PO 1055 Atorvastatin Calcium 80 MG DAILY@1700 12/25 1700 AC 12/28 PO 1736 Calcitriol 0.25 MCG DAILY 12/25 1000 AC 12/28 PO 1055 Dextrose/Water 1,000 ML Q13H 12/27 1145 AC 12/29 IV 0220 Diltiazem HCl 120 MG DAILY 12/25 1000 AC 12/28 PO 1055 Heparin Sodium 5,000 UNIT Q8 12/24 220 AC 12/28 (Porcine) SC 2110 Isosorbide 30 MG DAILY 12/25 1000 AC 12/28 Mononitrate PO 1054 Olanzapine 5 MG ONCE ONE 12/29 0515 DC IM 12/29 0516 Polyethylene Glycol 17 GM DAILY 12/24 1735 AC 12/28 PO 1053 Risperidone 1 MG QPM 12/24 2200 AC 12/28 PO 1735 Risperidone 0.5 MG QPM 12/24 2200 AC 12/28 PO 2111 Senna/Docusate Sodium 2 TAB DAILY PRN 12/24 1745 AC PO Trazodone HCl 50 MG QPM 12/24 2200 AC 12/28 PO 2111 Warfarin Sodium 5 MG ONCE ONE 12/28 1700 DC PO 12/28 1701 Warfarin Sodium 7.5 MG ONCE ONE 12/28 1700 DC 12/28 PO 12/28 1701 1736 Last 24 Hrs of Lab/Sammy Results Last 24 Hrs of Labs/Mics: Laboratory Tests 12/28/16 0840: Anion Gap 8, Estimated GFR 11 L, BUN/Creatinine Ratio 6.4 L, PT 14.7 H, INR 1.40 H, CBC w Diff NO MAN DIFF REQ, RBC 3.76 L, MCV 89.1, MCH 30.0, RDW 14.9 H, MPV 7.1 L, Gran % 70.9, Lymphocytes % 16.2 L, Monocytes % 9.0, Eosinophils % 3.3, Basophils % 0.6, Absolute Granulocytes 4.4, Absolute Lymphocytes 1.0 L, Absolute Monocytes 0.6, Absolute Eosinophils 0.2, Absolute Basophils 0, PUBS MCHC 33.6 Assessment/Plan Assessment: He is an older man w/ a history of dementia, UTI w/ indwelling polanco catheter is being evaluated for altered mental status likely from UTI. Admission diagnosis: 1. UTI 2. Worsening dementia Below is the problem list and plan: 1. Abnormal UA and UC: Abnormal urinalysis and growth of Escherichia coli. Currently being watched off antibiotics. Currently on Polanco catheter, could be changed to a suprapubic catheter or straight cath protocol if needed. Changed last night, as it was blocked. Defer the decision to urologist at this time. No leukocytosis. 2. Dementia- likely contributing to AMS. Avoid delirium triggers. Avoid opiates. Reorientation. Continue respirodone. Rozeram at bedtime. sitter if needed. Consider zyprexa, if needed. 3. Afibn- patient has been started on warfarin. INR 1.80- dosed 5 mg of warfarin. Plan to recheck INR in the a.m. #4 acute on chronic CKD-patient has a history of CKD; at the time of admission, the patient had elevated serum creatinine. D5W has been changed to D5 1/2NS. Check BEP in the am. 4. DVT prophylaxis-Coumadin. Problem List: 1. Multifactorial gait disorder 2. Atrial fibrillation 3. Altered mental status 4. UTI (urinary tract infection) 5. Polanco catheter problem Pain Ratin Pain Location: none unable to assess Pain Goal: Pain 4 or less Pain Plan: tylenol prn Tomorrow's Labs & Rationales: bep- monitor sr electrolytes Consulting Request: Consulting Specialty: Nephrology Consulting Physician: Dr. Cleveland Reason for Consult: Chronic kidney disease [facility] 12/29/16 1711: Attending MD Review Statement Attending Statement Attending MD Statement: examined this patient, discuss w/resident/PA/CROZE MACHINE OPERATOR, agreed w/resident/PA/CROZE MACHINE OPERATOR, reviewed EMR data (avail)
[2016-12-29 08:50] VITALS: BP 150/84
[2016-12-29 09:02] LABS: PT 19.1 SEC (9.4-12.5)
--- NOTE | 2016-12-29 12:30 | NUR ---
NURSING NOTE: PATIENT BECAME AGITATED, TRYING TO GET OUT OF BED STATING "I NEED TO GO OUT AND BUY HOTDOGS. GET ME OUT OF HERE." THE PATIENT WAS RE-ORIENTED TO PLACE. THIS NURSE ASKED THE PATIENT IF HE WAS IN ABNY PAIN. HE STATED "NO IM NOT IN PAIN, BUT YOU ARE A PAIN. I DONT UNDERSTAND WHY YOU WONT LET ME LEAVE." PATIENT THEN DECIDED HE WANTED TO USE THE BEDSIDE COMMODE. THEN HE WAS PLACED IN A RECLINER CHAIR. AT THIS TIME, HE IS PRESENTLY IN THE RECLINER AND SEEMS MUCH MORE COMFORTABLE. PATIENT SAFETY MONITOR STILL IN PLACE. WILL CONTINUE TO MONITOR.
[2016-12-29] MEDS ORDERED: TYLENOL325 M1 PO (16:13)
[2016-12-30 00:22] VITALS: BP 150/80
--- NOTE | 2016-12-30 05:55 | PN- Housestaff ---
TIAN WESTBROOK 12/30/16 0553: Subjective Follow-up For: 1. altered mental status Subjective: Pt was comfortable. No complaints. Slept well last night. Vitals were stable overnight. Polanco catheter was renewed. Remained afebrile overnight. Review of Systems Constitutional: Reports: see HPI. Objective Last 24 Hrs of Vital Signs/I&O Vital Signs Date Time Temp Pulse Resp B/P Pulse O2 O2 Flow FiO2 Ox Delivery Rate 12/30 0022 97.8 76 18 150/80 98 Room Air 12/29 1127 Room Air 12/29 0850 96.4 94 18 150/84 98 Intake & Output 12/30 0800 12/30 0000 12/29 1600 Intake Total 1125 Output Total 400 600 600 Balance -400 -600 525 Intake, IV 225 Intake, Oral 900 Output, Urine 400 600 600 Physical Exam General Appearance: No Acute Distress Other Physical Findings: General Exam: AAOx0, No acute distress, Skin: No rashes, no breakdown HEENT: PERRLA, EOMI Neck: Supple, No JVD No cervical lymphadenopathy CVS: Reg Rate, Normal S1,S2, No MGR Resp: Normal air entry, no ronchi/rales Abdomen: Soft, No tenderness, Normal Bowel Sounds, Polanco catheter-in place Neuro: Normal Speech, Strength 5/5 b/l x 4 extremities, Sensation intact, CN III -XII NL, Reflexes 2+ Extremities: No cyanosis, no pedal edema, Current Medications: Current Medications Sig/Yanira Start time Last Medication Dose Route Stop Time Status Admin Acetaminophen 650 MG Q6P PRN 12/24 1630 AC 12/28 PO 1737 Aspirin Buffered 162 MG DAILY 12/25 1000 AC 12/29 PO 0923 Atorvastatin Calcium 80 MG DAILY@1700 12/25 1700 AC 12/29 PO 1635 Calcitriol 0.25 MCG DAILY 12/25 1000 AC 12/29 PO 0923 Dextrose/Sodium 1,000 ML Q20H 12/29 1645 AC 12/29 Chloride IV 1849 Dextrose/Water 1,000 ML Q13H 12/27 1145 DC 12/29 IV 0220 Diltiazem HCl 120 MG DAILY 12/25 1000 AC 12/29 PO 0924 Heparin Sodium 5,000 UNIT Q8 12/24 2200 AC 12/30 (Porcine) SC 0518 Isosorbide 30 MG DAILY 12/25 1000 AC 12/29 Mononitrate PO 0924 Patient Medication 1 ED .STK-MED ONE 12/29 1357 TX Teaching ED 12/29 1358 Polyethylene Glycol 17 GM DAILY 12/24 1735 AC 12/29 PO 0923 Risperidone 1 MG QPM 12/24 2200 AC 12/29 PO 2033 Risperidone 0.5 MG QPM 12/24 2200 AC 12/29 PO 2033 Senna/Docusate Sodium 2 TAB DAILY PRN 12/24 1745 AC PO Trazodone HCl 50 MG QPM 12/24 220 AC 12/28 PO 211 Warfarin Sodium 5 MG COUMADIN 1700 ONE 12/29 1700 DC 12/29 PO 12/29 1701 1635 Last 24 Hrs of Lab/Sammy Results Last 24 Hrs of Labs/Mics: Laboratory Tests 12/29/16 0730: Anion Gap 7, Estimated GFR 11 L, BUN/Creatinine Ratio 6.5 L, PT 19.1 H, INR 1.83 H Assessment/Plan Assessment: He is an older man w/ a history of dementia, UTI w/ indwelling polanco catheter is being evaluated for altered mental status likely from UTI. Admission diagnosis: 1. UTI 2. Worsening dementia Below is the problem list and plan: 1. Abnormal UA and UC: Abnormal urinalysis and growth of Escherichia coli. Currently being watched off antibiotics. Need re-assess the need for suprapubic catheter by the urologist. No leukocytosis. 2. Dementia- likely contributing to AMS. Avoid delirium triggers. Avoid opiates. Reorientation. Continue respirodone. Rozeram at bedtime. sitter if needed. Consider zyprexa, if needed. 3. Afibn- patient has been started on warfarin. INR 2.78- dosed 2 mg of warfarin. Plan to recheck INR in the a.m. #4 acute on chronic CKD-patient has a history of CKD; at the time of admission, the patient had elevated serum creatinine. D5W has been changed to D5 1/2NS. Check BEP in the am. 4. DVT prophylaxis-Coumadin. Problem List: 1. Atrial fibrillation 2. Altered mental status 3. UTI (urinary tract infection) Pain Ratin Pain Location: none- unable to assess Pain Goal: Pain 4 or less Pain Plan: tylenol prn Tomorrow's Labs & Rationales: cbc Consulting Request: Consulting Specialty: Psychiatry Consulting Physician: Ghulam Salazar APRN Reason for Consult: Evaluation of acute delirium/worsening dementia EDGARDO SILVESTRE MD 12/30/16 1122: Attending MD Review Statement Attending Statement Attending MD Statement: examined this patient, discuss w/resident/PA/SKIDWAY MAN, agreed w/resident/PA/SKIDWAY MAN, reviewed EMR data (avail) Attending Assessment/Plan: 81M PMH dementia, paroxysmal atrial fibrillation on Coumadin, BPH s/p TURP with neurogenic bladder and chronic indwelling Polanco catheter, CKD stage 3 admitted for agitation and worsening mental status. Recent cystoscopy 2 weeks ago with cultures growing Providencia and Pseudomonas. Patient has been afebrile here but agitated and not able to provide an adequate history. Urine culture during this admission growing toure-sensitive E.coli and gram positive cocci. Initially with acute on chronic kidney injury and azotemia, but improved after IV fluids. Improved overnight, not agitated, did not require restraints. Calm and cooperative today. Plan - Stable for discharge to [facility] - Will not treat UTI per ID, will follow up cultures - Follow urology and nephrology recommendations - Follow psychiatry recommendations - Continue current management - DVT PPx
[2016-12-30 07:50] VITALS: BP 150/80
[2016-12-30 09:00] LABS: PT 28.9 SEC (9.4-12.5)
--- NOTE | 2016-12-30 09:57 | NUR ---
PHYSICAL THERAPY: RECEIVED PT. SITTING IN BEDSIDE CHAIR W/SITTER IN ROOM. ASKED PT. HOW HE WAS DOING TODAY AND SAID "OKAY". ASKED PT. IF HE WOULD LIKE TO DO SOME THEREX IN CHAIR. PT. REFUSED. ASKED PT. IF HE WOULD LIKE TO GO FOR A WALK AND HE SAID "NO, IM TOO TIRED RIGHT NOW". INSISTED PT. PARTICIPATE, BUT REFUSED DUE TO FATIGUE. WILL FOLLOW UP NEEDED.
[2016-12-30 15:47] VITALS: BP 122/72
[2016-12-30 22:33] VITALS: BP 110/70
--- NOTE | 2016-12-31 05:51 | PN- Housestaff ---
NEMOSukhwinderIWONA FletcherTANNERAURELIO 12/31/16 0550: Subjective Follow-up For: - altered mental status Subjective: Mr. Kelly was comfortable this morning. He was sleeping when I walked into his room this morning. Stated that he did not have any complaints. As per the nurse, he slept well last night with no complaints. Vitals remain stable. Review of Systems Constitutional: Reports: see HPI. Objective Last 24 Hrs of Vital Signs/I&O Vital Signs Date Time Temp Pulse Resp B/P Pulse O2 O2 Flow FiO2 Ox Delivery Rate 12/30 2233 97.9 99 20 110/70 98 Room Air 12/30 1547 97.6 83 20 122/72 99 12/30 1109 Room Air 12/30 1004 107 150/80 12/30 0750 97.6 107 20 150/80 97 Room Air Intake & Output 12/31 0800 12/31 0000 12/30 1600 Intake Total 510 450 Output Total 200 420 Balance 310 30 Intake, IV 150 Intake, Oral 360 450 Number 1 Bowel Movements Output, Urine 200 420 Physical Exam General Appearance: No Acute Distress Other Physical Findings: General Exam: AAOx0, No acute distress, Skin: No rashes, no breakdown HEENT: PERRLA, EOMI Neck: Supple, No JVD No cervical lymphadenopathy CVS: Reg Rate, Normal S1,S2, No MGR Resp: Normal air entry, no ronchi/rales Abdomen: Soft, No tenderness, Normal Bowel Sounds, polanoc catheter in place Neuro: Normal Speech, Strength 5/5 b/l x 4 extremities, Sensation intact, CN III -XII NL, Reflexes 2+ Extremities: No cyanosis, pedal edema Current Medications: Current Medications Sig/Yanira Start time Last Medication Dose Route Stop Time Status Admin Acetaminophen 650 MG .STK-MED ONE 12/30 1825 DC PO 12/30 1826 Acetaminophen 650 MG Q6P PRN 12/24 1630 AC 12/30 PO 1828 Aspirin Buffered 162 MG DAILY 12/25 1000 AC 12/30 PO 1004 Atorvastatin Calcium 80 MG DAILY@1700 12/25 1700 AC 12/30 PO 1745 Calcitriol 0.25 MCG DAILY 12/25 1000 AC 12/30 PO 1004 Dextrose/Sodium 1,000 ML Q20H 12/30 0845 AC 12/31 Chloride IV 0529 Dextrose/Sodium 1,000 ML Q20H 12/29 1645 DC 12/29 Chloride IV 1849 Diltiazem HCl 120 MG DAILY 12/25 1000 AC 12/30 PO 1004 Heparin Sodium 5,000 UNIT Q8 12/24 2200 AC 12/31 (Porcine) SC 0528 Isosorbide 30 MG DAILY 12/25 1000 AC 12/30 Mononitrate PO 1004 Polyethylene Glycol 17 GM DAILY 12/24 1735 AC 12/30 PO 1005 Risperidone 1 MG QPM 12/24 2200 AC 12/30 PO 2107 Risperidone 0.5 MG QPM 12/24 2200 AC 12/30 PO 2107 Senna/Docusate Sodium 2 TAB DAILY PRN 12/24 1745 AC PO Trazodone HCl 50 MG QPM 12/24 2200 AC 12/30 PO 210 Warfarin Sodium 2 MG COUMADIN 1700 ONE 12/30 1700 DC 12/30 PO 12/30 1701 1745 Last 24 Hrs of Lab/Sammy Results Last 24 Hrs of Labs/Mics: Laboratory Tests 12/30/16 0622: Anion Gap 10, Estimated GFR 11 L, BUN/Creatinine Ratio 6.6 L, PT 28.9 H, INR 2.78 H Assessment/Plan Assessment: He is an older man w/ a history of dementia, UTI w/ indwelling polanco catheter is being evaluated for altered mental status likely from UTI. Admission diagnosis: 2. Worsening dementia Below is the problem list and plan: 1. Abnormal UA and UC: Abnormal urinalysis and growth of Escherichia coli. Currently being watched off antibiotics. Currently has Polanco catheter. To be discharged w/ a polanco catheter. Dr Mansfield to evaluate him in the next few weeks for a need for suprapubic catheter or TURP. 2. Dementia- likely contributing to AMS. Avoid delirium triggers. Avoid opiates. Reorientation. Continue respirodone. Rozeram at bedtime. sitter if needed. Consider zyprexa, if needed. 3. Afibn- patient has been started on warfarin. INR 3.57-no warfarin to be dosed today. No warfarin on 12/31/2016, 01/01/2017-recheck warfarin on 2016, and dose Coumadin accordingly. #4 acute on chronic CKD-patient has a history of CKD. Currently on fluids. Discontinue fluids at the time of discharge. Continue to monitor kidney functions closely. Currently not a dialysis candidate, as the patient has dementia. 4. DVT prophylaxis-Coumadin. Problem List: 1. Atrial fibrillation 2. Altered mental status 3. Polanco catheter problem Pain Ratin Pain Location: None Pain Goal: Pain 4 or less Pain Plan: Tylenol when necessary Tomorrow's Labs & Rationales: No labs necessary. The patient to be discharged this p.m. DVT/Prophylaxis: pharmacological Consulting Request: Consulting Specialty: Psychiatry Consulting Physician: Ghulam Salazar APRN Reason for Consult: Evaluation of acute delirium/worsening dementia Discharge Plan Discharge Disposition: STR/NH Stable for Discharge? Yes Anticipated Discharge (Day): today If Discharged Today/In 24 Hrs: enter antc discharge ord, W-10/discharge paper done, DC summary done, CMR done EDGARDO SILVESTRE MD 12/31/16 1201: Attending MD Review Statement Attending Statement Attending MD Statement: examined this patient, discuss w/resident/PA/PROCUREMENT MANAGER, agreed w/resident/PA/PROCUREMENT MANAGER, reviewed EMR data (avail) Attending Assessment/Plan: 81M PMH dementia, paroxysmal atrial fibrillation on Coumadin, BPH s/p TURP with neurogenic bladder and chronic indwelling Polanco catheter, CKD stage 3 admitted for agitation and worsening mental status. Recent cystoscopy 2 weeks ago with cultures growing Providencia and Pseudomonas. Patient has been afebrile here but agitated and not able to provide an adequate history. Urine culture during this admission growing toure-sensitive E.coli and gram positive cocci. Initially with acute on chronic kidney injury and azotemia, but improved after IV fluids. Improved overnight, not agitated, did not require restraints. Calm and cooperative today. Plan - Stable for discharge to [facility] - Will not treat UTI per ID, will follow up cultures - Follow urology and nephrology recommendations - Follow psychiatry recommendations - Continue current management - DVT PPx
[2016-12-31 08:38] VITALS: BP 116/70
--- NOTE | 2016-12-31 10:02 | NUR ---
PHYSICAL THERAPY: RECEIVED PT SLEEPING IN BED. SITTER REPORTS PT. HAS RECENTLY BEEN AGITATED. WOKE PT. UP. ASKED PT. IF HE WANTED TO PARTICIPATE IN THERAPY. PT SAYS "NO WHO THE HELL CARES". MENTIONED TO PT THAT A WALK NOW WOULD BE BETTER THAN LATER BECAUSE YESTERDAY PT GOT AGITITATED THAT PT WORKED W/ HIM WHILE HIS WAS HERE IN PM. PT THEN REPEATEDLY SAYS "NO". FOLLOW UP NEEDED.
[2016-12-31 13:05] VITALS: BP 118/72
== END 2016-12-31 13:55 | DRG 699 ==
LOC: ENRESERVTM → ENRESERVDT → ERH 12:03 → ERHI 16:21 → ENPENDDIS 16:21 → 2NB 16:21 → ERHI 20:32 → 2NB 20:32
PROVIDERS: Internal Medicine; Internal Medicine Endocrinology, Diabetes & Metabolism; Internal Medicine Interventional Cardiology; Physician Assistant; ADMIT Internal Medicine
DX: T83.511A Infection and inflammatory reaction due to indwelling urethral catheter, initial encounter (principal); N17.9 Acute kidney failure, unspecified; F03.91 Unspecified dementia, unspecified severity, with behavioral disturbance; I48.2 Chronic atrial fibrillation; N18.5 Chronic kidney disease, stage 5; I13.11 Hypertensive heart and chronic kidney disease without heart failure, with stage 5 chronic kidney disease, or end stage renal disease; N31.9 Neuromuscular dysfunction of bladder, unspecified; N39.0 Urinary tract infection, site not specified; B96.20 Unspecified Escherichia coli [E. coli] as the cause of diseases classified elsewhere; Z79.01 Long term (current) use of anticoagulants; H35.30 Unspecified macular degeneration; I25.10 Atherosclerotic heart disease of native coronary artery without angina pectoris; R33.9 Retention of urine, unspecified; Z85.46 Personal history of malignant neoplasm of prostate
CPT/HCPCS: 2NBSP; 36415; 73562-LT; 76775; 81001; 82436; 87040; 87086; 93005; 93010; 96361; 96374; 97116-GO; 97162-GP; 97530-GO; 99232; J0696; J0713; J1644; J3490; J7042; J7060

== ENCOUNTER 2017-01-03 10:52 | Emergency (ER) | payer OTHER, MEDICARE ==
[~2017-01-03 10:52] MED LIST changes: +ISOSORBIDE MONO30 M1 PO; +NITROFURANTOIN50 M1 PO; +POLYETHYLENE G255 GM PO; +TYLENOL325 M1 PO
--- NOTE | 2017-01-03 11:13 | ED CARDIAC/CP/PALPITATIONS ---
History of Present Illness General Chief Complaint: Chest Pain Stated Complaint: BIBA FOR CP Source: patient Exam Limitations: poor historian Vital Signs & Intake/Output Vital Signs & Intake/Output Vital Signs Date Time Temp Pulse Resp B/P Pulse O2 O2 Flow FiO2 Ox Delivery Rate 01/03 1614 97.3 85 16 125/72 98 Room Air 01/03 1324 105 18 138/85 98 Room Air 01/03 1135 97 Room Air Room Air 01/03 1104 96.1 84 18 127/80 98 Room Air Allergies Coded Allergies: ciprofloxacin (From CIPRO) (Mild, ITCHING 10/04/16) Reconcile Medications Acetaminophen (Tylenol) 325 MG TABLET 650 MG PO Q6P PRN PAIN SCALE 1-3 (MILD) Aspirin (Ecotrin*) 81 MG TABLET.DR 2 TAB PO DAILY HEART/BLOOD (Reported) Atorvastatin Calcium (Lipitor) 80 MG TABLET 1 TAB PO DAILY CHOLESTEROL ( Reported) Calcitriol (Rocaltrol) 0.25 MCG CAPSULE 1 CAP PO DAILY RENAL (Reported) Diltiazem HCl (Cartia Xt) 120 MG CAP.ER.24H 1 CAP PO DAILY HEART/BP (Reported ) Isosorbide Mononitrate (Isosorbide Mononitrate ER) 30 MG TAB.ER.24H 1 TAB PO DAILY HEART HEALTH (Reported) Multivitamin (Daily Multiple Vitamin) 1 EACH TABLET 1 TAB PO DAILY SUPPLEMENT (Reported) Polyethylene Glycol 3350 17 GRAM/DOSE POWDER 17 GM PO DAILY BOWEL REGIMEN ( Reported) Risperidone (Risperdal) 1 MG TABLET 1 TAB PO QPM AGITATION (Reported) Risperidone 0.5 MG TABLET 1 TAB PO QPM AGITATION (Reported) Sennosides/Docusate Sodium (Senna Plus Tablet) 1 EACH TABLET 2 TAB PO DAILY PRN CONSTIPATION Trazodone HCl 50 MG TABLET 1 TAB PO QPM SLEEP/AGITATION (Reported) Vit A/Vit C/Vit E/Zinc/Copper (Preservision Areds Tablet) 1 EACH TABLET 1 TAB PO BID SUPPLEMENT (Reported) Reason to Stop at ADM: NOT NEEDED Warfarin Sodium 3 MG TABLET 1 TAB PO AD BLOOD THINNER (Reported) Triage Note: BIBA FROM [facility] WITH C/O CHEST PAIN WHILE AT PHYSICAL THERAPY, MED WITH SL NITRO X 1, WITH EXCELLENT EFFECT, PT IS AWAKE, ALERT, DENIES CHEST PAIN OR SOB UPON ARRIVAL. GIGI SULLIVAN AT BEDSDIDE FOR EKG UPON ARRIVAL. Triage Nurses Notes Reviewed? yes Onset: Abrupt Duration: hour(s):, constant, continues in ED Timing: recent history Quality/Severity: moderate, severe Location: central Activities at Onset: none HPI: 81-year-old male comes into emergency room for further evaluation of chest pain that was going on during physical therapy this morning. Patient complained of 8 out of 10 severe chest pain during his physical therapy session. The pain has since resolved. Denies any vomiting sweating or shortness of breath. Patient is a very poor historian but is alert and oriented 3. (RONNY TREVINO) Past History Travel History Traveled to [place] past 21 day No Medical History Any Pertinent Medical History? 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 No (RONNY TREVINO) Review of Systems Review of Systems Constitutional: Reports: no symptoms. EENTM: Reports: no symptoms. Respiratory: Reports: no symptoms. Cardiovascular: Reports: see HPI. GI: Reports: no symptoms. Genitourinary: Reports: no symptoms. Musculoskeletal: Reports: no symptoms. Skin: Reports: no symptoms. Neurological/Psychological: Reports: no symptoms. Hematologic/Endocrine: Reports: no symptoms. Immunologic/Allergic: Reports: no symptoms. All Other Systems: Reviewed and Negative (RONNY TREVINO) Physical Exam Physical Exam General Appearance: well developed/nourished, alert, awake Head: atraumatic, normal appearance Eyes: Bilateral: normal appearance, EOMI. Ears, Nose, Throat: normal pharynx, normal ENT inspection, hearing grossly normal Neck: normal inspection, full range of motion Respiratory: normal breath sounds, no respiratory distress Cardiovascular: irregularly irregular Gastrointestinal: soft Back: normal inspection Extremities: normal inspection, normal range of motion Neurologic/Psych: awake, alert, oriented x 3, normal gait Skin: intact, normal color Core Measures ACS in differential dx? No Severe Sepsis Present: No Septic Shock Present: No (WILLIAN BRIGGS,RONNY) Progress Differential Diagnosis: AMI, aortic dissection, atrial fibrillation, cholecystitis, CHF/pulm edema, costochondritis, hypovolemia, musculoskeletal pain, myocarditis, pancreatitis, pericarditis, pneumonia, pneumothorax, pulmonary embolism, PUD/GERD, PVCs/PACs, rib fracture, sepsis, unstable angina, V-fib/V-Tach, WPW syndrome Plan of Care: Orders Procedure Date/time Status Heart Healthy Diet 01/03 D Active TROPONIN LEVEL 01/03 1530 Complete EKG 01/03 1530 Active Telemetry/It Service Continuity Supervisor 01/03 1112 Active TROPONIN LEVEL 01/03 1100 Complete COMPREHENSIVE METABOLIC PANEL 01/03 1100 Complete CBC WITHOUT DIFFERENTIAL 01/03 1100 Complete EKG 01/03 1054 Active Laboratory Tests 01/03/17 1515: Troponin I 0.02 01/03/17 1130: Anion Gap 11, Estimated GFR 10 L, BUN/Creatinine Ratio 7.5, Glucose 99, Calcium 10.0, Total Bilirubin 0.6, AST 28, ALT 43, Alkaline Phosphatase 96, Troponin I 0.02, Total Protein 6.1 L, Albumin 3.3 L, Globulin 2.8, Albumin/Globulin Ratio 1.2, CBC w Diff NO MAN DIFF REQ, RBC 3.67 L, MCV 89.3, MCH 29.6, RDW 15.4 H, MPV 7.9, Gran % 80.7 H, Lymphocytes % 9.2 L, Monocytes % 8.9, Eosinophils % 0.6, Basophils % 0.6, Absolute Granulocytes 7.2 H, Absolute Lymphocytes 0.8 L, Absolute Monocytes 0.8 H, Absolute Eosinophils 0.1, Absolute Basophils 0.1, PUBS MCHC 33.1 Diagnostic Imaging: Viewed by Me: Radiology Read. Discussed w/RAD: Radiology Read. Radiology Impression: SERVICE DATE: 01/03/17-1111 EXAM TYPE: RAD - XRY- PORTABLE CHEST XRAY EXAMINATION: XR PORTABLE CHEST CLINICAL INFORMATION: 81-year -old man with chest pain. COMPARISON: 12/24/2016 chest radiograph TECHNIQUE: Portable AP view of the chest was obtained. FINDINGS: The lungs are well relatively well expanded, without evidence of focal airspace consolidation or overt pulmonary edema. Moderate cardiomegaly is approximately stable. There are no pleural effusions. IMPRESSION: No radiographic evidence of an acute cardiopulmonary process. DICTATED BY: YEISON LAMAR MD DATE/TIME DICTATED:01/03/171137 EMERGENCY WORKER:DEWAYNE DATE/TIME TRANSCRIBED:01/03/171137 Initial ED EKG: rate (106), AFIB Repeat EKG: unchanged (RONNY TREVINO) Departure Departure Disposition: HOME OR SELF CARE Condition: Stable Clinical Impression Primary Impression: Chest pain Referrals: FABIÁN CASTRO,DANIELA Peacock (PCP/Family) Departure Forms: Customer Survey General Discharge Information Comments 01/03/2017 5:12:34 PM Patient has been chest pain-free here in the emergency room the entire time. 2 normal troponins. 2 unchanged EKGs. Spoke with Dr. Woodard from cardiology. He agrees with plan of care. Case discussed with Dr. carpenter and she agrees a plan of care. Castillo catheter is draining with no problem. Nontoxic appearing upon discharge. Patient is coming from retirement and can be further observed there. Patient will be brought back if any recurrent chest pain. (RONNY TREVINO) PA/DAIRY FROZEN MANAGER Co-Sign Statement Statement: ED Attending supervision documentation- [X] I saw and evaluated the patient. I have also reviewed all the pertinent lab results and diagnostic results. I agree with the findings and the plan of care as documented in the PA's/DAIRY FROZEN MANAGER's documentation. [X] I have reviewed the ED Record and agree with the PA's/DAIRY FROZEN MANAGER's documentation. [] Additions or exceptions (if any) to the PAs/DAIRY FROZEN MANAGER's note and plan are summarized below: [] (LORETTA CASTRO,SHNANAN) Critical Care Note Critical Care Note Critical Care Time: non-applicable (RONNY TREVINO)
--- NOTE | 2017-01-03 11:42 | RADIOLOGY REPORT ---
EXAMINATION: XR PORTABLE CHEST CLINICAL INFORMATION: 81-year-old man with chest pain. COMPARISON: 12/24/2016 chest radiograph TECHNIQUE: Portable AP view of the chest was obtained. FINDINGS: The lungs are well relatively well expanded, without evidence of focal airspace consolidation or overt pulmonary edema. Moderate cardiomegaly is approximately stable. There are no pleural effusions. IMPRESSION: No radiographic evidence of an acute cardiopulmonary process.
[2017-01-03 12:11] LABS: ABSOLUTE BASOPHIL COUNT 0.1 /CUMM (0.0-0.2); ABSOLUTE EOSINOPHIL COUNT 0.1 /CUMM (0.0-0.7); ABSOLUTE GRANULOCYTE CT 7.2 /CUMM (1.4-6.5); ABSOLUTE LYMPH COUNT 0.8 /CUMM (1.2-3.4); ABSOLUTE MONOCYTE COUNT 0.8 /CUMM (0.10-0.60); BASOPHIL % 0.6 % (0.0-2.0); EOSINOPHIL % 0.6 % (0-5); GRANULOCYTE % 80.7 % (42.2-75.2); HEMATOCRIT 32.8 % (42-52); MEAN CORPUSCULAR HGB 29.6 PG (27.0-31.0); MEAN CORPUSCULAR HGB CONC 33.1 G/DL (33.0-37.0); MEAN CORPUSCULAR VOLUME 89.3 FL (80.0-94.0); MEAN PLATELET VOLUME 7.9 FL (7.4-10.4); PLATELET COUNT 208 /CUMM (130-400); RBC DISTRIBUTION WIDTH 15.4 % (11.5-14.5); RED BLOOD CELL CT 3.67 /CUMM (4.70-6.10); WHITE BLOOD CELL COUNT 8.9 /CUMM (4.8-10.8)
[2017-01-03 17:35] VITALS: BP 128/71
== END 2017-01-03 17:37 ==
LOC: ERH 10:52
PROVIDERS: Physician Assistant Medical
DX: R07.9 Chest pain, unspecified (principal)
CPT/HCPCS: 93005; 93010

== ENCOUNTER 2017-06-01 18:11 | Inpatient (IN) | payer OTHER, MEDICARE ==
[~2017-06-01] VITALS: Ht 165.1 cm; Wt 74.4 kg
--- NOTE | 2017-06-01 18:20 | NUR ---
PT TO ED WITH . PT'S BROUGHT PT TO PCP FOR EVAL OF CONFUSION, AGIGITATION. PT WAS FOUND TO HAVE A UTI. RX WAS CALLED INTO [facility], PT'S STATES IT WAS NOT AVAILABLE AND THEY HAD TO ORDER IT, AND STATES IT WAS TOO EXPENSIVE. PT HAS INDWELLING WALKER X 1 YEAR. STATES WHEN THE WALKER COMES OUT PT CANNOT VOID. PT SEE'S DR BLUNT. STATES PT HAS BEEN WEAK AND MORE CONFUSED AND WAS ADVISED TO COME TO ED IF THAT HAPPENS.
--- NOTE | 2017-06-01 18:37 | NUR ---
BRIGITTE HERRING IN WITH PATIENT
--- NOTE | 2017-06-01 18:46 | ED GENERAL ADULT ---
History of Present Illness General Chief Complaint: General Adult Stated Complaint: HAS UTI PER DID NOT PLY BANDER MED TOO EXPENSIVE Source: patient, family, old records Exam Limitations: patient's age, dementia Vital Signs & Intake/Output Vital Signs & Intake/Output Vital Signs Date Time Temp Pulse Resp B/P B/P Pulse O2 O2 Flow FiO2 Mean Ox Delivery Rate 06/02 0018 97.2 108 20 120/76 98 Room Air 06/01 2201 97.1 121 16 128/71 06/01 2140 97.1 121 16 128/71 97 Room Air 06/01 1939 Room Air 06/01 1930 97.4 133 22 124/66 06/01 1925 97.4 133 22 124/66 Room Air 06/01 1820 98.0 140 20 135/95 96 Room Air ED Intake and Output 06/02 0000 06/01 1200 Intake Total 400 Output Total Balance 400 Intake, Blood 350 Product Intake, IV 50 Patient 164 lb Weight Weight Estimated Measurement Method Allergies Coded Allergies: ciprofloxacin (From CIPRO) (Mild, ITCHING 10/04/16) Triage Note: PT TO ED WITH . PT'S BROUGHT PT TO PCP FOR EVAL OF CONFUSION, AGIGITATION. PT WAS FOUND TO HAVE A UTI. RX WAS CALLED INTO [facility], PT'S STATES IT WAS NOT AVAILABLE AND THEY HAD TO ORDER IT, AND STATES IT WAS TOO EXPENSIVE. PT HAS INDWELLING WALKER X 1 YEAR. STATES WHEN THE WALKER COMES OUT PT CANNOT VOID. PT SEE'S DR CHOWDHURY. STATES PT HAS BEEN WEAK AND MORE CONFUSED AND WAS ADVISED TO COME TO ED IF THAT HAPPENS. Triage Nurses Notes Reviewed? yes Onset: Gradual Duration: worse persistent since (3 WEEKS) Timing: recent history Injury Environment: home Severity: moderate Modifying Factors: Worsens With: other (NIGHT TIME). HPI: Patient is a 81-year-old male with history of dementia, hypertension, elevated cholesterol, macular degeneration, atrial fibrillation, CAD, urinary retention and BPH presenting to the emergency department with family members with chief complaint of increasing altered mental status for the past 3 weeks. Family reports that he has history of UTIs and usually gets more confused during today' s episodes. Denies any fevers at home. Family members brought this patient to the primary care physician earlier today when they did a urinalysis and is positive for a UTI. They also bhumika blood questioning the answers YET. They called in a prescription for antibiotics but when the patient went to go fill the prescription at the pharmacy is too expensive. Symptoms seemed to worsen the patient's family members brought him into the emergency department for evaluation. No nausea or vomiting at home. Family does report increased agitation at nighttime for the past 3 weeks. Also reports visual and auditory hallucinations. This has been going on for "a while". Corporate Director decided to try and change medications at nighttime but they have not changed any medications yet. Patient denying any pain. Family members report that the urine looks clear. Patient has had a Walker for about a year now and Dr. Chowdhury takes care of IT. Family denies any recent falls. No head trauma. (NEVAEH BRIGGS,LGEN) Reconcile Medications Aspirin (Ecotrin*) 81 MG TABLET.DR 2 TAB PO DAILY HEART/BLOOD (Reported) Atorvastatin Calcium (Lipitor) 80 MG TABLET 1 TAB PO DAILY CHOLESTEROL ( Reported) Calcitriol (Rocaltrol) 0.25 MCG CAPSULE 1 CAP PO DAILY RENAL (Reported) Diltiazem HCl (Diltiazem 24HR ER) 180 MG CAP.ER.24H 1 CAP PO DAILY HEART/BP ( Reported) Isosorbide Mononitrate (Isosorbide Mononitrate ER) 30 MG TAB.ER.24H 1 TAB PO DAILY HEART HEALTH (Reported) Mirtazapine 15 MG TABLET 1 TAB PO QPM PRN SLEEP (Reported) Multivitamin (Daily Multiple Vitamin) 1 EACH TABLET 1 TAB PO DAILY SUPPLEMENT (Reported) Polyethylene Glycol 3350 17 GRAM POWD.PACK 1 PAC PO PRN CONSTIPATION ( Reported) Risperidone (Risperdal) 0.25 MG TABLET 1 TAB PO PRN AGITATION (Reported) Trazodone HCl 50 MG TABLET 1 TAB PO QPM SLEEP (Reported) Vit C/E/Zn/Coppr/Lutein/Zeaxan (Preservision Areds 2 Softgel) 250-200-40 CAPSULE 1 TAB PO BID SUPPLEMENT (Reported) Warfarin Sodium (Coumadin) 5 MG TABLET 1 TAB PO AD BLOOD THINNER (Reported) Warfarin Sodium (Coumadin) 2.5 MG TABLET 1 TAB PO AD BLOOD THINNER (Reported) (LORETTA CASTRO,SHANNAN) Past History Travel History Traveled to [place] past 21 day No Medical History Any Pertinent Medical History? see below for history Neurological: dementia EENT: cataracts, macular degeneration, IN L EYE DETACHED RETINA Cardiovascular: AFIB, CAD (status post stents), hypertension, hyperlipidemia, CARDIAC STENTS Respiratory: NONE Gastrointestinal: NONE Hepatic: NONE Renal: chronic kidney disease, PROSTATE PROBLEMS UTI'S Musculoskeletal: disk herniation, osteoarthritis Psychiatric: NONE Endocrine: NONE Blood Disorders: NONE Cancer(s): prostate cancer SLATE CUTTER/Reproductive: NONE History of MRSA: No History of VRE: No History of CDIFF: No Surgical History Surgical History: appendectomy, laminectomy (hemilaminectomy L4-L5), prostatectomy (1997) Psychosocial History Who do you live with Spouse What is your primary language Icelandic Tobacco Use: Quit >30 days ago ETOH Use: denies use Illicit Drug Use: denies illicit drug use Family History Family History, If Any: Relation not specified for: *No pertinent family history Hx Contributory? No (GLEN BANDA) Review of Systems Review of Systems Constitutional: Reports: no symptoms. Comments Review of systems: See HPI, All other systems negative. Constitutional, no chills fever or weight loss HEENT: No visual changes no sore throat no congestion Cardiovascular: No chest pain ,palpitation , orthopnea or ankle swelling Skin, no jaundice no rashes Respiratory: No dyspnea cough sputum or hemoptysis GI: No nausea no vomiting : No dysuria No hematuria Muscle skeletal: no back pain, no neck pain, Neurologic: Positive increased confusion Psych: agitation at nighttime Heme/endocrine: No bruising no bleeding no polyuria or polydipsia Immunology: No splenectomy or history of AIDS (GLEN BANDA) Physical Exam Physical Exam General Appearance: well developed/nourished, no apparent distress, alert, awake , comfortable Comments: Well-developed well-nourished person in no acute distress HEENT: extraocular motion intact, no nystagmus. Pupils equally round and reactive to light and accommodation. Nose is atraumatic. External auditory canal and Tympanic membranes clear. Pharynx normal. No swelling or edema. very dry oral mucosa Neck: Supple, no lymphadenopathy, normal range of motion without pain or tenderness Back: Nontender, no CVA tenderness. Cardiovascular: IREGULAR rate and rhythms, able to appreciate slight systolic murmur, normal JVP Respiratory: Chest nontender. No respiratory distress.breath sounds diminished to auscultation bilaterally Abdomen: Soft, nontender nondistended, no appreciable organomegaly. Normal bowel sounds. No ascites , NO rebound or guarding. RECTAL: NON-TENDER, GUIAC NEGATIVE, BROWN STOOL Extremity: No edema, no calf tenderness to palpation, normal and equal pulses. Muscular strength is 5 out of 5 in upper and lower extremities bilaterally. Locum Tenens strength is equal and symmetric bilaterally. Neuro: Alert oriented to person, confused about time and situation, motor sensory normal, cranial nerves II through XII grossly intact. Skin: No appreciable rash on exposed skin, skin is warm and dry. Psych: Calm, cooperative, forgetful Core Measures ACS in differential dx? Yes CVA/TIA Diagnosis: No Severe Sepsis Present: No Septic Shock Present: No (NEVAEH BRIGGS,GLEN) Progress Differential Diagnoses I considered the following diagnoses in my evaluation of the patient: Acute delirium secondary to infectious process, UTI, pneumonia, electrolyte abnormality, rapid atrial fibrillation, sepsis, progression of dementia Plan of Care: Orders Procedure Date/time Status Heart Healthy Diet 06/02 B Active Patient Data 06/01 2321 Active Code Status 06/01 2306 Active ED Holding Orders 06/01 230 Active Admit to inpatient 06/01 2300 Active Vital Signs 06/01 2300 Active TROPONIN LEVEL 06/01 2241 Active EKG 06/01 2241 Active BLOOD CULTURE 06/01 2234 Active Intake & Output 06/01 2110 Active Add-on Test (ER Only) 06/01 2011 Active TOTAL IRON BINDING CAPACITY 06/01 192 Complete FERRITIN 06/01 192 Complete SERUM IRON 06/01 192 Complete Telemetry/Fisher Pot 06/01 184 Active BLOOD CULTURE 06/01 1846 Active TROPONIN LEVEL 06/01 1846 Complete PROTHROMBIN TIME 06/01 1846 Complete COMPREHENSIVE METABOLIC PANEL 06/01 1846 Complete CBC WITHOUT DIFFERENTIAL 06/01 184 Complete EKG 06/01 1836 Active CULTURE,URINE 06/01 1834 Active URINALYSIS 06/01 1834 Complete Current Medications Sig/Yanira Start time Last Medication Dose Stop Time Status Admin Risperidone 0.25 MG ONCE ONE 06/02 45 UNVr (Risperidone) 06/02 0046 Trazodone HCl 50 MG ONCE ONE 06/02 0045 UNVr (Desyrel) 06/02 0046 Sodium Chloride 1,000 ML ONCE ONE 06/010 AC 06/01 (Normal Saline 0.9%) 06/029 1930 Laboratory Tests 06/02/17 0042: Troponin I Pending 06/01/172109: Urine Color YEL, Urine Clarity CLEAR, Urine pH >= 9.0 H, Ur Specific [place] 1.010, Urine Protein 100 H, Urine Ketones NEG, Urine Nitrite NEG, Urine Bilirubin NEG, Urine Urobilinogen 0.2, Ur Leukocyte Esterase MOD H, Ur Microscopic SEDIMENT EXAMINED, Urine RBC 5-10 H, Urine WBC 1-3 H, Ur Epithelial Cells RARE, Urine Crystals 1+ TRIP PHOS H, Urine Bacteria PACKD H, Urine Hemoglobin SMALL H, Urine Glucose NEG 06/01/172004: PT 24.9 H, INR 2.39 H 06/01/171919: Anion Gap 12, Estimated GFR 7 L, BUN/Creatinine Ratio 8.3, Glucose 88, Calcium 8.6, Iron 31 L, TIBC 263, Ferritin 95.5, Total Bilirubin 0.3, AST 21, ALT 31, Alkaline Phosphatase 70, Troponin I 0.04, Total Protein 5.7 L, Albumin 3.6, Globulin 2.1, Albumin/Globulin Ratio 1.7, CBC w Diff NO MAN DIFF REQ, RBC 2.92 L, MCV 91.1, MCH 30.3, RDW 15.3 H, MPV 8.6, Gran % 70.0, Lymphocytes % 15.7 L, Monocytes % 11.7 H, Eosinophils % 2.1, Basophils % 0.5, Absolute Granulocytes 4.0, Absolute Lymphocytes 0.9 L, Absolute Monocytes 0.7 H, Absolute Eosinophils 0.1, Absolute Basophils 0, PUBS MCHC 33.3 Microbiology 06/01 2239 BLOOD: Blood Culture - RECD 06/01 2234 BLOOD: Blood Culture - CAN Cancelled: DUP.ORDER SEE [id number] 06/01 2110 URINE ROUT: Urine Culture - RECD 06/01 1910 BLOOD: Blood Culture - RECD Patient is resting comfortably at this time, heart rate seems to be calming down after second dose of IV Cardizem 10 mg. Heart rate on the monitor at this time is between 95 beats and 105 bpm. Patient resting comfortably. We will repeat an EKG at this time as well as repeat troponin this patient is complaining about shortness of breath. Patient and family member informed of all other lab work results including chronic renal failure that has been worsening, urinary tract infection and rapid A. fib. From previous cultures that shows that ceftazIDIME has been susceptible to the different types of bacteria that have been grown out. Due to renal failure recommended doses 500 mg IV every 24. Blood cultures obtained. Patient will be admitted to telemetry for rapid A. fib, UTI and acute on chronic renal failure. (NEVAEH BRIGGS,GLEN) Diagnostic Imaging: Viewed by Me: Radiology Read. Discussed w/RAD: Radiology Read. Radiology Impression: PATIENT: TRINA VILLALOBOS PRESENT AGE: 81 PATIENT ACCOUNT NO: [id number] : 37 LOCATION: [facility] ORDERING PHYSICIAN: GLEN BRIGGS SERVICE DATE: 06/01/17 EXAM TYPE: RAD - XRY-PORTABLE CHEST XRAY EXAMINATION: XR PORTABLE CHEST CLINICAL INFORMATION: Cardiomegaly COMPARISON: Chest 01/03/2017. TECHNIQUE: Portable chest 01/03/2017 view of the chest was obtained. FINDINGS: There is cardiomegaly with mild prominence of pulmonary vascularity but no rachel congestion. The lungs are in moderate inspiration with patchy density seen in the left lung base retrocardiac area. Rest of lungs are clear and expanded. No gross bony abnormality seen. IMPRESSION: Cardiomegaly without congestion. Left lung base retrocardiac area is not clearly visualized. Cannot exclude underlying abnormality. Consider lateral view patient is symptomatic. DICTATED BY: XAVIRE CHAVES MD DATE/TIME DICTATED:02/13 EM PHYSICIAN:DEWAYNE DATE/TIME TRANSCRIBED:06/01/171904 CONFIDENTIAL, DO NOT COPY WITHOUT APPROPRIATE AUTHORIZATION. Initial ED EKG: RAPID AFIB (GLEN BANDA) Departure Departure Time of Disposition: 2232 Disposition: STILL A PATIENT Condition: Stable Clinical Impression Primary Impression: Rapid atrial fibrillation Secondary Impressions: Acute on chronic renal failure Qualifiers: Acute renal failure type: unspecified Chronic kidney disease stage: unspecified stage Qualified Codes: N17.9 - Acute kidney failure, unspecified; N18.9 - Chronic kidney disease, unspecified Anemia Qualifiers: Anemia type: unspecified type Qualified Code: D64.9 - Anemia, unspecified UTI (urinary tract infection) Qualifiers: Urinary tract infection type: site unspecified Hematuria presence: with hematuria Qualified Codes: N39.0 - Urinary tract infection, site not specified; R31.9 - Hematuria, unspecified Referrals: FABIÁN CASTRO,DANIELA Peacock (PCP/Family) Departure Forms: Customer Survey General Discharge Information Admission Note Documentation of Exam: Documentation of any treatments & extenuating circumstances including Concerns Regarding Discharge (functional status, medication knowledge or non-compliance, living conditions, etc.) that warrant an admission rather than observation: 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 fib, IV Cardizem for rate control, IV antibiotics for urinary tract infection, cardiology consultation. Discharge at this time and medically harmful. (GLEN BANDA) Departure Time of Disposition: 2299 Admission Note Spoke With: RONALD CASTRO,TEAGAN PA/MANAGER DIABETES Co-Sign Statement Statement: ED Attending supervision documentation- [X] I saw and evaluated the patient. I have also reviewed all the pertinent lab results and diagnostic results. I agree with the findings and the plan of care as documented in the PA's/MANAGER DIABETES's documentation. [X] I have reviewed the ED Record and agree with the PA's/MANAGER DIABETES's documentation. [] Additions or exceptions (if any) to the PAs/MANAGER DIABETES's note and plan are summarized below: [] (LORETTA CASTRO,SHANNAN) Critical Care Note Critical Care Note Critical Care Time: 30-74 min (GLEN BANDA)
--- NOTE | 2017-06-01 18:51 | NUR ---
XRAY IN ROOM WITH PATIENT
--- NOTE | 2017-06-01 19:11 | RADIOLOGY REPORT ---
EXAMINATION: XR PORTABLE CHEST CLINICAL INFORMATION: Cardiomegaly COMPARISON: Chest 01/03/2017. TECHNIQUE: Portable chest 01/03/2017 view of the chest was obtained. FINDINGS: There is cardiomegaly with mild prominence of pulmonary vascularity but no rachel congestion. The lungs are in moderate inspiration with patchy density seen in the left lung base retrocardiac area. Rest of lungs are clear and expanded. No gross bony abnormality seen. IMPRESSION: Cardiomegaly without congestion. Left lung base retrocardiac area is not clearly visualized. Cannot exclude underlying abnormality. Consider lateral view patient is symptomatic.
[2017-06-01 19:40] LABS: ABSOLUTE BASOPHIL COUNT 0 /CUMM (0.0-0.2); ABSOLUTE EOSINOPHIL COUNT 0.1 /CUMM (0.0-0.7); ABSOLUTE LYMPH COUNT 0.9 /CUMM (1.2-3.4); ABSOLUTE MONOCYTE COUNT 0.7 /CUMM (0.10-0.60); BASOPHIL % 0.5 % (0.0-2.0); EOSINOPHIL % 2.1 % (0-5); HEMATOCRIT 26.6 % (42-52); MEAN CORPUSCULAR HGB 30.3 PG (27.0-31.0); MEAN CORPUSCULAR HGB CONC 33.3 G/DL (33.0-37.0); MEAN CORPUSCULAR VOLUME 91.1 FL (80.0-94.0); MEAN PLATELET VOLUME 8.6 FL (7.4-10.4); PLATELET COUNT 216 /CUMM (130-400); RBC DISTRIBUTION WIDTH 15.3 % (11.5-14.5); RED BLOOD CELL CT 2.92 /CUMM (4.70-6.10); WHITE BLOOD CELL COUNT 5.7 /CUMM (4.8-10.8)
[2017-06-01 20:22] LABS: PT 24.9 SEC (9.4-12.5)
[2017-06-01] MEDS ORDERED: RISPERDAL0.25 M1 PO (21:11)
[2017-06-01] MEDS ORDERED: PRESERVISION A1 EAC1 PO (21:11)
[2017-06-01] MEDS ORDERED: COUMADIN5 M2 PO (21:12)
[2017-06-01] MEDS ORDERED: POLYETHYLENE GL17 GM PO (21:13)
[2017-06-01] MEDS ORDERED: COUMADIN2.5 M1 PO (21:13)
[2017-06-01] MEDS ORDERED: MIRTAZAPINE15 M2 PO (21:14)
[2017-06-01] MEDS ORDERED: DILTIAZEM 24HR180 MG PO (21:15)
--- NOTE | 2017-06-01 21:30 | NUR ---
URINE SAMPLE WALKED TO LAB BY THIS RN D/T TUBE SYSTEM BEING DOWN
--- NOTE | 2017-06-01 21:39 | NUR ---
CRITICAL TEST RESULTS [id number] TRINA VILLALOBOS 81 M TESTS AND RESULTS: CREATININE 7.7 Results received and read back by: KISHORE RAMON Results received date and time: 06/01/172138 The following provider was notified of the results, and read the results back: BRIGITTE NEWELL Notified date and time: 06/01/17 at 7
--- NOTE | 2017-06-01 21:46 | NUR ---
PT CLEARED FOR D/C. GIVEN INSTRUCTION FOR MEDICATION AND FOLLOW-UP WITH PRIMARY. AMBULATORY TO EXIT IN NAD
--- NOTE | 2017-06-01 22:12 | NUR ---
PT C/O SOB. O2 SAT 97% ON RA. PT ON 1L VIA NC FOR COMFORT PER BRIGITTE HERRING
--- NOTE | 2017-06-01 22:44 | NUR ---
NS CHANGE TO OPEN PER BRIGITTE HERRING. PT TO RECEIVE 2ND UNIT
--- NOTE | 2017-06-02 | NUR ---
PT BED ASSIGNMENT 189-1
--- NOTE | 2017-06-02 00:50 | NUR ---
RESTLESS ON STRETCHER. ARGUING W/STAFF, STTES HE HAS TO HAVE BM BUT REFUSING BEDPAN.
--- NOTE | 2017-06-02 01:17 | NUR ---
REPORT CALLED TO RN
--- NOTE | 2017-06-02 01:26 | History & Physical ---
ELISE MEDEIROS MD 06/02/17 0125: General Information and HPI MD Statement: I have seen and personally examined TRINA VILLALOBOS and documented this H&P. The patient is a 81 year old M who presented with a patient stated chief complaint of rapid atrial fibrillation. Source of Information: family, old records Exam Limitations: unable to give history History of Present Illness: 81-year-old male with history of HTN, HLD, Afib, CAD, BPH w indwelling polanco, dementia, and CKD brought in by family for increasing confusion for the past 3 weeks. History of worsening confusion with UTIs per family. Denies any fevers, chills, nausea and vomiting. Family does report increased agitation at nighttime for the past 3 weeks with visual and auditory hallucinations. Family denies any falls or trauma. Patient has no complaints but appears to have mildly increased work of breather. Patient presents to the ED with rapid atrial fibrillation, a urinalysis with signs of infection, acute on chronic renal failure, wheezing and requiring supplemental oxygen. Allergies/Medications Allergies: Coded Allergies: ciprofloxacin (From CIPRO) (Mild, ITCHING 10/04/16) Home Med list Aspirin (Ecotrin*) 81 MG TABLET.DR 1 TAB PO BID HEART HEALTH (Reported) Atorvastatin Calcium (Lipitor) 80 MG TABLET 1 TAB PO DAILY CHOLESTEROL ( Reported) Calcitriol (Rocaltrol) 0.25 MCG CAPSULE 1 CAP PO DAILY RENAL (Reported) Diltiazem HCl (Diltiazem 24HR ER) 180 MG CAP.ER.24H 1 CAP PO DAILY HEART/BP ( Reported) Isosorbide Mononitrate (Isosorbide Mononitrate ER) 30 MG TAB.ER.24H 1 TAB PO DAILY HEART HEALTH (Reported) Mirtazapine 15 MG TABLET 1 TAB PO QPM PRN SLEEP (Reported) Multivitamin (Daily Multiple Vitamin) 1 EACH TABLET 1 TAB PO DAILY SUPPLEMENT (Reported) Polyethylene Glycol 3350 17 GRAM POWD.PACK 1 PAC PO PRN CONSTIPATION ( Reported) Risperidone (Risperdal) 0.25 MG TABLET 1 TAB PO PRN AGITATION (Reported) Trazodone HCl 50 MG TABLET 1 TAB PO QPM SLEEP (Reported) Vit C/E/Zn/Coppr/Lutein/Zeaxan (Preservision Areds 2 Softgel) 250-200-40 CAPSULE 1 TAB PO BID SUPPLEMENT (Reported) Warfarin Sodium (Coumadin) 5 MG TABLET 1 TAB PO AD BLOOD THINNER (Reported) Warfarin Sodium (Coumadin) 2.5 MG TABLET 1 TAB PO AD BLOOD THINNER (Reported) Compliance With Home Meds: UNKNOWN Past History Travel History Traveled to [place] past 21 day No Medical History Neurological: dementia EENT: cataracts, macular degeneration, IN L EYE DETACHED RETINA Cardiovascular: AFIB, CAD (status post stents), hypertension, hyperlipidemia, CARDIAC STENTS Respiratory: NONE Gastrointestinal: NONE Hepatic: NONE Renal: chronic kidney disease, PROSTATE PROBLEMS UTI'S Musculoskeletal: disk herniation, osteoarthritis Psychiatric: NONE Endocrine: NONE Blood Disorders: NONE Cancer(s): prostate cancer RESIDENCE LIFE COORDINATOR/Reproductive: NONE History of MRSA: No History of VRE: No History of CDIFF: No Surgical History Surgical History: appendectomy, laminectomy (hemilaminectomy L4-L5), prostatectomy (1997) Past Family/Social History Family History Relations & Conditions if any Relation not specified for: *No pertinent family history Psychosocial History ETOH Use: denies use Illicit Drug Use: denies illicit drug use Review of Systems Review of Systems Constitutional: Reports: no symptoms. Comments unable to obtain a reliable ROS from patient, history mostly from family report Exam & Diagnostic Data Last 24 Hrs of Vital Signs/I&O Vital Signs Date Time Temp Pulse Resp B/P B/P Pulse O2 O2 Flow FiO2 Mean Ox Delivery Rate 06/02 0147 97.9 115 20 150/86 90 Room Air 06/02 0018 97.2 108 20 120/76 98 Room Air 06/01 2201 97.1 121 16 128/71 07/03 2140 97.1 121 16 128/71 97 Room Air 06/01 1939 Room Air 06/01 1930 97.4 133 22 124/66 07/03 1925 97.4 133 22 124/66 Room Air 06/01 1820 98.0 140 20 135/95 96 Room Air Intake & Output 06/02 0800 /04 0000 06/01 1600 Intake Total 400 Output Total Balance 400 Intake, Blood 350 Product Intake, IV 50 Patient 164 lb Weight Weight Estimated Measurement Method Physical Exam General Appearance Alert, No Acute Distress Skin No Rashes, No Breakdown Skin Temp/Moisture Exam: Warm/Dry Sepsis Skin Exam (color): Normal for Ethnicity HEENT Atraumatic, PERRLA, EOMI, Mucous Membr. moist/pink Neck Supple, +2 Carotid Pulse wo Bruit Cardiovascular irregular rhythm Lungs diffuse wheezing Abdomen Normal Bowel Sounds, Soft, No Tenderness, No Masses Neurological Strength at 5/5 X4 Ext, Normal Tone Extremities +1 edema b/l LE Last 24 Hrs of Labs/Sammy: Laboratory Tests 06/02/17 0042: Troponin I 0.05 06/01/172109: Urine Color YEL, Urine Clarity CLEAR, Urine pH >= 9.0 H, Ur Specific [place] 1.010, Urine Protein 100 H, Urine Ketones NEG, Urine Nitrite NEG, Urine Bilirubin NEG, Urine Urobilinogen 0.2, Ur Leukocyte Esterase MOD H, Ur Microscopic SEDIMENT EXAMINED, Urine RBC 5-10 H, Urine WBC 1-3 H, Ur Epithelial Cells RARE, Urine Crystals 1+ TRIP PHOS H, Urine Bacteria PACKD H, Urine Hemoglobin SMALL H, Urine Glucose NEG 06/01/172004: PT 24.9 H, INR 2.39 H 06/01/171919: Anion Gap 12, Estimated GFR 7 L, BUN/Creatinine Ratio 8.3, Glucose 88, Calcium 8.6, Iron 31 L, TIBC 263, Ferritin 95.5, Total Bilirubin 0.3, AST 21, ALT 31, Alkaline Phosphatase 70, Troponin I 0.04, Total Protein 5.7 L, Albumin 3.6, Globulin 2.1, Albumin/Globulin Ratio 1.7, CBC w Diff NO MAN DIFF REQ, RBC 2.92 L, MCV 91.1, MCH 30.3, RDW 15.3 H, MPV 8.6, Gran % 70.0, Lymphocytes % 15.7 L, Monocytes % 11.7 H, Eosinophils % 2.1, Basophils % 0.5, Absolute Granulocytes 4.0, Absolute Lymphocytes 0.9 L, Absolute Monocytes 0.7 H, Absolute Eosinophils 0.1, Absolute Basophils 0, PUBS MCHC 33.3 Microbiology 06/01 2239 BLOOD: Blood Culture - RECD 06/01 2234 BLOOD: Blood Culture - CAN Cancelled: DUP.ORDER SEE [id number] 06/01 2110 URINE ROUT: Urine Culture - RECD 06/01 1910 BLOOD: Blood Culture - RECD Diagnostic Data EKG Results atrial fibrillation CXR Results left lung base not visualized, consider lateral cardiomegaly Assessment/Plan Assessment: 81-year-old male with history of HTN, HLD, Afib, CAD, BPH w indwelling polanco, dementia and CKD is brought in by family for increasing agitation x 3 weeks. On arrival in the ED, patient has rapid atrial fibrillation, a urinalysis with signs of infection, acute on chronic renal failure, mildly increased work of breathing with diffuse wheezing requiring supplemental oxygen. 1. Altered mental status: likely multifactorial progressive dementia, dehydration and UTI with chronic Polanco. NS @ 75cc/hr Ceftazidime for UTI Remeron, risperidone and trazodone. 2. Urinary tract infection: urinalysis moderate leukocyte esterase, packed bacteria chronic indwelling polanco catheter Start ceftazidine Follow up urine cultures and sensitivity and narrow coverage as indicated 3. Acute on chronic renal failure: Creatinine currently 7.7, last admission was ~5.5 Consult nephrology in the morning Follow up on basic electrolyte panel Nephro has consulted in past and patient was given IVF hydration and not dialyzed. NS @ 75cc/hr Continue Calcitriol 0.25mcg PO QD 3. Atrial fibrillation with rapid ventricular response Continue cardizem for rate control Daily dose warfarin and INR checks 4. CAD: continue home medications ASA Lipitor 80mg PO QD Imdur 30mg PO QD Cardiology consult 5. Hypoxia: pulse ox 88% on room air, patient reports being former smoker, diffuse wheeze Titrate supplemental oxygen via nasal cannula to spo2 >94% May repeat lateral CXR to visualize left lower lobe TRC eval Heart healthy diet DVT ppx-on warfarin DNR/DNI As Ranked By This Provider Problem List: 1. Chronic atrial fibrillation 2. CKD (chronic kidney disease) 3. Urinary retention due to benign prostatic hyperplasia 4. UTI (urinary tract infection) Qualifiers Urinary tract infection type: site unspecified Hematuria presence: with hematuria Qualified Codes: N39.0 - Urinary tract infection, site not specified; R31.9 - Hematuria, unspecified 5. Altered mental status 6. Rapid atrial fibrillation Core Measures/Miscellaneous Acute Coronary Syndrome ACS Diagnosis: No Cerebrovascular Accident CVA/TIA Diagnosis: No Congestive Heart Failure CHF Diagnosis: No VTE (View Protocol) VTE Risk Factors: Acute medical illness, Age > 40 [facility] prophylaxis d/t: No contraindications No VTE Pharm Prophylaxis d/t: No contraindications VTE Diagnosis: No VTE Type: NONE VTE Confirmed by (Test): NONE Comment: on warfarin Sepsis (View Protocol) Severe Sepsis Present: No Septic Shock Septic Shock Present: No Miscellaneous Documentation Attending Case Discussed With: TEAGAN CARDENAS MD Primary Care Physician: FABIÁN CASTRO,DANIELA Peacock Patient sees these Specialists cardiology, nephrology, urology, psychiatry Level of Patient Care: Telemetry Consults Needed: 1 Consulting Specialty: Cardiology Consults Needed: 2 Consulting Specialty: Nephrology JOAN BEVERLY 06/02/17 0226: Resident Review Statement Resident Statement: examined this patient, discussed with video editing intern, agreed with video editing intern Other Findings: Patient is 81-year-old male with past medical history significant for dementia, atrial fibrillation on Coumadin, hypertension, hyperlipidemia, CAD status post stent placement, as they age 7 chronic kidney disease, prostate cancer status post TURP, chronic indwelling Polanco's catheter came with chief complaint of worsening dementia, altered mental status and history of recurrent UTI with symptoms of current UTI. Patient was very confused and not able to give proper history. Most of the history was from old records. I tried to call but always not received we will try to contact in a.m. Patient denied any chest pain, palpitations, headache, dizziness, cough, any urinary or bowel complaints. On arrival to ER patient was found to be in rapid A. fib with heart rate in 140s and was given 2 pushes of 10 mg of IV Cardizem with heart rate came down to 108. Patient remained asymptomatic. On admission vital signs were temperature 98.0, pulse 140, respiratory rate 20, blood pressure 155/95 he was saturating 96% on room air. Labs were significant for WBC count 5.7, hemoglobin 8.8, hematocrit 26.6, platelet count 216, INR 2.39, sodium 143, potassium 4.8, creatinine 7.7, urine showed moderate leukocyte Estrace, WBC 123 with packed bacteria Chest x-ray showed no pulmonary edema EKG atrial fibrillation with no acute ST-T wave changes Clinical examination Alert but not oriented to time person and place Head atraumatic Neck supple Chest my mild wheezing throughout [place] Heart S1 and S2 normal, irregularly irregular heart rate with no added sounds Abdomen soft with normal bowel sounds Extremities showed trace edema. Assessment and plan 81-year-old male with history of significant dementia, atrial fibrillation, hypertension, dyslipidemia, CAD, stage V chronic kidney disease with indwelling Polanco's catheter came with worsening dementia, acute change in MENTAL status and found to have elevated that maintain from baseline and UTI. Also on admission had rapid A. fib. We will admit patient on telemetry floor and will take care for the following problems Problem #1 altered mental status which is multifactorial in etiology could be progression of dementia versus dehydration versus UTI with chronic indwelling Polanco's catheter. Gentle IV hydration Problem #2 UTI with acute on chronic kidney injury We will start patient on Cefaz as as previously he was sensitive to. Is allergic to ciprofloxacin. Urine culture were sent and we will narrow down antibiotics accordingly. We will request nephrology evaluation in a.m. Repeat basic electrolyte panel daily Continue Polanco's dedication Detailed discussion was done in the past and patient was seen by nephrology and with decision was made due to his advancing age most likely he won't benefit from dialysis and should be washed carefully with IV hydration and treatment of his urinary tract infection but we've will request a reevaluation by nephrology Problem #3 history of hypertension and paroxysmal atrial fibrillation We will continue his home medications including warfarin and Cardizem Heart healthy diet Patient is DNI DNR from previous records but we will confirm CODE STATUS in a.m. Pharmacological DVT prophylaxis with warfarin TEAGAN CARDENAS MD 06/02/17 1335: Attending MD Review Statement Attending Statement Attending MD Statement: examined this patient, discuss w/resident/PA/BODY BUILDER, agreed w/resident/PA/BODY BUILDER, discussed with family, reviewed EMR data (avail), discussed with nursing, reviewed images, amended to note Attending Assessment/Plan: The patient is a 81-year-old male with history of hypertension, atrial fibrillation, COPD, and chronic kidney disease who was brought to the hospital by his family for increasing confusion over the past 3 weeks. He has a history of being confused with urinary tract infections in the past. The patient was noted to be in rapid atrial fibrillation on presentation. The ventricular rate was brought under control on diltiazem. He was noted on urinalysis to have evidence of urinary tract infection. He has had no chest pain. No palpitations. No syncope. No orthopnea. No lightheadedness or dizziness. Ventricular rate normal on diltiazem. Review of systems: No fever. No chills. No rash. No tremor. All other systems were reviewed, and were noted to be negative. Family history was reviewed with the patient and their no known factors continuing to the current presentation. Vital Signs Date Time Temp Pulse Resp B/P B/P Pulse O2 O2 Flow FiO2 Mean Ox Delivery Rate 06/02 1600 97 Nasal 2.0L Cannula 06/02 1510 98.1 104 28 118/74 97 Nasal 2.0L Cannula 06/02 1446 Nasal 2.0L Cannula 06/02 0903 134 140/90 06/02 0800 96 Nasal 2.0L Cannula 06/02 0651 97.5 134 36 160/100 92 Nasal 2.0L Cannula 06/02 0147 97.9 115 20 150/86 90 Room Air 06/02 0018 97.2 108 20 120/76 98 Room Air 06/01 2201 97.1 121 16 128/71 06/01 2140 97.1 121 16 128/71 97 Room Air Physical examination: Gen: The patient is in no acute distress HEENT: Normal nose, ears, and oropharynx. Pupils equal bilaterally. Conjunctiva normal. Neck: Supple with no JVD, no masses, and no thyromegaly Lungs: Scattered wheezes with normal respiratory effort Heart: Irregularly irregular, S1, S2, 2/6 systolic murmur. No peripheral edema, 2+ pulses in the lower extremities bilaterally Abdomen: Soft, nontender, no masses. No hepatomegaly. No splenomegaly Extremities: No clubbing or cyanosis. Normal muscle strength in the upper and lower extremities Skin: Normal skin turgor with no skin ulcers or lesions noted. Neuro: Cranial nerves intact. Sensation intact Psych: Alert and oriented 3 with appropriate affect Laboratory Tests 06/02 06/02 0645 0042 Chemistry Sodium (137 - 145 mmol/L) 145 Potassium (3.5 - 5.1 mmol/L) 4.9 Chloride (98 - 107 mmol/L) 113 H Carbon Dioxide (22 - 30 mmol/L) 19 L Anion Gap (5 - 16) 14 BUN (9 - 20 mg/dL) 57 H Creatinine (0.7 - 1.2 mg/dL) 7.3 *H Estimated GFR (>60 ml/min) 7 L BUN/Creatinine Ratio (7 - 25 %) 7.8 Troponin I (<0.11 ng/ml) 0.05 Coagulation PT (9.4 - 12.5 SEC) 23.2 H INR (0.90 - 1.17) 2.23 H Hematology CBC w Diff NO MAN DIFF REQ WBC (4.8 - 10.8 /CUMM) 6.4 RBC (4.70 - 6.10 /CUMM) 2.95 L Hgb (14.0 - 18.0 G/DL) 8.9 L Hct (42 - 52 %) 27.5 L MCV (80.0 - 94.0 FL) 93.1 MCH (27.0 - 31.0 PG) 30.1 RDW (11.5 - 14.5 %) 15.4 H Plt Count (130 - 400 /CUMM) 173 MPV (7.4 - 10.4 FL) 8.2 Gran % (42.2 - 75.2 %) 71.1 Lymphocytes % (20.5 - 51.1 %) 18.1 L Monocytes % (1.7 - 9.3 %) 9.0 Eosinophils % (0 - 5 %) 1.2 Basophils % (0.0 - 2.0 %) 0.6 Absolute Granulocytes (1.4 - 6.5 /CUMM) 4.5 Absolute Lymphocytes (1.2 - 3.4 /CUMM) 1.2 Absolute Monocytes (0.10 - 0.60 /CUMM) 0.6 Absolute Eosinophils (0.0 - 0.7 /CUMM) 0.1 Absolute Basophils (0.0 - 0.2 /CUMM) 0 PUBS MCHC (33.0 - 37.0 G/DL) 32.3 L 06/01 Coagulation PT (9.4 - 12.5 SEC) 24.9 H INR (0.90 - 1.17) 2.39 H Urines Urine Color (YEL,AMB,STR) YEL Urine Clarity (CLEAR) CLEAR Urine pH (5.0 - 8.0) >= 9.0 H Ur Specific [place] (1.001 - 1.035) 1.010 Urine Protein (NEG,<30 MG/DL) 100 H Urine Ketones (NEG) NEG Urine Nitrite (NEG) NEG Urine Bilirubin (NEG) NEG Urine Urobilinogen (0.1 - 1.0 EU/dl) 0.2 Ur Leukocyte Esterase (NEG) MOD H Ur Microscopic SEDIMENT EXAMINED Urine RBC (0 - 5 /HPF) 5-10 H Urine WBC (0 - 2 /HPF) 1-3 H Ur Epithelial Cells (NONE,FEW) RARE Urine Crystals 1+ TRIP PHOS H Urine Bacteria (NEG/NONE) PACKD H Urine Hemoglobin (NEG) SMALL H Urine Glucose (N MG/DL) NEG 06/01 1920 Chemistry Sodium (137 - 145 mmol/L) 143 Potassium (3.5 - 5.1 mmol/L) 4.8 Chloride (98 - 107 mmol/L) 109 H Carbon Dioxide (22 - 30 mmol/L) 22 Anion Gap (5 - 16) 12 BUN (9 - 20 mg/dL) 64 H Creatinine (0.7 - 1.2 mg/dL) 7.7 *H Estimated GFR (>60 ml/min) 7 L BUN/Creatinine Ratio (7 - 25 %) 8.3 Glucose (65 - 99 mg/dL) 88 Calcium (8.4 - 10.2 mg/dL) 8.6 Iron (49 - 181 ug/dL) 31 L TIBC (261 - 462 ug/dL) 263 Ferritin (17.9 - 464 ng/mL) 95.5 Total Bilirubin (0.2 - 1.3 mg/dL) 0.3 AST (17 - 59 U/L) 21 ALT (21 - 72 U/L) 31 Alkaline Phosphatase (< 127 U/L) 70 Troponin I (<0.11 ng/ml) 0.04 Total Protein (6.3 - 8.2 g/dL) 5.7 L Albumin (3.5 - 5.0 g/dL) 3.6 Globulin (1.9 - 4.2 gm/dL) 2.1 Albumin/Globulin Ratio (1.1 - 2.2 %) 1.7 Hematology CBC w Diff NO MAN DIFF REQ WBC (4.8 - 10.8 /CUMM) 5.7 RBC (4.70 - 6.10 /CUMM) 2.92 L Hgb (14.0 - 18.0 G/DL) 8.8 L Hct (42 - 52 %) 26.6 L MCV (80.0 - 94.0 FL) 91.1 MCH (27.0 - 31.0 PG) 30.3 RDW (11.5 - 14.5 %) 15.3 H Plt Count (130 - 400 /CUMM) 216 MPV (7.4 - 10.4 FL) 8.6 Gran % (42.2 - 75.2 %) 70.0 Lymphocytes % (20.5 - 51.1 %) 15.7 L Monocytes % (1.7 - 9.3 %) 11.7 H Eosinophils % (0 - 5 %) 2.1 Basophils % (0.0 - 2.0 %) 0.5 Absolute Granulocytes (1.4 - 6.5 /CUMM) 4.0 Absolute Lymphocytes (1.2 - 3.4 /CUMM) 0.9 L Absolute Monocytes (0.10 - 0.60 /CUMM) 0.7 H Absolute Eosinophils (0.0 - 0.7 /CUMM) 0.1 Absolute Basophils (0.0 - 0.2 /CUMM) 0 PUBS MCHC (33.0 - 37.0 G/DL) 33.3 EKG tracing is independently reviewed, and reveals atrial fibrillation with response of 100, nonspecific ST-T abnormality Assessment: 1. Atrial fibrillation, with rapid ventricular rate on presentation, now under control on oral diltiazem 2. Anticoagulated on warfarin 3. Acute on chronic renal failure Plan: * Antibiotic therapy for urinary tract infection * Nephrology consult. Follow-up nephrology recommendations for acute on chronic renal failure * Continue normal saline * Dose warfarin as needed for INR 2-3 * Continue by mouth diltiazem for rate control * Continue other cardiac medications
[2017-06-02 01:47] VITALS: BP 150/86
[2017-06-02 06:51] VITALS: BP 160/100
[2017-06-02 08:04] LABS: PT 23.2 SEC (9.4-12.5)
[2017-06-02 08:14] LABS: ABSOLUTE BASOPHIL COUNT 0 /CUMM (0.0-0.2); ABSOLUTE EOSINOPHIL COUNT 0.1 /CUMM (0.0-0.7); ABSOLUTE GRANULOCYTE CT 4.5 /CUMM (1.4-6.5); ABSOLUTE LYMPH COUNT 1.2 /CUMM (1.2-3.4); ABSOLUTE MONOCYTE COUNT 0.6 /CUMM (0.10-0.60); BASOPHIL % 0.6 % (0.0-2.0); EOSINOPHIL % 1.2 % (0-5); GRANULOCYTE % 71.1 % (42.2-75.2); HEMATOCRIT 27.5 % (42-52); MEAN CORPUSCULAR HGB 30.1 PG (27.0-31.0); MEAN CORPUSCULAR HGB CONC 32.3 G/DL (33.0-37.0); MEAN CORPUSCULAR VOLUME 93.1 FL (80.0-94.0); MEAN PLATELET VOLUME 8.2 FL (7.4-10.4); PLATELET COUNT 173 /CUMM (130-400); RBC DISTRIBUTION WIDTH 15.4 % (11.5-14.5); RED BLOOD CELL CT 2.95 /CUMM (4.70-6.10); WHITE BLOOD CELL COUNT 6.4 /CUMM (4.8-10.8)
--- NOTE | 2017-06-02 08:27 | PN- Housestaff ---
Subjective Follow-up For: ams chronic afib chronic kidney disease bph Complaints: no complaints Tele-Events Since Last Visit: Overnight, patient was in afib 98-138. At 0545, rates were at 150-160's. At 0600 he ripped off his tele monitoring. At the time of record, he was afib at 112. Subjective: Patient has been combative overnight, alert but confused. He stated that he needed to have a bowel movement but refused the bedpan. Review of Systems Constitutional: Reports: no symptoms. Cardiovascular: Denies: chest pain, edema. Respiratory: Reports: no symptoms. Gastrointestinal: Reports: no symptoms. Comments: UNABLE TO OBTAIN A RELIABLE HISTORY FOR ALL QUESTIONS- PATIENT REFUSES TO ANSWER Objective Last 24 Hrs of Vital Signs/I&O Vital Signs Date Time Temp Pulse Resp B/P B/P Pulse O2 O2 Flow FiO2 Mean Ox Delivery Rate 06/02 0651 97.5 134 36 160/100 92 Nasal 2.0L Cannula 06/02 0147 97.9 115 20 150/86 90 Room Air 06/02 0018 97.2 108 20 120/76 98 Room Air 06/01 2201 97.1 121 16 128/71 07/03 2140 97.1 121 16 128/71 97 Room Air 07 1939 Room Air 07/ 1930 97.4 133 22 124/66 07/03 1925 97.4 133 22 124/66 Room Air / 1820 98.0 140 20 135/95 96 Room Air Intake & Output 06/02 1600 07/04 0800 07/04 0000 Intake Total 400 Output Total 300 Balance -300 400 Intake, Blood 350 Product Intake, IV 50 Output, Urine 300 Patient 164 lb Weight Weight Estimated Measurement Method Physical Exam General Appearance: Alert, Mild Distress Skin: No Rashes, No Breakdown, No Significant Lesion Skin Temp/Moisture Exam: Warm/Dry Sepsis Skin Exam (color): Normal for Ethnicity HEENT: Atraumatic, PERRLA, EOMI, Mucous Membr. moist/pink Neck: No JVD Cardiovascular: Normal S1, Normal S2, No Murmurs, Gallops, Rubs Lungs: WHEEZES THROUGHOUT Abdomen: Normal Bowel Sounds, Soft, No Tenderness, No Hepatospenomegaly, No Masses Neurological: Normal Tone, Sensation Intact Extremities: No Clubbing, No Cyanosis, Normal Pulses Vascular: Normal Pulses Sepsis Peripheral Pulse Location: Radial Sepsis Peripheral Pulse Exam: Normal Current Medications: Current Medications Sig/Yanira Start time Last Medication Dose Route Stop Time Status Admin Acetaminophen 650 MG Q6P PRN 06/02 0200 AC PO Acetaminophen 1,000 MG Q6P PRN 06/02 0200 AC IV Aspirin Buffered 162 MG DAILY 06/02 1000 AC PO Atorvastatin Calcium 80 MG 1700 06/02 1700 AC PO Calcitriol 0.25 MCG DAILY 06/02 1000 AC PO Ceftazidime 500 MG Q24H 06/02 0800 AC IV Ceftazidime 0 .STK-MED ONE 06/01 2320 DC .ROUTE Ceftazidime 500 MG ONCE ONE 06/01 2245 DC 06/01 IV 06/01 2246 2330 Diltiazem HCl 180 MG DAILY 06/02 1000 AC PO Diltiazem HCl 0 .STK-MED ONE 06/01 2222 DC .ROUTE Diltiazem HCl 10 MG ONCE ONE 06/01 2200 DC 06/01 IV 06/01 2201 2201 Diltiazem HCl 0 .STK-MED ONE 06/01 1936 DC .ROUTE Diltiazem HCl 10 MG ONCE ONE 06/01 1930 DC 06/01 IV 06/01 1931 1930 Isosorbide 30 MG DAILY 06/02 1000 AC Mononitrate PO Mirtazapine 15 MG QPM PRN 06/02 0215 AC PO Multivitamins 1 TAB DAILY 06/02 1000 AC Therapeutic PO Polyethylene Glycol 17 GM DAILY PRN 06/02 0215 AC PO Risperidone 0.25 MG 2200 PRN 06/02 0215 AC PO Risperidone 0.25 MG ONCE ONE 06/02 0045 DC 06/02 PO 06/02 0046 0115 Sodium Chloride 1,000 ML Q13H 06/02 0230 AC 06/02 IV 0659 Sodium Chloride 1,000 ML ONCE ONE 06/01 1930 DC 06/01 IV 06/02 0209 1930 Trazodone HCl 50 MG QPM 06/02 2200 AC PO Trazodone HCl 0 .STK-MED ONE 06/02 0053 DC PO Trazodone HCl 50 MG ONCE ONE 06/02 0045 DC 06/02 PO 06/02 0046 0048 Last 24 Hrs of Lab/Sammy Results Last 24 Hrs of Labs/Mics: Laboratory Tests 06/02/17 0645: Anion Gap 14, Estimated GFR Pending, BUN/Creatinine Ratio 7.8, PT 23.2 H, INR 2.23 H, CBC w Diff NO MAN DIFF REQ, RBC 2.95 L, MCV 93.1, MCH 30.1, RDW 15.4 H, MPV 8.2, Gran % 71.1, Lymphocytes % 18.1 L, Monocytes % 9.0, Eosinophils % 1.2, Basophils % 0.6, Absolute Granulocytes 4.5, Absolute Lymphocytes 1.2, Absolute Monocytes 0.6, Absolute Eosinophils 0.1, Absolute Basophils 0, PUBS MCHC 32.3 L 06/02/17 0042: Troponin I 0.05 06/01/172109: Urine Color YEL, Urine Clarity CLEAR, Urine pH >= 9.0 H, Ur Specific [place] 1.010, Urine Protein 100 H, Urine Ketones NEG, Urine Nitrite NEG, Urine Bilirubin NEG, Urine Urobilinogen 0.2, Ur Leukocyte Esterase MOD H, Ur Microscopic SEDIMENT EXAMINED, Urine RBC 5-10 H, Urine WBC 1-3 H, Ur Epithelial Cells RARE, Urine Crystals 1+ TRIP PHOS H, Urine Bacteria PACKD H, Urine Hemoglobin SMALL H, Urine Glucose NEG 06/01/172004: PT 24.9 H, INR 2.39 H 06/01/17 1920: Anion Gap 12, Estimated GFR 7 L, BUN/Creatinine Ratio 8.3, Glucose 88, Calcium 8.6, Iron 31 L, TIBC 263, Ferritin 95.5, Total Bilirubin 0.3, AST 21, ALT 31, Alkaline Phosphatase 70, Troponin I 0.04, Total Protein 5.7 L, Albumin 3.6, Globulin 2.1, Albumin/Globulin Ratio 1.7, CBC w Diff NO MAN DIFF REQ, RBC 2.92 L, MCV 91.1, MCH 30.3, RDW 15.3 H, MPV 8.6, Gran % 70.0, Lymphocytes % 15.7 L, Monocytes % 11.7 H, Eosinophils % 2.1, Basophils % 0.5, Absolute Granulocytes 4.0, Absolute Lymphocytes 0.9 L, Absolute Monocytes 0.7 H, Absolute Eosinophils 0.1, Absolute Basophils 0, PUBS MCHC 33.3 Microbiology 06/01 2239 BLOOD: Blood Culture - RECD 06/01 2234 BLOOD: Blood Culture - CAN Cancelled: DUP.ORDER SEE [id number] 06/01 2110 URINE ROUT: Urine Culture - RECD 06/01 1910 BLOOD: Blood Culture - RECD Orders EKG Findings: EKG atrial fibrillation with no acute ST-T wave changes Radiology Findings: cxr Cardiomegaly without congestion. Left lung base retrocardiac area is not clearly visualized. Cannot exclude underlying abnormality. Consider lateral view patient is symptomatic. Lines/Diet/Fluids Fluids/Infusions: NORMAL SALINE AT 75CC/HR Catheters/Tubes: polanco Polanco Still Needed? Yes (CATH APPEARS NEW PER NURSE) Restraints: 4-point Assessment/Plan Assessment: Assessment: 81-year-old male with history of HTN, HLD, Afib, CAD, BPH w indwelling polanco, dementia and CKD is brought in by family for increasing agitation x 3 weeks. On arrival in the ED, patient has rapid atrial fibrillation, was dehydrated, a urinalysis with signs of infection, acute on chronic renal failure Cr. to 7, mildly increased work of breathing with diffuse wheezing requiring supplemental oxygen. Plan: 1. Altered mental status: UTI VS. DEMENTIA VS. DEHYDRATION NS @ 75cc/hr Ceftazidime for UTI: PREVIOUSLY PSEUDOMONAS UTI HOME MEDS Remeron, risperidone and trazodone. 2. Urinary tract infection: urinalysis moderate leukocyte esterase, packed bacteria chronic indwelling polanco catheter- PER NURSE CATHETER APPEARS NEW SO SHE DID NOT CHANGE IT Start ceftazidine Follow up urine cultures and sensitivity and narrow coverage as indicated 3. Acute on chronic renal failure: Creatinine currently 7.3, WAS 7.7, last admission was ~5.5 CONSULT NEPHROLOGY PUT IN- FOLLOW RECOMMENDATIONS Follow up on basic electrolyte panel Nephro has consulted in past and patient was given IVF hydration and not dialyzed. NS @ 75cc/hr Continue Calcitriol 0.25mcg PO QD REPEAT BEP TO FOLLOW BUN CR 3. Atrial fibrillation with rapid ventricular response Continue cardizem for rate control Daily dose warfarin and INR checks 2.23 LAST 4. CAD: continue home medications ASA Lipitor 80mg PO QD Imdur 30mg PO QD Cardiology consult 5. Hypoxia: pulse ox 88% on room air, patient reports being former smoker, diffuse wheeze Titrate supplemental oxygen via nasal cannula to spo2 >94% May repeat lateral CXR to visualize left lower lobe TRC eval 6. DVT PROPHYLAXIS ON WARFARIN FOR AFIB 7. CODE STATUS DNR DNI Problem List: 1. UTI (urinary tract infection) 2. Acute urinary retention 3. Altered mental status 4. Rapid atrial fibrillation 5. CKD (chronic kidney disease) 6. Urinary retention due to benign prostatic hyperplasia Pain Ratin Pain Location: NA Pain Goal: Remain pain free Pain Plan: NA Tomorrow's Labs & Rationales: BEP TO FOLLOW BUN CR, FOLLOW UCX DVT/Prophylaxis: pharmacological Consulting Request: Consulting Specialty: Nephrology
--- NOTE | 2017-06-02 12:17 | Cons- Nephrology ---
General Information and HPI Consulting Request Date of Consult: 06/02/17 Requested By: TEAGAN CARDENAS MD Reason for Consult: CKD Source of Information: patient, family, old records Exam Limitations: dementia History of Present Illness: 81 yr old WM w severe dementia, HTN, A fib & CKD in setting of obstructive uropathy & recurrent UTIs requiring indwelling Castillo admit w A fib complicated by RVR & presumed lower UTI. Known stage 5 CKD w baseline Cr hi 5s found increase 7.7 on admit. No gross uremic sx per --> eats w/o vomiting. No documented hypotension. No NSAID, ACEI, ARB, IV contrast. No SOB. No fever or rigors. Begun on IV antibiotics & fluids w nonoliguria & Cr fall 7.3 toady. Previously seen by Dr. Cleveland & deemed not a candidate for renal replacement therapy due to advanced dementia & other comorbidities. Allergies/Medications Allergies: Coded Allergies: ciprofloxacin (From CIPRO) (Mild, ITCHING 10/04/16) Home Med List: Aspirin (Ecotrin*) 81 MG TABLET.DR 1 TAB PO BID HEART HEALTH (Reported) Atorvastatin Calcium (Lipitor) 80 MG TABLET 1 TAB PO DAILY CHOLESTEROL ( Reported) Calcitriol (Rocaltrol) 0.25 MCG CAPSULE 1 CAP PO DAILY RENAL (Reported) Diltiazem HCl (Diltiazem 24HR ER) 180 MG CAP.ER.24H 1 CAP PO DAILY HEART/BP ( Reported) Isosorbide Mononitrate (Isosorbide Mononitrate ER) 30 MG TAB.ER.24H 1 TAB PO DAILY HEART HEALTH (Reported) Mirtazapine 15 MG TABLET 1 TAB PO QPM PRN SLEEP (Reported) Multivitamin (Daily Multiple Vitamin) 1 EACH TABLET 1 TAB PO DAILY SUPPLEMENT (Reported) Polyethylene Glycol 3350 17 GRAM POWD.PACK 1 PAC PO PRN CONSTIPATION ( Reported) Risperidone (Risperdal) 0.25 MG TABLET 1 TAB PO PRN AGITATION (Reported) Trazodone HCl 50 MG TABLET 1 TAB PO QPM SLEEP (Reported) Vit C/E/Zn/Coppr/Lutein/Zeaxan (Preservision Areds 2 Softgel) 250-200-40 CAPSULE 1 TAB PO BID SUPPLEMENT (Reported) Warfarin Sodium (Coumadin) 5 MG TABLET 1 TAB PO AD BLOOD THINNER (Reported) Warfarin Sodium (Coumadin) 2.5 MG TABLET 1 TAB PO AD BLOOD THINNER (Reported) Review of Systems Review of Systems Constitutional: Denies: no symptoms. EENTM: Denies: no symptoms. Cardiovascular: Denies: no symptoms. Respiratory: Denies: no symptoms. GI: Denies: no symptoms. Genitourinary: Reports: see HPI. Musculoskeletal: Denies: no symptoms. Skin: Denies: no symptoms. Neurological/Psychological: Reports: other (increasing confusion per ). Hematologic/Endocrine: Reports: no symptoms. Immunologic/Allergic: Reports: no symptoms. 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 Home Smoking Status: Former Smoker ETOH Use: denies use Illicit Drug Use: denies illicit drug use Exam & Diagnostic Data Vital Signs and I&O Vital Signs Date Time Temp Pulse Resp B/P B/P Pulse O2 O2 Flow FiO2 Mean Ox Delivery Rate 06/02 0903 134 140/90 06/02 0651 97.5 134 36 160/100 92 Nasal 2.0L Cannula 06/02 0147 97.9 115 20 150/86 90 Room Air 06/02 0018 97.2 108 20 120/76 98 Room Air 06/01 2201 97.1 121 16 128/71 06/01 2140 97.1 121 16 128/71 97 Room Air 06/01 1939 Room Air 06/01 1930 97.4 133 22 124/66 / 1925 97.4 133 22 124/66 Room Air 06/01 1820 98.0 140 20 135/95 96 Room Air Intake & Output 06/02 1600 06/02 0400 06/01 1600 06/01 0400 05/31 1600 07/02 0400 Intake Total 600 400 Output Total 300 Balance 600 100 Intake, Blood 350 Product Intake, IV 600 50 Output, Urine 300 Patient 164 lb Weight Weight Estimated Measurement Method Physical Exam General Appearance: well developed/nourished, no apparent distress Head: atraumatic, normal appearance Eyes: Bilateral: normal appearance. 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 Left lung base retrocardiac area is not clearly visualized. Cannot exclude underlying abnormality. Consider lateral view patient is symptomatic. Assessment/Plan Assessment/Recommendations Assessment: 1. CKD: stage 5, ESRD, due to HTN & recurrent obstruction w UTIs. May have superimposed prerenal component due to A fib w RVR & has had some improvement w IV volume trial expansion. No dialysis imperative & not a candidate should indication arise in face of severe & advanacing dementia Recommendations: 1. Maintenace IV fluids 2. Rate control 3. Consider hospice/palliative care
[2017-06-02 15:10] VITALS: BP 118/74
--- NOTE | 2017-06-02 16:22 | Cons- Psychiatry ---
Psychiatric Consult Date of Consult: 06/02/17 Reason for Consult: increased agitation History of Present Illness: Patient with history of atrial fibrillation, chronic renal failure recurrent UTI's (has indwelling catheter for obstructive uropathy), hypertension , and dementia was brought into the E.D. from home by his due to recent increase in confusion and agitation; he was found to have a UTI and rapid atrial fibrillation and was admitted to [address] [place] [address] overnight 06/01-06/02/2017. I spoke directly with Dr. Patton who is caring for the patient today. He has continued to be agitated and required partial (2-point soft) restraints for safety. Dr. Pattno is looking for help in selecting and titrating medication to most safely manage and contain agitation and reduce confusion while acute medical problems are addressed. Upon my check of the electronic medical record, there is no history of patient having had any previous contact with/treatment by our department. Allergies: Coded Allergies: ciprofloxacin (From CIPRO) (Mild, ITCHING 10/04/16) Current Medications: (see medical chart) Past History Past Medical History Neurological: dementia EENT: cataracts, macular degeneration, IN L EYE DETACHED RETINA Cardiovascular: AFIB, CAD (status post stents), hypertension, hyperlipidemia, CARDIAC STENTS Respiratory: NONE Gastrointestinal: NONE Hepatic: NONE Renal: chronic kidney disease, PROSTATE PROBLEMS UTI'S Musculoskeletal: disk herniation, osteoarthritis Psychiatric: NONE, no known psych history but has experienced episodic confusion and is said to have advanced dementia Endocrine: NONE Blood Disorders: NONE Cancer(s): prostate cancer 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 Past Surgical History Surgical History: appendectomy, laminectomy (hemilaminectomy L4-L5), prostatectomy (1997) Psychosocial History Strengths/Capabilities: unable to assess adequately at this time Physical Limitations (Interventions): currently in hospital bed with bilateral wrist restraint Psychiatric Treatment History Psych Treatment Psychiatric Treatment No Diagnosis: Confusion and intermittent agitation related to multiple medical issues, incuding recurrent UTI and atrial fibrillation with rapid ventricular response pre-existing dementia, by history (lives with ) chronic renal failure (currently Stage 5) obstructive uropathy with indwelling cathetar Substance Use/Abuse History Drug Use/Abuse Substances Used/Abused No Substance Abuse Treatment Substance Abuse Treatment Past Substance Abuse [place] No Assessment/Plan Mental Status Orientation: Confused, Person (identify self/answers to name), Place (unsure if [place] is in [place]) Affect: Euphoric Speech: Soft Neuro-vegetative: Appetite Decreased Lab Results: (see medical chart) Diffential Diagnosis: It is unclear at this time the degree/extent of underlying/baseline dementia due to current confusional state; however, patient is aware of certain things with clarity; e.g. 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 As more acute medical issues are brought under good control it should be possible to establish how advanced dementing process is and if more a primary dementia such as Alzheimer's versus primarily vascular. Impression: acute/subacute confusional state superimposed on some degree of underlying dementia Provisional Treatment Plan: I would recommend holding the trazodone and Remeron for the present and switching from low dose PRN Risperdal to Haldol (at a similar dose--0.25mg) since the "black box warning" with regard to treatment of dementia with neuroleptics was first imposed on Risperdal before other drugs were added to the list and patient's have been treated for agitation with the first generation medication Haldol for 40-50+ years before any concerns were raised with regard to neuroleptic use and stroke in the demented. In fact, patient has not required any PRN Risperdal thus far and his current nurse finds him calmer, less confused and more cooperative with care; restraints have been reduced to two- point soft wrist with expectation of being able to discontinue restraint soon. Prior to patient's discharge the status of his care at home with spouse should be evaluated by Certified Wellness Program Coordinator and additional help/support in the home organized, as appropriate.
[2017-06-02 22:20] VITALS: BP 110/80
--- NOTE | 2017-06-03 03:37 | NUR ---
@0330 UPON ROUNDING PT FOUND WITH AUDIBLE WHEEZING AND C/O SOB. 02 96% ON 2L, SCATTERED WHEEZING THROUGHOUT LUNG CLEMENTS. RT PAGED AND TRC ORDERED. NEBS ADMINISTERED.
[2017-06-03 07:28] VITALS: BP 128/84
[2017-06-03 08:42] LABS: PT 22.4 SEC (9.4-12.5)
--- NOTE | 2017-06-03 10:05 | PN- Housestaff ---
See Addendum Subjective Follow-up For: AMS, AFIB WITH RVR, UTI, CKD, DEHYDRATION, BASELINE DEMENTIA Complaints: PT COMPLAINS OF FEELING "IN A LONGTERM" REGARDING THE RESTRAINTS Tele-Events Since Last Visit: AFIB 95-103 Subjective: Patient was seen and examined bedside. Combative and complains of being in "intermediate" but otherwise has no complaints. Review of Systems Constitutional: Reports: no symptoms. EENTM: Reports: no symptoms. Cardiovascular: Reports: no symptoms. Respiratory: Reports: no symptoms. Gastrointestinal: Reports: no symptoms. Genitourinary: Reports: no symptoms. Musculoskeletal: Reports: no symptoms. Skin: Reports: no symptoms. Neurological/Psychological: Reports: no symptoms. Hematologic/Endocrine: Reports: no symptoms. Immunologic/Allergic: Reports: no symptoms. Objective Last 24 Hrs of Vital Signs/I&O Vital Signs Date Time Temp Pulse Resp B/P B/P Pulse O2 O2 Flow FiO2 Mean Ox Delivery Rate 06/03 0934 108 128/84 06/03 0909 95 Nasal 2.0L Cannula 06/03 0728 97.4 108 18 128/84 95 Nasal Cannula 06/03 0401 96 Nasal 2.0L Cannula 06/03 0101 Nasal 2.0L Cannula 06/02 2220 98.7 110 14 110/80 93 Nasal 2.0L Cannula 06/02 1600 97 Nasal 2.0L Cannula 06/02 1510 98.1 104 28 118/74 97 Nasal 2.0L Cannula 06/02 1446 Nasal 2.0L Cannula Intake & Output 06/03 1600 07/05 0800 07/05 0000 Intake Total 625 Output Total 250 250 Balance 375 -250 Intake, IV 525 Intake, Oral 100 Output, Urine 250 250 Physical Exam General Appearance: Alert, No Acute Distress, patient not oriented to exact place or time Skin: No Rashes, No Breakdown, No Significant Lesion Skin Temp/Moisture Exam: Warm/Dry Sepsis Skin Exam (color): Normal for Ethnicity HEENT: Atraumatic, PERRLA, EOMI, Mucous Membr. moist/pink Neck: Supple Cardiovascular: Normal S1, Normal S2, No Murmurs, Gallops, Rubs Lungs: Clear to Auscultation Abdomen: Normal Bowel Sounds, Soft, No Tenderness Neurological: Normal Speech Extremities: No Clubbing, No Cyanosis Vascular: Normal Pulses Sepsis Peripheral Pulse Location: Radial Sepsis Peripheral Pulse Exam: Normal Current Medications: Current Medications Sig/Yanira Start time Last Medication Dose Route Stop Time Status Admin Acetaminophen 650 MG Q6P PRN 06/02 0200 AC PO Acetaminophen 1,000 MG Q6P PRN 06/02 0200 AC IV Albuterol Sulfate 3 ML Q4P PRN 06/03 0915 AC 06/03 INH 0910 Albuterol Sulfate 3 ML ONCE ONE 06/03 0330 DC 06/03 INH 06/03 0331 0334 Aspirin Buffered 162 MG DAILY 06/02 1000 AC 06/03 PO 0934 Atorvastatin Calcium 80 MG 1700 06/02 1700 AC 06/02 PO 1714 Calcitriol 0.25 MCG DAILY 06/02 1000 AC 06/03 PO 0934 Ceftazidime 500 MG Q24H 06/02 0800 AC 06/03 IV 0935 Diltiazem HCl 180 MG DAILY 06/02 1000 AC 06/03 PO 0934 Haloperidol 0.25 MG Q8 PRN 06/02 1830 AC IM Isosorbide 30 MG DAILY 06/02 1000 AC 06/03 Mononitrate PO 0934 Mirtazapine 15 MG QPM PRN 06/02 0215 DC PO Multivitamins 1 TAB DAILY 06/02 1000 AC 06/03 Therapeutic PO 0934 Polyethylene Glycol 17 GM DAILY PRN 06/02 0215 AC PO Risperidone 0.25 MG 2200 PRN 06/02 0215 DC PO Sodium Chloride 1,000 ML Q13H 06/02 0230 AC 06/02 IV 1919 Trazodone HCl 50 MG QPM 06/02 2200 CAN PO Warfarin Sodium 2.5 MG COUMADIN 1700 ONE 06/02 1700 DC 06/02 PO 06/02 1701 1714 Last 24 Hrs of Lab/Sammy Results Last 24 Hrs of Labs/Mics: Laboratory Tests 06/03/17 0645: Anion Gap 13, Estimated GFR 7 L, BUN/Creatinine Ratio 7.5, PT 22.4 H, INR 2.15 H Orders Miscellaneous Findings: GREW GNR, PSEUDOMONAS IN THE PAST Lines/Diet/Fluids Fluids/Infusions: none Restraints: none Assessment/Plan Assessment: Assessment: 81-year-old male with history of HTN, HLD, Afib, CAD, BPH w indwelling polanco, dementia and CKD is brought in by family for increasing agitation x 3 weeks. On arrival in the ED, patient has rapid atrial fibrillation, was dehydrated, a urinalysis with signs of infection CURRENTLY GNR, acute on chronic renal failure Cr. to 7, mildly increased work of breathing with diffuse wheezing requiring supplemental oxygen. AMS AFIB WITH RVR UTI CKD DEHYDRATION BASELINE DEMENTIA Plan: 1. Altered mental status: UTI/CKD VS. DEMENTIA VS. DEHYDRATION. Improving. Patient is less combative so 4 point restraints were removed. As he does much better with someone in the room (currently his is there), an order for a sitter has been put in and we currently are in the process of procuring one. Ceftazidime for UTI: PREVIOUSLY PSEUDOMONAS UTI, NOW GROWING GNRs HOME MEDS Remeron, risperidone and trazodone. As per PSYCH CONSULT: I would recommend holding the trazodone and Remeron for the present and switching from low dose PRN Risperdal to Haldol (at a similar dose--0.25mg). ORDER IS PUT IN FOR HALDOL .25MG Q8H PRN IM 2. Urinary tract infection: urinalysis moderate leukocyte esterase, packed bacteria chronic indwelling polanco catheter- PER NURSE CATHETER APPEARS NEW SO SHE DID NOT CHANGE IT CONTINUE CEFTAZADIME Follow up urine sensitivity and narrow coverage as indicated 3. Acute on chronic renal failure: Creatinine currently 7.2, WAS 7.7, last admission was ~5.5 Follow up on basic electrolyte panel As per NEPHRO CONSULT: CKD: stage 5, ESRD, due to HTN & recurrent obstruction w UTIs. May have superimposed prerenal component due to A fib w RVR & has had some improvement w IV volume trial expansion. No dialysis imperative, give maintenance fluids, rate control and consider hospice/palliative care Nephro has consulted in past and patient was given IVF hydration and not dialyzed. Continue Calcitriol 0.25mcg PO QD REPEAT BEP TO FOLLOW BUN CR 3. Atrial fibrillation with rapid ventricular response Continue cardizem for rate control PO 180 MG DAILY Daily dose warfarin and INR checks 2.15 LAST 4. CAD: continue home medications ASA Lipitor 80mg PO QD Imdur 30mg PO QD 5. DVT PROPHYLAXIS ON WARFARIN FOR AFIB 6. CODE STATUS DNR DNI Problem List: 1. Rapid atrial fibrillation 2. Altered mental status 3. UTI (urinary tract infection) 4. CKD (chronic kidney disease) 5. Dementia with behavioral disturbance Pain Ratin Pain Location: NA Pain Goal: Remain pain free Pain Plan: NA Tomorrow's Labs & Rationales: BE FOLLOWING PT/INR DVT/Prophylaxis: mechanical Consulting Request: Consulting Specialty: Nephrology
--- NOTE | 2017-06-03 10:06 | NUR ---
PHYSICAL THERAPY: ATTEMPTED TO BEGIN EVAL, UPON APPROACHING ROOM NURSE REPORTED pt HAD JUST GOTTEN BACK TO BED FOR A NAP. NURSE ASKED TO COME BACK AT LATER TIME pt HAD FINALLY BECOME MORE CALM. PT EVAL TO BE COMPLETED AT LATER TIME TODAY.
--- NOTE | 2017-06-03 12:21 | PN- Cardiology ---
Subjective Subjective: Clinically stable. More alert. Remains confused. No specific cardiac complaints. Heart rate remains elevated in atrial fibrillation. Objective Vital Signs and I&Os Vital Signs Date Time Temp Pulse Resp B/P B/P Pulse O2 O2 Flow FiO2 Mean Ox Delivery Rate 06/03 0934 108 128/84 06/03 0909 95 Nasal 2.0L Cannula 06/03 0728 97.4 108 18 128/84 95 Nasal Cannula 06/03 0401 96 Nasal 2.0L Cannula 06/03 0101 Nasal 2.0L Cannula 06/02 2220 98.7 110 14 110/80 93 Nasal 2.0L Cannula 06/02 1600 97 Nasal 2.0L Cannula 06/02 1510 98.1 104 28 118/74 97 Nasal 2.0L Cannula 06/02 1446 Nasal 2.0L Cannula Intake & Output 06/03 1600 06/03 0800 06/03 0000 06/02 1600 06/02 0800 06/02 0000 Intake Total 625 1200 600 400 Output Total 250 250 500 300 Balance 375 -250 700 300 400 Intake, Blood 350 Product Intake, IV 525 600 600 50 Intake, Oral 100 600 Output, Urine 250 250 500 300 Patient 164 lb Weight Weight Estimated Measurement Method Current Medications: Current Medications Sig/Yanira Start time Last Medication Dose Route Stop Time Status Admin Acetaminophen 650 MG Q6P PRN 06/02 0200 AC PO Acetaminophen 1,000 MG Q6P PRN 06/02 0200 AC IV Albuterol Sulfate 3 ML Q4P PRN 06/03 0915 AC 06/03 INH 0910 Albuterol Sulfate 3 ML ONCE ONE 06/03 0330 DC 06/03 INH 06/03 033 0334 Aspirin Buffered 162 MG DAILY 06/02 1000 AC 06/03 PO 0934 Atorvastatin Calcium 80 MG 1700 06/02 1700 AC 06/02 PO 1714 Calcitriol 0.25 MCG DAILY 06/02 1000 AC 06/03 PO 0934 Ceftazidime 500 MG Q24H 06/02 0800 AC 06/03 IV 0935 Diltiazem HCl 180 MG DAILY 06/02 1000 AC 06/03 PO 0934 Haloperidol 0.25 MG Q8 PRN 06/02 1830 AC IM Isosorbide 30 MG DAILY 06/02 1000 AC 06/03 Mononitrate PO 0934 Mirtazapine 15 MG QPM PRN 06/02 0215 DC PO Multivitamins 1 TAB DAILY 06/02 1000 AC 06/03 Therapeutic PO 0934 Polyethylene Glycol 17 GM DAILY PRN 06/02 021 AC PO Risperidone 0.25 MG 2200 PRN 06/02 0215 DC PO Sodium Chloride 1,000 ML Q13H 06/02 0230 AC 06/02 IV 1919 Trazodone HCl 50 MG QPM 06/02 2200 CAN PO Warfarin Sodium 2.5 MG COUMADIN 1700 ONE 06/02 1700 DC 06/02 PO 06/02 1701 1714 Results Last 48 Hrs of Labs/Mics: Laboratory Tests 06/03/17 0645: Anion Gap 13, Estimated GFR 7 L, BUN/Creatinine Ratio 7.5, PT 22.4 H, INR 2.15 H 06/02/17 0645: Anion Gap 14, Estimated GFR 7 L, BUN/Creatinine Ratio 7.8, PT 23.2 H, INR 2.23 H, CBC w Diff NO MAN DIFF REQ, RBC 2.95 L, MCV 93.1, MCH 30.1, RDW 15.4 H, MPV 8.2, Gran % 71.1, Lymphocytes % 18.1 L, Monocytes % 9.0, Eosinophils % 1.2, Basophils % 0.6, Absolute Granulocytes 4.5, Absolute Lymphocytes 1.2, Absolute Monocytes 0.6, Absolute Eosinophils 0.1, Absolute Basophils 0, PUBS MCHC 32.3 L 06/02/17 0042: Troponin I 0.05 06/01/172109: Urine Color YEL, Urine Clarity CLEAR, Urine pH >= 9.0 H, Ur Specific [place] 1.010, Urine Protein 100 H, Urine Ketones NEG, Urine Nitrite NEG, Urine Bilirubin NEG, Urine Urobilinogen 0.2, Ur Leukocyte Esterase MOD H, Ur Microscopic SEDIMENT EXAMINED, Urine RBC 5-10 H, Urine WBC 1-3 H, Ur Epithelial Cells RARE, Urine Crystals 1+ TRIP PHOS H, Urine Bacteria PACKD H, Urine Hemoglobin SMALL H, Urine Glucose NEG 06/01/172004: PT 24.9 H, INR 2.39 H 06/01/170: Anion Gap 12, Estimated GFR 7 L, BUN/Creatinine Ratio 8.3, Glucose 88, Calcium 8.6, Iron 31 L, TIBC 263, Ferritin 95.5, Total Bilirubin 0.3, AST 21, ALT 31, Alkaline Phosphatase 70, Troponin I 0.04, Total Protein 5.7 L, Albumin 3.6, Globulin 2.1, Albumin/Globulin Ratio 1.7, CBC w Diff NO MAN DIFF REQ, RBC 2.92 L, MCV 91.1, MCH 30.3, RDW 15.3 H, MPV 8.6, Gran % 70.0, Lymphocytes % 15.7 L, Monocytes % 11.7 H, Eosinophils % 2.1, Basophils % 0.5, Absolute Granulocytes 4.0, Absolute Lymphocytes 0.9 L, Absolute Monocytes 0.7 H, Absolute Eosinophils 0.1, Absolute Basophils 0, PUBS MCHC 33.3 Assessment/Plan Assessment/Plan Assessment: 1. Altered mental status 2. AF with increased ventricular rate 3. UTI 4. CKD 5. Dehydration 6. Dementia REcommendations: - Continue current treatment - Continue cardiac medications. - PT evaluation noted. - Awaiting STR placement. Continue telemetry? Yes
[2017-06-03 15:15] VITALS: BP 140/86
--- NOTE | 2017-06-03 15:37 | PN- Psychiatry ---
Assessment/Plan Impression: Identifying Info: 81-year-old male presents to [facility] On 06/01/2017 with increased confusion and agitation. Subsequently diagnosed with UTI and admitted to medicine. He has a known history of dementia. SUBJECTIVE "I don't work no more." Patient presents without complaint. He talks about his planning to visit. Brief ROS Gait: Unsteady Sleep: Fair Appetite: Did not assess OBJECTIVE Mental Status Exam Presentation/Appearance: Calm, Cooperative with evaluation to the best of his ability. Hospital garb. Sitting in chair. Orientation: Oriented to self, date but not year, would not venture to [employer], unable to name place or why he is here. 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 States and also believes they will not kill themselves. Thought Process: Confused Associations: Loose at times Speech: Somewhat dysarthric Judgment: Impaired Insight: Impaired Cognition: Memory: Deficits noted Attention/Concentration: Deficits noted Fund of Knowledge: Did not assess Abstractions: [place] MMSE: Did not assess Patient is observed from outside the room to be frequently standing and attempting to walk. He is easily redirectable. Staff report patient has been calm and pleasant without behavioral disturbance today. ASSESSMENT 81-year-old male with delirium and dementia appears to be improving terms of mentation and behavioral control. It would be prudent to continue when necessary medication and restart his medication for sleep. Diagnosis Delirium due to multiple etiologies Unspecified neurocognitive disorder A total of 30 minutes was spent with the patient with more than 50% of the time spent in counseling and/or coordination of care. Suggestion: 1. Continue bed alarm. Please consider require a sitter for safety if impulsivity continues. 2. Please restart mirtazapine 15 mg daily at bedtime. 3. Continue Haldol. Magnesium, potassium and EKG will need to be monitored on this medication. Thank you for including psychiatry in this case we'll continue to follow Subjective Subjective: as above Objective Last 24 Hrs of Vital Signs/I&O Current Medications Sig/Yanira Start time Last Medication Dose Route Stop Time Status Admin Acetaminophen 650 MG Q6P PRN 06/02 0200 AC PO Acetaminophen 1,000 MG Q6P PRN 06/02 0200 AC IV Albuterol Sulfate 3 ML Q4P PRN 06/03 0915 AC 06/03 INH 0910 Albuterol Sulfate 3 ML ONCE ONE 06/03 0330 DC 06/03 INH 06/03 0331 0334 Aspirin Buffered 162 MG DAILY 06/02 1000 AC 06/03 PO 0934 Atorvastatin Calcium 80 MG 1700 06/02 1700 AC 06/02 PO 1714 Calcitriol 0.25 MCG DAILY 06/02 1000 AC 06/03 PO 0934 Ceftazidime 500 MG Q24H 06/02 0800 AC 06/03 IV 0935 Diltiazem HCl 180 MG DAILY 06/02 1000 AC 06/03 PO 0934 Haloperidol 0.25 MG Q8 PRN 06/02 1830 AC 06/03 IM 1515 Isosorbide 30 MG DAILY 06/02 1000 AC 06/03 Mononitrate PO 0934 Mirtazapine 15 MG QPM PRN 06/02 0215 DC PO Multivitamins 1 TAB DAILY 06/02 1000 AC 06/03 Therapeutic PO 0934 Polyethylene Glycol 17 GM DAILY PRN 06/02 0215 AC PO Risperidone 0.25 MG 2200 PRN 06/02 0215 DC PO Sodium Chloride 1,000 ML Q13H 06/02 0230 AC 06/02 IV 1919 Trazodone HCl 50 MG QPM 06/02 2200 CAN PO Warfarin Sodium 2.5 MG COUMADIN 1700 ONE 06/02 1700 DC 06/02 PO 06/02 1701 1714 Laboratory Tests 06/03/17 0645: Anion Gap 13, Estimated GFR 7 L, BUN/Creatinine Ratio 7.5, PT 22.4 H, INR 2.15 H Vital Signs Date Time Temp Pulse Resp B/P B/P Pulse O2 O2 Flow FiO2 Mean Ox Delivery Rate 06/03 1515 98.0 110 18 140/86 93 Nasal 2.0L Cannula 06/03 0934 108 128/84 06/03 0909 95 Nasal 2.0L Cannula 06/03 07 97.4 108 18 128/84 95 Nasal Cannula 06/03 0401 96 Nasal 2.0L Cannula 06/03 010 Nasal 2.0L Cannula 06/02 2220 98.7 110 14 110/80 93 Nasal 2.0L Cannula 06/02 1600 97 Nasal 2.0L Cannula Intake & Output 07/05 1600 07/ 0800 06/03 0000 Intake Total 625 Output Total 300 250 250 Balance -300 375 -250 Intake, IV 525 Intake, Oral 100 Output, Urine 300 250 250
[2017-06-03 22:00] VITALS: BP 138/80
[2017-06-04 06:45] VITALS: BP 132/80
--- NOTE | 2017-06-04 07:24 | PN- Housestaff ---
See Addendum Subjective Follow-up For: AMS, AFIB WITH RVR, UTI, CKD, DEHYDRATION, BASELINE DEMENTIA Complaints: patient combative and irritable Tele-Events Since Last Visit: afib 104 to 122, given a cardizem push 5mg at 1am Subjective: patient refusing to answer questions this morning, combative with his nurses and sitter. Review of Systems Constitutional: Reports: see HPI. Objective Last 24 Hrs of Vital Signs/I&O Vital Signs Date Time Temp Pulse Resp B/P B/P Pulse O2 O2 Flow FiO2 Mean Ox Delivery Rate 06/04 0645 97.4 104 22 132/80 96 Nasal Cannula 06/04 0444 Nasal 2.0L Cannula 06/04 0115 130 138/80 06/04 0000 Nasal 2.0L Cannula 06/03 2200 98.4 102 24 138/80 95 Nasal 2.0L Cannula 06/03 1600 92 Nasal 2.0L Cannula 06/03 1515 98.0 110 18 140/86 93 Nasal 2.0L Cannula 06/03 0934 108 128/84 06/03 0909 95 Nasal 2.0L Cannula Intake & Output 06/04 1600 06 0800 06/04 0000 Intake Total 900 450 Output Total 250 300 Balance 650 150 Intake, IV 600 150 Intake, Oral 300 300 Number 0 Bowel Movements Output, Urine 250 300 Physical Exam General Appearance: Alert, Mild Distress, combative Skin: No Rashes, No Breakdown Skin Temp/Moisture Exam: Warm/Dry Sepsis Skin Exam (color): Normal for Ethnicity HEENT: Atraumatic, EOMI Cardiovascular: Normal S1, Normal S2, No Murmurs, Gallops, Rubs Lungs: patient refused exam Abdomen: Normal Bowel Sounds, Soft, No Tenderness Neurological: speech slurred at baseline Extremities: No Clubbing, No Cyanosis, No Edema, Normal Pulses Vascular: Normal Pulses Sepsis Peripheral Pulse Location: Radial Current Medications: Current Medications Sig/Yanira Start time Last Medication Dose Route Stop Time Status Admin Acetaminophen 650 MG Q6P PRN 06/02 0200 AC PO Acetaminophen 1,000 MG Q6P PRN 06/02 0200 AC IV Albuterol Sulfate 3 ML Q4P PRN 06/03 0915 AC 06/04 INH 0440 Aspirin Buffered 162 MG DAILY 06/02 1000 AC 06/03 PO 0934 Atorvastatin Calcium 80 MG 1700 06/02 1700 AC 06/03 PO 1814 Calcitriol 0.25 MCG DAILY 06/02 1000 AC 06/03 PO 0934 Ceftazidime 500 MG Q24H 06/02 0800 AC 06/03 IV 0935 Diltiazem HCl 5 MG ONCE ONE 06/04 0100 DC 06/04 IV PUSH 06/04 0101 0115 Diltiazem HCl 180 MG DAILY 06/02 1000 AC 06/03 PO 0934 Haloperidol 5 MG .STK-MED ONE 06/03 1508 DC IM 06/03 1509 Haloperidol 0.25 MG Q8 PRN 06/02 1830 AC 06/03 IM 2245 Isosorbide 30 MG DAILY 06/02 1000 AC 06/03 Mononitrate PO 0934 Mirtazapine 15 MG AT BEDTIME 06/03 2200 AC 06/03 PO 2121 Multivitamins 1 TAB DAILY 06/02 1000 AC 06/03 Therapeutic PO 0934 Polyethylene Glycol 17 GM DAILY PRN 06/02 0215 AC PO Sodium Chloride 1,000 ML Q13H 06/02 0230 AC 06/03 IV 1816 Warfarin Sodium 3 MG COUMADIN 1700 ONE 06/03 1700 DC 06/03 PO 06/03 1701 2121 Last 24 Hrs of Lab/Sammy Results Last 24 Hrs of Labs/Mics: Laboratory Tests 06/04/17 0653: Anion Gap 12, Estimated GFR 8 L, BUN/Creatinine Ratio 8.1, PT 22.3 H, INR 2.14 H Lines/Diet/Fluids Catheters/Tubes: polanco Polanco Still Needed? Yes Restraints: none Assessment/Plan Assessment: Assessment: 81-year-old male with history of HTN, HLD, Afib, CAD, BPH w indwelling polanco, dementia and CKD is brought in by family for increasing agitation x 3 weeks. On arrival in the ED, patient has rapid atrial fibrillation, was dehydrated, a urinalysis with signs of infection CURRENTLY GNR, acute on chronic renal failure Cr. to 7, mildly increased work of breathing with diffuse wheezing requiring supplemental oxygen. DISPOSITION ? AMS AFIB WITH RVR UTI CKD DEHYDRATION BASELINE DEMENTIA Plan: 1. Altered mental status: UTI/CKD VS. DEMENTIA VS. DEHYDRATION. Improved. Patient has baseline dementia and this morning was combative and irritable. He currently has a sitter as this tends to calm him. Ceftazidime for UTI: PREVIOUSLY PSEUDOMONAS UTI, NOW GROWING GNRs Patient confused and combative at baseline - dementia. HOME MEDS Remeron, risperidone and trazodone. PSYCH CONSULT recommended HALDOL .25MG Q8H PRN IM and REMERON 15 mg SINCE 06/03 and to hold Risperdal. 2. Urinary tract infection: urinalysis moderate leukocyte esterase, packed bacteria chronic indwelling polanco catheter- PER NURSE CATHETER APPEARS NEW SO SHE DID NOT CHANGE IT CONTINUE CEFTAZADIME Follow up urine sensitivity and narrow coverage as indicated 3. Acute on chronic renal failure: Creatinine currently 7.0, WAS 7.7, last admission was ~5.5 Follow up on basic electrolyte panel As per NEPHRO CONSULT: CKD: stage 5, ESRD, due to HTN & recurrent obstruction w UTIs. May have superimposed prerenal component due to A fib w RVR & has had some improvement w IV volume trial expansion. No dialysis imperative, give maintenance fluids, rate control and consider hospice/palliative care Nephro has consulted in past and patient was given IVF hydration and not dialyzed. Continue Calcitriol 0.25mcg PO QD REPEAT BEP TO FOLLOW BUN CR 3. Atrial fibrillation with rapid ventricular response Cardizem push required last night. Continue cardizem for rate control PO 180 MG DAILY Daily dose warfarin and INR checks 2.14 this morning. Cardiology note pending from 06/03 4. CAD: continue home medications ASA Lipitor 80mg PO QD Imdur 30mg PO QD 5. QUESTION OF DISPOSITION- HOSPICE/PALLIATIVE CARE ? PATIENT HAS HAD THESE ISSUES BEFORE AND IS LIKELY TO CONTINUE TO HAVE THEM. NEED TO DISCUSS WITH FAMILY TODAY. 6. DVT PROPHYLAXIS ON WARFARIN FOR AFIB 7. CODE STATUS DNR DNI Problem List: 1. CKD (chronic kidney disease) 2. Chronic atrial fibrillation 3. Anemia 4. Altered mental status 5. UTI (urinary tract infection) 6. Hypokalemia Pain Ratin Pain Location: NA Pain Goal: Remain pain free Pain Plan: NA Tomorrow's Labs & Rationales: PT INR DVT/Prophylaxis: pharmacological Consulting Request: Consulting Specialty: Nephrology
[2017-06-04 08:35] LABS: PT 22.3 SEC (9.4-12.5)
--- NOTE | 2017-06-04 14:41 | Patient Discharge Instructions ---
Discharge Instructions General Discharge Information You were seen/treated for: UTI Confusion Special Instructions: #1 Please follow-up with PCP within 1 week of discharge. #2 Please f/u with a webbing supervisor within 1 week of discharge. #3.Please follow up with her security manager within 2 weeks of discharge. Diet Continue normal diet: No Recommended Diet: Heart Healthy Activity Full Activity/No Limits: Yes (as tolerated) Acute Coronary Syndrome Inclusion Criteria At DC or during hospital stay patient has or had the following: ACS DIAGNOSIS No Discharge Core Measures Meds if any: Prescribed or Continued at Discharge Meds if any: NOT Prescribed or Continued at Discharge Congestive Heart Failure Inclusion Criteria At DC or during hospital stay patient has or had the following: CHF DIAGNOSIS No Discharge Core Measures Meds if any: Prescribed or Continued at Discharge Meds if any: NOT Prescribed or Continued at Discharge Cerebrovascular accident Inclusion Criteria At DC or during hospital stay patient has or had the following: CVA/TIA Diagnosis No Discharge Core Measures Meds if any: Prescribed or Continued at Discharge Meds if any: NOT Prescribed or Continued at Discharge Venous thromboembolism Inclusion Criteria VTE Diagnosis No VTE Type NONE VTE Confirmed by (Test) NONE Discharge Core Measures - Per Current guidelines, there needs to be overlap - treatment for the first 5 days of Warfarin therapy. - If discharged on Warfarin prior to 5 days of - overlap therapy, the patient will need to be - assessed for post discharge needs including - *Post discharge parental anticoagulation - *Warfarin and/or parental anticoagulation education - *Follow up date to check INR post discharge At least 5 days overlap therapy as Inpatient No Meds if any: Prescribed or Continued at Discharge Note: Overlap Therapy is Warfarin and Anticoagulant Meds if any: NOT Prescribed or Continued at Discharge
[2017-06-04 14:56] VITALS: BP 130/80
--- NOTE | 2017-06-04 16:39 | NUR ---
Sw referral received electronically for family issues from MD Navdeep. Pt with dementia and MD to discuss with them comfort care or hospice care. Sw available for supoort if needed.
--- NOTE | 2017-06-04 20:06 | PN- Cardiology ---
Subjective Subjective: Clinically stable and unchanged. Remains in AF with controlled rate. Objective Vital Signs and I&Os Vital Signs Date Time Temp Pulse Resp B/P B/P Pulse O2 O2 Flow FiO2 Mean Ox Delivery Rate 06/04 1707 92 Nasal 2.0L Cannula 06/04 1456 97.8 107 22 130/80 98 Nasal 2.0L Cannula 06/04 1441 Nasal 2.0L Cannula 06/04 1406 98 Nasal 2.0L Cannula 06/04 1109 104 132/80 / 0645 97.4 104 22 132/80 96 Nasal Cannula 06/04 0444 Nasal 2.0L Cannula 06/04 0115 130 138/80 / 0000 Nasal 2.0L Cannula 06/03 2200 98.4 102 24 138/80 95 Nasal 2.0L Cannula Intake & Output 06/04 1600 06/04 0800 / 0000 06/03 1600 06/03 0800 06/03 0000 Intake Total 900 450 625 Output Total 250 300 600 250 250 Balance 650 150 -600 375 -250 Intake, IV 600 150 525 Intake, Oral 300 300 100 Number 0 1 Bowel Movements Output, Urine 250 300 600 250 250 Patient 164 lb Weight Current Medications: Current Medications Sig/Yanira Start time Last Medication Dose Route Stop Time Status Admin Acetaminophen 650 MG Q6P PRN 06/02 0200 AC PO Acetaminophen 1,000 MG Q6P PRN 06/02 0200 AC IV Albuterol Sulfate 3 ML Q4P PRN 06/03 0915 AC 06/04 INH 1704 Aspirin Buffered 162 MG DAILY 06/02 1000 AC 06/04 PO 1108 Atorvastatin Calcium 80 MG 1700 / 1700 AC 06/04 PO 1944 Calcitriol 0.25 MCG DAILY 06/02 1000 AC 06/04 PO 1107 Ceftazidime 500 MG Q24H / 0800 DC 06/04 IV 1110 Diltiazem HCl 5 MG ONCE ONE 06/04 0100 DC 06/04 IV PUSH 06/04 0101 0115 Diltiazem HCl 180 MG DAILY 06/02 1000 AC 06/04 PO 1109 Haloperidol 0.25 MG Q8 PRN 06/02 1830 AC 06/03 IM 2245 Isosorbide 30 MG DAILY 06/02 1000 AC 06/04 Mononitrate PO 1109 Mirtazapine 15 MG AT BEDTIME 06/03 2200 AC 06/04 PO 1949 Multivitamins 1 TAB DAILY 06/02 1000 AC 06/04 Therapeutic PO 1108 Polyethylene Glycol 17 GM DAILY PRN 06/02 0215 AC PO Sodium Chloride 1,000 ML Q13H 06/02 0230 AC 06/04 IV 1944 Warfarin Sodium 3 MG COUMADIN 1700 ONE 06/04 1700 DC 06/04 PO 06/04 1701 194 Results Last 48 Hrs of Labs/Mics: Laboratory Tests 06/04/17 0653: Anion Gap 12, Estimated GFR 8 L, BUN/Creatinine Ratio 8.1, PT 22.3 H, INR 2.14 H 06/03/17 0645: Anion Gap 13, Estimated GFR 7 L, BUN/Creatinine Ratio 7.5, PT 22.4 H, INR 2.15 H Assessment/Plan Assessment/Plan Assessment: 1. Altered mental status 2. AF with increased ventricular rate 3. UTI 4. CKD 5. Dehydration 6. Dementia REcommendations: - Continue current treatment - transitioned to po antibiotics. - Continue cardiac medications. - PT evaluation noted. - Awaiting STR placement. Continue telemetry? Yes
[2017-06-04 23:04] VITALS: BP 160/80
--- NOTE | 2017-06-05 00:35 | NUR ---
AT MIDNIGHT PT C/O SOB. O2 SAT ON 2LNC 82-84%. NC INCREASED TO 4LNC WITH O2 SAT INCREASING TO 93%. RESP THERAPIST PAGED. DR. MEDEIROS PAGED. HR AFIB 120S-160S BP 154/90. DR. MEDEIROS PUSHED 5MG IV CARDIZEM WITH NO CHANGE IN HR. RESP THERAPIST JUD GAVE PT NEB TREATMENT. NC DECREASED TO 3.5LNC. O2 SAT 92%. RHONCHI HEARD IN UPPER LOBES AND EXP. WHEEZES IN LOWER LOBES. WILL CTM. SITTER AT BEDSIDE FOR SAFETY.
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
--- NOTE | 2017-06-05 06:48 | NUR ---
PT REMAINS AGITATED AND ATTTEMPTING TO REMOVE IV LINES + WALKER EVEN THOUGH WRIST RESTRAINTS ARE IN PLACE. DIFFICULT TO REORIENT WITH SITTER. BED ALARM IN PLACE.
[2017-06-05 07:36] VITALS: BP 142/90
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
[2017-06-05 08:51] LABS: ABSOLUTE BASOPHIL COUNT 0 /CUMM (0.0-0.2); ABSOLUTE EOSINOPHIL COUNT 0 /CUMM (0.0-0.7); ABSOLUTE GRANULOCYTE CT 6.2 /CUMM (1.4-6.5); ABSOLUTE LYMPH COUNT 0.6 /CUMM (1.2-3.4); ABSOLUTE MONOCYTE COUNT 0.5 /CUMM (0.10-0.60); BASOPHIL % 0.6 % (0.0-2.0); EOSINOPHIL % 0.2 % (0-5); GRANULOCYTE % 83.9 % (42.2-75.2); HEMATOCRIT 25.8 % (42-52); MEAN CORPUSCULAR HGB 29.8 PG (27.0-31.0); MEAN CORPUSCULAR HGB CONC 31.8 G/DL (33.0-37.0); MEAN CORPUSCULAR VOLUME 93.5 FL (80.0-94.0); MEAN PLATELET VOLUME 8.2 FL (7.4-10.4); PLATELET COUNT 167 /CUMM (130-400); RBC DISTRIBUTION WIDTH 15.4 % (11.5-14.5); RED BLOOD CELL CT 2.76 /CUMM (4.70-6.10); WHITE BLOOD CELL COUNT 7.4 /CUMM (4.8-10.8)
[2017-06-05 08:59] LABS: PT 25.5 SEC (9.4-12.5)
--- NOTE | 2017-06-05 10:47 | NUR ---
PHYSICAL THERAPY: Pt WAS REPORTED TO BE COMBATIVE AND AGGITATED EARLIER THIS MORNING. HE WAS PLACED IN WRIST RESTRAINTS WITH 1TO1 SITTER. NURSING HAS ASKED TO HOLD ON PT FOR THE MORNING TO DECREASE CHANCE OF pt BECOMING REAGGITATED. CANCEL PT TX FOR MORNING, WILL TRY AND COME BACK IN AFTERNOON.
--- NOTE | 2017-06-05 12:06 | NUR ---
NURSING NOTE: PT REMAINS AWAKE, A/CONFUSED, COOPERATIVE AT THIS TIME, NO ATTEMPTS TO GET OOB AT THIS TIME. WRIST RESTRAINTS REMOVED, IRHEETU RESIDENT AWARE, PATIENT SAFETY MONITOR DCD AT THIS TIME, DENISE ENERGY ADVISOR AWARE. SAFTEY MAINTAINED, NEEDS IN REACH.
--- NOTE | 2017-06-05 13:37 | PN- Cardiology ---
Subjective Subjective: No significant conical change. The patient was agitated overnight and required soft restraints Objective Vital Signs and I&Os Vital Signs Date Time Temp Pulse Resp B/P B/P Pulse O2 O2 Flow FiO2 Mean Ox Delivery Rate 06/05 822 106 122/80 06/05 08 94 Nasal 3.0L Cannula 06/05 0736 97.1 112 24 142/90 94 Nasal 3.0L Cannula 06/05 0021 94 Nasal 3.0L Cannula 06/05 0016 142 154/90 06/05 0000 Nasal 3.5L Cannula 06/04 2304 97.6 123 22 160/80 93 Nasal Cannula 06/04 1707 92 Nasal 2.0L Cannula 06/04 1456 97.8 107 22 130/80 98 Nasal 2.0L Cannula 06/04 1441 Nasal 2.0L Cannula 06/04 1406 98 Nasal 2.0L Cannula Intake & Output 06/05 1600 06/05 0800 06/05 0000 06/04 1600 06/04 0806/04 0000 Intake Total 650 540 825 900 450 Output Total 250 900 300 250 300 Balance 400 -360 525 650 150 Intake, IV 600 300 500 600 150 Intake, Oral 50 240 325 300 300 Number 0 0 0 Bowel Movements Output, Urine 250 900 300 250 300 Patient 164 lb Weight Current Medications: Current Medications Sig/Yanira Start time Last Medication Dose Route Stop Time Status Admin Acetaminophen 650 MG Q6P PRN 06/02 0200 AC PO Acetaminophen 1,000 MG Q6P PRN 06/02 0200 AC IV Albuterol Sulfate 3 ML Q4P PRN 06/03 0915 AC 06/05 INH 0021 Aspirin Buffered 162 MG DAILY 06/02 1000 AC 06/05 PO 0822 Atorvastatin Calcium 80 MG 1700 06/02 1700 AC 06/04 PO 1944 Calcitriol 0.25 MCG DAILY 06/02 1000 AC 06/05 PO 0822 Ceftazidime 500 MG Q24 06/05 1000 AC 06/05 IV 0822 Ceftazidime 500 MG Q24H / 0800 DC 06/04 IV 1110 Diltiazem HCl 5 MG ONCE ONE 06/05 0015 DC 06/05 IV PUSH 06/05 0016 0016 Diltiazem HCl 180 MG DAILY 06/02 1000 AC 06/05 PO 0822 Haloperidol 5 MG .STK-MED ONE 06/04 2324 DC IM 06/04 2325 Haloperidol 0.25 MG Q8 PRN 06/02 1830 AC 06/05 IM 0232 Isosorbide 30 MG DAILY 06/02 1000 AC 06/05 Mononitrate PO 08 Mirtazapine 15 MG AT BEDTIME 06/03 2200 AC 06/04 PO 1949 Multivitamins 1 TAB DAILY 06/02 1000 AC 06/05 Therapeutic PO 0822 Polyethylene Glycol 17 GM DAILY PRN 06/02 0215 AC PO Sodium Chloride 1,000 ML Q13H 06/02 0230 DC 06/05 IV 0945 Warfarin Sodium 3 MG COUMADIN 1700 ONE 06/04 1700 DC 06/04 PO 06/04 1701 1943 Results Last 48 Hrs of Labs/Mics: Laboratory Tests 06/05/17 0640: PT 25.5 H, INR 2.45 H, CBC w Diff NO MAN DIFF REQ, RBC 2.76 L, MCV 93.5, MCH 29.8, RDW 15.4 H, MPV 8.2, Gran % 83.9 H, Lymphocytes % 8.3 L, Monocytes % 7.0, Eosinophils % 0.2, Basophils % 0.6, Absolute Granulocytes 6.2, Absolute Lymphocytes 0.6 L, Absolute Monocytes 0.5, Absolute Eosinophils 0, Absolute Basophils 0, PUBS MCHC 31.8 L 06/04/17 0653: Anion Gap 12, Estimated GFR 8 L, BUN/Creatinine Ratio 8.1, PT 22.3 H, INR 2.14 H Assessment/Plan Assessment/Plan Assessment: 1. Altered mental status 2. AF with increased ventricular rate 3. UTI 4. CKD 5. Dehydration 6. Dementia REcommendations: - Continue current treatment - Continue cardiac medications. - PT evaluation noted. - Awaiting STR placement. Continue telemetry? Yes
--- NOTE | 2017-06-05 14:14 | NUR ---
NURSING NOTE: PT REMAINS AWAKE, A/CONFUSED, COOPERATIVE AT THIS TIME, PT REMAINS WITH EXPIRATORY WHEEZE, CYLINDER DIE MACHINE OPERATOR JANEY MADE AWARE. IVF DCD THIS SHIFT. BED ALARM IN PLACE. AT BEDSIDE, WILL GIVE REPORT TO NEXT SHIFT RN, NEEDS IN REACH, SFATEY MAINTAINED.
[2017-06-05 14:59] VITALS: BP 136/80
--- NOTE | 2017-06-05 17:21 | Discharge Summary ---
Visit Information Visit Dates Admission Date: 06/01/17 Discharge Date: 06/10/2017 Hospital Course Course Attending Physician: TEAGAN CARDENAS MD Primary Care Physician: FABIÁN CASTRO,DANIEAL Peacock Consulting Request: Consulting Specialty: Nephrology Hospital Course: 81-year-old male with history of significant dementia, atrial fibrillation, hypertension, dyslipidemia, CAD, stage V chronic kidney disease with indwelling Polanco's catheter came with worsening dementia, acute change in MENTAL status and UTI. Also on admission had rapid A. fib. Labs were significant for WBC count 5.7, hemoglobin 8.8, hematocrit 26.6, platelet count 216, INR 2.39, sodium 143, potassium 4.8, creatinine 7.7,. urine showed moderate leukocyte Estrace, WBC 123 with packed bacteria Chest x-ray showed no pulmonary edema EKG atrial fibrillation with no acute ST-T wave changes Patient was treated in the hospital for #1. Atrial fibrillation, with rapid ventricular rate on presentation: Patient was started given IV pushes of Cardizem in the ER and was later started on by mouth Cardizem .He had history of paroxysmal A. fib and was anticoagulated with Coumadin. He was evaluated with cardiology who recommended to continue the same treatment. Aspirin and Lipitor were continued. His his heart rate often got elevated around the evenings and the patient became agitated and was brought under control with pushes of IV Cardizem. No arrhythmias other than A. fib for recorded on the monitor. He was maintained on po Cardizem 180 mg daily. Instructed to f/u with catdiologist within 1 week of discharge. #2 Altered mental status and increasing confusion likely secondary to dehydration and UTI: Patient was hydrated with IV fluids and treated with IV antibiotics ceftazidime since he had grown Pseudomonas in the past. Urine and blood cultures were negative. Antibiotics were discontinued after 4 days since he had chronic Polanco and multiple organisms seen on culture was secondary to colonization. He remained afebrile and had no white count in the hospital. His mental status improved with fluids however he often sundowning in the hospital. Psychiatry was consulted for the confusion and medications were administered as per their recommendations. He will be discharged on Haldol 1 mg daily and mitrazepine 7.5 mg at bedtime. #3 Acute on chronic renal failure: Patient had known stage V CKD with baseline creatinine around 5 which was increased to 7.7 at admission. Nephrology was consulted and they felt that patient was not a candidate for dialysis in the face of severe & advanacing dementia. Patient was maintained on IV fluids and creatinine continued to remain the same. Hospice was discussed with the family who however refused it at this time. #4 Confusion, agitation, advancing dementia: Psychiatry was consulted because of patient's agitated behavior and increasing confusion. He: His risperidone and trazodone were held initially and he was put on when necessary and standing doses of Haldol for agitation. He often required restraints and sitter to control them. We had a long family discussion with his who admitted to this being his baseline. He has severe advanced dementia and follows up with the senior sales assistant as an outpatient. Family wanted to take the patient to rehabilitation for some physical therapy and eventually home. Patient needs to follow up with Geriatric take/palliative care post discharge for better management of his dementia and advancing comorbidities. Hospice discussion was initiated in the hospital however the refused it at this time. DVT prophylaxis Coumadin DNR/DNI Heart healthy diet Allergies: Coded Allergies: ciprofloxacin (From CIPRO) (Mild, ITCHING 10/04/16) Disposition Summary Disposition Principal Diagnosis: Altered mental status/dementia with delirium/UTI due to chronic indwelling polanco Additional Diagnosis: Acute worsening of ESRD/ not a candidate for HD Discharge Disposition: SNF Discharge Instructions General Discharge Information Code Status: Do Not Resucitate/Intubat Patient's Diet: Heart healthy diet Patient's Activity: As tolerated Follow-Up Instructions/Appts: #1 Please follow-up with PCP within 1 week of discharge. #2 Please f/u with a senior sales assistant within 1 week of discharge. #3.Please follow up with her tile layer drainage within 2 weeks of discharge. Medications at Discharge Discharge Medications: Stop taking the following medications: Trazodone HCl (Trazodone HCl) 50 MG TABLET ORAL Every night Risperidone (Risperdal) 0.25 MG TABLET ORAL as needed for AGITATION Warfarin Sodium (Coumadin) 5 MG TABLET ORAL As Directed Mirtazapine (Mirtazapine) 15 MG TABLET ORAL Every night as needed for SLEEP Qty = 30 Continue taking these medications: Atorvastatin Calcium (Lipitor) 80 MG TABLET 1 Tablet ORAL DAILY Comments: Last Taken: 06/09/17 Time: 1700 PM Calcitriol (Rocaltrol) 0.25 MCG CAPSULE 1 Capsule ORAL DAILY Comments: Last Taken: 06/10/17 Time: 0945 AM Multivitamin (Daily Multiple Vitamin) 1 EACH TABLET 1 Tablet ORAL DAILY Comments: Last Taken: 06/10/17 Time: 09:45 AM Aspirin (Ecotrin*) 81 MG TABLET.DR 1 Tablet ORAL TWICE DAILY Comments: Last Taken: 06/10/17 Time: 09:45 AM Isosorbide Mononitrate (Isosorbide Mononitrate ER) 30 MG TAB.ER.24H 1 Tablet ORAL DAILY Qty = 30 Comments: Last Taken: 06/10/17 Time: 0945 AM Vit C/E/Zn/Coppr/Lutein/Zeaxan (Preservision Areds 2 Softgel) 250-200-40 CAPSULE 1 Tablet ORAL TWICE DAILY Comments: NOT GIVEN IN HOSPITAL Warfarin Sodium (Coumadin) 2.5 MG TABLET 1 Tablet ORAL As Directed Instructions: as perINR CHECKS Comments: Last Taken: 06/09/17 Time: 05:OO PM Polyethylene Glycol 3350 (Polyethylene Glycol 3350) 17 GRAM POWD.PACK 1 Packet ORAL as needed for CONSTIPATION Comments: Last Taken: 06/10/17 Time: 09:45 AM Diltiazem HCl (Diltiazem 24HR ER) 180 MG CAP.ER.24H 1 Capsule ORAL DAILY Comments: Last Taken: 06/10/17 Time:09:45 AM Start taking the following new medications: Mirtazapine (Remeron) 15 MG TABLET 7.5 Milligram ORAL AT BEDTIME Days = 30 No Refills Comments: Last Taken: 06/09/17 Time: 10:15 PM Haloperidol (Haloperidol) 1 MG TABLET 1 Tablet ORAL Every night Qty = 30 No Refills Comments: Last Taken: 06/09/17 Time: 10:15 PM Copies To: LAWSON CHATTERJEE APRN; Nisreen DOWELL MD
--- NOTE | 2017-06-05 19:11 | PN- Housestaff ---
Subjective Follow-up For: AMS, AFIB WITH RVR, UTI, CKD, DEHYDRATION, BASELINE DEMENTIA Complaints: patient has no complaints today Tele-Events Since Last Visit: afib at 140's. 10 beat vtachy at 0141, given cardizem to good effect- 100's . Subjective: patient reports feeling "lousy", having difficulty breathing, having right ankle pain (chronic), pain in his lower back. Review of Systems Constitutional: Denies: chills, diaphoresis, fever, malaise, weakness. EENTM: Reports: no symptoms. Cardiovascular: Reports: orthopena. Denies: chest pain, edema, palpitations, peripheral edema, syncope. Respiratory: Reports: short of breath. Denies: cough, hemoptysis. Gastrointestinal: Reports: no symptoms. Genitourinary: Reports: no symptoms. Musculoskeletal: Reports: back pain. Skin: Reports: no symptoms. Neurological/Psychological: Reports: no symptoms. Objective Last 24 Hrs of Vital Signs/I&O Vital Signs Date Time Temp Pulse Resp B/P B/P Pulse O2 O2 Flow FiO2 Mean Ox Delivery Rate 06/05 1600 97 Nasal 3.0L Cannula 06/05 1459 97.3 86 22 136/80 98 Nasal Cannula 06/05 0822 106 122/80 06/05 0800 94 Nasal 3.0L Cannula 06/05 0736 97.1 112 24 142/90 94 Nasal 3.0L Cannula 06/05 0021 94 Nasal 3.0L Cannula 06/05 0016 142 154/90 06/05 0000 Nasal 3.5L Cannula 06/04 2304 97.6 123 22 160/80 93 Nasal Cannula Intake & Output 06/05 1600 06/05 0800 06/05 0000 Intake Total 1050 650 540 Output Total 400 250 900 Balance 650 400 -360 Intake, IV 450 600 300 Intake, Oral 600 50 240 Number 0 0 Bowel Movements Output, Urine 400 250 900 Physical Exam General Appearance: Alert, Cooperative, No Acute Distress Skin: No Rashes, No Breakdown, No Significant Lesion Skin Temp/Moisture Exam: Warm/Dry Sepsis Skin Exam (color): Normal for Ethnicity HEENT: Atraumatic, PERRLA, EOMI, Mucous Membr. moist/pink Neck: Supple Cardiovascular: Normal S1, Normal S2, No Murmurs, Gallops, Rubs Lungs: Clear to Auscultation, bibasalar crackles towards bases Abdomen: Normal Bowel Sounds, Soft, No Tenderness, No Hepatospenomegaly, No Masses Neurological: Normal Speech Extremities: No Clubbing, No Cyanosis Vascular: Normal Pulses, Pulses Symmetrical Sepsis Peripheral Pulse Location: Dorsalis Pedis Sepsis Peripheral Pulse Exam: Normal Current Medications: Current Medications Sig/Yanira Start time Last Medication Dose Route Stop Time Status Admin Acetaminophen 650 MG Q6P PRN 06/02 0200 AC PO Acetaminophen 1,000 MG Q6P PRN 06/02 0200 AC IV Albuterol Sulfate 3 ML Q4P PRN 06/03 0915 AC 06/05 INH 0021 Aspirin Buffered 162 MG DAILY 06/02 1000 AC 06/05 PO 0822 Atorvastatin Calcium 80 MG 1700 06/02 1700 AC 06/05 PO 1754 Calcitriol 0.25 MCG DAILY 06/02 1000 AC 06/05 PO 0822 Ceftazidime 500 MG Q24 06/05 1000 DC 06/05 IV 0822 Diltiazem HCl 5 MG ONCE ONE 06/05 0015 DC 06/05 IV PUSH 06/05 0016 0016 Diltiazem HCl 180 MG DAILY 06/02 1000 AC 06/05 PO 0822 Haloperidol 1 MG 2000 06/05 2000 AC PO Haloperidol 1 MG Q8P PRN 06/05 1405 AC IM Haloperidol 5 MG .STK-MED ONE 06/04 2324 DC IM 06/04 2325 Haloperidol 0.25 MG Q8 PRN 06/02 1830 DC 06/05 IM 0232 Isosorbide 30 MG DAILY 06/02 1000 AC 06/05 Mononitrate PO 0822 Mirtazapine 15 MG AT BEDTIME 06/03 2200 AC 06/04 PO 1949 Multivitamins 1 TAB DAILY 06/02 1000 AC 06/05 Therapeutic PO 0822 Polyethylene Glycol 17 GM DAILY PRN 06/02 0215 AC PO Sodium Chloride 1,000 ML Q13H 06/02 0230 DC 06/05 IV 0945 Warfarin Sodium 3 MG COUMADIN 1700 ONE 06/05 1700 DC 06/05 PO 06/05 1701 1753 Last 24 Hrs of Lab/Sammy Results Last 24 Hrs of Labs/Mics: Laboratory Tests 06/05/17 0640: PT 25.5 H, INR 2.45 H, CBC w Diff NO MAN DIFF REQ, RBC 2.76 L, MCV 93.5, MCH 29.8, RDW 15.4 H, MPV 8.2, Gran % 83.9 H, Lymphocytes % 8.3 L, Monocytes % 7.0, Eosinophils % 0.2, Basophils % 0.6, Absolute Granulocytes 6.2, Absolute Lymphocytes 0.6 L, Absolute Monocytes 0.5, Absolute Eosinophils 0, Absolute Basophils 0, PUBS MCHC 31.8 L Lines/Diet/Fluids Catheters/Tubes: polanco Polanco Still Needed? Yes Restraints: 2 point Assessment/Plan Assessment: Assessment: 81-year-old male with history of HTN, HLD, Afib, CAD, BPH w indwelling polanco, dementia and CKD is brought in by family for increasing agitation x 3 weeks. On arrival in the ED, patient has rapid atrial fibrillation, was dehydrated, a urinalysis with signs of infection CURRENTLY GNR, acute on chronic renal failure Cr. to 7, mildly increased work of breathing with diffuse wheezing requiring supplemental oxygen. DISPOSITION ? AMS AFIB WITH RVR UTI CKD DEHYDRATION BASELINE DEMENTIA Plan: 1. Altered mental status: UTI/CKD VS. DEMENTIA VS. DEHYDRATION. Improved. Patient has baseline dementia and this morning was combative and irritable so was put in 2 pt restraints again. He currently has a sitter as this tends to calm him. WAS ON Ceftazidime for UTI: PREVIOUSLY PSEUDOMONAS UTI. Patient confused and combative at baseline - dementia. HOME MEDS Remeron, risperidone and trazodone. PSYCH CONSULT recommended HALDOL .25MG Q8H PRN IM and REMERON 15 mg SINCE 06/03 and to hold Risperdal. 2. Urinary tract infection: urinalysis moderate leukocyte esterase, packed bacteria chronic indwelling polanco catheter. FINAL GROWTH CULTURES NEGATIVE. ANTIBIOTICS DISCONTINUED. 3. Acute on chronic renal failure: Creatinine currently 7.0, WAS 7.7, last admission was ~5.5 As per NEPHRO CONSULT: CKD: stage 5, ESRD, due to HTN & recurrent obstruction w UTIs. May have superimposed prerenal component due to A fib w RVR & has had some improvement w IV volume trial expansion. No dialysis imperative, give maintenance fluids, rate control and consider hospice/palliative care. Nephro has consulted in past and patient was given IVF hydration and not dialyzed. Continue Calcitriol 0.25mcg PO QD REPEAT BEP TO FOLLOW BUN CR 3. Atrial fibrillation with rapid ventricular response. He was evaluated with cardiology who recommended to continue the same treatment. Aspirin and Lipitor were continued. Each evening the patient became agitated and was brought under control with pushes of IV Cardizem Cardizem push required last night. Continue cardizem for rate control PO 180 MG DAILY Daily dose warfarin and INR checks 2.45 this morning. On 3 mg coumadin 4. CAD: continue home medications ASA Lipitor 80mg PO QD Imdur 30mg PO QD 6. DVT PROPHYLAXIS ON WARFARIN FOR AFIB 7. CODE STATUS DNR DNI Problem List: 1. CKD (chronic kidney disease) 2. Dementia with behavioral disturbance 3. UTI (urinary tract infection) 4. Chronic atrial fibrillation Pain Ratin Pain Location: BACK Pain Goal: Pain 4 or less Pain Plan: NA Tomorrow's Labs & Rationales: pt inr DVT/Prophylaxis: pharmacological Consulting Request: Consulting Specialty: Nephrology
[2017-06-05 22:21] VITALS: BP 130/80
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
--- NOTE | 2017-06-06 06:52 | NUR ---
HEART RATE UP IN THE 150'S. DR. GAMINO NOTIFIED AND PER DR. MARCOS MORENO GIVEN EARLY
[2017-06-06 07:46] VITALS: BP 142/82
[2017-06-06 08:37] LABS: PT 31.2 SEC (9.4-12.5)
--- NOTE | 2017-06-06 13:52 | PN- Cardiology ---
Objective Vital Signs and I&Os Vital Signs Date Time Temp Pulse Resp B/P B/P Pulse O2 O2 Flow FiO2 Mean Ox Delivery Rate 06/06 1203 93 Nasal 2.0L Cannula 06/06 1005 98.2 136 22 142/82 06/06 0800 94 Nasal 3.0L Cannula 06/06 0746 98.2 136 22 142/82 96 Nasal Cannula 06/06 0000 96 Nasal 3.0L Cannula 06/05 2221 98.0 108 20 130/80 97 Nasal 3.0L Cannula 06/05 1600 97 Nasal 3.0L Cannula 06/05 1459 97.3 86 22 136/80 98 Nasal Cannula Intake & Output 06/06 1600 06/06 0806/06 0000 06/05 1600 06/05 0806/05 0000 Intake Total 443 286 8558 650 540 Output Total 300 225 400 250 900 Balance -200 65 650 400 -360 Intake, IV 10 450 600 300 Intake, Oral 100 280 600 50 240 Number 0 0 Bowel Movements Output, Urine 300 225 400 250 900 Current Medications: Current Medications Sig/Yanira Start time Last Medication Dose Route Stop Time Status Admin Acetaminophen 650 MG Q6P PRN 06/02 0200 AC PO Acetaminophen 1,000 MG Q6P PRN 06/02 0200 AC IV Albuterol Sulfate 3 ML Q4P PRN 06/03 0915 AC 06/05 INH 0021 Aspirin Buffered 162 MG DAILY 06/02 1000 AC 06/06 PO 1005 Atorvastatin Calcium 80 MG 1700 06/02 1700 AC 06/05 PO 1754 Calcitriol 0.25 MCG DAILY 06/02 1000 AC 06/06 PO 1005 Ceftazidime 500 MG Q24 06/05 1000 DC 06/05 IV 0822 Diltiazem HCl 180 MG DAILY 06/02 1000 AC 06/06 PO 0651 Haloperidol 1 MG 2000 06/05 2000 AC 06/05 PO 2036 Haloperidol 1 MG Q8P PRN 06/05 1405 AC 06/06 IM 1010 Haloperidol 0.25 MG Q8 PRN 06/02 1830 DC 06/05 IM 0232 Isosorbide 30 MG DAILY 06/02 1000 AC 06/06 Mononitrate PO 1005 Mirtazapine 15 MG AT BEDTIME 06/03 2200 AC 06/05 PO 2036 Multivitamins 1 TAB DAILY 06/02 1000 AC 06/06 Therapeutic PO 1005 Polyethylene Glycol 17 GM DAILY PRN 06/02 0215 AC PO Warfarin Sodium 3 MG .STK-MED ONE 06/05 1753 DC PO 06/05 1754 Warfarin Sodium 3 MG COUMADIN 1700 ONE 06/05 1700 DC 06/05 PO 06/05 1701 1753 Results Last 48 Hrs of Labs/Mics: Laboratory Tests 06/06/17 0625: PT 31.2 H, INR 3.00 H 06/05/17 0640: PT 25.5 H, INR 2.45 H, CBC w Diff NO MAN DIFF REQ, RBC 2.76 L, MCV 93.5, MCH 29.8, RDW 15.4 H, MPV 8.2, Gran % 83.9 H, Lymphocytes % 8.3 L, Monocytes % 7.0, Eosinophils % 0.2, Basophils % 0.6, Absolute Granulocytes 6.2, Absolute Lymphocytes 0.6 L, Absolute Monocytes 0.5, Absolute Eosinophils 0, Absolute Basophils 0, PUBS MCHC 31.8 L Assessment/Plan Assessment/Plan Assessment: 1. Altered mental status 2. AF with increased ventricular rate 3. UTI 4. CKD 5. Dehydration 6. Dementia REcommendations: - Continue current treatment - Continue cardiac medications. - PT evaluation noted. - Awaiting STR placement. The patient was agitated again last night with elevated heart rates and required soft restraints.
--- NOTE | 2017-06-06 14:30 | NUR ---
PATIENT HAD A 16 BEAT RUN OF VTACH TODAY. PATIENT WAS ASYMPTOMATIC. EPISODE OCCURED WHEN PATIENT WAS BEING REPOSITIONED IN CHAIR. ON ASSESSMENT PATIENT DENIES CP. VSS. FAMILY AT [facility]. [facility] CENTER[facility] AND EDGER BRAYAN UPDATED AND WENT OT ASSESS PATIENT. NO NEW INTERVENTION AT THIS TIME. WILL CONTINUE TO FOLLOW PLAN OF CARE.
[2017-06-06 14:57] VITALS: BP 108/70
--- NOTE | 2017-06-06 16:12 | PN- Housestaff ---
Subjective Follow-up For: AMS, AFIB WITH RVR, UTI, CKD, DEHYDRATION, BASELINE DEMENTIA Complaints: no complaints Tele-Events Since Last Visit: afib,103-119 3:27 5 beats v tach 6:37 hr was 160 Subjective: pt still having difficulty breathing, having right ankle pain (chronic), pain in his lower back. Review of Systems Constitutional: Denies: no symptoms. Objective Last 24 Hrs of Vital Signs/I&O Vital Signs Date Time Temp Pulse Resp B/P B/P Pulse O2 O2 Flow FiO2 Mean Ox Delivery Rate 06/06 1457 97.9 85 20 108/70 100 Nasal Cannula 06/06 1203 93 Nasal 2.0L Cannula 06/06 1005 98.2 136 22 142/82 06/06 0800 94 Nasal 3.0L Cannula 06/06 0746 98.2 136 22 142/82 96 Nasal Cannula 06/06 0000 96 Nasal 3.0L Cannula 06/05 2221 98.0 108 20 130/80 97 Nasal 3.0L Cannula Intake & Output 06/06 1600 06/06 0800 06/06 0000 Intake Total 500 100 290 Output Total 200 300 225 Balance 300 -200 65 Intake, IV 10 Intake, Oral 500 100 280 Number 1 Bowel Movements Output, Urine 200 300 225 Physical Exam General Appearance: Alert Assessment/Plan Assessment: Assessment: 81-year-old male with history of HTN, HLD, Afib, CAD, BPH w indwelling polanco, dementia and CKD is brought in by family for increasing agitation x 3 weeks. On arrival in the ED, patient has rapid atrial fibrillation, was dehydrated, a urinalysis with signs of infection CURRENTLY GNR, acute on chronic renal failure Cr. to 7, mildly increased work of breathing with diffuse wheezing requiring supplemental oxygen. # Altered mental status: -? UTI/CKD vs DEMENTIA VS. DEHYDRATION. - Patient has baseline dementia and this morning was combative and irritable so was put in 2 pt restraints again. -He currently has a sitter as this tends to calm him. -PSYCH CONSULT recommended HALDOL .25MG Q8H PRN IM and REMERON 15 mg SINCE 06/03 and to hold Risperdal. #Acute on chronic renal failure: Creatinine currently 7.0, WAS 7.7, last admission was ~5.5 As per NEPHRO CONSULT: CKD: stage 5, ESRD, due to HTN & recurrent obstruction w UTIs. May have superimposed prerenal component due to A fib w RVR & has had some improvement w IV volume trial expansion. No dialysis imperative, give maintenance fluids, rate control and consider hospice/palliative care. Nephro has consulted in past and patient was given IVF hydration and not dialyzed. Continue Calcitriol 0.25mcg PO QD REPEAT BEP TO FOLLOW BUN CR # Urinary tract infection: urinalysis moderate leukocyte esterase, packed bacteria chronic indwelling polanco catheter. FINAL GROWTH CULTURES NEGATIVE. ANTIBIOTICS DISCONTINUED. #Atrial fibrillation with rapid ventricular response. He was evaluated with cardiology who recommended to continue the same treatment. Aspirin and Lipitor were continued. Continue cardizem for rate control PO 180 MG DAILY Daily dose warfarin and INR checks 3 this morning. decrease coumadin to 2 mg #CAD: continue home medications ASA Lipitor 80mg PO QD Imdur 30mg PO QD 6. DVT PROPHYLAXIS ON WARFARIN FOR AFIB 7. CODE STATUS DNR DNI Problem List: 1. Anemia 2. CKD (chronic kidney disease) 3. Chronic atrial fibrillation 4. Dementia with behavioral disturbance 5. UTI (urinary tract infection) Pain Ratin Pain Location: n/a Pain Goal: Remain pain free Pain Plan: tylenol Tomorrow's Labs & Rationales: pt peb DVT/Prophylaxis: pharmacological Consulting Request: Consulting Specialty: Nephrology
[2017-06-06 22:24] VITALS: BP 140/84
[2017-06-07 06:58] VITALS: BP 118/72
--- NOTE | 2017-06-07 08:52 | PN- Cardiology ---
Subjective Subjective: No critical change. Remains confused. Agitated again overnight. Remains in soft restraints. Objective Vital Signs and I&Os Vital Signs Date Time Temp Pulse Resp B/P B/P Pulse O2 O2 Flow FiO2 Mean Ox Delivery Rate 06/07 0658 97.8 118 16 118/72 98 Nasal Cannula 06/07 0351 98 Nasal 2.0L Cannula 06/06 2224 97.0 100 16 140/84 95 Nasal 3.0L Cannula 06/06 2107 Nasal 3.0L Cannula 06/06 1945 92 Nasal 3.0L Cannula 06/06 1600 94 Nasal 3.0L Cannula 06/06 1457 97.9 85 20 108/70 100 Nasal Cannula 06/06 1203 93 Nasal 2.0L Cannula 06/06 1005 98.2 136 22 142/82 Intake & Output 06/07 1600 06/07 0800 06/07 0000 06/06 1600 06/06 0800 06/06 0000 Intake Total 500 100 290 Output Total 500 200 300 225 Balance -500 300 -200 65 Intake, IV 10 Intake, Oral 500 100 280 Number 1 Bowel Movements Output, Urine 500 200 300 225 Physical Exam: General Appearance Alert, No Acute Distress Skin No Rashes, No Breakdown HEENT Atraumatic, PERRLA, EOMI, Mucous Membr. moist/pink Neck Supple, +2 Carotid Pulse wo Bruit Cardiovascular irregular rhythm Lungs diffuse wheezing Abdomen Normal Bowel Sounds, Soft, No Tenderness, No Masses Neurological Strength at 5/5 X4 Ext, Normal Tone Extremities +1 edema b/l LE Current Medications: Current Medications Sig/Yanira Start time Last Medication Dose Route Stop Time Status Admin Acetaminophen 650 MG Q6P PRN 06/02 0200 AC PO Acetaminophen 1,000 MG Q6P PRN 06/02 0200 AC IV Albuterol Sulfate 3 ML Q4P PRN 06/03 0915 AC 06/07 INH 0341 Aspirin Buffered 162 MG DAILY 06/02 1000 AC 06/06 PO 1005 Atorvastatin Calcium 80 MG 1700 06/02 1700 AC 06/06 PO 1716 Calcitriol 0.25 MCG DAILY 06/02 1000 AC 06/06 PO 1005 Diltiazem HCl 180 MG DAILY 06/02 1000 AC 06/06 PO 0651 Haloperidol 1 MG 2000 06/05 2000 AC 06/06 PO 205 Haloperidol 1 MG Q8P PRN 06/05 1405 AC 06/07 IM 0539 Isosorbide 30 MG DAILY 06/02 1000 AC 06/06 Mononitrate PO 1005 Mirtazapine 15 MG AT BEDTIME 06/03 2200 DC 06/05 PO 2036 Multivitamins 1 TAB DAILY 06/02 1000 AC 06/06 Therapeutic PO 1005 Polyethylene Glycol 17 GM DAILY PRN 06/02 0215 AC PO Warfarin Sodium 2 MG COUMADIN 1700 ONE 06/06 1700 DC 06/06 PO 06/06 1701 1716 Results Last 48 Hrs of Labs/Mics: Laboratory Tests 06/07/17 0735: Sodium Pending, Potassium Pending, Chloride Pending, Carbon Dioxide Pending, Anion Gap Pending, BUN Pending, Creatinine Pending, BUN/Creatinine Ratio Pending , PT Pending, INR Pending 06/06/17 0625: PT 31.2 H, INR 3.00 H Assessment/Plan Assessment/Plan Assessment: 1. Altered mental status 2. AF with increased ventricular rate 3. UTI 4. CKD 5. Dehydration 6. Dementia REcommendations: - Continue current treatment - Await further input from psychiatry with respect to managing the patient's nighttime agitation. -Short-term rehabilitation pending control of agitation and removal of soft restraints. -Continue current cardiac medications for now. Continue telemetry? Yes
--- NOTE | 2017-06-07 08:57 | PN- Housestaff ---
Subjective Follow-up For: AMS, AFIB WITH RVR, UTI, CKD, DEHYDRATION, BASELINE DEMENTIA Complaints: PATIENT COMPLAINS OF RIGHT WRIST PAIN AND BACK PAIN. Tele-Events Since Last Visit: A. fib rates 109-138. No events Subjective: Patient is not cooperative with answering all questions. Patient is confused. Says that his breathing is lousy. Patient was combative overnight. Had to be put in 2. restraints again. Patient had to have increased Haldol dosage during the night for agitation. Remeron was DC'd. Review of Systems Constitutional: Reports: no symptoms. EENTM: Reports: no symptoms. Cardiovascular: Reports: no symptoms. Respiratory: Reports: short of breath. Gastrointestinal: Reports: no symptoms. Genitourinary: Reports: no symptoms. Musculoskeletal: Reports: back pain, joint pain. Skin: Reports: lesions (ECCHYMOSES BILATERALLY FOREARM). Neurological/Psychological: Reports: dementia. Hematologic/Endocrine: Reports: bruising. Objective Last 24 Hrs of Vital Signs/I&O Vital Signs Date Time Temp Pulse Resp B/P B/P Pulse O2 O2 Flow FiO2 Mean Ox Delivery Rate 06/07 1600 95 Nasal 3.0L Cannula 06/07 1453 98.4 110 18 144/80 95 Nasal 3.0L Cannula 06/07 0935 130 155/90 06/07 0927 97.8 118 16 118/72 06/07 0800 95 Nasal 3.0L Cannula 06/07 0658 97.8 118 16 118/72 98 Nasal Cannula 06/07 0351 98 Nasal 2.0L Cannula 06/06 2224 97.0 100 16 140/84 95 Nasal 3.0L Cannula 06/06 2107 Nasal 3.0L Cannula 06/06 1945 92 Nasal 3.0L Cannula Intake & Output 06/07 1600 06/07 0800 06/07 0000 Intake Total 240 Output Total 250 500 Balance -10 -500 Intake, Oral 240 Output, Urine 250 500 Physical Exam General Appearance: No Acute Distress Skin: No Rashes, No Breakdown Skin Temp/Moisture Exam: Warm/Dry Sepsis Skin Exam (color): Normal for Ethnicity HEENT: Atraumatic, PERRLA Neck: Supple Cardiovascular: Normal S1, Normal S2, No Murmurs, Gallops, Rubs Lungs: PATIENT HAS AGONAL BREATHS AND SCATTERED WHEEZES THROUGHOUT. Abdomen: Normal Bowel Sounds, Soft, No Tenderness Neurological: Normal Speech Extremities: No Clubbing, No Cyanosis, No Edema, Normal Pulses, No Tenderness/ Swelling Vascular: Normal Pulses, Pulses Symmetrical Sepsis Peripheral Pulse Location: Radial Sepsis Peripheral Pulse Exam: Normal Current Medications: Current Medications Sig/Yanira Start time Last Medication Dose Route Stop Time Status Admin Acetaminophen 650 MG Q6P PRN 06/02 0200 AC PO Acetaminophen 1,000 MG Q6P PRN 06/02 0200 AC IV Albuterol Sulfate 3 ML Q4P PRN 06/03 0915 AC 06/07 INH 0341 Aspirin Buffered 162 MG DAILY 06/02 1000 AC 06/07 PO 0927 Atorvastatin Calcium 80 MG 1700 06/02 1700 AC 06/07 PO 1705 Calcitriol 0.25 MCG DAILY 06/02 1000 AC 06/07 PO 09 Diltiazem HCl 180 MG DAILY 06/02 1000 AC 06/07 PO 09 Haloperidol 1 MG 2000 06/05 2000 AC 06/06 PO 205 Haloperidol 1 MG Q8P PRN 06/05 1405 AC 06/07 IM 0539 Isosorbide 30 MG DAILY 06/02 1000 AC 06/07 Mononitrate PO 926 Mirtazapine 15 MG AT BEDTIME 06/03 2200 DC 06/05 PO 2036 Multivitamins 1 TAB DAILY 06/02 1000 AC 06/07 Therapeutic PO 09 Polyethylene Glycol 17 GM DAILY PRN 06/02 0215 AC PO Lines/Diet/Fluids Restraints: 2. RESTRAINTS. Assessment/Plan Assessment: Assessment: 81-year-old male with history of HTN, HLD, Afib, CAD, BPH w indwelling polanco, dementia and CKD is brought in by family for increasing agitation x 3 weeks. On arrival in the ED, patient has rapid atrial fibrillation, was dehydrated, a urinalysis with signs of infection CURRENTLY GNR, acute on chronic renal failure Cr. to 7, mildly increased work of breathing with diffuse wheezing requiring supplemental oxygen. Patient has baseline dementia. Has been regularly combative with staff. Has required restraints. Is pending discharge to nursing care facility if he can stay off restraints for 24 hours. AMS -? UTI/CKD vs DEMENTIA VS. DEHYDRATION. -Patient has baseline dementia and this morning was combative and irritable so was put in 2 pt restraints. -He currently has a sitter as this tends to calm him. -PSYCH CONSULT recommended HALDOL 1 mg by mouth daily. Is also on Haldol PRN. -We have DC'd Remeron as per psychiatry consult. -Patient is likely to have repeat issues with combativeness and will require restraint. Cannot discharge him until 24 hours off for straight so titrate Haldol to effective dose #Acute on chronic renal failure: Creatinine currently 6.9 WAS 7.7, last admission was ~5.5 As per NEPHRO CONSULT: CKD: stage 5, ESRD, due to HTN & recurrent obstruction w UTIs. May have superimposed prerenal component due to A fib w RVR & has had some improvement w IV volume trial expansion. No dialysis imperative, give maintenance fluids, rate control and consider hospice/palliative care. Nephro has consulted in past and patient was given IVF hydration and not dialyzed. Continue Calcitriol 0.25mcg PO QD REPEAT BEP TO FOLLOW BUN CR # Urinary tract infection: urinalysis moderate leukocyte esterase, packed bacteria chronic indwelling polanco catheter. FINAL GROWTH CULTURES NEGATIVE. ANTIBIOTICS DISCONTINUED. #Atrial fibrillation with rapid ventricular response. He was evaluated with cardiology who recommended to continue the same treatment of Cardizem 180 mg by mouth daily Atrial fibrillation rate controlled on Cardizem Daily dose warfarin and INR checks. Currently INR is 3.47. Hold Coumadin. Last dose was 2 mg on June 06. #CAD: continue home medications ASA Lipitor 80mg PO QD Imdur 30mg PO QD 6. DVT PROPHYLAXIS ON WARFARIN FOR AFIB 7. CODE STATUS DNR DNI Problem List: 1. Acute on chronic renal failure 2. Rapid atrial fibrillation 3. Altered mental status 4. UTI (urinary tract infection) 5. CKD (chronic kidney disease) Pain Ratin Pain Location: Right wrist and lower back Pain Goal: Pain 4 or less Pain Plan: Tylenol for pain. Tomorrow's Labs & Rationales: INR and BEP DVT/Prophylaxis: pharmacological Consulting Request: Consulting Specialty: Nephrology
[2017-06-07 09:35] VITALS: BP 155/90
[2017-06-07 14:53] VITALS: BP 144/80
[2017-06-07 21:55] VITALS: BP 140/80
[2017-06-08 07:26] VITALS: BP 154/92
--- NOTE | 2017-06-08 08:46 | PN- Housestaff ---
See Addendum Subjective Follow-up For: AMS, AFIB WITH RVR, UTI, CKD, DEHYDRATION, BASELINE DEMENTIA Complaints: patient complains of some back pain today which is his baseline. Tele-Events Since Last Visit: Atrial fibrillation rates 111-127 no events Subjective: Patient is seen and examined bedside he is not cooperative with answering questions and is confused, baseline dementia. Patient is currently off of restraints. Yesterday he was able to take a walk with his nurse and . Patient has no complaints. Nurse reports that he has not been eating very much. Review of Systems Constitutional: Reports: no symptoms. EENTM: Reports: no symptoms. Cardiovascular: Reports: no symptoms, see HPI, chest pain, edema, orthopena, palpitations, peripheral edema, syncope. Respiratory: Reports: short of breath. Gastrointestinal: Reports: no symptoms. Genitourinary: Reports: no symptoms. Musculoskeletal: Reports: back pain. Skin: Reports: no symptoms. Neurological/Psychological: Reports: no symptoms. Hematologic/Endocrine: Reports: no symptoms. Immunologic/Allergic: Reports: no symptoms. Objective Last 24 Hrs of Vital Signs/I&O Vital Signs Date Time Temp Pulse Resp B/P B/P Pulse O2 O2 Flow FiO2 Mean Ox Delivery Rate 06/08 1041 94 Nasal 3.0L Cannula 06/08 0955 97 154/92 06/08 0800 Nasal 3.0L Cannula 06/08 0726 96.8 97 18 154/92 95 Nasal Cannula 06/07 2155 98.4 111 18 140/80 96 06/07 2028 Nasal 3.0L Cannula 06/07 1600 95 Nasal 3.0L Cannula 06/07 1453 98.4 110 18 144/80 95 Nasal 3.0L Cannula Intake & Output 06/08 1600 06/08 0800 06/08 0000 Intake Total 100 Output Total 300 150 Balance -300 -50 Intake, Oral 100 Output, Urine 300 150 Physical Exam General Appearance: patient is confused at baseline and not oriented Skin: No Rashes, No Breakdown, No Significant Lesion Skin Temp/Moisture Exam: Warm/Dry Sepsis Skin Exam (color): Normal for Ethnicity HEENT: Atraumatic, EOMI, Mucous Membr. moist/pink Neck: Supple Cardiovascular: Normal S1, Normal S2, No Murmurs, Gallops, Rubs Lungs: CRACKLES Abdomen: Normal Bowel Sounds, Soft, No Tenderness Neurological: Normal Speech Extremities: No Clubbing, No Cyanosis, No Edema, Normal Pulses, No Tenderness/ Swelling Vascular: Normal Pulses, Pulses Symmetrical Sepsis Peripheral Pulse Location: Radial Sepsis Peripheral Pulse Exam: Normal Current Medications: Current Medications Sig/Yanira Start time Last Medication Dose Route Stop Time Status Admin Acetaminophen 650 MG Q6P PRN 06/02 0200 AC PO Acetaminophen 1,000 MG Q6P PRN 06/02 0200 AC IV Albuterol Sulfate 3 ML Q4P PRN 06/03 0915 AC 06/07 INH 0341 Aspirin Buffered 162 MG DAILY 06/02 1000 AC 06/08 PO 0955 Atorvastatin Calcium 80 MG 1700 06/02 1700 AC 06/07 PO 1705 Calcitriol 0.25 MCG DAILY 06/02 1000 AC 06/08 PO 0955 Diltiazem HCl 180 MG DAILY 06/02 1000 AC 06/08 PO 0955 Haloperidol 1 MG 2000 06/05 2000 AC 06/07 PO 2016 Haloperidol 1 MG Q8P PRN 06/05 1405 AC 06/07 IM 0539 Isosorbide 30 MG DAILY 06/02 1000 AC 06/08 Mononitrate PO 0955 Multivitamins 1 TAB DAILY 06/02 1000 AC 06/08 Therapeutic PO 0955 Polyethylene Glycol 17 GM DAILY PRN 06/02 0215 AC PO Last 24 Hrs of Lab/Sammy Results Last 24 Hrs of Labs/Mics: Laboratory Tests 06/08/17 0656: PT 29.7 H, INR 2.86 H, CBC w Diff NO MAN DIFF REQ, RBC 2.80 L, MCV 93.1, MCH 30.0, RDW 15.4 H, MPV 8.2, Gran % 83.0 H, Lymphocytes % 8.7 L, Monocytes % 7.2, Eosinophils % 0.7, Basophils % 0.4, Absolute Granulocytes 7.7 H, Absolute Lymphocytes 0.8 L, Absolute Monocytes 0.7 H, Absolute Eosinophils 0.1, Absolute Basophils 0, PUBS MCHC 32.3 L Lines/Diet/Fluids Fluids/Infusions: none Catheters/Tubes: polanco Polanco Still Needed? Yes Lines: peripheral lines Assessment/Plan Assessment: Assessment: 81-year-old male with history of HTN, HLD, Afib, CAD, BPH w indwelling polanco, dementia and CKD is brought in by family for increasing agitation x 3 weeks. On arrival in the ED, patient has rapid atrial fibrillation, was dehydrated, a urinalysis with signs of infection CURRENTLY GNR, acute on chronic renal failure Cr. to 7, mildly increased work of breathing with diffuse wheezing requiring supplemental oxygen. Patient has baseline dementia. Has been regularly combative with staff. Has required restraints. Is pending discharge to nursing care facility if he can stay off restraints for 24 hours. AMS -? UTI/CKD vs DEMENTIA VS. DEHYDRATION. -Patient has baseline dementia and yesterday morning was combative and irritable so was put in 2 pt restraints. Overnight tonight he was better and taken off restraints, currently off restraints. -He currently has a sitter as this tends to calm him. -PSYCH CONSULT recommended HALDOL 1 mg by mouth daily. Is also on Haldol PRN. -We have DC'd Remeron as per psychiatry consult. -Patient is likely to have repeat issues with combativeness and will require restraint -Cannot discharge him until 24 hours off for straight so titrate Haldol to effective dose #Acute on chronic renal failure: Creatinine currently 6.9 WAS 7.7, last admission was ~5.5 As per NEPHRO CONSULT: CKD: stage 5, ESRD, due to HTN & recurrent obstruction w UTIs. May have superimposed prerenal component due to A fib w RVR & has had some improvement w IV volume trial expansion. No dialysis imperative, give maintenance fluids, rate control and consider hospice/palliative care. Nephro has consulted in past and patient was given IVF hydration and not dialyzed. Continue Calcitriol 0.25mcg PO QD # Urinary tract infection: urinalysis moderate leukocyte esterase, packed bacteria chronic indwelling polanco catheter. FINAL GROWTH CULTURES NEGATIVE. ANTIBIOTICS DISCONTINUED. #Atrial fibrillation with rapid ventricular response. He was evaluated with cardiology who recommended to continue the same treatment of Cardizem 180 mg by mouth daily. Daily dose warfarin and INR checks. Currently INR is 2.86. Dose him 2 mg Coumadin and check an INR tomorrow. #CAD: continue home medications ASA Lipitor 80mg PO QD Imdur 30mg PO QD 6. DVT PROPHYLAXIS ON WARFARIN FOR AFIB 7. CODE STATUS DNR DNI Problem List: 1. Anemia 2. Rapid atrial fibrillation 3. Altered mental status 4. UTI (urinary tract infection) 5. CKD (chronic kidney disease) 6. Dementia with behavioral disturbance Pain Ratin Pain Location: Right wrist pain and lower back pain Pain Goal: Pain 4 or less Pain Plan: Tylenol for pain Tomorrow's Labs & Rationales: Follow PT INR, all other labs are stable and are not required Consulting Request: Consulting Specialty: Nephrology
[2017-06-08 09:09] LABS: PT 29.7 SEC (9.4-12.5)
[2017-06-08 09:34] LABS: ABSOLUTE BASOPHIL COUNT 0 /CUMM (0.0-0.2); ABSOLUTE EOSINOPHIL COUNT 0.1 /CUMM (0.0-0.7); ABSOLUTE GRANULOCYTE CT 7.7 /CUMM (1.4-6.5); ABSOLUTE LYMPH COUNT 0.8 /CUMM (1.2-3.4); ABSOLUTE MONOCYTE COUNT 0.7 /CUMM (0.10-0.60); BASOPHIL % 0.4 % (0.0-2.0); EOSINOPHIL % 0.7 % (0-5); HEMATOCRIT 26.1 % (42-52); MEAN CORPUSCULAR HGB CONC 32.3 G/DL (33.0-37.0); MEAN CORPUSCULAR VOLUME 93.1 FL (80.0-94.0); MEAN PLATELET VOLUME 8.2 FL (7.4-10.4); PLATELET COUNT 184 /CUMM (130-400); RBC DISTRIBUTION WIDTH 15.4 % (11.5-14.5); WHITE BLOOD CELL COUNT 9.3 /CUMM (4.8-10.8)
--- NOTE | 2017-06-08 10:22 | PN- Cardiology ---
Subjective Subjective: Feeling well. No chest pain. No shortness of breath. The patient is less confused today. Objective Vital Signs and I&Os Vital Signs Date Time Temp Pulse Resp B/P B/P Pulse O2 O2 Flow FiO2 Mean Ox Delivery Rate 06/08 0955 97 154/92 06/08 08 Nasal 3.0L Cannula 06/08 0726 96.8 97 18 154/92 95 Nasal Cannula 06/07 2155 98.4 111 18 140/80 96 06/07 2028 Nasal 3.0L Cannula 06/07 1600 95 Nasal 3.0L Cannula 06/07 1453 98.4 110 18 144/80 95 Nasal 3.0L Cannula Intake & Output 06/08 0806/08 0000 06/07 1600 06/07 0806/07 0000 Intake Total 100 240 Output Total 300 150 250 500 Balance -300 -50 -10 -500 Intake, Oral 100 240 Output, Urine 300 150 250 500 Physical Exam: Gen: NAD HEENT: normal Lungs: scattered wheezers, normal resp. effort Heart: irreg, S1, S2, no murmurs Abdomen: Soft, nontender, no masses Extremities: No clubbing, cyanosis, or edema. Neuro: Alert and oriented x 3, cranial nerves intact Current Medications: Current Medications Sig/Yanira Start time Last Medication Dose Route Stop Time Status Admin Acetaminophen 650 MG Q6P PRN 06/02 0200 AC PO Acetaminophen 1,000 MG Q6P PRN 06/02 0200 AC IV Albuterol Sulfate 3 ML Q4P PRN 06/03 0915 AC 06/07 INH 0341 Aspirin Buffered 162 MG DAILY 06/02 1000 AC 06/08 PO 0955 Atorvastatin Calcium 80 MG 1700 06/02 1700 AC 06/07 PO 1705 Calcitriol 0.25 MCG DAILY 06/02 1000 AC 06/08 PO 0955 Diltiazem HCl 180 MG DAILY 06/02 1000 AC 06/08 PO 0955 Haloperidol 1 MG 2000 06/05 2000 AC 06/07 PO 2016 Haloperidol 1 MG Q8P PRN 06/05 1405 AC 06/07 IM 0539 Isosorbide 30 MG DAILY 06/02 1000 AC 06/08 Mononitrate PO 0955 Multivitamins 1 TAB DAILY 06/02 1000 AC 06/08 Therapeutic PO 0955 Polyethylene Glycol 17 GM DAILY PRN 06/02 0215 AC PO Results Last 48 Hrs of Labs/Mics: Laboratory Tests 06/08/17 0656: PT 29.7 H, INR 2.86 H, CBC w Diff NO MAN DIFF REQ, RBC 2.80 L, MCV 93.1, MCH 30.0, RDW 15.4 H, MPV 8.2, Gran % 83.0 H, Lymphocytes % 8.7 L, Monocytes % 7.2, Eosinophils % 0.7, Basophils % 0.4, Absolute Granulocytes 7.7 H, Absolute Lymphocytes 0.8 L, Absolute Monocytes 0.7 H, Absolute Eosinophils 0.1, Absolute Basophils 0, PUBS MCHC 32.3 L 06/07/17 0735: Anion Gap 9, Estimated GFR 8 L, BUN/Creatinine Ratio 8.3, PT 36.0 H, INR 3.47 H Assessment/Plan Assessment/Plan Assessment: 1. Altered mental status improved 2. AF with ventricular rate now under control 3. UTI 4. CKD 5. Dehydration 6. Dementia Plan: * Continue current medications. * Discharge to short-term rehabilitation when bed is available. Continue telemetry? No
--- NOTE | 2017-06-08 11:13 | NUR ---
Physical Therapy. Pt refusing PT treatment despite encouragement, wishing to take a nap. Pt has been getting [place] [facility] [place]. PT will f/u as appropriate.
--- NOTE | 2017-06-08 14:12 | NUR ---
PT ONLY VOIDED 200ML CLEAR YELLOW URINE IN 8HRS. REPLENISHMENT ANALYST JESSI AWARE. WILL CONTINUE TO MONITOR PT.
[2017-06-08 15:09] VITALS: BP 126/70
[2017-06-08 22:00] VITALS: BP 148/90
[2017-06-09 06:50] VITALS: BP 148/80
--- NOTE | 2017-06-09 08:24 | PN- Housestaff ---
Subjective Follow-up For: AMS, AFIB WITH RVR, UTI, CKD, DEHYDRATION, BASELINE DEMENTIA Complaints: no complaints Tele-Events Since Last Visit: Patient is off telemetry Subjective: Patient was seen and examined bedside he has no complaints today Review of Systems Constitutional: Reports: no symptoms. EENTM: Reports: no symptoms. Cardiovascular: Reports: no symptoms. Respiratory: Reports: no symptoms. Gastrointestinal: Reports: no symptoms. Genitourinary: Reports: no symptoms. Musculoskeletal: Reports: no symptoms. Skin: Reports: no symptoms. Neurological/Psychological: Reports: no symptoms. Hematologic/Endocrine: Reports: no symptoms. Immunologic/Allergic: Reports: no symptoms. Objective Last 24 Hrs of Vital Signs/I&O Vital Signs Date Time Temp Pulse Resp B/P B/P Pulse O2 O2 Flow FiO2 Mean Ox Delivery Rate 06/09 0947 97.4 83 18 148/80 06/09 0800 95 Nasal 2.5L Cannula 06/09 0650 97.4 83 18 148/80 95 Nasal Cannula 06/08 2217 Nasal 2.0L Cannula 06/08 2200 96.9 99 22 148/90 93 Nasal 2.0L Cannula 06/08 1615 95 Nasal 2.5L Cannula 06/08 1514 Nasal 2.0L Cannula 06/08 1509 97.1 98 18 126/70 98 Nasal Cannula Intake & Output 06/09 1600 06/09 0800 06/09 0000 Intake Total 225 360 Output Total 300 350 Balance -75 10 Intake, Oral 225 360 Output, Urine 300 350 Physical Exam General Appearance: patient is confused at baseline and not oriented Skin: No Rashes, No Breakdown, No Significant Lesion Skin Temp/Moisture Exam: Warm/Dry Sepsis Skin Exam (color): Normal for Ethnicity HEENT: Atraumatic, PERRLA, EOMI, Mucous Membr. moist/pink Neck: Supple Cardiovascular: Normal S1, Normal S2, No Murmurs, Gallops, Rubs Lungs: crackles Abdomen: Normal Bowel Sounds, Soft, No Tenderness, No Hepatospenomegaly, No Masses Neurological: Normal Speech Extremities: No Clubbing, No Cyanosis, No Edema, Normal Pulses, No Tenderness/ Swelling Vascular: Normal Pulses, Pulses Symmetrical Sepsis Peripheral Pulse Location: Radial Sepsis Peripheral Pulse Exam: Normal Current Medications: Current Medications Sig/Yanira Start time Last Medication Dose Route Stop Time Status Admin Acetaminophen 650 MG Q6P PRN 06/02 0200 AC PO Acetaminophen 1,000 MG Q6P PRN 06/02 0200 AC IV Albuterol Sulfate 3 ML Q4P PRN 06/03 0915 AC 06/09 INH 0433 Aspirin Buffered 162 MG DAILY 06/02 1000 AC 06/09 PO 0947 Atorvastatin Calcium 80 MG 1700 06/02 1700 AC 06/08 PO 1630 Calcitriol 0.25 MCG DAILY 06/02 1000 AC 06/09 PO 0947 Diltiazem HCl 180 MG DAILY 06/02 1000 AC 06/09 PO 0947 Haloperidol 5 MG .STK-MED ONE 06/08 1504 DC IM 06/08 1505 Haloperidol 1 MG 2000 06/05 2000 AC 06/08 PO 2110 Haloperidol 1 MG Q8P PRN 06/05 1405 AC 06/08 IM 1504 Isosorbide 30 MG DAILY 06/02 1000 AC 06/09 Mononitrate PO 0947 Mirtazapine 7.5 MG AT BEDTIME 06/09 2200 AC PO Multivitamins 1 TAB DAILY 06/02 1000 AC 06/09 Therapeutic PO 0947 Polyethylene Glycol 17 GM DAILY PRN 06/02 0215 AC PO Warfarin Sodium 2 MG COUMADIN 1700 ONE 06/08 1700 DC 06/08 PO 06/08 1701 1630 Last 24 Hrs of Lab/Sammy Results Last 24 Hrs of Labs/Mics: Laboratory Tests 06/09/17 0658: PT 28.3 H, INR 2.72 H Lines/Diet/Fluids Fluids/Infusions: none Catheters/Tubes: polanco Polanco Still Needed? 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 On arrival in the ED, patient has rapid atrial fibrillation, was dehydrated, a urinalysis with signs of infection, acute on chronic renal failure Cr. to 7, mildly increased work of breathing with diffuse wheezing requiring supplemental oxygen. Patient has baseline dementia. Has been regularly combative with staff. Has required restraints. Is pending discharge to nursing care facility if he can stay off restraints for 24 hours. #AMS -? UTI/CKD vs DEMENTIA VS. DEHYDRATION. -Patient has baseline dementia and during his stay, was combative and irritable so was put in 2 pt restraints. Yesterday he was better and taken off restraints, currently off restraints for 24 hours. He currently has a school bus monitor. -PSYCH CONSULT recommended HALDOL 1 mg by mouth daily. Is also on Haldol PRN. Mirtazapine has been restarted at 7.5, he has not been sleeping during the nights. Low-dose mirtazapine is sedating with less norepinephrine effect. -Patient is likely to have repeat issues with combativeness and will require Haldol as needed. -We can most likely discharge the patient to short-term rehabilitation today. #Acute on chronic renal failure: Creatinine currently 6.9 WAS 7.7, last admission was ~5.5 As per NEPHRO CONSULT: CKD: stage 5, ESRD, due to HTN & recurrent obstruction w UTIs. May have superimposed prerenal component due to A fib w RVR & has had some improvement w IV volume trial expansion. No dialysis imperative, give maintenance fluids, rate control and consider hospice/palliative care. Nephro has consulted in past and patient was given IVF hydration and not dialyzed. Continue Calcitriol 0.25mcg PO QD # Urinary tract infection: urinalysis moderate leukocyte esterase, packed bacteria chronic indwelling polanco catheter. FINAL GROWTH CULTURES NEGATIVE. ANTIBIOTICS DISCONTINUED. #Atrial fibrillation with rapid ventricular response. He was evaluated with cardiology who recommended to continue the same treatment of Cardizem 180 mg by mouth daily. Daily dose warfarin and INR checks. Currently INR is 2.86. He will be monitored at the short-term rehabilitation facility where he will be discharged to today. #CAD: continue home medications ASA Lipitor 80mg PO QD Imdur 30mg PO QD 6. DVT PROPHYLAXIS ON WARFARIN FOR AFIB 7. CODE STATUS DNR DNI Problem List: 1. Acute on chronic renal failure 2. Rapid atrial fibrillation 3. Anemia 4. UTI (urinary tract infection) 5. Altered mental status 6. Dementia with behavioral disturbance Pain Ratin Pain Location: NA Pain Goal: Remain pain free Pain Plan: NA Tomorrow's Labs & Rationales: Patient is to be discharged today Consulting Request: Consulting Specialty: Nephrology
[2017-06-09 08:25] LABS: PT 28.3 SEC (9.4-12.5)
--- NOTE | 2017-06-09 08:44 | PN- Psychiatry ---
Assessment/Plan Impression: Identifying Info: 81-year-old male presents to [facility] On 06/01/2017 with increased confusion and agitation. Subsequently diagnosed with UTI and admitted to medicine. He has a known history of dementia. SUBJECTIVE Patient reports "I know where I am now... I'm at the place where I eat." No complaints offered this AM. Brief ROS Gait: Fair Sleep: Poor Appetite: Adequate OBJECTIVE Mental Status Exam Presentation/Appearance: Calm, Cooperative with evaluation to the best of his ability and responds to most question appropriately. [facility]. Orientation: Oriented to self only, place [place], date "Thursday or Thursday something" Sensorium: Awake but appears quite somnolent Eye contact: Appropriate Affect: Somewhat blunted Mood: Euthymic Depression: Denies Anxiety: Denies Thought Content: - Denies SI/HI, AH/VH, PI Thought Process: Confused but linear at times Associations: Loose at times Speech: Somewhat dysarthric Judgment: Impaired Insight: Impaired Cognition: Memory: Deficits noted and endorsed Attention/Concentration: Deficits noted and endorsed Fund of Knowledge: Did not assess Abstractions: [place] MMSE: Did not assess Staff report the patient did not sleep well last night. He was breifly agitated but redirecable and did not require PRN medication or restraint. ASSESSMENT 81-year-old male with delirium and dementia appears to be improving terms of mentation and behavioral control. It would be prudent to increase when necessary medication. Patient continues to have issues with sleep. His mirtazepine was discontinued after being restarted on the for unknown reason. It would be prudent to restart it again. 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 Suggestion: 1. school bus monitor is appropriate for this patient at this time 2. Please start mirtazepine at 7.5mg qhs as this dose may be more sedating for patient. 3. Please continue to monitor Mg, K, and EKG. Thank you for including psychiatry in this case we'll continue to follow Subjective Subjective: as above Objective Last 24 Hrs of Vital Signs/I&O Current Medications Sig/Yanira Start time Last Medication Dose Route Stop Time Status Admin Acetaminophen 650 MG Q6P PRN 06/02 0200 AC PO Acetaminophen 1,000 MG Q6P PRN 06/02 0200 AC IV Albuterol Sulfate 3 ML Q4P PRN 06/03 0915 AC 06/09 INH 0433 Aspirin Buffered 162 MG DAILY 06/02 1000 AC 06/08 PO 0955 Atorvastatin Calcium 80 MG 1700 06/02 1700 AC 06/08 PO 1630 Calcitriol 0.25 MCG DAILY 06/02 1000 AC 06/08 PO 0955 Diltiazem HCl 180 MG DAILY 06/02 1000 AC 06/08 PO 0955 Haloperidol 5 MG .STK-MED ONE 06/08 1504 DC IM 06/08 1505 Haloperidol 1 MG 06/05 2000 AC 06/08 PO 2110 Haloperidol 1 MG Q8P PRN 06/05 1405 AC 06/08 IM 1504 Isosorbide 30 MG DAILY 06/02 1000 AC 06/08 Mononitrate PO 0955 Mirtazapine 7.5 MG AT BEDTIME 06/09 2200 AC PO Multivitamins 1 TAB DAILY 06/02 1000 AC 06/08 Therapeutic PO 0955 Polyethylene Glycol 17 GM DAILY PRN 06/02 0215 AC PO Warfarin Sodium 2 MG COUMADIN 1700 ONE 06/08 1700 DC 06/08 PO 06/08 1701 1630 Laboratory Tests 06/09/17 0658: PT 28.3 H, INR 2.72 H Vital Signs Date Time Temp Pulse Resp B/P B/P Pulse O2 O2 Flow FiO2 Mean Ox Delivery Rate 06/09 0650 97.4 83 18 148/80 95 Nasal Cannula 06/08 2217 Nasal 2.0L Cannula 06/08 2200 96.9 99 22 148/90 93 Nasal 2.0L Cannula 06/08 1615 95 Nasal 2.5L Cannula 06/08 1514 Nasal 2.0L Cannula 06/08 1509 97.1 98 18 126/70 98 Nasal Cannula 06/08 1041 94 Nasal 3.0L Cannula 06/08 0955 97 154/92 Intake & Output 06/09 1600 06/09 0800 06/09 0000 Intake Total 225 360 Output Total 300 350 Balance -75 10 Intake, Oral 225 360 Output, Urine 300 350
--- NOTE | 2017-06-09 09:49 | NUR ---
PHYSICAL THERAPY. Pt REFUSING TO WORK WITH PT AT THIS TIME. Pt RECEIVED IN RECLINER CHAIR AND REPORTS HE HAS BEEN BACK AND FORTH TO THE BATHROOM SEVERAL TIMES THIS MORNING WITH NSG STAFF 2/2 STOMACH PAIN. PT WILL F/U APPROPRIATE.
[2017-06-09] MEDS ORDERED: HALOPERIDOL1 M1 PO (09:50)
[2017-06-09] MEDS ORDERED: REMERON15 M2 PO (09:51)
--- NOTE | 2017-06-09 10:50 | PN- Cardiology ---
Subjective Subjective: The patient is comfortable with no current complaints. No chest pain. No palpitations. No shortness of breath. No diaphoresis. He remains somewhat confused. Objective Vital Signs and I&Os Vital Signs Date Time Temp Pulse Resp B/P B/P Pulse O2 O2 Flow FiO2 Mean Ox Delivery Rate 06/09 0947 97.4 83 18 148/80 06/09 0800 95 Nasal 2.5L Cannula 06/09 0650 97.4 83 18 148/80 95 Nasal Cannula 06/08 2217 Nasal 2.0L Cannula 06/08 2200 96.9 99 22 148/90 93 Nasal 2.0L Cannula 06/08 1615 95 Nasal 2.5L Cannula 06/08 1514 Nasal 2.0L Cannula 06/08 1509 97.1 98 18 126/70 98 Nasal Cannula Intake & Output 06/09 1600 06/09 0800 06/09 0000 06/08 1600 06/08 0800 06/08 0000 Intake Total 225 360 480 100 Output Total 300 350 200 300 150 Balance -75 10 280 -300 -50 Intake, Oral 225 360 480 100 Number 1 Bowel Movements Output, Urine 300 350 200 300 150 Physical Exam: Gen: NAD HEENT: normal Lungs: scattered wheezers, normal resp. effort Heart: irreg, S1, S2, no murmurs Abdomen: Soft, nontender, no masses Extremities: No clubbing, cyanosis, or edema. Neuro: Alert and oriented x 3, cranial nerves intact Current Medications: Current Medications Sig/Yanira Start time Last Medication Dose Route Stop Time Status Admin Acetaminophen 650 MG Q6P PRN 06/02 0200 AC PO Acetaminophen 1,000 MG Q6P PRN 06/02 0200 AC IV Albuterol Sulfate 3 ML Q4P PRN 06/03 0915 AC 06/09 INH 0433 Aspirin Buffered 162 MG DAILY 06/02 1000 AC 06/09 PO 0947 Atorvastatin Calcium 80 MG 1700 06/02 1700 AC 06/08 PO 1630 Calcitriol 0.25 MCG DAILY 06/02 1000 AC 06/09 PO 0947 Diltiazem HCl 180 MG DAILY 06/02 1000 AC 06/09 PO 0947 Haloperidol 5 MG .STK-MED ONE 06/08 1504 DC IM 06/08 1505 Haloperidol 1 MG 2000 06/05 2000 AC 06/08 PO 2110 Haloperidol 1 MG Q8P PRN 07/07 1405 AC 06/08 IM 1504 Isosorbide 30 MG DAILY 06/02 1000 AC 06/09 Mononitrate PO 0947 Mirtazapine 7.5 MG AT BEDTIME 06/09 2200 AC PO Multivitamins 1 TAB DAILY 06/02 1000 AC 06/09 Therapeutic PO 0947 Polyethylene Glycol 17 GM DAILY PRN 06/02 0215 AC PO Warfarin Sodium 2 MG COUMADIN 1700 ONE 06/08 1700 DC 06/08 PO 06/08 1701 1630 Results Last 48 Hrs of Labs/Mics: Laboratory Tests 06/09/17 0658: PT 28.3 H, INR 2.72 H 06/08/17 0656: PT 29.7 H, INR 2.86 H, CBC w Diff NO MAN DIFF REQ, RBC 2.80 L, MCV 93.1, MCH 30.0, RDW 15.4 H, MPV 8.2, Gran % 83.0 H, Lymphocytes % 8.7 L, Monocytes % 7.2, Eosinophils % 0.7, Basophils % 0.4, Absolute Granulocytes 7.7 H, Absolute Lymphocytes 0.8 L, Absolute Monocytes 0.7 H, Absolute Eosinophils 0.1, Absolute Basophils 0, PUBS MCHC 32.3 L Assessment/Plan Assessment/Plan Assessment: 1. Altered mental status improved 2. AF with ventricular rate now under control 3. UTI 4. CKD 5. Dehydration 6. Dementia Plan: * Continue current medications. * Discharge to short-term rehabilitation when bed is available. * INR to be followed at rehabilitation with Coumadin dose adjustment. * Follow up with Dr. Shaikh in 2 weeks. Continue telemetry? No
[2017-06-09 14:23] VITALS: BP 146/82
[2017-06-09 21:45] VITALS: BP 152/80
--- NOTE | 2017-06-09 23:32 | NUR ---
REQUESTED DR SERVIN TO EXTEND IV FOR 24 HOURS, ONCOMING RN SARA INFORMED.
[2017-06-10 06:47] VITALS: BP 162/84
--- NOTE | 2017-06-10 08:04 | PN- Housestaff ---
Subjective Follow-up For: AMS, AFIB WITH RVR, UTI, CKD, DEHYDRATION, BASELINE DEMENTIA Subjective: I have personally seen and examined the patient today. Doing fine. No active complains or overnight events. PT was trying to walk him using his walker. Review of Systems Constitutional: Denies: no symptoms. EENTM: Denies: no symptoms. Cardiovascular: Denies: no symptoms. Respiratory: Denies: no symptoms. Gastrointestinal: Denies: no symptoms. Genitourinary: Denies: no symptoms. Musculoskeletal: Denies: no symptoms. Skin: Denies: no symptoms. Objective Last 24 Hrs of Vital Signs/I&O Vital Signs Date Time Temp Pulse Resp B/P B/P Pulse O2 O2 Flow FiO2 Mean Ox Delivery Rate 06/10 0647 98.5 96 20 162/84 92 06/10 0000 95 Room Air 06/09 2145 98.2 112 19 152/80 95 06/09 1900 96 Room Air 06/09 1600 95 Room Air Room Air 06/09 1423 97.2 110 18 146/82 99 Nasal 2.5L Cannula 06/09 1400 97 Nasal 2.5L Cannula 06/09 0947 97.4 83 18 148/80 Intake & Output 06/10 1600 /12 0800 06/10 0000 Intake Total 200 480 Output Total 350 300 Balance -150 180 Intake, IV 0 Intake, Oral 200 480 Number 0 Bowel Movements Output, Urine 350 300 Physical Exam General Appearance: Cooperative, No Acute Distress Other Physical Findings: General Appearance: patient is confused at baseline and not oriented Skin: No Rashes, No Breakdown, No Significant Lesion Skin Temp/Moisture Exam: Warm/Dry Sepsis Skin Exam (color): Normal for Ethnicity HEENT: Atraumatic, PERRLA, EOMI, Mucous Membr. moist/pink Neck: Supple Cardiovascular: Normal S1, Normal S2, No Murmurs, Gallops, Rubs Lungs: crackles Abdomen: Normal Bowel Sounds, Soft, No Tenderness, No Hepatospenomegaly, No Masses Neurological: Normal Speech Extremities: No Clubbing, No Cyanosis, No Edema, Normal Pulses, No Tenderness/ Swelling Vascular: Normal Pulses, Pulses Symmetrical Sepsis Peripheral Pulse Location: Radial Sepsis Peripheral Pulse Exam: Normal Current Medications: Current Medications Sig/Yanira Start time Last Medication Dose Route Stop Time Status Admin Acetaminophen 650 MG Q6P PRN 06/02 0200 AC PO Acetaminophen 1,000 MG Q6P PRN 06/02 0200 AC IV Albuterol Sulfate 3 ML Q4P PRN 06/03 0915 AC 06/09 INH 0433 Aspirin Buffered 162 MG DAILY 06/02 1000 AC 06/09 PO 0947 Atorvastatin Calcium 80 MG 1700 06/02 1700 AC 06/09 PO 1657 Calcitriol 0.25 MCG DAILY 06/02 1000 AC 06/09 PO 0947 Diltiazem HCl 180 MG DAILY 06/02 1000 AC 06/09 PO 0947 Haloperidol 1 MG 2000 06/05 2000 AC 06/09 PO 2212 Haloperidol 1 MG Q8P PRN 06/05 1405 AC 06/08 IM 1504 Isosorbide 30 MG DAILY 06/02 1000 AC 06/09 Mononitrate PO 0947 Mirtazapine 7.5 MG AT BEDTIME 06/09 2200 AC 06/09 PO 2213 Multivitamins 1 TAB DAILY 06/02 1000 AC 06/09 Therapeutic PO 0947 Nystatin 1 FRANCES TID 06/09 1126 AC 06/09 TOP 2212 Polyethylene Glycol 17 GM DAILY PRN 06/02 0215 AC PO Warfarin Sodium 2 MG COUMADIN 1700 ONE 06/09 1700 DC 06/09 PO 06/09 1701 1657 Last 24 Hrs of Lab/Sammy Results Last 24 Hrs of Labs/Mics: Laboratory Tests 06/10/17 0615: PT 27.2 H, INR 2.62 H Assessment/Plan Assessment: Assessment: 81-year-old male with history of HTN, HLD, Afib, CAD, BPH w indwelling polanco, dementia and CKD is brought in by family for increasing agitation x 3 weeks. On arrival in the ED, patient has rapid atrial fibrillation, was dehydrated, a urinalysis with signs of infection, acute on chronic renal failure Cr. to 7, mildly increased work of breathing with diffuse wheezing requiring supplemental oxygen. Patient has baseline dementia. Has been regularly combative with staff. Has required restraints. Is pending discharge to nursing care facility if he can stay off restraints for 24 hours. Patient is stable for discharge. #AMS -? UTI/CKD vs DEMENTIA VS. DEHYDRATION. -Patient has baseline dementia and during his stay, was combative and irritable so was put in 2 pt restraints. Yesterday he was better and taken off restraints, currently off restraints for 24 hours. 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 -PSYCH CONSULT recommended HALDOL 1 mg by mouth daily. Is also on Haldol PRN. Mirtazapine has been restarted at 7.5, he has not been sleeping during the nights. Low-dose mirtazapine is sedating with less norepinephrine effect. -Patient is likely to have repeat issues with combativeness and will require Haldol as needed. -We can most likely discharge the patient to short-term rehabilitation today. #Acute on chronic renal failure: Creatinine currently 6.9 WAS 7.7, last admission was ~5.5 As per NEPHRO CONSULT: CKD: stage 5, ESRD, due to HTN & recurrent obstruction w UTIs. May have superimposed prerenal component due to A fib w RVR & has had some improvement w IV volume trial expansion. No dialysis imperative, give maintenance fluids, rate control and consider hospice/palliative care. Nephro has consulted in past and patient was given IVF hydration and not dialyzed. Continue Calcitriol 0.25mcg PO QD # Urinary tract infection: urinalysis moderate leukocyte esterase, packed bacteria chronic indwelling polanco catheter. FINAL GROWTH CULTURES NEGATIVE. ANTIBIOTICS DISCONTINUED. #Atrial fibrillation with rapid ventricular response. He was evaluated with cardiology who recommended to continue the same treatment of Cardizem 180 mg by mouth daily. Daily dose warfarin and INR checks. Currently INR is 2.86. He will be monitored at the short-term rehabilitation facility where he will be discharged to today. #CAD: continue home medications ASA Lipitor 80mg PO QD Imdur 30mg PO QD 6. DVT PROPHYLAXIS ON WARFARIN FOR AFIB 7. CODE STATUS DNR DNI Problem List: 1. Acute on chronic renal failure 2. Rapid atrial fibrillation 3. Anemia 4. UTI (urinary tract infection) 5. Altered mental status 6. Dementia with behavioral disturbance Pain Ratin Pain Location: NA Pain Goal: Remain pain free Pain Plan: None Tomorrow's Labs & Rationales: None(Discharge) Consulting Request: Consulting Specialty: Nephrology
[2017-06-10 08:34] LABS: PT 27.2 SEC (9.4-12.5)
[2017-06-10 13:01] VITALS: BP 150/82
--- NOTE | 2017-06-10 13:05 | PN- Cardiology ---
Subjective Subjective: The patient is chronically stable. Less agitation. No need for further restraints. Pending discharge to short-term rehabilitation. Objective Vital Signs and I&Os Vital Signs Date Time Temp Pulse Resp B/P B/P Pulse O2 O2 Flow FiO2 Mean Ox Delivery Rate 06/10 1301 98.5 100 20 150/82 06/10 0942 100 150/82 06/10 0647 98.5 96 20 162/84 92 06/10 0000 95 Room Air 06/09 2145 98.2 112 19 152/80 95 06/09 1900 96 Room Air 06/09 1600 95 Room Air Room Air 06/09 1423 97.2 110 18 146/82 99 Nasal 2.5L Cannula 06/09 1400 97 Nasal 2.5L Cannula Intake & Output 06/10 1600 06/10 0800 06/10 0000 06/09 1600 06/09 0800 06/09 0000 Intake Total 200 480 240 225 360 Output Total 350 300 250 300 350 Balance -150 180 -10 -75 10 Intake, IV 0 Intake, Oral 200 480 240 225 360 Number 0 0 Bowel Movements Output, Urine 350 300 250 300 350 Current Medications: Current Medications Sig/Yanira Start time Last Medication Dose Route Stop Time Status Admin Acetaminophen 650 MG Q6P PRN 06/02 0200 AC PO Acetaminophen 1,000 MG Q6P PRN 06/02 0200 AC IV Albuterol Sulfate 3 ML Q4P PRN 06/03 0915 AC 06/09 INH 0433 Aspirin Buffered 162 MG DAILY 06/02 1000 AC 06/10 PO 0943 Atorvastatin Calcium 80 MG 1700 06/02 1700 AC 06/09 PO 1657 Calcitriol 0.25 MCG DAILY 06/02 1000 AC 06/10 PO 0944 Diltiazem HCl 180 MG DAILY 06/02 1000 AC 06/10 PO 0942 Haloperidol 1 MG 2000 06/05 2000 AC 06/09 PO 2212 Haloperidol 1 MG Q8P PRN 06/05 1405 AC 06/08 IM 1504 Isosorbide 30 MG DAILY 06/02 1000 AC 06/10 Mononitrate PO 0942 Mirtazapine 7.5 MG AT BEDTIME 06/09 2200 AC 06/09 PO 2213 Multivitamins 1 TAB DAILY 06/02 1000 AC 06/10 Therapeutic PO 0944 Nystatin 1 FRANCES TID 06/09 1126 AC 06/10 TOP 0944 Polyethylene Glycol 17 GM DAILY PRN 06/02 0215 AC 06/10 PO 0936 Warfarin Sodium 2 MG COUMADIN 1700 ONE 06/09 1700 DC 06/09 PO 06/09 1701 1657 Results Last 48 Hrs of Labs/Mics: Laboratory Tests 06/10/17 0615: PT 27.2 H, INR 2.62 H 06/09/17 0658: PT 28.3 H, INR 2.72 H Assessment/Plan Assessment/Plan Assessment: 1. Altered mental status 2. AF with increased ventricular rate 3. UTI 4. CKD 5. Dehydration 6. Dementia REcommendations: - Continue current treatment - Being discharged to short-term rehabilitation. -The patient can follow-up with me in the office in 3-4 weeks.
--- NOTE | 2017-06-10 14:00 | NUR ---
NURSING NOTE: PATIENT PREPARED FOR D/C. JEREMY FROM [facility] CALLED AT 1300 AND GIVEN REPORT. PATIENT PACKET READY WITH COMPLETED CMR AND NECESSARY PAPERWORK. AWAITING TRANSPORT. PATIENT ALERT AND CONFUSED WITH HX OF DEMENTIA. CALM AND COOPERATIVE. OFFERS NO COMPLAINTS. CHRONIC WALKER IN PLACE FOR CKD.
--- NOTE | 2017-06-10 14:58 | NUR ---
Late Entry: Aware of patients transfer to [facility] today. I had spoken with patients yesterday as she had a multitude of questions regarding a redetermination document she had received from [employer] regarding her husbands [employer] benefits. Questions answered and reassurance provided.
== END 2017-06-10 14:11 | DRG 884 ==
LOC: ERH 18:11 → 1NO 23:00 → ERHI 23:00 → 2NB 23:00 → ENRESERV 23:58 → 1NO 06-02 01:32 → 2NB 06-09 20:45 → ENPENDDIS 06-10 14:08 → 2NB 06-10 14:11
PROVIDERS: Internal Medicine; Physician Assistant; Student in an Organized Health Care Education/Training Program; ADMIT Internal Medicine Cardiovascular Disease
DX: F03.91 Unspecified dementia, unspecified severity, with behavioral disturbance (principal); N17.9 Acute kidney failure, unspecified; I48.0 Paroxysmal atrial fibrillation; N18.6 End stage renal disease; E86.0 Dehydration; I12.0 Hypertensive chronic kidney disease with stage 5 chronic kidney disease or end stage renal disease; I25.10 Atherosclerotic heart disease of native coronary artery without angina pectoris; F05 Delirium due to known physiological condition; H35.30 Unspecified macular degeneration; N40.1 Benign prostatic hyperplasia with lower urinary tract symptoms; R33.8 Other retention of urine; R09.02 Hypoxemia; Z66 Do not resuscitate; Z85.46 Personal history of malignant neoplasm of prostate; Z79.01 Long term (current) use of anticoagulants; Z87.891 Personal history of nicotine dependence
CPT/HCPCS: 1NP; 2NBP; ERO; 36415; 81001; 82436; 87040; 87086; 93005; 93010; 96374; 96376; 97110-GO; 97116-GO; 97161-GP; 97530-GO; 99291; J0713; J1630

== ENCOUNTER 2017-06-19 19:30 | Observation (INO) | payer OTHER, MEDICARE ==
[~2017-06-19] VITALS: Ht 162.6 cm; Wt 73.9 kg
[~2017-06-19 19:30] MED LIST changes: +COUMADIN2.5 M1 PO; +DILTIAZEM 24HR180 MG PO; +HALOPERIDOL1 M1 PO; +MIRTAZAPINE15 M2 PO; +POLYETHYLENE GL17 GM PO; +PRESERVISION A1 EAC1 PO; +REMERON15 M2 PO
--- NOTE | 2017-06-19 19:40 | ED DYSPNEA/ASTHMA COMPLAINT ---
See Addendum History of Present Illness General Chief Complaint: General Adult Stated Complaint: BIBA LOW O2 Source: patient Exam Limitations: no limitations Vital Signs & Intake/Output Vital Signs & Intake/Output Vital Signs Date Time Temp Pulse Resp B/P B/P Pulse O2 O2 Flow FiO2 Mean Ox Delivery Rate 06/19 2222 97.8 96 26 124/70 99 Nasal 3.0L Cannula 06/19 2015 96 Nasal 3.0L Cannula 06/19 1958 97.4 88 20 129/80 96 Nasal 3.0L Cannula Allergies Coded Allergies: ciprofloxacin (From CIPRO) (Mild, ITCHING 10/04/16) Reconcile Medications Aspirin (Ecotrin*) 81 MG TABLET.DR 1 TAB PO BID HEART HEALTH (Reported) Atorvastatin Calcium (Lipitor) 80 MG TABLET 1 TAB PO DAILY CHOLESTEROL ( Reported) Calcitriol (Rocaltrol) 0.25 MCG CAPSULE 1 CAP PO DAILY RENAL (Reported) Diltiazem HCl (Diltiazem 24HR ER) 180 MG CAP.ER.24H 1 CAP PO DAILY HEART/BP ( Reported) Haloperidol 1 MG TABLET 1 TAB PO QPM agitation Isosorbide Mononitrate (Isosorbide Mononitrate ER) 30 MG TAB.ER.24H 1 TAB PO DAILY HEART HEALTH (Reported) Mirtazapine (Remeron) 15 MG TABLET 7.5 MG PO AT BEDTIME sleep Multivitamin (Daily Multiple Vitamin) 1 EACH TABLET 1 TAB PO DAILY SUPPLEMENT (Reported) Polyethylene Glycol 3350 17 GRAM POWD.PACK 1 PAC PO PRN CONSTIPATION ( Reported) Vit C/E/Zn/Coppr/Lutein/Zeaxan (Preservision Areds 2 Softgel) 250-200-40 CAPSULE 1 TAB PO BID SUPPLEMENT (Reported) Warfarin Sodium (Coumadin) 2.5 MG TABLET 1 TAB PO AD BLOOD THINNER (Reported) as perINR CHECKS Triage Nurses Notes Reviewed? yes Onset: Gradual Duration: day(s): Timing: recent history Severity: moderate Activities at Onset: none Prior Episodes/Possible Cause: occasional episodes Modifying Factors: Worsens With: other (worse after meds). Associated Symptoms: lethargy HPI: 81 yo gentleman stage v renal failure, presents with increased lethargy, had an episode of hypoxia, Past History Travel History Traveled to [place] past 21 day No Medical History Any Pertinent Medical History? see below for history Neurological: dementia EENT: cataracts, macular degeneration, IN L EYE DETACHED RETINA Cardiovascular: AFIB, CAD (status post stents), hypertension, hyperlipidemia, CARDIAC STENTS Respiratory: NONE Gastrointestinal: NONE Hepatic: NONE Renal: chronic kidney disease, PROSTATE PROBLEMS UTI'S Musculoskeletal: disk herniation, osteoarthritis Psychiatric: NONE, no known psych history but has experienced episodic confusion and is said to have advanced dementia Endocrine: NONE Blood Disorders: NONE Cancer(s): prostate cancer SKID MAN/Reproductive: NONE History of MRSA: No History of VRE: No History of CDIFF: No Surgical History Surgical History: appendectomy, laminectomy (hemilaminectomy L4-L5), prostatectomy (1997) Psychosocial History Who do you live with Spouse What is your primary language Guinean Family History Family History, If Any: Relation not specified for: *No pertinent family history Hx Contributory? No Review of Systems Review of Systems Constitutional: Reports: no symptoms. EENTM: Reports: no symptoms. Respiratory: Reports: no symptoms. Cardiovascular: Reports: no symptoms. GI: Reports: no symptoms. Genitourinary: Reports: no symptoms. Musculoskeletal: Reports: no symptoms. Skin: Reports: no symptoms. Neurological/Psychological: Reports: no symptoms. Hematologic/Endocrine: Reports: no symptoms. Immunologic/Allergic: Reports: no symptoms. All Other Systems: Reviewed and Negative Physical Exam Physical Exam General Appearance: lethargic, mild distress, moderate distress Head: atraumatic, normal appearance Eyes: Bilateral: normal appearance, PERRL, EOMI. Ears, Nose, Throat: normal pharynx, normal ENT inspection, hearing grossly normal Neck: normal inspection, supple, full range of motion Respiratory: diminished breath sounds on the left Cardiovascular: irregularly irregular Gastrointestinal: normal bowel sounds, soft, non-tender Extremities: normal inspection, ulcerations on lower extremities, no sign of infection Neurologic/Psych: lethargic, arousable to verbal stimuli Skin: ulcerations on lower extremities. Core Measures ACS in differential dx? No Severe Sepsis Present: No Septic Shock Present: No Progress Differential Diagnosis: chf, mi, pneumonia vs other. Plan of Care: Orders Procedure Date/time Status CT HEAD WO IV CONTRAST 06/19 2304 Active Add-on Test (ER Only) 06/19 221 Active PARTIAL THROMBOPLASTIN TIME 06/19 2010 Complete PROTHROMBIN TIME 06/19 2010 Complete URINALYSIS 06/19 2001 Complete TROPONIN LEVEL 06/19 1938 Complete COMPREHENSIVE METABOLIC PANEL 06/19 1938 Complete CBC WITHOUT DIFFERENTIAL 06/19 1938 Complete B-TYPE NATRIURETIC PEP (BNP) 06/19 1938 Complete EKG 06/19 1938 Active Laboratory Tests 06/19/172047: Urine Color BLDY H, Urine Clarity CLDY H, Urine pH 6.0, Ur Specific Stewart 1.025, Urine Protein >=300 H, Urine Ketones NEG, Urine Nitrite NEG, Urine Bilirubin NEG, Urine Urobilinogen 0.2, Ur Leukocyte Esterase LARGE H, Ur Microscopic SEDIMENT EXAMINED, Urine RBC >75 H, Urine WBC > 75 H, Urine Bacteria MANY H, Urine Hemoglobin LARGE H, Urine Glucose NEG 06/19/172009: Anion Gap 12, Estimated GFR 9 L, BUN/Creatinine Ratio 11.0, Glucose 94, Calcium 9.6, Total Bilirubin 0.5, AST 22, ALT 38, Alkaline Phosphatase 86, Troponin I 0.16 *H, Xwt-L-[id number] Pept 43947 H, Total Protein 5.5 L, Albumin 3.1 L, Globulin 2.4, Albumin/Globulin Ratio 1.3, PT 38.8 H, INR 3.74 H, APTT 45 H, CBC w Diff NO MAN DIFF REQ, RBC 2.61 L, MCV 93.0, MCH 29.9, RDW 16.5 H, MPV 7.2 L, Gran % 82.0 H, Lymphocytes % 9.1 L, Monocytes % 8.2, Eosinophils % 0.5 , Basophils % 0.2, Absolute Granulocytes 11.3 H, Absolute Lymphocytes 1.2, Absolute Monocytes 1.1 H, Absolute Eosinophils 0.1, Absolute Basophils 0, PUBS MCHC 32.2 L Diagnostic Imaging: Viewed by Me: Radiology Read. Discussed w/RAD: Radiology Read. Radiology Impression: increased pulmonary vascularity CXR Impression: as above Initial ED EKG: AFIB, LOW VOLTAGE. NO ACUTE CHANGES FROM PRIOR Comments: PATIENT: TRINA VILLALOBOS PRESENT AGE: 81 PATIENT ACCOUNT NO: [id number] : 37 LOCATION: [facility] ORDERING PHYSICIAN: EFFIE SULTANA MD SERVICE DATE: 06/19/17 EXAM TYPE: RAD - XRY-PORTABLE CHEST XRAY EXAMINATION: XR PORTABLE CHEST CLINICAL INFORMATION: Dyspnea. COMPARISON: Chest x-ray 06/01/2017 TECHNIQUE: Portable frontal view of the chest was obtained. 7:59 PM FINDINGS: Lung volume low. Increased interstitial lung markings with mild prominence of the central hilar vessels. The vascularity is increased since the prior exam of 06/01/2017. Heart size enlarged. Calcification of thoracic aorta. No focal consolidation. No pleural effusion. IMPRESSION: Low lung volume with pulmonary vascular congestion and interstitial edema. Increased pulmonary vascularity since chest x-ray 06/01/2017. DICTATED BY: XENIA RICHARDSON MD DATE/TIME DICTATED:06/19/172030 FOUR CORNER STAYER MACHINE OPERATOR:DEWAYNE DATE/TIME TRANSCRIBED:06/19/172030 CONFIDENTIAL, DO NOT COPY WITHOUT APPROPRIATE AUTHORIZATION. <Electronically signed in Other Vendor System> SIGNED BY: XENIA RICHARDSON MD 06/19/172036 Departure Departure Disposition: STILL A PATIENT Condition: Stable Clinical Impression Primary Impression: ESRD (end stage renal disease) Secondary Impressions: Elevated troponin, Hypoxia Referrals: FABIÁN CASTRO,DANIELA Peacock Departure Forms: Customer Survey General Discharge Information Comments 06/19/17, 21:42... discussed with dr. stack (cards)... pt to be medically managed... okay for telemetry Observation Note Spoke With: JUVENCIO CASTRO,ESCOBAR Physician Advisor Notified: GET CASTRO,LENNIE Peacock Place Patient In: Non-ED OBS Care Area Rationale for Observation: My rational for observation is as follows . pt with dyspnea, hypoxia to 88%.... pt also with increased lethargy, possibly due to sedating medications at ECF, also with +troponin. Pt is now comfort care... comfort of patient is primary goal and coordination of care. Critical Care Note Critical Care Note Critical Care Time: non-applicable
--- NOTE | 2017-06-19 19:58 | NUR ---
PT BIBA FROM NURSING FACILITY. PER EMS, PT HAD LOW O2 SATS AT FACILITY. UPON ED ARRIVAL PT ON 4L NC WITH OXYGEN SATURATION AT 99%. HX OF DEMENTIA, AND END STAGE RENAL FAILURE. PER EMS, PT WILL BE ON HOSPICE STARTING THIS UPCOMING THURSDAY.
--- NOTE | 2017-06-19 20:14 | NUR ---
SSTX2, LAV, AND BLUE TOP TUBES SENT TO LAB.
[2017-06-19 20:25] LABS: ABSOLUTE BASOPHIL COUNT 0 /CUMM (0.0-0.2); ABSOLUTE EOSINOPHIL COUNT 0.1 /CUMM (0.0-0.7); ABSOLUTE GRANULOCYTE CT 11.3 /CUMM (1.4-6.5); ABSOLUTE LYMPH COUNT 1.2 /CUMM (1.2-3.4); ABSOLUTE MONOCYTE COUNT 1.1 /CUMM (0.10-0.60); BASOPHIL % 0.2 % (0.0-2.0); EOSINOPHIL % 0.5 % (0-5); HEMATOCRIT 24.2 % (42-52); MEAN CORPUSCULAR HGB 29.9 PG (27.0-31.0); MEAN CORPUSCULAR HGB CONC 32.2 G/DL (33.0-37.0); MEAN PLATELET VOLUME 7.2 FL (7.4-10.4); PLATELET COUNT 219 /CUMM (130-400); RBC DISTRIBUTION WIDTH 16.5 % (11.5-14.5); RED BLOOD CELL CT 2.61 /CUMM (4.70-6.10); WHITE BLOOD CELL COUNT 13.7 /CUMM (4.8-10.8)
--- NOTE | 2017-06-19 20:37 | RADIOLOGY REPORT ---
EXAMINATION: XR PORTABLE CHEST CLINICAL INFORMATION: Dyspnea. COMPARISON: Chest x-ray 06/01/2017 TECHNIQUE: Portable frontal view of the chest was obtained. 7:59 PM FINDINGS: Lung volume low. Increased interstitial lung markings with mild prominence of the central hilar vessels. The vascularity is increased since the prior exam of 06/01/2017. Heart size enlarged. Calcification of thoracic aorta. No focal consolidation. No pleural effusion. IMPRESSION: Low lung volume with pulmonary vascular congestion and interstitial edema. Increased pulmonary vascularity since chest x-ray 06/01/2017.
--- NOTE | 2017-06-19 20:51 | NUR ---
CRITICAL TEST RESULTS [id number] TRINA VILLALOBOS 81 M TESTS AND RESULTS: CREATNICRYSTAL 6.2 Results received and read back by: WHITNEY JAIME Results received date and time: 06/19/172051 The following provider was notified of the results, and read the results back: DR SULTANA Notified date and time: 06/19/17 at 2051
--- NOTE | 2017-06-19 20:51 | NUR ---
URINE TRIO SENT TO LAB
--- NOTE | 2017-06-19 21:15 | NUR ---
CRITICAL TEST RESULTS [id number] TRINA VILLALOBOS 81 M TESTS AND RESULTS: TROPONIN 0.16 Results received and read back by: WHITNEY JAIME Results received date and time: 06/19/172114 The following provider was notified of the results, and read the results back: DR SULTANA Notified date and time: 06/19/17 at 5760
--- NOTE | 2017-06-19 21:46 | NUR ---
RESP AT BEDSIDE.
--- NOTE | 2017-06-19 21:56 | NUR ---
DR SULTANA AT BEDSIDE TO SPEAK WITH FAMILY.
[2017-06-19 22:34] LABS: PT 38.8 SEC (9.4-12.5); PTT 45 SEC (25-37)
--- NOTE | 2017-06-19 23:48 | NUR ---
DR ORTIZ AT BEDSIDE TO EVAL PT. PT THROWING ARMS AND LEGS, BUT KEEPS EYES CLOSED. PT TO CAT SCAN VIA STRETCHER.
--- NOTE | 2017-06-20 00:09 | History & Physical ---
BRITTANY CASTRO,[facility] 06/20/17 0007: General Information and HPI MD Statement: I have seen and personally examined TRINA VILLALOBOS and documented this H&P. The patient is a 81 year old M who presented with a patient stated chief complaint of [Lethargy and hypoxia]. Source of Information: family, Nursing facility Exam Limitations: unable to give history, dementia History of Present Illness: 81-year-old gentleman from nursing facility past medical history significant for end-stage renal disease stage V, dementia, indwelling Castillo catheter, recurrent UTI, hypertension atrial fibrillation on Coumadin, recently admitted to [facility] 06/01/17 to 06/10/17, sent from [facility] for desaturation. Unable to obtain history from patient as he was obtunded. Collateral information was collected from Lindsay [[phone]] from [facility] and the . Per the facility records patient has been quite agitated during his stay there, often times being restless and trying to come out of the bed and has required one-to-one sitter. According to the , the patient was given some medicine at the facility because of his agitation day before yesterday and since then the patient has been very sleepy and unarousable. decided to bring the patient to the hospital, to be stable enough to send him home for hospice care. After a family meeting, his son and decided on home hospice care for him. Hospice care was not able to see him at that time.Lab work on the showed creatinine of 6.5 and hemoglobin of 7.4 and also desaturated to the 80s last night. He was also noted to have fluid-filled blisters on his legs which were opening up. Allergies/Medications Allergies: Coded Allergies: ciprofloxacin (From CIPRO) (Mild, ITCHING 10/04/16) Home Med list Aspirin (Ecotrin*) 81 MG TABLET.DR 1 TAB PO BID HEART HEALTH (Reported) Atorvastatin Calcium (Lipitor) 80 MG TABLET 1 TAB PO DAILY CHOLESTEROL ( Reported) Calcitriol (Rocaltrol) 0.25 MCG CAPSULE 1 CAP PO DAILY RENAL (Reported) Diltiazem HCl (Diltiazem 24HR ER) 180 MG CAP.ER.24H 1 CAP PO DAILY HEART/BP ( Reported) Haloperidol 1 MG TABLET 1 TAB PO QPM agitation Isosorbide Mononitrate (Isosorbide Mononitrate ER) 30 MG TAB.ER.24H 1 TAB PO DAILY HEART HEALTH (Reported) Mirtazapine (Remeron) 15 MG TABLET 7.5 MG PO AT BEDTIME sleep Multivitamin (Daily Multiple Vitamin) 1 EACH TABLET 1 TAB PO DAILY SUPPLEMENT (Reported) Polyethylene Glycol 3350 17 GRAM POWD.PACK 1 PAC PO PRN CONSTIPATION ( Reported) Vit C/E/Zn/Coppr/Lutein/Zeaxan (Preservision Areds 2 Softgel) 250-200-40 CAPSULE 1 TAB PO BID SUPPLEMENT (Reported) Warfarin Sodium (Coumadin) 2.5 MG TABLET 1 TAB PO AD BLOOD THINNER (Reported) as perINR CHECKS Past History Travel History Traveled to [place] past 21 day No Medical History Neurological: dementia EENT: cataracts, macular degeneration, IN L EYE DETACHED RETINA Cardiovascular: AFIB, CAD (status post stents), hypertension, hyperlipidemia, CARDIAC STENTS Respiratory: NONE Gastrointestinal: NONE Hepatic: NONE Renal: chronic kidney disease, PROSTATE PROBLEMS UTI'S Musculoskeletal: disk herniation, osteoarthritis Psychiatric: NONE, no known psych history but has experienced episodic confusion and is said to have advanced dementia Endocrine: NONE Blood Disorders: NONE Cancer(s): prostate cancer [employer] ATTENDANT/Reproductive: NONE History of MRSA: No History of VRE: No History of CDIFF: No Surgical History Surgical History: appendectomy, laminectomy (hemilaminectomy L4-L5), prostatectomy (1997) Past Family/Social History Family History Relations & Conditions if any Relation not specified for: *No pertinent family history Psychosocial History Smoking Status: Former Smoker ETOH Use: Former Drinker Review of Systems Review of Systems Constitutional: Denies: no symptoms. Exam & Diagnostic Data Last 24 Hrs of Vital Signs/I&O Vital Signs Date Time Temp Pulse Resp B/P B/P Pulse O2 O2 Flow FiO2 Mean Ox Delivery Rate 06/20 0411 97.4 50 18 120/70 98 Nasal 3.0L Cannula 06/20 014 97.2 107 23 142/81 95 Nasal 3.0L Cannula 06/19 2222 97.8 96 26 124/70 99 Nasal 3.0L Cannula 06/19 2015 96 Nasal 3.0L Cannula 06/19 1958 97.4 88 20 129/80 96 Nasal 3.0L Cannula Intake & Output 06/20 0800 06/20 0000 06/19 1600 Intake Total 0 Output Total Balance 0 Intake, Oral 0 Patient 163 lb 163 lb Weight Weight Estimated Measurement Method Physical Exam General Appearance Obtunded, Mildly arousable Skin Blisters plus superficial ulcers on lower extremities Sepsis Skin Exam (color): Normal for Ethnicity HEENT Pinpoint Pupils, Dry Mucous membranes Neck Supple, No thryomegaly Lymphatic Cervical nl Cardiovascular Normal S1, Normal S2 Lungs Normal Air Movement Abdomen Normal Bowel Sounds, Soft, No Tenderness, No Hepatospenomegaly Assessment/Plan Assessment: 81-year-old gentleman with multiple comorbidities, end-stage renal disease determined to not be a candidate for dialysis due to his his severe dementia. Patient is to be admitted to general medicine floor Problem list Altered mental status: Possibly secondary to medications administered in ECF versus UTI versus dehydration versus uremia.Will try to avoid triggers such as unnecessary blood draws nursing procedures during sleep hours, decrease noise and patient area and reduce sliding at night. -Hospice consult Acute hypoxic respiratory failure: Most likely secondary to pulmonary edema noted on chest x-ray vs aspiration. Patient had increased JVP on exam. Atrial fibrillation:Will continue with diltiazem and imdur. Supratherapeutic INR 3.7 will hold Coumadin UTI: Discussed with at this time she does not wish to start any antibiotics Elevated troponin: Most likely demand ischemia secondary to renal failure however as he is hospice will not continue to trend End-stage renal disease: Not a candidate for dialysis [place] ofcomorbidities, will continue with calcitriol. Diet: Swallow eval. Nothing by mouth for now will reassess once mental status improves Dementia: Will restart mirtazapine and Remeron tomorrow DVT prophylaxis: Supratherapeutic INR Comfort measures As Ranked By This Provider Problem List: 1. Acute on chronic renal failure 2. ESRD (end stage renal disease) 3. Elevated troponin 4. Altered mental status 5. Atrial fibrillation Core Measures/Miscellaneous Acute Coronary Syndrome ACS Diagnosis: No Cerebrovascular Accident CVA/TIA Diagnosis: No Congestive Heart Failure CHF Diagnosis: No VTE (View Protocol) VTE Risk Factors: Acute medical illness, Age > 40, Immobility, paresis No Mech VTE prophylaxis d/t: Confusional state No VTE Pharm Prophylaxis d/t: Renal impairment VTE Diagnosis: No VTE Type: NONE VTE Confirmed by (Test): NONE Sepsis (View Protocol) Severe Sepsis Present: No Septic Shock Septic Shock Present: No Miscellaneous Documentation Attending Case Discussed With: ESCOBAR HENNING MD Primary Care Physician: FERNANDO JIMENEZ MD Patient sees these Specialists None Level of Patient Care: Hospice TOR DELCID 06/20/17 0032: Exam & Diagnostic Data Last 24 Hrs of Vital Signs/I&O Vital Signs Date Time Temp Pulse Resp B/P B/P Pulse O2 O2 Flow FiO2 Mean Ox Delivery Rate 06/19 2222 97.8 96 26 124/70 99 Nasal 3.0L Cannula 06/19 2015 96 Nasal 3.0L Cannula 06/19 1958 97.4 88 20 129/80 96 Nasal 3.0L Cannula Intake & Output 06/20 0800 06/20 0000 06/19 1600 Intake Total 0 Output Total Balance 0 Intake, Oral 0 Patient 163 lb Weight Weight Estimated Measurement Method Resident Review Statement Resident Statement: examined this patient, discussed with news internship, agreed with news internship Other Findings: 81-year-old gentleman from nursing facility past medical history significant for end-stage renal disease stage V, dementia, indwelling Castillo catheter, recurrent UTI, hypertension atrial fibrillation on Coumadin, recently admitted to [facility] 06/01/17 to 06/10/17, sent from [facility] for desaturation. Unable to obtain history from patient as he was obtunded. Collateral information was collected from Lindsay [[phone]] from [facility]. Per the facility records patient has been quite agitated during his stay there and has required one-to-one sitter. He was also noted to have fluid-filled blisters on his legs which were opening up. He was also noted to be very impulsive and often times becoming restless and trying to climb out of bed. No fever or difficulty eating was documented. After a family meeting, his son and decided on home hospice care for him. Hospice care was not able to see him at that time. However since the past 2 days he was noted to be increasingly lethargic. Lab work on the showed creatinine of 6.5 and hemoglobin of 7.4 and also desaturated to the 80s last night. His wished him to be sent to the hospital to be stabilized until he can be sent on home hospice on Thursday. Vitals on admission MAXIMUM TEMPERATURE 97.4, blood pressure 124/70 saturating 99% on 3 L nasal cannula Labs WBC 13.7, hemoglobin 7.8, hematocrit 24.2, platelet 219. Chemistry significant for BUN of 68 and creatinine of 6.2 [his baseline is 5]. Troponin + 0.61, INR 3.74. UA positive for leukocyte esterase, many bacteria and hemoglobinuria. Examination he was mildly arousable, pinpoints sluggishly reactive pupils, S1-S2 normal no murmurs heard, lungs bilaterally decreased breath sounds and scattered wheezing abdomen was benign. Bilateral multiple superficial skin ulcers on feet. Chest x-ray shows low lung volumes, pulmonary vascular congestion and interstitial edema. EKG: A. fib QTC of 500 low voltages similar to previous EKG Assessment and plan: 81-year-old gentleman with multiple comorbidities, end-stage renal disease determined to not be a candidate for dialysis due to his his severe dementia. Patient is to be admitted to general medicine floor Problem list 1 Altered mental status Possibly secondary to medications administered in ECF to come back agitation versus UTI versus dehydration versus uremia Will try to avoid triggers such as unnecessary blood draws nursing procedures during sleep hours, decrease noise and patient area and reduce noise at night. Hospice consult 2 acute hypoxic respiratory failure Most likely secondary to pulmonary edema noted on chest x-ray vs aspiration 3 atrial fibrillation Will continue with diltiazem and imdur. Supratherapeutic INR 3.7 will hold Coumadin 4 UTI Option of starting antibiotics was discussed with , at this time she does not wish to start any antibiotics 5 elevated troponin Most likely demand ischemia secondary to renal failure however as he is hospice will not continue to trend 6 end-stage renal disease Not a candidate for dialysis, will continue with calcitriol 7 diet Nothing by mouth for now will reassess once mental status improves 8. Dementia Will restart mirtazapine and Remeron tomorrow DVT prophylaxis: supratherapeutic INR Comfort measures ESCOBAR HENNING 06/20/17 0302: Attending MD Review Statement Attending Statement Attending MD Statement: examined this patient, discuss w/resident/PA/VENEER DEPARTMENT MANAGER, agreed w/resident/PA/VENEER DEPARTMENT MANAGER, discussed with family, reviewed EMR data (avail), reviewed images, amended to note Attending Assessment/Plan: CC : IVY PMH: HTN, HLD, A. fib, CAD, dementia with behavioral changes, ESRD, chronic indwelling Castillo since one year, prostate cancer S/P resection, recurrent UTI Patient was recently admitted and discharged from June 02 total June 10 for A. fib with RVR, ESRD, persistent agitation, UTI. Patient was treated with an IV antibiotics for 4 days, gentle hydration, started on Cardizem for A. fib. Patient is considered not a candidate for hemodialysis considering dementia and multiple comorbidities. During that hospitalization there was a discussion with family regarding palliative care versus hospice care secondary to advanced dementia, eventually [facility] was [facility] to [facility]. In [facility], according to , patient was persistently agitated, climbing on the bed on and off. Decreased appetite. Because of his agitation he received some medication yesterday, according to his and has been difficult to wake up since then. Meanwhile nursing staff also noticed labored breathing, he was cold and could not get O2 saturation, so was started on O2 by nasal cannula. As he was persistently sleepy, he was sent to ER for further evaluation. According to patient has been getting leg swelling since last Thursday with blisters on feet, groin fungal infection. She also noticed blood in his urine bag today patient is unable to provide any details, arousable and agitated with minimum touch. Vitals: Afebrile, pulse in 80s, RR 20s, blood pressure 129/80, saturating 96% on 3 L nasal cannula On exam: Labored breathing, mucosa dry, JVD elevated, patient is not cooperative for complete physical exam, pupils equal reactive bilaterally. Coarse respiratory sounds at the bases, CVS: S1-S2 RRR. Abdomen soft, NT, bowel sounds present. Castillo catheter present with red colored urine in bag, bilateral lower extremity edema with denuded skin on few spots with 2 flaccid blisters one on each foot. No signs of secondary infection. Labs: WBC 13.7, neutrophils 82%, hemoglobin 7.8, hematocrit 24.2, platelets 219, sodium 144, potassium 3.9, chloride 109, bicarbonate 22, anion gap 12, BUN 68, creatinine 6.2, troponin 0.16, proBNP 94,600, INR 3.74 Urine cloudy, more than 300 protein, large leukocyte esterase, more than 75 RBC, more than 75 WBC, large hemoglobin CXR: Low lung volume with pulmonary vascular congestion and interstitial edema. Increased pulmonary vascularity since chest x-ray 06/01/2017. CT head: No acute intracranial pathology. Chronic cerebral microangiopathic changes and moderate parenchymal volume loss. A and P 81-year-old male with extensive past medical history and recent hospitalization for A. fib with RVR, ESRD, persistent agitation, UTI. Patient was treated with an IV antibiotics for 4 days, gentle hydration, started on Cardizem for A. fib. During that hospitalization patient was persistently agitated, patient was started on Haldol and mirtazapine and was discharged to [facility]. At that time there was a discussion with family regarding palliative care versus hospice care secondary to advanced dementia. Even after discharge to [facility] patient was intermittently agitated, received some medication yesterday according to his , since then he has been difficult to arouse. He developed labored breathing in [facility] and was started on nasal cannula. Patient is not cooperative for examination in ER, agitated and pushes away while examining. Has coarse respiratory sounds, elevated JVD, appears labored breathing. He has bilateral lower extremity edema with blistering on the feet and included skin with no evidence of infection. He has mild leukocytosis with neutrophilia and UA possible for infection. He has end-stage renal disease which has not changed much but his troponin is significantly elevated from the previous hospitalization chest x-ray suggestive of vascular congestion compared to previous chest x-ray. I had a detailed discussion regarding his clinical condition with his , probably worsening renal function, ? Uremic, and apparent volume overloaded. Patient will ultimately need dialysis but at this point he is not candidate for any renal replacement therapy given his multiple comorbidities and advanced dementia. Patient has had been contemplating regarding hospice care. She had question regarding if patient would benefit from in-house versus at home hospice, for now she decided for comfort care measures only and evaluation for hospice in a.m. I also discussed regarding antibiotics with her, and he came to conclusion about not giving any antibiotics. + Comfort care measures for advanced dementia and end-stage renal disease with elevated troponins: NSEMI and UTI - Place in observation and Gen. medicine - Continue O2 by nasal cannula - Continue when necessary morphine for pain and respiratory distress and Haldol for agitation - Advance diet for comfort feeding: Supervised - Discontinue atorvastatin, calcitriol, aspirin, warfarin. Continue diltiazem and mirtazapine from tomorrow - Consult hospice - DNR DNI AND
--- NOTE | 2017-06-20 00:14 | CT SCAN REPORT ---
EXAMINATION: CT HEAD WITHOUT CONTRAST CLINICAL INFORMATION: Mental status change COMPARISON: 12/24/2016 TECHNIQUE: Contiguous axial imaging was performed from the skull base to vertex without intravenous administration of contrast. DLP: 647 mGy-cm FINDINGS: There is no evidence of acute intracranial hemorrhage or territorial infarction. No abnormal mass effect or midline shift is seen. Cornell to white matter differentiation is well preserved. No extra-axial fluid collections are identified. Moderate enlargement of the ventricles, sulci, and extra-axial CSF spaces is indicative of parenchymal volume loss. Marked confluent hypoattenuation in the subcortical and periventricular white matter are present, most commonly attributable to chronic microangiopathic changes. Chronic lacunar infarct is again seen in the region of the left external capsule. Probable small lacunar infarcts are present in the anterior limbs of the internal capsules as well. A small chronic infarct is present in the left precentral gyrus. No additional foci of encephalomalacia are identified. Calcific atherosclerosis is present within the cavernous and supraclinoid segments of the internal carotid arteries. A right scleral band is present. 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 The osseous structures and soft tissues are normal. The mastoid air cells and visualized portions of the paranasal sinuses are well aerated. IMPRESSION: No acute intracranial pathology. Chronic cerebral microangiopathic changes and moderate parenchymal volume loss.
--- NOTE | 2017-06-20 01:14 | NUR ---
PT TO ROOM 221 BED 1
--- NOTE | 2017-06-20 01:39 | NUR ---
REPORT GIVEN TO ALICE IRIZARRY ON GEN MED.
[2017-06-20 04:11] VITALS: BP 120/70
--- NOTE | 2017-06-20 06:30 | NUR ---
PT VERY AGITATED AND COMBATIVE AT THIS TIME. PT YELLING AND TRYING TO GET OOB. FALL PREC IN PLACE. DIRECTOR INFORMATION SECURITY ALISSA OCHOA REQUESTED TO ORDER YASMINE UPPER SOFT WRIST RESTRAINTS AND MEDICATION TO HELP PT CALM DOWN. WILL CONTINUE TO MONITOR.
[2017-06-20 14:47] VITALS: BP 134/66
--- NOTE | 2017-06-20 16:20 | NUR ---
PT CONTINUALLY YELLING OUT NAMES. GRANDSON AT BEDSIDE. PER GRANDSON, PT IS CALLING OUT NAMES OF FAMILY MEMBERS WHO HAVE PASSED AND PTS MENTAL STATUS IS NOT AT BASELINE FOR A FEW DAYS. PT ALSO AGITATED. MEDICATED WITH PRN MORPHINE PER EMAR. BILATERAL UPPER SOFT RESTRAINTS REMAIN IN PLACE D/T PATIENTS ATTEMPT AT PULLING AT LINES. SAFETY PRECAUTIONS MAINTAINED. WILL REASSESS NEED FOR RESTRAINTS.
--- NOTE | 2017-06-20 17:00 | NUR ---
CLARIFIED EKG ORDER FROM 1345 WITH PRODUCTION LEADER ALFREDITO. PER PRODUCTION LEADER, DOES NOT NEED TO BE DONE D/T PATIENTS COMFORT MEASURES STATUS.
[2017-06-20 22:04] VITALS: BP 140/70
[2017-06-20 22:21] VITALS: BP 140/70
[2017-06-21 06:28] VITALS: BP 134/60
--- NOTE | 2017-06-21 10:31 | PN- Housestaff ---
See Addendum Subjective Follow-up For: hypoxia Subjective: No overnight events. Patient is obtunded, no history can be obtained. Review of Systems Constitutional: Reports: no symptoms. EENTM: Reports: no symptoms. Cardiovascular: Reports: no symptoms. Respiratory: Reports: no symptoms. Gastrointestinal: Reports: no symptoms. Genitourinary: Reports: no symptoms. Musculoskeletal: Reports: no symptoms. Skin: Reports: no symptoms. Neurological/Psychological: Reports: no symptoms. Hematologic/Endocrine: Reports: no symptoms. Immunologic/Allergic: Reports: no symptoms. Objective Last 24 Hrs of Vital Signs/I&O Vital Signs Date Time Temp Pulse Resp B/P B/P Pulse O2 O2 Flow FiO2 Mean Ox Delivery Rate 06/21 0800 98 Nasal 2.0L Cannula 06/21 0628 98.5 95 20 134/60 97 Nasal Cannula 06/21 0000 96 Nasal 2.0L Cannula 06/20 2221 98.5 92 20 140/70 96 06/20 2204 97.5 89 20 140/70 92 06/20 1600 Nasal 2.0L Cannula 06/20 1447 97.9 87 20 134/66 94 Nasal 2.0L Cannula Intake & Output 06/21 1600 06/21 0800 06/21 0000 Intake Total 20 480 Output Total 300 Balance 20 180 Intake, IV 20 Intake, Oral 480 Output, Urine 300 Physical Exam General Appearance: Obtunded, arousable with sternal rub. Cardiovascular: Regular Rate, Normal S1, Normal S2 Lungs: Crackles bilaterally Abdomen: Normal Bowel Sounds, Soft, No Tenderness, Castillo Extremities: No Edema Current Medications: Current Medications Sig/Yanira Start time Last Medication Dose Route Stop Time Status Admin Calcitriol 0.25 MCG DAILY 06/20 1000 DC 06/20 PO 0937 Diltiazem HCl 180 MG DAILY 06/20 1000 AC 06/20 PO 0937 Haloperidol 1 MG ONCE ONE 06/21 0115 DC 06/21 IM 06/21 0116 0110 Haloperidol 1 MG DAILY 06/20 1811 AC 06/20 PO 1933 Isosorbide 30 MG DAILY 06/20 1000 AC 06/20 Mononitrate PO 09 Mirtazapine 7.5 MG AT BEDTIME 06/20 2200 AC 06/20 PO 2010 Morphine Sulfate 2 MG Q4 PRN 06/20 0145 AC 06/21 IV 0138 Last 24 Hrs of Lab/Sammy Results Last 24 Hrs of Labs/Mics: Laboratory Tests 06/20/17 1357: Troponin I Cancelled Assessment/Plan Assessment: 81-year-old gentleman with multiple comorbidities, end-stage renal disease determined to not be a candidate for dialysis due to his his severe dementia. Patient is to be admitted to general medicine floor Altered mental status: Possibly secondary to medications administered in ECF versus UTI versus dehydration versus uremia.Will try to avoid triggers such as unnecessary blood draws nursing procedures during sleep hours, decrease noise and patient area and reduce sliding at night. -Hospice consult -Holding oral medications because he cannot tolerate these at this time. Acute hypoxic respiratory failure: Most likely secondary to pulmonary edema noted on chest x-ray vs aspiration. On 2 L oxygen, satting 98% Atrial fibrillation:Will continue with diltiazem and imdur. Supratherapeutic INR 3.7 will hold Coumadin UTI: Discussed with at this time she does not wish to start any antibiotics Elevated troponin: Most likely demand ischemia secondary to renal failure however as he is hospice will not continue to trend End-stage renal disease: Not a candidate for dialysis [place] ofcomorbidities, will continue with calcitriol. Diet: Swallow eval. Nothing by mouth for now will reassess once mental status improves Dementia: Consider restarting mirtazapine and Remeron. DVT prophylaxis: Supratherapeutic INR Comfort measures Problem List: 1. Dementia with behavioral disturbance Pain Ratin Pain Location: no pain Pain Goal: Remain pain free Pain Plan: see a/p Tomorrow's Labs & Rationales: none
--- NOTE | 2017-06-21 13:56 | Patient Discharge Instructions ---
Discharge Instructions General Discharge Information You were seen/treated for: Hypoxia Special Instructions: To hospice. Acute Coronary Syndrome Inclusion Criteria At DC or during hospital stay patient has or had the following: ACS DIAGNOSIS No Discharge Core Measures Meds if any: Prescribed or Continued at Discharge Meds if any: NOT Prescribed or Continued at Discharge Congestive Heart Failure Inclusion Criteria At DC or during hospital stay patient has or had the following: CHF DIAGNOSIS No Discharge Core Measures Meds if any: Prescribed or Continued at Discharge Meds if any: NOT Prescribed or Continued at Discharge Cerebrovascular accident Inclusion Criteria At DC or during hospital stay patient has or had the following: CVA/TIA Diagnosis No Discharge Core Measures Meds if any: Prescribed or Continued at Discharge Meds if any: NOT Prescribed or Continued at Discharge Venous thromboembolism Inclusion Criteria VTE Diagnosis No VTE Type NONE VTE Confirmed by (Test) NONE Discharge Core Measures - Per Current guidelines, there needs to be overlap - treatment for the first 5 days of Warfarin therapy. - If discharged on Warfarin prior to 5 days of - overlap therapy, the patient will need to be - assessed for post discharge needs including - *Post discharge parental anticoagulation - *Warfarin and/or parental anticoagulation education - *Follow up date to check INR post discharge At least 5 days overlap therapy as Inpatient No Meds if any: Prescribed or Continued at Discharge Note: Overlap Therapy is Warfarin and Anticoagulant Meds if any: NOT Prescribed or Continued at Discharge
--- NOTE | 2017-06-21 14:00 | Discharge Summary ---
Visit Information Visit Dates Admission Date: 06/20/17 Discharge Date: 06/21/2017 Hospital Course Course Attending Physician: ESCOBAR HENNING MD Primary Care Physician: BARBARA CASTRO,[facility] Course: 81-year-old gentleman from nursing facility past medical history significant for end-stage renal disease stage V not a candidate for dialysis, dementia, indwelling Castillo catheter, recurrent UTI, hypertension atrial fibrillation on Coumadin, recently admitted to [facility] 06/01/17 to 06/10/17, sent from [facility] for desaturation. Information obtained indicates that he had been quite agitated at the [facility]. His reported that the patient was given some medicine at the facility because of his agitation 2 days ago and since then was noticeably more sleepy and unarousable. Patient's decided to bring him to [place] in order to stabilize him prior to hospice care. VS on admission: BP 129/80, HR 88, RR 20, SPO2 96% 3 LNC, T 97.4 Pertinent physical exam findings on admission: Obtunded, mildly arousable. Multiple blisters in the lower extremities. Pinpoint pupils with dry mucous membranes. RRR, normal S1/S2. Normal bowel sounds. Problem list: 1. Altered mental status 2. Acute hypoxic respiratory failure 3. Atrial fibrillation Hospital course: 1. Altered mental status * DDX includes UTI versus dehydration with uremia. * After an extensive discussion with the patient's , the decision was made to transition him to hospice. He was evaluated by our hospice/palliative team and deemed appropriate for [facility]. Patient will be transferred later on today 2. Acute hypoxic respiratory failure * Recommendations as above 3. Atrial fibrillation * Previously on Imdur and diltiazem, supratherapeutic INR of 3.7 * All medications discontinued at this time while patient is transitioning to hospice Allergies: Coded Allergies: ciprofloxacin (From CIPRO) (Mild, ITCHING 10/04/16) Disposition Summary Disposition Principal Diagnosis: Altered mental status with acute hypoxic respiratory failure Additional Diagnosis: Atrial fibrillation UTI Elevated troponins Discharge Disposition: hospice - medical facilit Discharge Instructions General Discharge Information Code Status: Hospice Patient's Diet: Per hospice Patient's Activity: [facility] Follow-Up Instructions/Appts: Patient will be discharged to hospice Medications at Discharge Discharge Medications: Stop taking the following medications: Atorvastatin Calcium (Lipitor) 80 MG TABLET ORAL DAILY Calcitriol (Rocaltrol) 0.25 MCG CAPSULE ORAL DAILY Multivitamin (Daily Multiple Vitamin) 1 EACH TABLET ORAL DAILY Aspirin (Ecotrin*) 81 MG TABLET.DR ORAL TWICE DAILY Isosorbide Mononitrate (Isosorbide Mononitrate ER) 30 MG TAB.ER.24H ORAL DAILY Qty = 30 Vit C/E/Zn/Coppr/Lutein/Zeaxan (Preservision Areds 2 Softgel) 250-200-40 CAPSULE ORAL TWICE DAILY Warfarin Sodium (Coumadin) 2.5 MG TABLET ORAL As Directed Polyethylene Glycol 3350 (Polyethylene Glycol 3350) 17 GRAM POWD.PACK ORAL as needed for CONSTIPATION Diltiazem HCl (Diltiazem 24HR ER) 180 MG CAP.ER.24H ORAL DAILY Haloperidol (Haloperidol) 1 MG TABLET ORAL Every night Qty = 30 Mirtazapine (Remeron) 15 MG TABLET ORAL AT BEDTIME Days = 30 Copies To: LAWSON CHATTERJEE APRN; ITZ CASTRO,GAYLA Batista; Nisreen DOWELL MD; FERNANDO JIMENEZ MD; TEAGAN CARDENAS MD
[2017-06-21 14:16] VITALS: BP 134/60
== END 2017-06-21 14:35 | disposition hospice, home (50) ==
LOC: ERH 19:30 → ERHI 06-20 00:21 → 2NA 06-20 00:21 → ENRESERV 06-20 01:02 → 2NA 06-20 02:40
PROVIDERS: Pediatrics; ADMIT Internal Medicine
DX: J96.01 Acute respiratory failure with hypoxia (principal); Z51.5 Encounter for palliative care; I12.0 Hypertensive chronic kidney disease with stage 5 chronic kidney disease or end stage renal disease; N18.6 End stage renal disease; Z99.2 Dependence on renal dialysis; F03.91 Unspecified dementia, unspecified severity, with behavioral disturbance; I48.91 Unspecified atrial fibrillation; Z79.01 Long term (current) use of anticoagulants; N39.0 Urinary tract infection, site not specified; I24.8 Other forms of acute ischemic heart disease; I25.10 Atherosclerotic heart disease of native coronary artery without angina pectoris; E78.5 Hyperlipidemia, unspecified
CPT/HCPCS: 81001; 93005; 93010; 96372; 96374; 96375; G0378; J1630